=== PATIENT | male | born 1945 | race Caucasian/White ===

== ENCOUNTER → 2017-09-08 10:25 | Outpatient (CLI) | payer MEDICARE, SELFPAY ==
[2017-09-08 11:31] LABS: Anion Gap 11 (5-15); BUN 53 mg/dL (7-18); Calcium,Total 9.1 mg/dL (8.5-10.1); Chloride 110 mmol/L (98-107); Creatinine, Serum 2.79 mg/dL (0.70-1.30); EST Glomerular Filtration Rate 24 mL/min (>60); Est Glom Filt Rate - Afr Amer 29 mL/min (>60); Glucose 181 mg/dL (74-106); Potassium 4.3 mmol/L (3.5-5.1); Sodium Level 141 mmol/L (136-145)
== END ==
PROVIDERS: Family Provider Family Medicine; PCP Family Medicine; Visit Provider Urology
DX: C61 Malignant neoplasm of prostate (principal)
CPT/HCPCS: 36415; 80048; 84153

== ENCOUNTER 2017-10-14 05:41 | Day surgery (SDC) | payer MEDICARE, SELFPAY ==
[2017-10-14] VITALS (7 sets, daily range): BP systolic 127–142; BP diastolic 78–87; PULSE 77–85; RESP 16; TEMP 36.8–36.9; O2SAT 92–98; BMI 28.0
[2017-10-14 06:31] LABS: Bedside Glucose 198 mg/dL (70-110)
[2017-10-14] MEDS: Cefazolin 2 GM in 0.9% Normal Saline 100 ML IV (07:17)
--- NOTE | 2017-10-14 07:34 | PCM.DC.URO ---
Discharge Diet: Light diet - advance as tolerated Discharge Activity: May not drive while taking narcotic pain medications. Allergies/Adverse Reactions: Allergies nalbuphine [From Nubain] Allergy (Verified 10/07/17 09:18) Unknown ramipril [From Altace] Allergy (Verified 10/07/17 09:18) Unknown Medications to take at Discharge Mccaskill-3 Fatty Acids [Fish Oil] 1,200 mg PO DAILY 02/06/16 Sertraline HCl [Zoloft] 100 mg PO DAILY 02/06/16 Atorvastatin Calcium [Lipitor] 40 mg PO QHS 03/09/16 Folic Acid 800 mcg PO DAILY 03/09/16 Lidocaine/Prilocaine [Lidocaine-Prilocaine Cream] 1 each TP PRN PRN 03/09/16 Ascorbic Acid [Vitamin C] 1,000 mg PO DAILY 07/28/16 Calcium Carbonate/Vitamin D3 [Calcium 600 + Vit D Caplet] 1 each PO DAILY 07/28/16 Antiarthritic Combination No.2 [Glucosamine-Chondroitin] 900 mg PO DAILY 09/29/16 Baking Soda 1 tab PO DAILY 10/07/17 Insulin Glargine [Lantus (BKC)] 10 units SC QHS 10/07/17 Insulin Lispro [Humalog] 20 unit SQ BID 10/07/17 Primary Care Physician: Fidencio Mar MD [Primary Care Provider] - Please Follow Up With: Chang Horton MD When: KEEP FOLLOW UP APPT.
--- NOTE | 2017-10-14 07:35 | PCM.OPRPT ---
Report of Operation Date of Procedure: 10/14/17 Pre-Operative Diagnosis: Prostate cancer with bilateral obstruction bilateral stents now has bilateral nephrostomy tubes. Post-Operative Diagnosis: Same Surgery/Procedure Performed:: Cystoscopy and removal of bilateral stents. Description of Surgical Findings:: Patient was taken back to the operating room at the smooth induction of MAC local he is placed in dorsal lithotomy position the penis and testicles were prepped and draped in usual sterile fashion within the bladder with a 21 Setswana rigid cystourethroscope grabbed the existing stents and pulled it out atraumatically. Patient bladder was drained is taken at the PACU in good condition. Type of Anesthesia:: General Drains: STENTS REMOVED - Admit VTE Documentation VTE Present on Admission: No VTE Mechan Device Prophylaxis: SCD's VTE Pharm Prophylaxis ordered?: No Reason prophylaxis not ordered:: Treatment Not Indicated
== END 2017-10-14 08:38 | disposition home or self-care (01) ==
LOC: SDC 05:41 → AC 05:42
PROVIDERS: Family Provider Family Medicine; PCP Family Medicine; Visit Provider Urology
PROC: (CPT 52310; principal; 2017-10-14 07:20)
DX: C61 Malignant neoplasm of prostate (principal); C79.51 Secondary malignant neoplasm of bone; N31.2 Flaccid neuropathic bladder, not elsewhere classified; R35.0 Frequency of micturition; N13.1 Hydronephrosis with ureteral stricture, not elsewhere classified; I10 Essential (primary) hypertension; E78.5 Hyperlipidemia, unspecified; I25.10 Atherosclerotic heart disease of native coronary artery without angina pectoris; F32.9 Major depressive disorder, single episode, unspecified; E11.9 Type 2 diabetes mellitus without complications; H91.90 Unspecified hearing loss, unspecified ear; G47.30 Sleep apnea, unspecified; Z79.899 Other long term (current) drug therapy; Z79.4 Long term (current) use of insulin
CPT/HCPCS: 52310; 82962; J7120; A4216; J2405

== ENCOUNTER → 2017-10-17 12:26 | Outpatient (CLI) | payer MEDICARE, SELFPAY ==
[2017-10-17 13:00] LABS: Hematocrit 37.1 % (40-54); Hemoglobin 12.4 g/dl (13.0-16.5); Mean Corp Hgb Conc 33.4 g/gl (32-36); Mean Corpuscular Hgb 31.4 pg (27.0-32.0); Mean Corpuscular Volume 93.9 fL (80-94); Mean Platelet Vol. 8.7 fl (6.2-12.0); Platelet Count 98 K/mm3 (150-450); RBC Distribution Width CV 14.2 % (11.6-14.6); RBC Distribution Width SD 48.4 fl (35.1-43.9); Red Blood Count 3.95 M/mm3 (4.6-6.2); Scan Indicated on CBC? Y/N NO; White Blood Count 6.2 K/mm3 (4.4-11.0)
[2017-10-17 13:07] LABS: Protein:Creat Ratio 2827 mg/g CRE (0-200)
[2017-10-17 13:28] LABS: Albumin, Serum 3.7 g/dL (3.2-5.0); BUN 49 mg/dL (7-18); BUN/Creat Ratio 18.8 RATIO (10-20); Calcium,Total 8.8 mg/dL (8.5-10.1); Chloride 110 mmol/L (98-107); Creatinine, Serum 2.61 mg/dL (0.70-1.30); EST Glomerular Filtration Rate 26 mL/min (>60); Est Glom Filt Rate - Afr Amer 31 mL/min (>60); Glucose 167 mg/dL (74-106); Phosphorus 2.8 mg/dL (2.5-4.9); Potassium 4.5 mmol/L (3.5-5.1); Sodium Level 141 mmol/L (136-145)
[2017-10-17 13:34] LABS: PTHIN 69.2 pg/mL (18.4-80.1)
== END ==
PROVIDERS: Family Provider Family Medicine; PCP Family Medicine; Visit Provider Internal Medicine Nephrology
DX: N18.4 Chronic kidney disease, stage 4 (severe) (principal); R80.9 Proteinuria, unspecified
CPT/HCPCS: 36415; 80069; 82570; 83970; 84156; 85027

== ENCOUNTER → 2017-10-24 16:12 | Outpatient (CLI) | payer MEDICARE, SELFPAY ==
[2017-10-24 17:19] LABS: Absolute Lymphocyte Count 2.63 X10^3/ul (0.83-4.51); Absolute Neutrophil Count 3.2 X10^3/uL (2.0-7.7); Basophil# 0.03 X10^3/uL; Basophil% 0.4 % (0-1); Eosinophil# 0.24 X10^3/uL; Eosinophils% 3.6 % (0-5); Hematocrit 38.7 % (40-54); Hemoglobin 12.8 g/dl (13.0-16.5); Lymphocyte # 2.63 X10^3/ul (4.0); Mean Corp Hgb Conc 33.1 g/gl (32-36); Mean Corpuscular Hgb 31.4 pg (27.0-32.0); Mean Corpuscular Volume 94.9 fL (80-94); Mean Platelet Vol. 9.2 fl (6.2-12.0); Monocyte# 0.63 X10^3/uL; Monocyte% 9.3 % (0-10); Neutrophil # 3.21 X10^3/uL (2.7-7.7); Neutrophil % 47.6 % (47-70); Platelet Count 102 K/mm3 (150-450); RBC Distribution Width CV 14.9 % (11.6-14.6); RBC Distribution Width SD 50.8 fl (35.1-43.9); Red Blood Count 4.08 M/mm3 (4.6-6.2); White Blood Count 6.8 K/mm3 (4.4-11.0)
[2017-10-24 17:22] LABS: POSITIVE COUNT NO; POSITIVE DIFFERENTIAL NO; POSITIVE MORPHOLOGY NO
[2017-10-24 17:47] LABS: AST(SGOT) 19 U/L (15-37); Alanine Aminotransfer ALT/SGPT 26 U/L (16-61); Albumin, Serum 3.9 g/dL (3.2-5.0); Alkaline Phosphatase 70 U/L (45-117); Anion Gap 10 (5-15); BUN 59 mg/dL (7-18); BUN/Creat Ratio 19.1 RATIO (10-20); Chloride 111 mmol/L (98-107); Creatinine, Serum 3.09 mg/dL (0.70-1.30); EST Glomerular Filtration Rate 21 mL/min (>60); Est Glom Filt Rate - Afr Amer 26 mL/min (>60); Globulin 3.9 g/dL (2.2-4.2); Glucose 79 mg/dL (74-106); Potassium 4.6 mmol/L (3.5-5.1); Protein, Total 7.8 g/dL (6.4-8.2); Sodium Level 140 mmol/L (136-145)
[2017-10-25 00:15] LABS: Xtra Tube EP Lab EXTRA TUBE
[2017-10-26 15:40] LABS: PSA, Total 1.4 ng/mL (0.0-4.0)
== END ==
PROVIDERS: Nurse Practitioner Family; Family Provider Family Medicine; PCP Family Medicine; Visit Provider Internal Medicine Medical Oncology
DX: C61 Malignant neoplasm of prostate (principal)
CPT/HCPCS: 36415; 80053; 84153; 85025

== ENCOUNTER → 2017-11-07 10:50 | Outpatient (CLI) | payer MEDICARE, SELFPAY | PROVIDERS: Family Provider Family Medicine; PCP Family Medicine; Visit Provider Urology | DX: N39.0 Urinary tract infection, site not specified (principal) | CPT/HCPCS: 87077; 87086; 87088; 87186 ==

== ENCOUNTER → 2017-11-16 08:58 | Outpatient (CLI) | payer MEDICARE, SELFPAY ==
--- NOTE | 2017-11-16 09:30 | RAD_ITS ---
STUDY: NEPHROSTOMY TUBE EXCHANGE RIGHT REASON FOR EXAM: Male, 71 years old. Displacement of the right percutaneous nephrostomy catheter FLUOROSCOPY TIME (if supplied): (0:56) minutes/seconds TECHNIQUE: The overlying skin was prepped and draped in the usual sterile fashion. An Amplatz guidewire was placed into the indwelling nephrostomy tube. Following this, a new 8 Venezuelan percutaneous nephrostomy catheter was placed with the tip in the proximal right ureter. COMPARISON: None. FINDINGS: Successful right nephrostomy tube exchange. The patient tolerated the procedure well. RAD/Nephrostomy Tube Exchange IMPRESSION: Successful right nephrostomy tube exchange. Electronically Signed: Hesham Lawson MD at 12:54 EDT Tel [phone], Service support ,
== END ==
PROVIDERS: Family Provider Family Medicine; PCP Family Medicine; Visit Provider Urology
DX: N13.1 Hydronephrosis with ureteral stricture, not elsewhere classified (principal)
CPT/HCPCS: 50435

== ENCOUNTER → 2017-11-24 09:48 | Outpatient (CLI) | payer MEDICARE, SELFPAY ==
[2017-11-24 11:28] LABS: Albumin, Serum 3.7 g/dL (3.2-5.0); BUN 53 mg/dL (7-18); BUN/Creat Ratio 17.7 RATIO (10-20); Chloride 112 mmol/L (98-107); Creatinine, Serum 2.99 mg/dL (0.70-1.30); EST Glomerular Filtration Rate 22 mL/min (>60); Est Glom Filt Rate - Afr Amer 27 mL/min (>60); Glucose 196 mg/dL (74-106); Potassium 4.4 mmol/L (3.5-5.1); Sodium Level 139 mmol/L (136-145)
== END ==
PROVIDERS: Family Provider Family Medicine; PCP Family Medicine; Visit Provider Internal Medicine Nephrology
DX: E11.22 Type 2 diabetes mellitus with diabetic chronic kidney disease (principal); N18.9 Chronic kidney disease, unspecified
CPT/HCPCS: 36415; 80069

== ENCOUNTER → 2017-12-22 09:35 | Outpatient (CLI) | payer MEDICARE, SELFPAY ==
[2017-12-22 11:41] LABS: Anion Gap 12 (5-15); BUN 46 mg/dL (7-18); BUN/Creat Ratio 16.1 RATIO (10-20); Calcium,Total 9.2 mg/dL (8.5-10.1); Chloride 112 mmol/L (98-107); Creatinine, Serum 2.85 mg/dL (0.70-1.30); EST Glomerular Filtration Rate 23 mL/min (>60); Est Glom Filt Rate - Afr Amer 28 mL/min (>60); Glucose 148 mg/dL (74-106); PSA,Total- Diagnostic 1.52 ng/mL (0.0-4.0); Potassium 4.9 mmol/L (3.5-5.1); Sodium Level 141 mmol/L (136-145)
== END ==
PROVIDERS: Family Provider Family Medicine; PCP Family Medicine; Visit Provider Urology
DX: C61 Malignant neoplasm of prostate (principal)
CPT/HCPCS: 36415; 80048; 84153

== ENCOUNTER → 2017-12-27 10:06 | Outpatient (CLI) | payer MEDICARE, SELFPAY ==
[2017-12-27 14:31] LABS: Anion Gap 13 (5-15); BUN 50 mg/dL (7-18); BUN/Creat Ratio 16.2 RATIO (10-20); Chloride 112 mmol/L (98-107); Cholesterol 105 mg/dL (200); Creatinine, Serum 3.08 mg/dL (0.70-1.30); EST Glomerular Filtration Rate 21 mL/min (>60); Est Glom Filt Rate - Afr Amer 26 mL/min (>60); Glucose 161 mg/dL (74-106); High Density Lipoprotein 20 mg/dL; Potassium 4.3 mmol/L (3.5-5.1); Sodium Level 140 mmol/L (136-145); Triglycerides 478 mg/dL
== END ==
PROVIDERS: Family Provider Family Medicine; PCP Family Medicine; Visit Provider Family Medicine
DX: E11.9 Type 2 diabetes mellitus without complications (principal); E78.5 Hyperlipidemia, unspecified
CPT/HCPCS: 36415; 80048; 80061; 83036

== ENCOUNTER → 2017-12-29 09:40 | Outpatient (CLI) | payer MEDICARE, SELFPAY ==
--- NOTE | 2017-12-29 09:43 | RAD_ITS ---
STUDY: NEPHROSTOMY TUBE CHANGE LEFT REASON FOR EXAM: Male, 72 years old. The patient is scheduled for exchange of the left nephrostomy catheter. FLUOROSCOPY TIME (if supplied): (36 seconds.) minutes/seconds TECHNIQUE: The patient was in the prone position. The overlying skin was prepped and draped in usual sterile fashion. The indwelling 8 Vincentian nephrostomy catheter was exchanged over a guidewire. The patient tolerated the procedure well. COMPARISON: None. FINDINGS: Successful exchange of the left nephrostomy catheter with an 8 Vincentian nephrostomy catheter. RAD/Nephrostomy Tube Exchange IMPRESSION: Successful left nephrostomy tube exchange. The patient tolerated the procedure well. Electronically Signed: Hesham Lawson MD at 12:55 EDT Tel [phone], Service support ,
--- NOTE | 2017-12-29 10:20 | RAD_ITS ---
STUDY: NEPHROSTOMY CATHETER EXCHANGE RIGHT REASON FOR EXAM: Male, 72 years old. Indwelling right nephrostomy catheter. FLUOROSCOPY TIME (if supplied): (36 seconds.) minutes/seconds TECHNIQUE: The patient was in the prone position. The right flank was prepped and draped in the usual sterile fashion. Following local anesthetic application and under direct venographic guidance, the indwelling nephrostomy catheter was exchanged for a new 8 Montserratian nephrostomy catheter. The patient tolerated the procedure well. COMPARISON: None. RAD/Nephrostomy Tube Exchange IMPRESSION: Successful exchange of the right atrium and percutaneous nephrostomy catheter. The tip is within the right renal pelvis. The patient tolerated the procedure well. Electronically Signed: Hesham Lawson MD at 12:56 EDT Tel [phone], Service support ,
== END ==
PROVIDERS: Family Provider Family Medicine; PCP Family Medicine; Visit Provider Urology
DX: N13.1 Hydronephrosis with ureteral stricture, not elsewhere classified (principal); R33.9 Retention of urine, unspecified
CPT/HCPCS: 50435

== ENCOUNTER → 2018-01-16 13:50 | Outpatient (CLI) | payer MEDICARE, SELFPAY ==
[2018-01-16 14:53] LABS: Hematocrit 34.2 % (40-54); Hemoglobin 11.9 g/dl (13.0-16.5); Mean Corp Hgb Conc 34.8 g/gl (32-36); Mean Corpuscular Hgb 32.4 pg (27.0-32.0); Mean Corpuscular Volume 93.2 fL (80-94); Mean Platelet Vol. 9.3 fl (6.2-12.0); Platelet Count 100 K/mm3 (150-450); RBC Distribution Width SD 49.2 fl (35.1-43.9); Red Blood Count 3.67 M/mm3 (4.6-6.2); White Blood Count 5.8 K/mm3 (4.4-11.0)
[2018-01-16 14:54] LABS: Scan Indicated on CBC? Y/N NO
[2018-01-16 15:14] LABS: Albumin, Serum 3.8 g/dL (3.2-5.0); BUN 61 mg/dL (7-18); BUN/Creat Ratio 17.8 RATIO (10-20); Calcium,Total 9.2 mg/dL (8.5-10.1); Chloride 111 mmol/L (98-107); Creatinine, Serum 3.43 mg/dL (0.70-1.30); EST Glomerular Filtration Rate 19 mL/min (>60); Est Glom Filt Rate - Afr Amer 23 mL/min (>60); Glucose 232 mg/dL (74-106); Phosphorus 2.7 mg/dL (2.5-4.9); Potassium 4.5 mmol/L (3.5-5.1); Sodium Level 144 mmol/L (136-145)
[2018-01-16 15:25] LABS: Vitamin D,25 Hydroxy 18.2 ng/mL (29.95-100.01)
== END ==
PROVIDERS: Family Provider Family Medicine; PCP Family Medicine; Visit Provider Internal Medicine Nephrology
DX: E11.22 Type 2 diabetes mellitus with diabetic chronic kidney disease (principal); N18.4 Chronic kidney disease, stage 4 (severe)
CPT/HCPCS: 36415; 80069; 82306; 85027

== ENCOUNTER → 2018-01-26 09:03 | Outpatient (CLI) | payer MEDICARE, SELFPAY ==
[2018-01-26 09:53] LABS: Albumin, Serum 3.9 g/dL (3.2-5.0); BUN 61 mg/dL (7-18); BUN/Creat Ratio 17.5 RATIO (10-20); Calcium,Total 9.1 mg/dL (8.5-10.1); Chloride 112 mmol/L (98-107); Creatinine, Serum 3.48 mg/dL (0.70-1.30); EST Glomerular Filtration Rate 18 mL/min (>60); Est Glom Filt Rate - Afr Amer 22 mL/min (>60); Glucose 166 mg/dL (74-106); Phosphorus 3.4 mg/dL (2.5-4.9); Potassium 4.7 mmol/L (3.5-5.1); Sodium Level 142 mmol/L (136-145)
== END ==
PROVIDERS: Family Provider Family Medicine; PCP Family Medicine; Visit Provider Internal Medicine Nephrology
DX: R30.0 Dysuria (principal); N17.9 Acute kidney failure, unspecified
CPT/HCPCS: 36415; 80069; 87086; 87088; 87186

== ENCOUNTER → 2018-02-07 10:50 | Outpatient (CLI) | payer MEDICARE, SELFPAY ==
--- NOTE | 2018-02-07 11:08 | RAD_ITS ---
STUDY: RIGHT NEPHROSTOMY CATHETER FLUOROSCOPICALLY GUIDED INJECTION REASON FOR EXAM: Male, 72 years old. Indwelling right nephrostomy catheter. Check patency. FLUOROSCOPY TIME (if supplied): (30 seconds.) COMPARISON: 12/29/2017 TECHNIQUE: The patient was in the prone position. The right indwelling nephrostomy catheter was injected with Cystografin. The patient tolerated the procedure well. Findings: Initially, iodine contrast is noted within the nephrostomy tube but not pigtail portion. Small amount of contrast appears to exit the most lateral lumen of the pigtail catheter and partially fills the lateral nephrostomy tube track outside of the nephrostomy tube. Subsequent injection shows filling of the moderately enlarged inferior pelvicalyceal system, moderately enlarged renal pelvis plus moderately enlarged proximal ureter without filling defect identified. No filling is identified of the mid and upper right renal collecting system. RAD/Urography Antegrade Nephrostog IMPRESSION: High-grade obstruction right nephrostomy tube as described. However, the nephrostomy tube tip is identified within the right renal inferior pelvocalyceal system with moderate dilated left renal pelvis and proximal ureter seen without filling defects. Small amount of iodinated contrast fills the nephrostomy tract laterally within the initial injection as described. Results communicated by Dr. Daugherty to the patient's attending physician Dr. Horton 02/07/2018 at approximately 1230 hours. The patient tolerated the procedure well and stated he would call and arrange for a visit with Dr. Horton. Electronically Signed: Konrad Daugherty, at 15:29 EDT Tel , Service support ,
== END ==
PROVIDERS: Family Provider Family Medicine; PCP Family Medicine; Visit Provider Urology
DX: N13.30 Unspecified hydronephrosis (principal)
CPT/HCPCS: 50684; 74425; Q9967

== ENCOUNTER → 2018-02-09 13:22 | Outpatient (CLI) | payer MEDICARE, SELFPAY ==
[2018-02-09 14:54] LABS: Albumin, Serum 3.8 g/dL (3.2-5.0); BUN 55 mg/dL (7-18); BUN/Creat Ratio 15.5 RATIO (10-20); Calcium,Total 9.5 mg/dL (8.5-10.1); Chloride 110 mmol/L (98-107); Creatinine, Serum 3.54 mg/dL (0.70-1.30); EST Glomerular Filtration Rate 18 mL/min (>60); Est Glom Filt Rate - Afr Amer 22 mL/min (>60); Glucose 193 mg/dL (74-106); Phosphorus 3.5 mg/dL (2.5-4.9); Potassium 4.9 mmol/L (3.5-5.1); Sodium Level 140 mmol/L (136-145)
== END ==
PROVIDERS: Family Provider Family Medicine; PCP Family Medicine; Visit Provider Internal Medicine Nephrology
DX: N18.4 Chronic kidney disease, stage 4 (severe) (principal)
CPT/HCPCS: 36415; 80069

== ENCOUNTER → 2018-02-13 17:43 | Outpatient (CLI) | payer MEDICARE, SELFPAY | PROVIDERS: Visit Provider Urology | DX: R82.99 Other abnormal findings in urine (principal) | CPT/HCPCS: 87086; 87088; 87186 ==

== ENCOUNTER → 2018-03-08 09:41 | Outpatient (CLI) | payer MEDICARE, SELFPAY ==
[2018-03-08 12:42] LABS: Albumin, Serum 3.7 g/dL (3.2-5.0); BUN 51 mg/dL (7-18); BUN/Creat Ratio 16.6 RATIO (10-20); Calcium,Total 9.2 mg/dL (8.5-10.1); Chloride 116 mmol/L (98-107); Creatinine, Serum 3.07 mg/dL (0.70-1.30); EST Glomerular Filtration Rate 21 mL/min (>60); Est Glom Filt Rate - Afr Amer 26 mL/min (>60); Glucose 119 mg/dL (74-106); Phosphorus 3.4 mg/dL (2.5-4.9); Potassium 4.7 mmol/L (3.5-5.1); Sodium Level 142 mmol/L (136-145)
== END ==
PROVIDERS: Family Provider Family Medicine; PCP Family Medicine; Visit Provider Internal Medicine Nephrology
DX: N18.4 Chronic kidney disease, stage 4 (severe) (principal)
CPT/HCPCS: 36415; 80069

== ENCOUNTER → 2018-03-30 10:47 | Outpatient (CLI) | payer MEDICARE, SELFPAY ==
[2018-03-30 11:50] LABS: Anion Gap 8 (5-15); BUN 57 mg/dL (7-18); BUN/Creat Ratio 17.5 RATIO (10-20); Calcium,Total 9.3 mg/dL (8.5-10.1); Chloride 112 mmol/L (98-107); Creatinine, Serum 3.25 mg/dL (0.70-1.30); EST Glomerular Filtration Rate 20 mL/min (>60); Est Glom Filt Rate - Afr Amer 24 mL/min (>60); Glucose 120 mg/dL (74-106); PSA,Total- Diagnostic 2.21 ng/mL (0.0-4.0); Potassium 4.6 mmol/L (3.5-5.1); Sodium Level 138 mmol/L (136-145)
== END ==
PROVIDERS: Family Provider Family Medicine; PCP Family Medicine; Referring Provider Urology; Visit Provider Urology
DX: C61 Malignant neoplasm of prostate (principal)
CPT/HCPCS: 36415; 80048; 84153

== ENCOUNTER → 2018-04-06 09:51 | Outpatient (CLI) | payer MEDICARE, SELFPAY ==
[2018-04-06 10:53] LABS: Anion Gap 11 (5-15); BUN 57 mg/dL (7-18); BUN/Creat Ratio 16.4 RATIO (10-20); Calcium,Total 8.9 mg/dL (8.5-10.1); Chloride 112 mmol/L (98-107); Cholesterol 94 mg/dL (200); Creatinine, Serum 3.47 mg/dL (0.70-1.30); EST Glomerular Filtration Rate 19 mL/min (>60); Est Glom Filt Rate - Afr Amer 22 mL/min (>60); Glucose 290 mg/dL (74-106); High Density Lipoprotein 17 mg/dL; Potassium 4.2 mmol/L (3.5-5.1); Sodium Level 140 mmol/L (136-145); Triglycerides 820 mg/dL
== END ==
PROVIDERS: Family Provider Family Medicine; PCP Family Medicine; Referring Provider Family Medicine; Visit Provider Family Medicine
DX: E11.9 Type 2 diabetes mellitus without complications (principal); E78.5 Hyperlipidemia, unspecified
CPT/HCPCS: 36415; 80048; 80061; 83036

== ENCOUNTER → 2018-04-24 09:44 | Outpatient (CLI) | payer MEDICARE, SELFPAY ==
[2018-04-24 12:25] LABS: Absolute Lymphocyte Count 2.01 X10^3/ul (0.83-4.51); Absolute Neutrophil Count 2.5 X10^3/uL (2.0-7.7); Basophil# 0.04 X10^3/uL; Basophil% 0.7 % (0-1); Eosinophil# 0.26 X10^3/uL; Eosinophils% 4.8 % (0-5); Hematocrit 34.4 % (40-54); Hemoglobin 11.5 g/dl (13.0-16.5); Lymphocyte # 2.01 X10^3/ul (4.0); Lymphocyte % 37.2 % (19-41); Mean Corp Hgb Conc 33.4 g/gl (32-36); Mean Corpuscular Volume 95.8 fL (80-94); Mean Platelet Vol. 9.6 fl (6.2-12.0); Monocyte# 0.53 X10^3/uL; Monocyte% 9.8 % (0-10); Neutrophil # 2.52 X10^3/uL (2.7-7.7); Neutrophil % 46.6 % (47-70); Platelet Count 124 K/mm3 (150-450); RBC Distribution Width CV 14.5 % (11.6-14.6); RBC Distribution Width SD 48.3 fl (35.1-43.9); Red Blood Count 3.59 M/mm3 (4.6-6.2); White Blood Count 5.4 K/mm3 (4.4-11.0)
[2018-04-24 12:30] LABS: POSITIVE COUNT NO; POSITIVE DIFFERENTIAL NO; POSITIVE MORPHOLOGY NO
[2018-04-24 13:00] LABS: ALB/GLOB Ratio 1.1 RATIO (0.9-2.4); AST(SGOT) 18 U/L (15-37); Alanine Aminotransfer ALT/SGPT 24 U/L (16-61); Alkaline Phosphatase 81 U/L (45-117); Anion Gap 13 (5-15); BUN 57 mg/dL (7-18); BUN/Creat Ratio 17.5 RATIO (10-20); Calcium,Total 8.9 mg/dL (8.5-10.1); Chloride 107 mmol/L (98-107); Creatinine, Serum 3.25 mg/dL (0.70-1.30); EST Glomerular Filtration Rate 20 mL/min (>60); Est Glom Filt Rate - Afr Amer 24 mL/min (>60); Globulin 3.7 g/dL (2.2-4.2); Glucose 194 mg/dL (74-106); PSA,Total- Diagnostic 2.63 ng/mL (0.0-4.0); Potassium 4.6 mmol/L (3.5-5.1); Protein, Total 7.7 g/dL (6.4-8.2); Sodium Level 141 mmol/L (136-145)
[2018-04-24 17:47] LABS: Xtra Tube EP Lab EXTRA TUBE
== END ==
PROVIDERS: Family Provider Family Medicine; PCP Family Medicine; Referring Provider Internal Medicine Medical Oncology; Visit Provider Internal Medicine Medical Oncology
DX: C61 Malignant neoplasm of prostate (principal)
CPT/HCPCS: 36415; 80053; 84153; 85025

== ENCOUNTER → 2018-05-11 09:14 | Outpatient (CLI) | payer MEDICARE, SELFPAY ==
[2018-05-11 10:33] LABS: Hematocrit 33.6 % (40-54); Hemoglobin 10.9 g/dl (13.0-16.5); Mean Corp Hgb Conc 32.4 g/gl (32-36); Mean Corpuscular Hgb 31.1 pg (27.0-32.0); Mean Corpuscular Volume 95.7 fL (80-94); Mean Platelet Vol. 9.4 fl (6.2-12.0); Platelet Count 111 K/mm3 (150-450); RBC Distribution Width CV 15.4 % (11.6-14.6); RBC Distribution Width SD 53.7 fl (35.1-43.9); Red Blood Count 3.51 M/mm3 (4.6-6.2); White Blood Count 4.7 K/mm3 (4.4-11.0)
[2018-05-11 10:37] LABS: Scan Indicated on CBC? Y/N NO
[2018-05-11 11:03] LABS: Albumin, Serum 3.6 g/dL (3.2-5.0); BUN 55 mg/dL (7-18); BUN/Creat Ratio 16.2 RATIO (10-20); Calcium,Total 8.8 mg/dL (8.5-10.1); Chloride 111 mmol/L (98-107); Creatinine, Serum 3.39 mg/dL (0.70-1.30); EST Glomerular Filtration Rate 19 mL/min (>60); Est Glom Filt Rate - Afr Amer 23 mL/min (>60); Glucose 223 mg/dL (74-106); Phosphorus 3.3 mg/dL (2.5-4.9); Potassium 4.5 mmol/L (3.5-5.1); Sodium Level 141 mmol/L (136-145)
[2018-05-11 11:04] LABS: PTHIN 74.6 pg/mL (18.4-80.1)
== END ==
PROVIDERS: Family Provider Family Medicine; PCP Family Medicine; Referring Provider Internal Medicine Nephrology; Visit Provider Internal Medicine Nephrology
DX: N18.4 Chronic kidney disease, stage 4 (severe) (principal)
CPT/HCPCS: 36415; 80069; 83970; 85027

== ENCOUNTER → 2018-07-05 09:22 | Outpatient (CLI) | payer MEDICARE, SELFPAY ==
[2018-04-27 11:14] VITALS: BMI 30.5
[2018-07-05 11:14] LABS: Hematocrit 35.5 % (40-54); Hemoglobin 11.5 g/dl (13.0-16.5); Mean Corp Hgb Conc 32.4 g/gl (32-36); Mean Corpuscular Hgb 30.2 pg (27.0-32.0); Mean Corpuscular Volume 93.2 fL (80-94); Mean Platelet Vol. 9.7 fl (6.2-12.0); Platelet Count 102 K/mm3 (150-450); RBC Distribution Width CV 15.3 % (11.6-14.6); RBC Distribution Width SD 50.5 fl (35.1-43.9); Red Blood Count 3.81 M/mm3 (4.6-6.2); White Blood Count 4.9 K/mm3 (4.4-11.0)
[2018-07-05 11:15] LABS: Scan Indicated on CBC? Y/N NO
[2018-07-05 11:55] LABS: Albumin, Serum 3.9 g/dL (3.2-5.0); BUN 73 mg/dL (7-18); BUN/Creat Ratio 22.1 RATIO (10-20); Calcium,Total 9.1 mg/dL (8.5-10.1); Chloride 109 mmol/L (98-107); EST Glomerular Filtration Rate 20 mL/min (>60); Est Glom Filt Rate - Afr Amer 24 mL/min (>60); Glucose 194 mg/dL (74-106); Potassium 4.4 mmol/L (3.5-5.1); Sodium Level 140 mmol/L (136-145)
[2018-07-05 11:56] LABS: PTHIN 76.9 pg/mL (18.4-80.1)
== END ==
PROVIDERS: Family Provider Family Medicine; PCP Family Medicine; Referring Provider Internal Medicine Nephrology; Visit Provider Internal Medicine Nephrology
DX: N18.4 Chronic kidney disease, stage 4 (severe) (principal)
CPT/HCPCS: 36415; 80069; 83970; 85027

== ENCOUNTER → 2018-07-10 09:29 | Outpatient (CLI) | payer MEDICARE, SELFPAY ==
[2018-04-27 11:14] VITALS: BMI 30.5
[2018-07-10 10:39] LABS: PSA,Total- Diagnostic 3.82 ng/mL (0.0-4.0)
== END ==
PROVIDERS: Family Provider Family Medicine; PCP Family Medicine; Referring Provider Urology; Visit Provider Urology
DX: C61 Malignant neoplasm of prostate (principal)
CPT/HCPCS: 36415; 84153

== ENCOUNTER → 2018-09-11 09:10 | Outpatient (CLI) | payer MEDICARE, SELFPAY ==
[2018-04-27 11:14] VITALS: BMI 30.5
[2018-09-11 09:55] LABS: Hematocrit 34.6 % (40-54); Hemoglobin 11.2 g/dl (13.0-16.5); Mean Corp Hgb Conc 32.4 g/gl (32-36); Mean Corpuscular Hgb 29.6 pg (27.0-32.0); Mean Corpuscular Volume 91.5 fL (80-94); Mean Platelet Vol. 9.4 fl (6.2-12.0); Platelet Count 119 K/mm3 (150-450); RBC Distribution Width CV 15.9 % (11.6-14.6); RBC Distribution Width SD 51.7 fl (35.1-43.9); Red Blood Count 3.78 M/mm3 (4.6-6.2); White Blood Count 6.9 K/mm3 (4.4-11.0)
[2018-09-11 09:58] LABS: Scan Indicated on CBC? Y/N NO
[2018-09-11 10:19] LABS: Albumin, Serum 3.8 g/dL (3.2-5.0); BUN 70 mg/dL (7-18); BUN/Creat Ratio 20.5 RATIO (10-20); Calcium,Total 9.4 mg/dL (8.5-10.1); Chloride 108 mmol/L (98-107); Creatinine, Serum 3.42 mg/dL (0.70-1.30); EST Glomerular Filtration Rate 19 mL/min (>60); Est Glom Filt Rate - Afr Amer 23 mL/min (>60); Glucose 235 mg/dL (74-106); Phosphorus 4.2 mg/dL (2.5-4.9); Potassium 4.7 mmol/L (3.5-5.1); Sodium Level 139 mmol/L (136-145)
[2018-09-11 10:24] LABS: PTHIN 60.2 pg/mL (18.4-80.1)
== END ==
PROVIDERS: Family Provider Family Medicine; PCP Family Medicine; Referring Provider Internal Medicine Nephrology; Visit Provider Internal Medicine Nephrology
DX: N18.4 Chronic kidney disease, stage 4 (severe) (principal)
CPT/HCPCS: 36415; 80069; 83970; 85027

== ENCOUNTER → 2018-10-10 | Outpatient (CLI) | payer MEDICARE, SELFPAY ==
[2018-04-27 11:14] VITALS: BMI 30.5
[2018-10-10 11:38] LABS: Anion Gap 6 (5-15); BUN 47 mg/dL (7-18); BUN/Creat Ratio 13.5 RATIO (10-20); Calcium,Total 9.3 mg/dL (8.5-10.1); Chloride 112 mmol/L (98-107); Creatinine, Serum 3.47 mg/dL (0.70-1.30); EST Glomerular Filtration Rate 18 mL/min (>60); Est Glom Filt Rate - Afr Amer 22 mL/min (>60); Glucose 161 mg/dL (74-106); Potassium 5.2 mmol/L (3.5-5.1); Sodium Level 138 mmol/L (136-145)
== END | disposition home or self-care (01) ==
LOC: LAB 10:10
PROVIDERS: Family Provider Family Medicine; PCP Family Medicine; Referring Provider Urology; Visit Provider Urology
DX: C61 Malignant neoplasm of prostate (principal)
CPT/HCPCS: 36415; 80048; 84153

== ENCOUNTER → 2018-10-23 | Outpatient (CLI) | payer MEDICARE, SELFPAY ==
[2018-10-23 08:23] LABS: Absolute Lymphocyte Count 1.65 X10^3/ul (0.83-4.51); Basophil# 0.02 X10^3/uL; Basophil% 0.3 % (0-1); Eosinophil# 0.17 X10^3/uL; Eosinophils% 2.3 % (0-5); Hematocrit 32.7 % (40-54); Hemoglobin 10.7 g/dl (13.0-16.5); Lymphocyte # 1.65 X10^3/ul (4.0); Lymphocyte % 22.7 % (19-41); Mean Corp Hgb Conc 32.7 g/gl (32-36); Mean Corpuscular Hgb 28.7 pg (27.0-32.0); Mean Corpuscular Volume 87.7 fL (80-94); Mean Platelet Vol. 8.5 fl (6.2-12.0); Monocyte# 0.41 X10^3/uL; Monocyte% 5.6 % (0-10); Neutrophil # 4.98 X10^3/uL (2.7-7.7); Neutrophil % 68.7 % (47-70); Platelet Count 123 K/mm3 (150-450); RBC Distribution Width CV 16.6 % (11.6-14.6); RBC Distribution Width SD 53.1 fl (35.1-43.9); Red Blood Count 3.73 M/mm3 (4.6-6.2); White Blood Count 7.3 K/mm3 (4.4-11.0)
[2018-10-23 08:38] LABS: POSITIVE COUNT NO; POSITIVE DIFFERENTIAL NO; POSITIVE MORPHOLOGY NO
[2018-10-23 08:50] LABS: Anion Gap 10 (5-15); BUN 73 mg/dL (7-18); BUN/Creat Ratio 18.4 RATIO (10-20); Chloride 111 mmol/L (98-107); Cholesterol 90 mg/dL (200); Creatinine, Serum 3.96 mg/dL (0.70-1.30); EST Glomerular Filtration Rate 16 mL/min (>60); Est Glom Filt Rate - Afr Amer 19 mL/min (>60); Glucose 233 mg/dL (74-106); High Density Lipoprotein 30 mg/dL; Potassium 4.5 mmol/L (3.5-5.1); Sodium Level 137 mmol/L (136-145); Triglycerides 308 mg/dL; Very Low Density Lipoprotein 62 mg/dL (5-40)
[2018-10-23 08:57] LABS: ALB/GLOB Ratio 0.9 RATIO (0.9-2.4); AST(SGOT) 12 U/L (15-37); Alanine Aminotransfer ALT/SGPT 19 U/L (16-61); Albumin, Serum 3.8 g/dL (3.2-5.0); Alkaline Phosphatase 69 U/L (45-117); Anion Gap 11 (5-15); BUN 72 mg/dL (7-18); BUN/Creat Ratio 18.4 RATIO (10-20); Chloride 111 mmol/L (98-107); Creatinine, Serum 3.92 mg/dL (0.70-1.30); EST Glomerular Filtration Rate 16 mL/min (>60); Est Glom Filt Rate - Afr Amer 19 mL/min (>60); Globulin 4.4 g/dL (2.2-4.2); Glucose 232 mg/dL (74-106); Potassium 4.5 mmol/L (3.5-5.1); Protein, Total 8.2 g/dL (6.4-8.2); Sodium Level 138 mmol/L (136-145)
[2018-10-23 10:01] LABS: Hemoglobin A1c 7.1 % (4.2-6.3)
== END | disposition home or self-care (01) ==
PROVIDERS: Family Provider Family Medicine; PCP Family Medicine; Referring Provider Internal Medicine Medical Oncology; Visit Provider Internal Medicine Medical Oncology
DX: I10 Essential (primary) hypertension (principal); C61 Malignant neoplasm of prostate; I25.10 Atherosclerotic heart disease of native coronary artery without angina pectoris; E11.9 Type 2 diabetes mellitus without complications
CPT/HCPCS: 36415; 80048; 80053; 80061; 83036; 84153; 85025

== ENCOUNTER → 2018-11-17 | Outpatient (CLI) | payer MEDICARE, SELFPAY ==
[2018-10-26 13:09] VITALS: BMI 29.4
--- NOTE | 2018-11-17 12:43 | CT_ITS ---
STUDY: CT ABDOMEN AND PELVIS WITHOUT CONTRAST REASON FOR EXAM: Male, 72 years old. Prostate cancer. Bilateral nephrostomy tubes. RADIATION DOSAGE (If Supplied By Facility): CTDIvol = ( 14.34 ) mGy, DLP = ( 784.71 ) mGycm TECHNIQUE: Transaxial images were obtained from the dome of the diaphragm to the symphysis pubis without oral contrast, and without intravenous contrast. Sagittal and coronal images were reconstructed. Individualized dose optimization techniques were used for this CT. COMPARISON: April 23, 2017. FINDINGS: There is a stable 4 mm nodule at the right lung base. The visualized portions of the heart are within normal limits. Small cysts are noted in the liver. Normal gallbladder and extrahepatic biliary system. Normal spleen. Normal pancreas. Normal bilateral adrenal glands. A nephrostomy tube is noted in the right kidney. There is mild right hydroureter without evidence for stone. A left nephrostomy tube is noted. There is mild left hydroureter without visualization of stone. Normal visualized stomach. Normal small intestine. Normal colon. The appendix is visualized and appears normal. Normal abdominal aorta. Normal inferior vena cava. Normal retroperitoneum. There is extensive thickening of the urinary bladder wall. There is mass effect on the lower urinary bladder possibly related to prostate. Normal abdominal wall. There is stable sclerosis in the L1 vertebral body. CT/Abdomen/Pel W ORAL Cont Only IMPRESSION: Bilateral nephrostomy tubes. Prominent thickening of the urinary bladder wall. Possible mass effect in the lower urinary bladder which could be related to the prostate. Clinical correlation recommended. Bilateral hydroureter. Small cysts in the liver. Stable lung nodule on the right. Stable sclerosis in the L1 vertebral body. Underlying metastatic disease is not excluded. Electronically Signed: Dallin Choe, at 11:55 EDT Tel , Service support ,
== END | disposition home or self-care (01) ==
LOC: CT 12:42
PROVIDERS: Family Provider Family Medicine; PCP Family Medicine; Referring Provider Internal Medicine Medical Oncology; Visit Provider Internal Medicine Medical Oncology
DX: R97.20 Elevated prostate specific antigen [PSA] (principal); C61 Malignant neoplasm of prostate
CPT/HCPCS: 36415; 74176; 84153

== ENCOUNTER → 2018-11-21 | Outpatient (CLI) | payer MEDICARE, SELFPAY ==
[2018-10-26 13:09] VITALS: BMI 29.4
--- NOTE | 2018-11-21 09:54 | NM_ITS ---
CLINICAL: 72-year-old male with reported history of primary prostate carcinoma. WHOLE BODY 99m Tc MDP RADIONUCLIDE BONE SCINTIGRAPHY COMPARISON: Previous whole body bone scintigraphy study dated 02/09/2016 FINDINGS: Following the intravenous administration of 25.8 mCi of 99m Tc MDP, whole body bone images reveal: 1. Increased radiopharmaceutical concentration is currently identified in several bilateral ribs, the left sacral ala, sixth thoracic vertebra posteriorly on the left, the left acetabulum, left mid femoral diaphysis, the intertrochanteric aspect of the left proximal femur. 2. Facilitated placement concentration is currently identified in the bilateral ankles, right midfoot, the right-left forefoot, both wrist articulations, right-left hands, the sternoclavicular and acromioclavicular compartment of the right shoulder. 3. The remaining skeletal structures are scintigraphically unremarkable with normal-appearing renal images and urinary bladder activity identified. Previously identified additional focal increased tracer uptake noted on the examination dated 02/09/2016 is not apparent on the present study. NM/Bone Scan Whole Body IMPRESSION: 1. Several persistent as well as newly visualized foci demonstrated in the appendicular or axial skeletal structures consistent with osseous metastatic disease. 2. Degenerative arthritis is currently expressed in the right and left ankles, right midfoot, bilateral forefoot, right and left wrists, hands bilaterally, the right shoulder. 3. There is interim resolution of multiple prior defined skeletal abnormalities. 4. Overall compared to the previous whole body bone scintigraphy study dated 02/09/2016, there is continued demonstration of skeletal metastatic disease with an overall decrease in the total number of defined osseous abnormalities on the present examination. Electronically Signed: Ross Staples DO at 10:54 EDT Tel , Service support ,
== END | disposition home or self-care (01) ==
LOC: NM 09:53
PROVIDERS: Family Provider Family Medicine; PCP Family Medicine; Referring Provider Internal Medicine Medical Oncology; Visit Provider Internal Medicine Medical Oncology
DX: C61 Malignant neoplasm of prostate (principal); R97.20 Elevated prostate specific antigen [PSA]
CPT/HCPCS: 78306

== ENCOUNTER → 2018-12-07 | Outpatient (CLI) | payer MEDICARE, SELFPAY ==
[2018-11-23 13:27] VITALS: BMI 29.9
--- NOTE | 2018-12-07 08:53 | RAD_ITS ---
STUDY: X-RAY BONE SURVEY COMPLETE REASON FOR EXAM: Male, 72 years old. Staging of prostate cancer. TECHNIQUE: Single AP portable view of the chest. One view of the pelvis was obtained. AP and lateral views of the cervical spine were obtained. AP and lateral views of the thoracic spine were obtained. AP and lateral views of the lumbar spine were obtained. AP views of the femur. AP views of the humerus. : AP and lateral views of the skull were obtained. AP views of the forearms are available for review. COMPARISON: Bone scan dated November 21, [address] of abdomen and pelvis dated November 17, 2018.. FINDINGS: CHEST: The lungs appear hyperexpanded with prominence of bronchovascular markings. There is no demonstrated pleural abnormality. There is mild cardiac enlargement. Normal mediastinum and irvin. Normal visualized pulmonary arteries. There is atherosclerotic calcification of the aortic arch with tortuosity. There are diffuse degenerative changes of the visualized thoracic spine. There are degenerative changes of both shoulders. There is no demonstrated abnormality of the visualized soft tissue structures of the upper abdomen. PELVIS: There is a non-specific bowel gas pattern. There are multiple calcified phleboliths. The iliac wings and sacrum are obscured by bowel gas and stool. There are tiny sclerotic lesions visible in the right iliac wing that apparently are related to metastatic disease. There are also tiny areas of sclerosis in the left iliac wing. Normal visualized bilateral superior and inferior pubic rami. Normal pubic symphysis. Normal ischial tuberosities. Normal visualized right femoral head. Normal right acetabulum. Normal right hip joint. Normal visualized left femoral head. Normal left acetabulum. Normal left hip joint. CERVICAL SPINE: There are degenerative changes of the anterior atlantoaxial articulation. Normal odontoid process. Normal cervical lordosis. There is diffuse demineralization of the cervical spine. There is multi-level degenerative disc disease with multilevel disc space narrowing. Normal visualized intervertebral neuroforamina. There are vascular calcifications at the carotid bulbs. There is no demonstrated osseous destructive process of the cervical spine. THORACIC SPINE: Normal kyphosis of the thoracic spine. There is no substantial scoliosis. There is demineralization of the thoracic spine with endplate spondylosis. There is multilevel disc space narrowing of the thoracic spine. The soft tissue structures are unremarkable. LUMBAR SPINE: Normal lumbar lordosis. There is no substantial scoliosis. There is a normal alignment of the vertebrae. Normal vertebral bodies and endplates. There is multi-level degenerative disc disease with multi-level disc space narrowing. There is no demonstrated fracture. Patient has bilateral percutaneously placed nephrostomy drains. RIGHT FEMUR: Normal visualized femur. Normal visualized soft tissue structure. There is no demonstrated fracture or destructive process. LEFT FEMUR: There is a sclerotic this is unchanged since previous CT the abdomen and pelvis dated April 23, 2017. Lesion with the left femoral neck that could represent a metastatic focus. Normal visualized soft tissue structure. RIGHT HUMERUS : There is a sclerotic lesion within the proximal humerus that could represent metastatic focus. There is no demonstrated fracture. There is no demonstrated soft tissue abnormality. LEFT HUMERUS:There is diffuse demineralization of the humerus. There is no demonstrated fracture or osseous destructive process. There is no demonstrated soft tissue abnormality. SKULL: There is no demonstrated soft tissue swelling. Normal osseous calvarium. Normal visualized facial bones. Normal visualized paranasal sinuses. RAD/Bone Survey Comp(Axial&Append) IMPRESSION: 1. Multiple sclerotic lesions visible within the proximal left femur and bony pelvis apparently related to known metastases. 2. Metastases within the lumbar spine are difficult to see though are better seen on the recent CT. 3. Sclerotic lesion in the right humerus could represent additional metastatic disease. Electronically Signed: Pepper Mar MD at 11:36 EDT , Service support ,
== END | disposition home or self-care (01) ==
LOC: RAD 08:52
PROVIDERS: Family Provider Family Medicine; PCP Family Medicine; Referring Provider Internal Medicine Medical Oncology; Visit Provider Internal Medicine Medical Oncology
DX: C61 Malignant neoplasm of prostate (principal); C79.51 Secondary malignant neoplasm of bone
CPT/HCPCS: 77075

== ENCOUNTER → 2018-12-15 | Outpatient (CLI) | payer MEDICARE, SELFPAY ==
[2018-11-23 13:27] VITALS: BMI 29.9
== END | disposition home or self-care (01) ==
LOC: LAB 10:47
PROVIDERS: Family Provider Family Medicine; PCP Family Medicine; Referring Provider Internal Medicine Medical Oncology; Visit Provider Internal Medicine Medical Oncology
DX: C61 Malignant neoplasm of prostate (principal)
CPT/HCPCS: 36415; 84153

== ENCOUNTER → 2019-01-11 | Outpatient (CLI) | payer MEDICARE, SELFPAY ==
[2018-12-20 10:38] VITALS: BMI 28.7
[2019-01-11 09:41] LABS: Protein:Creat Ratio 2640 mg/g CRE (0-200)
[2019-01-11 10:00] LABS: Albumin, Serum 3.4 g/dL (3.2-5.0); BUN 81 mg/dL (7-18); BUN/Creat Ratio 18.2 RATIO (10-20); Calcium,Total 9.4 mg/dL (8.5-10.1); Chloride 116 mmol/L (98-107); Creatinine, Serum 4.46 mg/dL (0.70-1.30); EST Glomerular Filtration Rate 14 mL/min (>60); Est Glom Filt Rate - Afr Amer 17 mL/min (>60); Glucose 79 mg/dL (74-106); Phosphorus 5.2 mg/dL (2.5-4.9); Potassium 4.9 mmol/L (3.5-5.1); Sodium Level 141 mmol/L (136-145)
== END | disposition home or self-care (01) ==
LOC: LAB 09:02
PROVIDERS: Family Provider Family Medicine; PCP Family Medicine; Referring Provider Internal Medicine Nephrology; Visit Provider Internal Medicine Nephrology
DX: E11.22 Type 2 diabetes mellitus with diabetic chronic kidney disease (principal); N18.4 Chronic kidney disease, stage 4 (severe)
CPT/HCPCS: 36415; 80069; 82570; 84156

== ENCOUNTER → 2019-01-18 | Outpatient (CLI) | payer MEDICARE, SELFPAY ==
[2018-12-20 10:38] VITALS: BMI 28.7
[2019-01-18 12:36] LABS: Hematocrit 28.7 % (40-54); Mean Corp Hgb Conc 31.4 g/dL (32-36); Mean Corpuscular Hgb 28.3 pg (27.0-32.0); Mean Corpuscular Volume 90.3 fL (80-94); Mean Platelet Vol. 9.5 fl (6.2-12.0); Platelet Count 123 K/mm3 (150-450); RBC Distribution Width CV 19.3 % (11.6-14.6); RBC Distribution Width SD 63.1 fl (35.1-43.9); Red Blood Count 3.18 M/mm3 (4.6-6.2); White Blood Count 5.3 K/mm3 (4.4-11.0)
[2019-01-18 12:44] LABS: Albumin, Serum 3.3 g/dL (3.2-5.0); BUN 61 mg/dL (7-18); BUN/Creat Ratio 16.4 RATIO (10-20); Chloride 116 mmol/L (98-107); Creatinine, Serum 3.73 mg/dL (0.70-1.30); EST Glomerular Filtration Rate 17 mL/min (>60); Est Glom Filt Rate - Afr Amer 21 mL/min (>60); Glucose 84 mg/dL (74-106); Phosphorus 3.2 mg/dL (2.5-4.9); Sodium Level 141 mmol/L (136-145)
[2019-01-18 13:04] LABS: PTHIN 92.6 pg/mL (18.4-80.1)
== END | disposition home or self-care (01) ==
LOC: POLAB3 09:46
PROVIDERS: Family Provider Family Medicine; PCP Family Medicine; Visit Provider Internal Medicine Nephrology
DX: N18.4 Chronic kidney disease, stage 4 (severe) (principal); D63.1 Anemia in chronic kidney disease
CPT/HCPCS: 36415; 80069; 83970; 85027

== ENCOUNTER → 2019-01-29 | Outpatient (CLI) | payer MEDICARE, SELFPAY ==
[2019-01-22 09:53] VITALS: BMI 28.7
[2019-01-29 11:25] LABS: Absolute Lymphocyte Count 1.75 X10^3/uL (0.83-4.51); Absolute Neutrophil Count 2.6 X10^3/uL (2.0-7.7); Basophil# 0.04 X10^3/uL; Basophil% 0.8 % (0-1); Differential Indicated SCAN CRITERIA MET; Eosinophil# 0.19 X10^3/uL; Eosinophils% 3.7 % (0-5); Hematocrit 30.7 % (40-54); Hemoglobin 9.7 g/dL (13.0-16.5); Lymphocyte # 1.75 X10^3/ul (4.0); Lymphocyte % 33.8 % (19-41); Mean Corp Hgb Conc 31.6 g/dL (32-36); Mean Corpuscular Hgb 28.9 pg (27.0-32.0); Mean Corpuscular Volume 91.4 fL (80-94); Mean Platelet Vol. 8.8 fl (6.2-12.0); Monocyte# 0.58 X10^3/uL; Monocyte% 11.2 % (0-10); NRBC Flagged by Analyzer 0 % (0-5); Neutrophil # 2.57 X10^3/uL (2.7-7.7); Neutrophil % 49.5 % (47-70); POSITIVE MORPHOLOGY YES; Platelet Count 168 K/mm3 (150-450); RBC Distribution Width CV 19.9 % (11.6-14.6); RBC Distribution Width SD 67.9 fl (35.1-43.9); Red Blood Count 3.36 M/mm3 (4.6-6.2); White Blood Count 5.2 K/mm3 (4.4-11.0)
[2019-01-29 11:47] LABS: ALB/GLOB Ratio 0.8 RATIO (0.9-2.4); AST(SGOT) 12 U/L (15-37); Alanine Aminotransfer ALT/SGPT 14 U/L (16-61); Albumin, Serum 3.4 g/dL (3.2-5.0); Alkaline Phosphatase 165 U/L (45-117); Anion Gap 11 (5-15); BUN 57 mg/dL (7-18); BUN/Creat Ratio 16.5 RATIO (10-20); Chloride 111 mmol/L (98-107); Creatinine, Serum 3.45 mg/dL (0.70-1.30); EST Glomerular Filtration Rate 19 mL/min (>60); Est Glom Filt Rate - Afr Amer 22 mL/min (>60); Globulin 4.4 g/dL (2.2-4.2); Glucose 116 mg/dL (74-106); PSA,Total- Diagnostic 8.14 ng/mL (0.0-4.0); Protein, Total 7.8 g/dL (6.4-8.2); Sodium Level 141 mmol/L (136-145)
[2019-01-29 11:48] LABS: Hemoglobin A1c 5.3 % (4.2-6.3)
[2019-01-29 11:49] LABS: Cholesterol 82 mg/dL (200); High Density Lipoprotein 26 mg/dL; Triglycerides 249 mg/dL; Very Low Density Lipoprotein 50 mg/dL (5-40)
[2019-01-29 11:55] LABS: Anisocytosis 2+; Platelet Estimate ADEQUATE (ADEQ); Red Cell Morphology N CHROM NORMAL (NORM C&C)
== END | disposition home or self-care (01) ==
LOC: LAB 10:22
PROVIDERS: Family Provider Family Medicine; PCP Family Medicine; Referring Provider Internal Medicine Medical Oncology; Visit Provider Internal Medicine Medical Oncology
DX: E78.5 Hyperlipidemia, unspecified (principal); E11.9 Type 2 diabetes mellitus without complications; C61 Malignant neoplasm of prostate
CPT/HCPCS: 36415; 80053; 80061; 83036; 84153; 85025

== ENCOUNTER → 2019-02-08 10:17 | Outpatient (CLI) | payer MEDICARE, SELFPAY ==
[2019-01-31 14:23] VITALS: BMI 27.6
[2019-02-08 12:56] LABS: Albumin, Serum 3.5 g/dL (3.2-5.0); BUN 57 mg/dL (7-18); BUN/Creat Ratio 16.7 RATIO (10-20); Calcium,Total 9.4 mg/dL (8.5-10.1); Chloride 110 mmol/L (98-107); Creatinine, Serum 3.41 mg/dL (0.70-1.30); EST Glomerular Filtration Rate 19 mL/min (>60); Est Glom Filt Rate - Afr Amer 23 mL/min (>60); Glucose 101 mg/dL (74-106); Phosphorus 3.9 mg/dL (2.5-4.9); Sodium Level 138 mmol/L (136-145)
[2019-02-08 13:01] LABS: PTHIN 93.3 pg/mL (18.4-80.1)
== END ==
PROVIDERS: Family Provider Family Medicine; PCP Family Medicine; Referring Provider Family Medicine; Visit Provider Internal Medicine Nephrology
DX: N18.4 Chronic kidney disease, stage 4 (severe) (principal)
CPT/HCPCS: 36415; 80069; 83970

== ENCOUNTER → 2019-02-27 | Outpatient (CLI) | payer MEDICARE, SELFPAY ==
[2019-01-31 14:23] VITALS: BMI 27.6
--- NOTE | 2019-02-27 07:56 | VDUE_ITS ---
Reason For Study: Fistula creation Right Arm Left Arm Right Cephalic Vein at the wrist measures Left Cephalic Vein at the wrist measures 0.22 x 0.22 cm. 0.22 x 0.23 cm. Right Cephalic Vein in the forearm measures Left Cephalic Vein in the forearm measures 0.24 x 0.25 cm. 0.20 x 0.20 cm. Right Cephalic Vein below antecub measures Left Cephalic Vein below antecub measures 0.22 x 0.24 cm. 0.23 x 0.26 cm. Right Cephalic Vein above antecub measures Left Cephalic Vein above antecub measures 0.16 x 0.17 cm. 0.26 x 0.27 cm. Right Cephalic Vein mid bicep measures 0.22 Left Cephalic Vein at mid bicep measures x 0.22 cm. 0.22 x 0.22 cm. Right Cephalic Vein at the shoulder measures Left Cephalic Vein at the shoulder measures 0.20 x 0.21 cm. 0.28 x 0.30 cm. Right Basilic Vein at the origin measures Basilic vein at origin measures 0.26 x 0.28 0.36 x 0.39 cm. cm. Right Basilic Vein mid bicep measures 0.32 x Basilic vein at bicep measures 0.27 x 0.26 0.33 cm. cm. Right Basilic Vein above antecub measures Basilic vein above antecub measures 0.28 x 0.42 x 0.43 cm. 0.28 cm. Right Brachial artery measures 0.54 x 0.56 Left Brachial artery measures 0.49 x 0.51 cm cm with a velocity of 88.1 cm/sec. with a velocity of 84.2 cm/sec. Right Radial artery measures 0.27 x 0.28 cm Left Radial artery measures 0.24 x 0.26 cm with a velocity of 100.1 cm/sec. with a velocity of 80.3 cm/sec. Interpretation Summary Patent and compressible bilateral upper extremity cephalic and basilic veins with dimensions as noted. Normal diameter and flow bilateral radial and brachial arteries. Ordering Physician: Konrad Salguero Referring Physician: Fidencio Mar M.D. Performed By: Елена Kelley RVT ?
== END | disposition home or self-care (01) ==
LOC: CVS 07:55
PROVIDERS: Family Provider Family Medicine; PCP Family Medicine; Referring Provider Surgery; Visit Provider Surgery
DX: Z01.818 Encounter for other preprocedural examination (principal); N18.4 Chronic kidney disease, stage 4 (severe); I77.0 Arteriovenous fistula, acquired
CPT/HCPCS: 93970; 93971; G0365

== ENCOUNTER → 2019-03-21 | Outpatient (CLI) | payer MEDICARE, SELFPAY ==
[2019-03-21 07:59] VITALS: BMI 27.6
[2019-03-21 08:47] LABS: Absolute Lymphocyte Count 1.35 X10^3/uL (0.83-4.51); Absolute Neutrophil Count 2.3 X10^3/uL (2.0-7.7); Basophil# 0.04 X10^3/uL; Basophil% 0.9 % (0-1); Eosinophils% 6.8 % (0-5); Hematocrit 31.1 % (40-54); Hemoglobin 10.3 g/dL (13.0-16.5); Lymphocyte # 1.35 X10^3/ul (4.0); Lymphocyte % 30.4 % (19-41); Mean Corp Hgb Conc 33.1 g/dL (32-36); Mean Corpuscular Hgb 31.8 pg (27.0-32.0); Mean Platelet Vol. 8.9 fl (6.2-12.0); Monocyte# 0.41 X10^3/uL; Monocyte% 9.2 % (0-10); NRBC Flagged by Analyzer 0 % (0-5); Neutrophil # 2.31 X10^3/uL (2.7-7.7); Platelet Count 105 K/mm3 (150-450); RBC Distribution Width CV 17.3 % (11.6-14.6); Red Blood Count 3.24 M/mm3 (4.6-6.2); White Blood Count 4.4 K/mm3 (4.4-11.0)
[2019-03-21 09:32] LABS: ALB/GLOB Ratio 0.8 RATIO (0.9-2.4); AST(SGOT) 38 U/L (15-37); Alanine Aminotransfer ALT/SGPT 43 U/L (16-61); Albumin, Serum 3.5 g/dL (3.2-5.0); Alkaline Phosphatase 139 U/L (45-117); Anion Gap 10 (5-15); BUN 54 mg/dL (7-18); Calcium,Total 9.1 mg/dL (8.5-10.1); Chloride 114 mmol/L (98-107); EST Glomerular Filtration Rate 22 mL/min (>60); Est Glom Filt Rate - Afr Amer 26 mL/min (>60); Globulin 4.2 g/dL (2.2-4.2); Glucose 99 mg/dL (74-106); LDH 155 U/L (87-241); PSA,Total- Diagnostic 2.72 ng/mL (0.0-4.0); Potassium 4.3 mmol/L (3.5-5.1); Protein, Total 7.7 g/dL (6.4-8.2); Sodium Level 139 mmol/L (136-145)
== END | disposition home or self-care (01) ==
LOC: LAB 08:16
PROVIDERS: Family Provider Family Medicine; PCP Family Medicine; Referring Provider Internal Medicine Medical Oncology; Visit Provider Internal Medicine Medical Oncology
DX: C61 Malignant neoplasm of prostate (principal)
CPT/HCPCS: 36415; 80053; 83615; 84153; 85025

== ENCOUNTER 2019-03-31 11:14 | Emergency (ER) | payer MEDICARE, SELFPAY ==
[2019-03-27 13:53] VITALS: BMI 27.6
[2019-03-31 11:16] VITALS: BP 153/73; PULSE 71; RESP 17; TEMP 36.9; O2SAT 99; BMI 26.6
--- NOTE | 2019-03-31 12:08 | ED.DCSUM_ITS ---
History of Present Illness Chief Complaint: Cellulitis Informant: Patient, Family Onset: Yesterday Context: Gradual Onset Timing: Continuous Quality: sore Location: right nephrostomy tube site Current Severity: Moderate Maximum Severity: Moderate Worsened by: palpation Relieved by: leaving alone Associated Symptoms: redness, purulent drainage w/ foul smell Narrative: Patient has had bilateral nephrostomy tubes for years. He has had local site infection before, and this feels like it. In the past, Keflex took care of it without anything else. He states this time it is draining some purulent material, and is worse than any other infections he has had. He has no systemic symptoms or fevers. He states that the urine within the nephrostomy tube has been normal-appearing and is not foul-smelling like the drainage from the site is. He took a picture of it yesterday when they noticed it, and it looks similar today. Since he first noticed it Tuesday night, yesterday, he presents to the ER today. - Past Medical History (1) SVT (supraventricular tachycardia) Status: Chronic (2) Thrombocytopenia Status: Chronic (3) Chronic renal disease, stage 4, severely decreased glomerular filtration rate (GFR) between 15-29 mL/min/1.73 square meter Status: Chronic (4) Essential hypertension Status: Chronic (5) Hemochromatosis Status: Chronic (6) Nonrheumatic aortic (valve) insufficiency Status: Chronic (7) Nonrheumatic mitral (valve) prolapse Status: Chronic (8) Prostate CA Status: Chronic (9) Secondary malignant neoplasm of bone Status: Chronic (10) Type 2 diabetes mellitus Status: Chronic Past Medical History - Allergies and Home Meds Allergies/Adverse Reactions: Allergies nalbuphine [From Nubain] Allergy (Verified 03/31/19 11:16) Unknown ramipril [From Altace] Allergy (Verified 03/31/19 11:16) Unknown Primary Care Physician: Fidencio Mar MD [Primary Care Provider] - Surgical History: appendectomy, - - bilat nephrostomies Lives: Spouse/ Significant Other Smoking Status: Never smoker - Family History Maternal Family History: Family History (Last Reviewed 03/27/19 @ 13:53 by Nikki Hurley) Father Heart disease Kidney disease CAD (coronary artery disease) Myocardial infarction Mother Heart disease Family History: Reports: Heart Disease Paternal Family History: Family History (Last Reviewed 03/27/19 @ 13:53 by Nikki Hurley) Father Heart disease Kidney disease CAD (coronary artery disease) Myocardial infarction Mother Heart disease Family History: Reports: Heart Disease, Renal Disease Sibling Family History: Family History (Last Reviewed 03/27/19 @ 13:53 by Nikki Hurley) Father Heart disease Kidney disease CAD (coronary artery disease) Myocardial infarction Mother Heart disease Family History: Reports: Cancer - breast Review of Systems General: Denies: Chills, Fever Musculoskeletal: Reports: Back pain - at nephrostomy site right Skin: Reports: Abscess, Wounds Neurological: Denies: Headache, Weakness, Numbness Physical Exam Vital Signs/Narrative: Vital Signs Temp Pulse Resp BP Pulse Ox 03/31/19 11:16 98.4 F 71 17 153/73 H 99 Inital Vital Signs reviewed: Yes General: Well nourished, Well developed, No Acute Distress - well-appearing Head: Normocephalic, Atraumatic Back: - - redness and tenderness w/ small abscess at right nephrostomy site with small superficial abscess actively draining pus; similar-appearing to the picture he shows on cell phone from last night; about 3-4cm wide, 2cm tall area; normal-appearing transparent yellow urine within tube; left neph. site benign- appearing Skin: - - see above; superficial subcm abscess at right nephrostomy site Neurological: Alert, Oriented x3, Cranial nerves II-XII grossly intact, Normal Strength, Normal Sensation, Normal Gait Psychological: Normal affect, Normal Mood Diagnostic/Tx/Re-eval - Medical Decision Making I do not think the patient needs ancillary testing at this time, I think treating this with antibiotics is reasonable and having him follow-up. I expressed as much purulent material from the area as I could. The area was cleansed by nursing and a new dressing was placed. Started on both Bactrim and Keflex given the possibility of MRSA here. Advised to return if he gets worse or fevers, and to follow-up with his urologist after the weekend for any issues. He is comfortable with that plan. ED Disposition - Plan for ED Patient: Disposition: Home or Assisted Living Diagnosis: Infection associated with nephrostomy catheter Instructions: Cellulitis Prescriptions: Smz/Tmp Ds [Bactrim Ds] 1 tab PO BID #20 tab Transmission Status: Pending to [id number] Cephalexin [Keflex] 500 mg PO 4X/DAY #40 cap Transmission Status: Pending to [facility] Referrals: Chang Horton MD [STAFF PHYSICIAN] - 3-5 Days if not improving
[2019-03-31] MEDS: Cephalexin 250 MG Capsule 500 MG PO (12:17)
[2019-03-31] MEDS: Smz/Tmp Ds Tablet 1 TABLET PO (12:17)
[2019-03-31 12:35] VITALS: BP 134/69; PULSE 65; RESP 16; O2SAT 99
== END 2019-03-31 12:42 | disposition home or self-care (01) ==
LOC: ED 12:38
PROVIDERS: Emergency Provider Emergency Medicine; Family Provider Family Medicine; PCP Family Medicine
DX: N99.521 Infection of incontinent external stoma of urinary tract (principal); I12.9 Hypertensive chronic kidney disease with stage 1 through stage 4 chronic kidney disease, or unspecified chronic kidney disease; N18.4 Chronic kidney disease, stage 4 (severe); E11.22 Type 2 diabetes mellitus with diabetic chronic kidney disease; Z85.46 Personal history of malignant neoplasm of prostate; Z85.830 Personal history of malignant neoplasm of bone
CPT/HCPCS: 99283

== ENCOUNTER 2019-04-16 05:28 | Day surgery (SDC) | payer MEDICARE, SELFPAY ==
[2019-01-31 10:03] VITALS: BMI 28.7
--- NOTE | 2019-01-31 10:58 | HP_ITS ---
Intake Vital Signs 01/31/19 Body Mass Index (BMI) 28.7 01/31/19 Height 6 ft 01/31/19 Weight: 212 lb 01/31/19 Body Mass Index (BMI) 28.7 01/31/19 Blood Pressure 167/76 H 01/31/19 Blood Pressure Location Rt brachial 01/31/19 Blood Pressure Position Sitting 01/31/19 Respiratory Rate 16 Intake Visit Reasons: PD Catheter Placement Chief Complaint: Follow up-prostate cancer/hereditary hemochromatosis Family Physician Required: No Is patient in pain?: No Allergies nalbuphine [From Nubain] Allergy (Verified 01/31/19 10:02) Unknown ramipril [From Altace] Allergy (Verified 01/31/19 10:02) Unknown Medications Atorvastatin Calcium [Lipitor] 40 mg PO QHS 03/09/16 [History Confirmed 12/20/18] Lidocaine/Prilocaine [Lidocaine-Prilocaine Cream] 1 ea TP PRN PRN 03/09/16 [History Confirmed 12/20/18] Ascorbic Acid [Vitamin C] 1,000 mg PO DAILY 07/28/16 [History Confirmed 12/20/18] Calcium Carbonate/Vitamin D3 [Calcium 600 + Vit D Caplet] 1 ea PO DAILY 07/28/16 [History Confirmed 12/20/18] Antiarthritic Combination No.2 [Glucosamine-Chondroitin] 900 mg PO DAILY 09/29/16 [History Confirmed 12/20/18] Insulin Glargine [Lantus (BKC)] 10 units SUBCUT QHS 10/07/17 [History Confirmed 12/20/18] Insulin Lispro [Humalog] 20 unit SQ BID 10/07/17 [History Confirmed 12/20/18] folic acid 800 mcg tablet 800 mcg PO QDAY 10/27/17 [History Confirmed 12/20/18] sertraline 50 mg tablet 50 mg PO DAILY tab 10/27/17 [History Confirmed 12/20/18] sodium bicarbonate 650 mg tablet 650 mg PO QDAY tab 10/27/17 [History Confirmed 12/20/18] enzalutamide 40 mg capsule 160 mg PO DAILY 01/31/19 [History Confirmed 01/31/19] [facility] Medical History Essential hypertension (Chronic) SVT (supraventricular tachycardia) (Acute) Atherosclerotic heart disease of [place] coronary artery without angina pectoris (Chronic) Nonrheumatic mitral (valve) prolapse (Chronic) Nonrheumatic aortic (valve) insufficiency (Chronic) RBBB (Acute) Long-term use of high-risk medication (Chronic) Type 2 diabetes mellitus (Chronic) Supraventricular arrhythmia (Acute) Abnormal EKG (Acute) Anemia (Acute) Cataract, right eye (Acute) Dysuria (Acute) Metastatic bone cancer (Acute) SOB (shortness of breath) (Acute) Sleep apnea (Acute) history of nephrostomy tube placement (Acute) nephroscopy with stent placement (Acute) Hyperlipidemia (Chronic) Surgical History Nephrostomy status (Acute) Hx of appendectomy (Resolved) Family History Father Heart disease Kidney disease CAD (coronary artery disease) Myocardial infarction Mother Heart disease Social History (Updated 01/31/19 @ 10:58 by Konrad Salguero MD) Smoking Status: Never smoker alcohol intake: current HPI HPI HPI: DESHAUN PICKETT, is a 73 M who presents to the office today for HPI HPI Surgical H&P: Yes HPI: DESHAUN PICKETT, is a 73 M who presents to the office today for placement of peritoneal dialysis catheters. The patient was referred by Dr. Jackelyn Gibson and a written compromise surgical consult recommendations will be returned to her. The patient was previously diagnosed with stage IV prostate cancer. He had a TURP in 20 years of chemotherapy. For 2 years however he has had nephrostomy tubes and placed because of failure of ureteral stents and according to the patient obstruction of undetermined etiology. The patient has not had any trouble with his nephrostomy tubes until just recently he developed redness and cellulitis at the left nephrostomy tube site. Just within the past 2 to 3 days he was initiated on oral antibiotics by Dr. Horton. The patient previously has had an appendectomy via vertical right lower quadrant sean-rectus incision when he was in high school. He has not had any additional abdominal surgery. He otherwise claims that his health is stable. He denies fever or chills or sweats. He states that this left nephrostomy tube infection does not involve his kidney and is a superficial infection involving the site. ROS General General: Yes fatigue; no weight change, appetite, colon cancer, breast cancer or weakness HEENT HEENT: No difficulty swallowing, eye injury, eye surgery, swollen glands or hoarseness Endo Endocrine: Yes diabetes mellitus; no thyroid disease, thyroid cancer, Hair loss, heat intolerance or cold intolerance Skin Skin: No rash or changing moles Breast Breast: No left breast lump, right breast lump, nipple discharge, breast pain, abnormal mammogram, abnormal US or breast enlargement Musc Musculoskeletal: Yes arthritis; no back problems, rheumatoid arthritis, gout or joint pain Cardio Cardiovascular: Yes high blood pressure; no murmur, pacemaker, heart disease, atrial fibrillation, heart attack, heart stent, palpitations, shortness of breat with exertion or chest pain Psych Psychiatric: No depression, anxiety or hearing voices Resp Respiratory: Yes shortness of breath, Yes sleep apnea, No cough, No COPD, No asthma, No emphysema, No wheezing Gastro Gastrointestinal: No abdominal pain, No nausea or vomiting, No diarrhea, No constipation, No blood in stool, No acid reflux, No hemorrhoids, No ulcers, No gallbladder problem, No black,tarry stools Luke Hematologic: No blood thinners, No blood disorders, No bleeding, Yes anemia, No blood clots Neuro Neurologic: No system reviewed and no additional complaints, except as docu, No as per HPI, No abnormal walking, No abnormal hearing, No abnormal movements, No abnormal speech, No behavioral changes, No burning sensations, No confusion, No seizure-like activity, No unsteadiness, No dizziness, No localized weakness, No frequent falls, No headache(s), No lack of coordination, No loss of vision, No memory loss, Yes numbness, No other visual disturbances, No radiating pain, No restless legs, No sensory deficit, No fainting, Yes tingling, No tremor(s), No weakness, No other Exam Const General: cooperative, healthy appearing, comfortable Nutritional Appearance: average body habitus Orientation: alert, awake [facility] Head: normal to inspection Chest Chest palpation & inspection: normal inspection of the chest Breast Palpation: No nipple discharge Resp Effort & Inspection: normal respiratory effort Auscultation: clear to auscultation bilaterally Cardio Rate: regular rate Rhythm: regular rhythm Heart Sounds: no murmurs GI Palpation: soft, no hepatosplenomegaly Auscultation: normal bowel sounds Other: Well-healed vertical right lower quadrant sean-rectus incision Skin General: no rashes or lesions noted Neuro General: alert, awake Cognition: normal cognition Extrem General: no calf tenderness bilaterally Psych Affect: normal affect Assessment & Plan Problems 1. Chronic renal disease, stage 4, severely decreased glomerular filtration rate (GFR) between 15-29 mL/min/1.73 square meter N18.4 Plan I have discussed with the patient the technique, benefit, risk and alternatives of laparoscopic placement of peritoneal dialysis catheters. He has had previous surgery in the form of an appendectomy and care will need to be observed for potential injury or operative adhesions. He is aware that these are placed in the pelvis and essentially one ideal spot. He is aware that there are no guarantees of success that they will function correctly. Because of his nephrostomy tube site infection left flank we will also contact Dr. Jackelyn Gibson's office alerting them to this finding. I also instructed the patient that that side of the infection even though limited to that site and being appropriately treated might placed him at increased risk for infection of his peritoneal catheters. He has had an opportunity to ask and have questions answered. We will have his current situation reviewed with Dr. Jackelyn gresham and then proceed appropriately. I appreciate the opportunity of assisting with his surgical care. CC: Dr. Jackelyn Gibson and Dr. SHERRY Salguero MD Coding Level of Care Code 69091 Diagnoses Chronic renal disease, stage 4, severely decreased glomerular filtration rate (GFR) between 15-29 mL/min/1.73 square meter N18.4 01/31/19 1058 <Electronically signed by Konrad barakat MD> Date _ Konrad Salguero MD
--- NOTE | 2019-04-12 08:56 | EKG12_ITS ---
Test Reason : PREOP Blood Pressure : / mmHG Vent. Rate : 061 BPM Atrial Rate : 061 BPM P-R Int : 198 ms QRS Dur : 154 ms QT Int : 442 ms P-R-T Axes : 068 -87 023 degrees QTc Int : 444 ms Sinus rhythm with Premature atrial complexes Left axis deviation Right bundle branch block Abnormal ECG Confirmed by MARQUES REZA, KARLOS ([id number]), writer editor CHUY WYMAN ([id number]) on 04/18/2019 9:37:24 A M Referred By: Konrad Salguero Confirmed By:KAR MOHAN MD
[2019-04-12 09:11] LABS: Hematocrit 33.3 % (40-54); Hemoglobin 10.8 g/dL (13.0-16.5); Mean Corp Hgb Conc 32.4 g/dL (32-36); Mean Corpuscular Hgb 31.6 pg (27.0-32.0); Mean Corpuscular Volume 97.4 fL (80-94); Mean Platelet Vol. 9.3 fl (6.2-12.0); Platelet Count 89 K/mm3 (150-450); RBC Distribution Width CV 16.7 % (11.6-14.6); RBC Distribution Width SD 58.3 fl (35.1-43.9); Red Blood Count 3.42 M/mm3 (4.6-6.2); White Blood Count 5.5 K/mm3 (4.4-11.0)
[2019-04-12 09:44] LABS: Anion Gap 12 (5-15); BUN 50 mg/dL (7-18); BUN/Creat Ratio 15.5 RATIO (10-20); Chloride 114 mmol/L (98-107); Creatinine, Serum 3.23 mg/dL (0.70-1.30); EST Glomerular Filtration Rate 20 mL/min (>60); Est Glom Filt Rate - Afr Amer 24 mL/min (>60); Glucose 157 mg/dL (74-106); Potassium 4.9 mmol/L (3.5-5.1); Sodium Level 141 mmol/L (136-145)
[2019-04-12 09:49] LABS: Scan Indicated on CBC? Y/N YES- FLAGS NOTED
[2019-04-16] VITALS (8 sets, daily range): BP systolic 124–148; BP diastolic 69–79; PULSE 57–66; RESP 16–18; TEMP 36.1–36.9; O2SAT 100; BMI 26.6
[2019-04-16 06:01] LABS: Bedside Glucose 182 mg/dL (70-110)
--- NOTE | 2019-04-16 06:13 | PCM.HP.BLA ---
Problem List (1) Chronic renal disease, stage 4, severely decreased glomerular filtration rate (GFR) between 15-29 mL/min/1.73 square meter Status: Chronic History and Physical Date of Admission: 04/16/19 Intake Visit Reasons: LESLI F/U VM 02/27 [facility] Chief Complaint: discuss surgery Content Editor Required: No Is patient in pain?: No Allergies nalbuphine [From Nubain] Allergy (Verified 01/31/19 14:22) Unknown ramipril [From Altace] Allergy (Verified 01/31/19 14:22) Unknown Medications Atorvastatin Calcium [Lipitor] 40 mg PO QHS 03/09/16 [History Confirmed 03/21/19] Lidocaine/Prilocaine [Lidocaine-Prilocaine Cream] 1 ea TP PRN PRN 03/09/16 [History Confirmed 03/21/19] Ascorbic Acid [Vitamin C] 1,000 mg PO DAILY 07/28/16 [History Confirmed 03/21/19] Calcium Carbonate/Vitamin D3 [Calcium 600 + Vit D Caplet] 1 ea PO DAILY 07/28/16 [History Confirmed 03/21/19] Antiarthritic Combination No.2 [Glucosamine-Chondroitin] 900 mg PO DAILY 09/29/16 [History Confirmed 03/21/19] Insulin Glargine [Lantus (BKC)] 10 units SUBCUT QHS 10/07/17 [History Confirmed 03/21/19] Insulin Lispro [Humalog] 20 unit SQ BID 10/07/17 [History Confirmed 03/21/19] folic acid 800 mcg tablet 800 mcg PO QDAY 10/27/17 [History Confirmed 03/21/19] sertraline 50 mg tablet 50 mg PO DAILY tab 10/27/17 [History Confirmed 03/21/19] sodium bicarbonate 650 mg tablet 650 mg PO QDAY tab 10/27/17 [History Confirmed 03/21/19] enzalutamide 40 mg capsule 160 mg PO DAILY 01/31/19 [History Confirmed 03/21/19] [facility] Medical History (Updated 03/21/19 @ 07:45 by Faith Gonzalez) Chronic renal disease, stage 4, severely decreased glomerular filtration rate (GFR) between 15-29 mL/min/1.73 square meter (Chronic) Essential hypertension (Chronic) SVT (supraventricular tachycardia) (Acute) Atherosclerotic heart disease of [place] coronary artery without angina pectoris (Chronic) Nonrheumatic mitral (valve) prolapse (Chronic) Nonrheumatic aortic (valve) insufficiency (Chronic) RBBB (Acute) Long-term use of high-risk medication (Chronic) Type 2 diabetes mellitus (Chronic) Supraventricular arrhythmia (Acute) Prostate cancer (Acute) Abnormal EKG (Acute) Anemia (Acute) Cataract, right eye (Acute) Dysuria (Acute) Metastatic bone cancer (Acute) SOB (shortness of breath) (Acute) Sleep apnea (Acute) history of nephrostomy tube placement (Acute) Hyperlipidemia (Chronic) Surgical History (Updated 03/21/19 @ 07:45 by Faith Gonzalez) Nephrostomy status (Acute) nephroscopy with stent placement (Acute) Hx of appendectomy (Resolved) Family History Father Heart disease Kidney disease CAD (coronary artery disease) Myocardial infarction Mother Heart disease Social History (Updated 03/21/19 @ 08:01 by Konrad Salguero MD) Smoking Status: Never smoker alcohol intake: current HPI HPI HPI: DESHAUN PICKETT, is a 73 M who presents to the office today for HPI HPI Surgical H&P: Yes HPI: DESHAUN PICKETT, is a 73 M who presents to the office today for ongoing surgical consultation regarding his dialysis needs. The patient is a very pleasant gentleman who was initially referred to me by Dr. Jackelyn Gibson for consideration of peritoneal dialysis catheter placement. It was detected however that the patient has intermittently infected nephrostomy tubes. After discussion with Dr. Gbison it was felt that perhaps officially would be more beneficial. At the [facility] on February 27, 2019 he had bilateral upper extremity vein mapping. Saphenous Venous Mapping [facility] [address] [place] [address] Saphenous Vein Mapping, Bilat 02/27/19 0804 MR#: [id number] Name:DESHAUN PICKETT [facility] #:[id number] : 1945 73From:Konrad Salguero MD Attending Dr: Jose M REZA,RobertStatus: REG CLI Ordering Dr: Konrad Salguero MDDate: 02/27/19 Location:[facility] Admitted: Reason For Study: Fistula creation Right Arm Left Arm Right Cephalic Vein at the wrist measures Left Cephalic Vein at the wrist measures 0.22 x 0.22 cm. 0.22 x 0.23 cm. Right Cephalic Vein in the forearm measures Left Cephalic Vein in the forearm measures 0.24 x 0.25 cm. 0.20 x 0.20 cm. Right Cephalic Vein below antecub measures Left Cephalic Vein below antecub measures 0.22 x 0.24 cm. 0.23 x 0.26 cm. Right Cephalic Vein above antecub measures Left Cephalic Vein above antecub measures 0.16 x 0.17 cm. 0.26 x 0.27 cm. Right Cephalic Vein mid bicep measures 0.22 Left Cephalic Vein at mid bicep measures x 0.22 cm. 0.22 x 0.22 cm. Right Cephalic Vein at the shoulder measures Left Cephalic Vein at the shoulder measures 0.20 x 0.21 cm. 0.28 x 0.30 cm. Right Basilic Vein at the origin measures Basilic vein at origin measures 0.26 x 0.28 0.36 x 0.39 cm. cm. Right Basilic Vein mid bicep measures 0.32 x Basilic vein at bicep measures 0.27 x 0.26 0.33 cm. cm. Right Basilic Vein above antecub measures Basilic vein above antecub measures 0.28 x 0.42 x 0.43 cm. 0.28 cm. Right Brachial artery measures 0.54 x 0.56 Left Brachial artery measures 0.49 x 0.51 cm cm with a velocity of 88.1 cm/sec. with a velocity of 84.2 cm/sec. Right Radial artery measures 0.27 x 0.28 cm Left Radial artery measures 0.24 x 0.26 cm with a velocity of 100.1 cm/sec. with a velocity of 80.3 cm/sec. Interpretation Summary Patent and compressible bilateral upper extremity cephalic and basilic veins with dimensions as noted. Normal diameter and flow bilateral radial and brachial arteries. Ordering Physician: Konrad Salguero Referring Physician: Fidencio Mar M.D. Performed By: Елена Kelley RVT ? 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: Signed ROS General General: Yes fatigue; no weight change, appetite, colon cancer, breast cancer or weakness HEENT HEENT: No difficulty swallowing, eye injury, eye surgery, swollen glands or hoarseness Endo Endocrine: Yes diabetes mellitus; no thyroid disease, thyroid cancer, Hair loss, heat intolerance or cold intolerance Skin Skin: No rash or changing moles Breast Breast: No left breast lump, right breast lump, nipple discharge, breast pain, abnormal mammogram, abnormal US or breast enlargement Musc Musculoskeletal: Yes arthritis; no back problems, rheumatoid arthritis, gout or joint pain Cardio Cardiovascular: Yes high blood pressure; no murmur, pacemaker, heart disease, atrial fibrillation, heart attack, heart stent, palpitations, shortness of breat with exertion or chest pain Psych Psychiatric: No depression, anxiety or hearing voices Resp Respiratory: Yes shortness of breath, Yes sleep apnea, No cough, No COPD, No asthma, No emphysema, No wheezing Gastro Gastrointestinal: No abdominal pain, No nausea or vomiting, No diarrhea, No constipation, No blood in stool, No acid reflux, No hemorrhoids, No ulcers, No gallbladder problem, No black,tarry stools Luke Hematologic: No blood thinners, No blood disorders, No bleeding, Yes anemia, No blood clots Neuro Neurologic: No weakness Exam Const General: cooperative, healthy appearing, comfortable, no acute distress Nutritional Appearance: average body habitus Orientation: alert, awake HENMO Head: normal to inspection Chest Breast Palpation: No nipple discharge Resp Effort & Inspection: normal respiratory effort Auscultation: clear to auscultation bilaterally Cardio Rate: regular rate Rhythm: regular rhythm Heart Sounds: no murmurs GI Palpation: soft, no hepatosplenomegaly Auscultation: normal bowel sounds Neuro Cognition: normal cognition Extrem Other: Left forearm radial pulse 3+. I performed my own ultrasound inspection demonstrating that the cephalic vein at the wrist really is quite adequate between 2 to 3 mm. It is superficially located. Then courses slightly more medial but superficial in the forearm. It appears to be of equal to diameter as the upper arm Psych Affect: normal affect Assessment & Plan Problems 1. Chronic renal disease, stage 4, severely decreased glomerular filtration rate (GFR) between 15-29 mL/min/1.73 square meter N18.4 Plan After personal inspection of his nondominant left upper extremity I feel that is very reasonable to offer him a left forearm radiocephalic arteriovenous hemodialysis fistula. He has a good radial arterial inflow and the venous outflow appears to be similar for the forearm and the upper arm. The cephalic vein is superficial and closed to the radial wrist. Then curves more medially in the forearm. Appears to be patent and compressible. On today's visit the patient has multiple superficial lacerations of the left upper arm from working in his garden. He has been asked to refrain from that activity. It is also noted that he has longer fingernails with extensive dirt. He has been asked to clean that up. Finally he has evidence of a wedding ring which is tight around his finger and apparently has not been removed for 40 years. He is to contact a jeweler and attempt away for removal prior to surgery. It already appears tight without any hand swelling. He has had an opportunity to ask and have questions answered. I very much appreciate the kind opportunity of assisting with the surgical care. CC: Dr. Jackelyn Gibson; Dr. Fidencio Salguero M.D., F.A.C.S. Coding Level of Care Code Off vis,est,level 3 Diagnoses Chronic renal disease, stage 4, severely decreased glomerular filtration rate (GFR) between 15-29 mL/min/1.73 square meter N18.4 03/21/19 0801 <Electronically signed by Konrad Salguero MD> Date Konrad Sapp Signature: Date (if applicable) CC: Jackelyn Gibson DO; Fidencio Flores MD ~ I have re-examined the patient. There are no clinical changes since date of exam.
[2019-04-16] MEDS: 0.45% Normal Saline 1,000 ML 15 ML IV (06:18)
--- NOTE | 2019-04-16 07:01 | DCINST_ITS ---
Discharge Diet: Renal Diet Discharge Activity: May Not Drive - for 2-3 days or while taking narcotic pain medications., May Shower, May Take a Tub Bath - in 5 days. Lifting Restrictions: 5 pounds Keep extremity elevated above heart level: - - Keep arm elevated above the heart level for 3 days. Additional Activity Instructions:: Exercise hand vigorously with a stress ball. Call your doctor if your incision/area has: Continuous Slow Oozing, Sudden Increased Bleeding - apply pressure and call your doctor., Increased Pain/ Swelling, Increased Redness, Foul Smelling Discharge Call your doctor if you observe: Fever of 101 or Higher Suture Line Care: Avoid Pulling/Pushing, Avoid Pinching/Bending Cleanse incision/area with: Keep Dressing Clean & Dry Additional Dressing/Incision Instructions:: Change or remove dressing in 2 days. May protect with a gauze bandaid. Allergies/Adverse Reactions: Allergies nalbuphine [From Nubain] Allergy (Verified 04/16/19 05:53) Unknown ramipril [From Altace] Allergy (Verified 04/16/19 05:53) Unknown Medications to take at Discharge Atorvastatin Calcium [Lipitor] 40 mg PO QHS 03/09/16 Lidocaine/Prilocaine [Lidocaine-Prilocaine Cream] 1 ea TP PRN PRN 03/09/16 Ascorbic Acid [Vitamin C] 1,000 mg PO DAILY 07/28/16 Calcium Carbonate/Vitamin D3 [Calcium 600 + Vit D Caplet] 1 ea PO DAILY 07/28/16 Antiarthritic Combination No.2 [Glucosamine-Chondroitin] 900 mg PO DAILY 09/29/16 Insulin Glargine [Lantus (BKC)] 15 units SUBCUT QHS 10/07/17 RX: Insulin Lispro [Humalog] 20 unit SQ BID 10/07/17 folic acid 800 mcg tablet 800 mcg PO QDAY 10/27/17 sertraline 50 mg tablet 50 mg PO DAILY tab 10/27/17 sodium bicarbonate 650 mg tablet 650 mg PO QDAY tab 10/27/17 enzalutamide 40 mg capsule 160 mg PO DAILY 01/31/19 Primary Care Physician: Fidencio Flores MD [Primary Care Provider] - Test Results: Test results from this visit will be discussed in further detail at your follow- up appointment, if applicable. Please Follow Up With: Konrad Salguero MD - [phone] When: Call to make an appointment for suture removal and follow up in 7-10 days.
[2019-04-16] MEDS: Bupivacaine Mpf 0.5% 30 ML VIAL (07:30)
[2019-04-16] MEDS: Heparin Injection (Vial) 5,000 UNIT/ML VIAL 5000 UNIT (07:45)
--- NOTE | 2019-04-16 08:06 | PCM.OPRPT ---
Problem List (1) Chronic renal disease, stage 4, severely decreased glomerular filtration rate (GFR) between 15-29 mL/min/1.73 square meter Status: Chronic Report of Operation Date of Procedure: 04/16/19 Pre-Operative Diagnosis: Stage IV chronic renal insufficiency Post-Operative Diagnosis: Same Surgery/Procedure Performed:: Left forearm radiocephalic arteriovenous fistula creation Description of Surgical Findings:: Timeout and informed consent was obtained. 73-year-old gentleman was taken the operating. He was placed on the table. The left upper extremity was sterilely prepped and draped. Planned procedure. No antibiotics required. 1% lidocaine mixed 50-50 with 0.5% Marcaine was used as local anesthetic. 10 cc was used. Ultrasound had been used preprocedure to map out the course of the cephalic vein the positioning of the radial artery. Local was instilled. An oblique incision was created. Sharp and blunt dissection was used to dissect free the cephalic vein. An sharp and blunt dissection was used to identify the radial artery. It was circumferentially dissected free. The patient received 7000's of heparin intravenously. The cephalic vein was secured distally with a Hemoclip. It was slightly spatulated. Peripheral vascular clamps were placed on the radial artery and 11 blade was used to make an arteriotomy which was extended with Rodríguez scissors. A end-to-side anastomosis was created with a running 7-0 Prolene. Prior to completion of there is good retrograde and anterograde flow. The anastomosis was completed. There was some spasm in the vein distal to the harvest portion. The anastomosis was nicely intact. Doppler demonstrated flow present. The wound was closed with a deep layer of interrupted 3-0 Vicryl and then a running septic or 4 Monocryl. Steri-Strips Telfa OpSite dressing applied. Sponge and instrument and needle counts reported the surgery correct. Blood loss minimal. He tolerated the procedure well was taken to the recovery area in satisfactory condition without apparent complication. Specimens none. Drains none. Blood loss minimal. Konrad Salguero M.D., F.A.C.S. Type of Anesthesia:: Local MAC Anesthesiologist: Ferny Ocampo
[2019-04-16 08:35] LABS: Bedside Glucose 130 mg/dL (70-110)
== END 2019-04-16 09:41 | disposition home or self-care (01) ==
LOC: SDC 05:29 → AC 05:30
PROVIDERS: Family Provider Family Medicine; PCP Family Medicine; Referring Provider Surgery; Visit Provider Surgery
PROC: (CPT 36821; principal; 2019-04-16 07:00)
DX: I12.9 Hypertensive chronic kidney disease with stage 1 through stage 4 chronic kidney disease, or unspecified chronic kidney disease (principal); E11.22 Type 2 diabetes mellitus with diabetic chronic kidney disease; N18.4 Chronic kidney disease, stage 4 (severe); I25.10 Atherosclerotic heart disease of native coronary artery without angina pectoris; D63.1 Anemia in chronic kidney disease; G47.30 Sleep apnea, unspecified; E78.5 Hyperlipidemia, unspecified; F31.9 Bipolar disorder, unspecified; Z85.46 Personal history of malignant neoplasm of prostate; Z85.830 Personal history of malignant neoplasm of bone; Z79.4 Long term (current) use of insulin; Z79.899 Other long term (current) drug therapy
CPT/HCPCS: 01844; 36821; 36415; 80048; 82962; 85027; 93005

== ENCOUNTER → 2019-04-27 | Outpatient (CLI) | payer MEDICARE, SELFPAY ==
[2019-01-31 14:23] VITALS: BMI 27.6
[2019-04-16 05:57] VITALS: BMI 26.6
[2019-04-27 11:55] LABS: Hematocrit 32.8 % (40-54); Hemoglobin 10.7 g/dL (13.0-16.5); Mean Corp Hgb Conc 32.6 g/dL (32-36); Mean Corpuscular Hgb 31.9 pg (27.0-32.0); Mean Corpuscular Volume 97.9 fL (80-94); Mean Platelet Vol. 9.4 fl (6.2-12.0); Platelet Count 107 K/mm3 (150-450); RBC Distribution Width CV 15.9 % (11.6-14.6); RBC Distribution Width SD 57.6 fl (35.1-43.9); Red Blood Count 3.35 M/mm3 (4.6-6.2); White Blood Count 5.5 K/mm3 (4.4-11.0)
[2019-04-27 12:33] LABS: Albumin, Serum 3.8 g/dL (3.2-5.0); BUN 68 mg/dL (7-18); BUN/Creat Ratio 21.2 RATIO (10-20); Calcium,Total 9.4 mg/dL (8.5-10.1); Chloride 112 mmol/L (98-107); Creatinine, Serum 3.21 mg/dL (0.70-1.30); EST Glomerular Filtration Rate 20 mL/min (>60); Est Glom Filt Rate - Afr Amer 24 mL/min (>60); Glucose 134 mg/dL (74-106); PTHIN 132.3 pg/mL (18.4-80.1); Phosphorus 3.9 mg/dL (2.5-4.9); Potassium 4.5 mmol/L (3.5-5.1); Sodium Level 139 mmol/L (136-145)
== END | disposition home or self-care (01) ==
LOC: LAB 10:54
PROVIDERS: Family Provider Family Medicine; PCP Family Medicine; Referring Provider Internal Medicine Nephrology; Visit Provider Internal Medicine Nephrology
DX: N18.4 Chronic kidney disease, stage 4 (severe) (principal); D63.1 Anemia in chronic kidney disease
CPT/HCPCS: 36415; 80069; 83970; 85027

== ENCOUNTER → 2019-05-17 | Outpatient (CLI) | payer MEDICARE, SELFPAY ==
[2019-04-16 05:57] VITALS: BMI 26.6
[2019-05-17 13:46] LABS: Absolute Lymphocyte Count 1.56 X10^3/uL (0.83-4.51); Absolute Neutrophil Count 2.2 X10^3/uL (2.0-7.7); Basophil# 0.05 X10^3/uL; Basophil% 1.1 % (0-1); Eosinophil# 0.24 X10^3/uL; Eosinophils% 5.4 % (0-5); Hematocrit 30.5 % (40-54); Hemoglobin 9.8 g/dL (13.0-16.5); Lymphocyte # 1.56 X10^3/ul (4.0); Mean Corp Hgb Conc 32.1 g/dL (32-36); Mean Corpuscular Volume 99.7 fL (80-94); Mean Platelet Vol. 9.4 fl (6.2-12.0); Monocyte# 0.32 X10^3/uL; Monocyte% 7.2 % (0-10); NRBC Flagged by Analyzer 0 % (0-5); Neutrophil % 49.3 % (47-70); Platelet Count 117 K/mm3 (150-450); RBC Distribution Width CV 15.3 % (11.6-14.6); RBC Distribution Width SD 54.6 fl (35.1-43.9); Red Blood Count 3.06 M/mm3 (4.6-6.2); White Blood Count 4.5 K/mm3 (4.4-11.0)
[2019-05-17 14:07] LABS: ALB/GLOB Ratio 0.9 RATIO (0.9-2.4); AST(SGOT) 11 U/L (15-37); Alanine Aminotransfer ALT/SGPT 16 U/L (16-61); Albumin, Serum 3.6 g/dL (3.2-5.0); Alkaline Phosphatase 90 U/L (45-117); Anion Gap 10 (5-15); BUN 56 mg/dL (7-18); BUN/Creat Ratio 17.4 RATIO (10-20); Calcium,Total 9.1 mg/dL (8.5-10.1); Chloride 112 mmol/L (98-107); Creatinine, Serum 3.21 mg/dL (0.70-1.30); EST Glomerular Filtration Rate 20 mL/min (>60); Est Glom Filt Rate - Afr Amer 24 mL/min (>60); Ferritin 302 ng/mL (26-388); Globulin 3.9 g/dL (2.2-4.2); Glucose 176 mg/dL (74-106); Iron 63 ug/dL (65-175); Iron Binding Capacity,Total 254 ug/dL (250-450); LDH 137 U/L (87-241); PERCENT IRON SATURATION 24.8 % (15.0-55.0); PSA,Total- Diagnostic 1.87 ng/mL (0.0-4.0); Potassium 4.5 mmol/L (3.5-5.1); Protein, Total 7.5 g/dL (6.4-8.2); Sodium Level 142 mmol/L (136-145)
--- NOTE | 2019-05-17 14:54 | RAD_ITS ---
STUDY: X-RAY - UNILATERAL RIBS ( LEFT ) WITH CHEST REASON FOR EXAM: Male, 73 years old. Left-sided rib pain following a fall. TECHNIQUE - RIBS: 4 view(s) of the ribs. TECHNIQUE - CHEST: Single PA view of the chest. COMPARISON: Comparison is made with prior chest radiograph dated March 05, 2016. FINDINGS - RIBS: Nondisplaced left sixth and seventh rib fractures in the anterolateral aspect. FINDINGS - CHEST: A right-sided natalya catheter is in situ. The tip is at the junction of the superior vena cava and right atrium. Scattered calcified granulomas. There is no demonstrated pleural abnormality. Normal size heart. Normal mediastinum and irvin. Normal visualized pulmonary arteries. Normal visualized aortic arch and descending thoracic aorta. There are diffuse degenerative changes of the visualized thoracic spine. Healed right rib fractures. There is no demonstrated abnormality of the visualized soft tissue structures of the upper abdomen. RAD/Ribs Uni Min 3V w/PA Chest IMPRESSION: RIBS: Nondisplaced fractures of the left sixth and seventh ribs. CHEST: Scattered calcified granulomas. Electronically Signed: Hesham Lawson, at 15:35 EST , Service support ,
[2019-05-17 20:53] LABS: Xtra Tube EP Lab EXTRA TUBE
== END | disposition home or self-care (01) ==
PROVIDERS: Family Provider Family Medicine; PCP Family Medicine; Referring Provider Internal Medicine Medical Oncology; Visit Provider Internal Medicine Medical Oncology
DX: C61 Malignant neoplasm of prostate (principal); R07.81 Pleurodynia
CPT/HCPCS: 36415; 71101; 80053; 82728; 83540; 83550; 83615; 84153; 85025

== ENCOUNTER → 2019-06-20 09:23 | Outpatient (CLI) | payer MEDICARE, SELFPAY ==
[2019-06-04 13:54] VITALS: BMI 26.6
[2019-06-20 09:48] LABS: Hemoglobin 9.7 g/dL (13.0-16.5); Mean Corp Hgb Conc 32.3 g/dL (32-36); Mean Corpuscular Hgb 31.4 pg (27.0-32.0); Mean Corpuscular Volume 97.1 fL (80-94); Mean Platelet Vol. 8.7 fl (6.2-12.0); POSITIVE COUNT YES; Platelet Count 96 K/mm3 (150-450); RBC Distribution Width CV 14.9 % (11.6-14.6); RBC Distribution Width SD 51.8 fl (35.1-43.9); Red Blood Count 3.09 M/mm3 (4.6-6.2); White Blood Count 4.3 K/mm3 (4.4-11.0)
[2019-06-20 09:54] LABS: Scan Indicated on CBC? Y/N YES- FLAGS NOTED
[2019-06-20 10:03] LABS: Anion Gap 13 (5-15); BUN 62 mg/dL (7-18); BUN/Creat Ratio 21.5 RATIO (10-20); Calcium,Total 8.9 mg/dL (8.5-10.1); Chloride 110 mmol/L (98-107); Creatinine, Serum 2.89 mg/dL (0.70-1.30); EST Glomerular Filtration Rate 23 mL/min (>60); Est Glom Filt Rate - Afr Amer 28 mL/min (>60); Glucose 137 mg/dL (74-106); Potassium 4.5 mmol/L (3.5-5.1); Sodium Level 140 mmol/L (136-145)
[2019-06-20 10:18] LABS: Differential Comment SCANNED
== END ==
PROVIDERS: Family Provider Family Medicine; PCP Family Medicine; Visit Provider Surgery
DX: Z01.818 Encounter for other preprocedural examination (principal)
CPT/HCPCS: 36415; 80048; 85027

== ENCOUNTER 2019-06-22 10:26 | Day surgery (SDC) | payer MEDICARE, SELFPAY ==
--- NOTE | 2019-06-04 02:14 | HP_ITS ---
Intake Vital Signs 06/04/19 Body Mass Index (BMI) 26.6 06/04/19 Height 6 ft 06/04/19 Weight: 205 lb 06/04/19 Body Mass Index (BMI) 27.8 06/04/19 Blood Pressure 155/71 H 06/04/19 Blood Pressure Location Rt brachial 06/04/19 Blood Pressure Position Sitting 06/04/19 Respiratory Rate 18 06/04/19 Pulse Rate 71 06/04/19 Pulse Source Monitor 06/04/19 Temperature 98.9 F 06/04/19 Temperature Source Oral 06/04/19 Pulse Ox 100 06/04/19 Oxygen Delivery Method room air Intake Visit Reasons: Fistula Final check Chief Complaint: Fistula check Corrections Cadet Required: No Is patient in pain?: No Allergies nalbuphine [From Nubain] Allergy (Verified 06/04/19 13:53) Unknown ramipril [From Altace] Allergy (Verified 06/04/19 13:53) Unknown Medications Atorvastatin Calcium [Lipitor] 40 mg PO QHS 03/09/16 [History Confirmed 06/04/19] Lidocaine/Prilocaine [Lidocaine-Prilocaine Cream] 1 ea TP PRN PRN 03/09/16 [History Confirmed 06/04/19] Ascorbic Acid [Vitamin C] 1,000 mg PO DAILY 07/28/16 [History Confirmed 06/04/19] Calcium Carbonate/Vitamin D3 [Calcium 600-Vit D3 400 Caplet] 1 ea PO DAILY 07/28/16 [History Confirmed 06/04/19] Antiarthritic Combination No.2 [Glucosamine-Chondroitin] 900 mg PO DAILY 09/29/16 [History Confirmed 06/04/19] Insulin Glargine [Lantus SoloStar Pen] 15 units SUBCUT QHS 10/07/17 [History Confirmed 06/04/19] Insulin Lispro [Humalog] 20 unit SQ BID 10/07/17 [History Confirmed 06/04/19] folic acid 800 mcg tablet 800 mcg PO QDAY 10/27/17 [History Confirmed 06/04/19] sertraline 50 mg tablet 50 mg PO DAILY tab 10/27/17 [History Confirmed 06/04/19] sodium bicarbonate 650 mg tablet 650 mg PO QDAY tab 10/27/17 [History Confirmed 06/04/19] enzalutamide 40 mg capsule 160 mg PO DAILY 01/31/19 [History Confirmed 06/04/19] Acetaminophen [Tylenol Tablet] 650 mg PO Q6H PRN PRN tab 04/16/19 [Rx Confirmed 06/04/19] Tumeric 05/23/19 [History Confirmed 06/04/19] PFSH Medical History Prostate cancer (Acute) Chronic renal disease, stage 4, severely decreased glomerular filtration rate (GFR) between 15-29 mL/min/1.73 square meter (Chronic) Essential hypertension (Chronic) Cataract, right eye (Acute) history of nephrostomy tube placement (Acute) SVT (supraventricular tachycardia) (Chronic) Atherosclerotic heart disease of [place] coronary artery without angina pectoris (Chronic) Nonrheumatic mitral (valve) prolapse (Chronic) Nonrheumatic aortic (valve) insufficiency (Chronic) RBBB (Acute) Long-term use of high-risk medication (Chronic) Type 2 diabetes mellitus (Chronic) SOB (shortness of breath) (Acute) Abnormal EKG (Acute) Supraventricular arrhythmia (Acute) Dysuria (Acute) Metastatic bone cancer (Acute) Sleep apnea (Acute) Hyperlipidemia (Chronic) Anemia (Acute) Surgical History Hx of arteriovenostomy for renal dialysis (Acute) nephroscopy with stent placement (Acute) Nephrostomy status (Acute) Hx of appendectomy (Resolved) Family History Father Heart disease Kidney disease CAD (coronary artery disease) Myocardial infarction Mother Heart disease Social History (Updated 06/04/19 @ 14:14 by Konrad Salguero MD) Smoking Status: Never smoker alcohol intake: current HPI HPI HPI: DESHAUN PICKETT, is a 73 M who presents to the office today for HPI HPI Surgical H&P: Yes HPI: DESHAUN PICKETT, is a 73 M who presents to the office today for surgical follow-up status post left forearm radial to cephalic arteriovenous semen analysis fistula creation of April 16, 2019. Dr. Jackelyn Gibson is his grant specialist. The patient has no specific complaints. He is not yet on hemodialysis ROS General General: Yes fatigue; no weight change, appetite, colon cancer, breast cancer or weakness HEENT HEENT: No difficulty swallowing, eye injury, eye surgery, swollen glands or hoarseness Endo Endocrine: Yes diabetes mellitus; no thyroid disease, thyroid cancer, Hair loss, heat intolerance or cold intolerance Skin Skin: No rash or changing moles Breast Breast: No left breast lump, right breast lump, nipple discharge, breast pain, abnormal mammogram, abnormal US or breast enlargement Musc Musculoskeletal: Yes arthritis; no back problems, rheumatoid arthritis, gout or joint pain Cardio Cardiovascular: Yes high blood pressure; no murmur, pacemaker, heart disease, atrial fibrillation, heart attack, heart stent, palpitations, shortness of breat with exertion or chest pain Psych Psychiatric: No depression, anxiety or hearing voices Resp Respiratory: Yes shortness of breath, Yes sleep apnea, No cough, No COPD, No asthma, No emphysema, No wheezing Gastro Gastrointestinal: No abdominal pain, No nausea or vomiting, No diarrhea, No constipation, No blood in stool, No acid reflux, No hemorrhoids, No ulcers, No gallbladder problem, No black,tarry stools Luke Hematologic: No blood thinners, No blood disorders, No bleeding, Yes anemia, No blood clots Neuro Neurologic: No weakness Exam Const General: cooperative Nutritional Appearance: average body habitus [facility] Head: normal to inspection Chest Breast Palpation: No nipple discharge Resp Effort & Inspection: normal respiratory effort Cardio Rate: regular rate Rhythm: regular rhythm Heart Sounds: no murmurs GI Palpation: soft, no hepatosplenomegaly Extrem Other: Left forearm radiocephalic arteriovenous fistula with high-pitched thrill close to the arterial anastomosis and close to the proximal portion of the fistula. I performed ultrasound inspection demonstrating that the anastomosis appears somewhat tight and within the first 2 to 3 cm of the fissure there appears to be some relative narrowing. The rest of the fistula is maturing well Psych Affect: normal affect Assessment & Plan Problems 1. Problem with dialysis access, initial encounter T82.040X Plan I proposed with the patient a balloon maturation angioplasty of the left forearm radiocephalic AV fistula. I would utilize ultrasound to access the fistula closer to the antecubital space retrograde with flow. I anticipate arterial anastomosis and proximal fistula stenosis. I anticipate utilizing carbon dioxide Konrad Salguero M.D., F.A.C.S. Coding Level of Care Code Off vis,est,level 2 Diagnoses Problem with dialysis access, initial encounter T82.334Q ??Encounter type: initial encounter 06/04/19 1414 <Electronically signed by Konrad barakat MD> Date _ Konrad Salguero MD I have re-examined the patient. There are no clinical changes since date of exam.
[2019-06-04 13:50] VITALS: BMI 26.6
[2019-06-04 13:54] VITALS: BMI 26.6
[2019-06-21 08:54] VITALS: BMI 27.8
--- NOTE | 2019-06-22 12:34 | PCM.OPRPT ---
Problem List (1) Problem with dialysis access Status: Acute Qualifiers: Encounter type: initial encounter Report of Operation Date of Procedure: 06/22/19 Pre-Operative Diagnosis: Failure to mature left forearm radial to cephalic hemodialysis fistula Post-Operative Diagnosis: Left forearm radiocephalic hemodialysis fistula with proximal venous stenosis Surgery/Procedure Performed:: Carbon dioxide left upper extremity fistulogram with a 4 x 80 mm ever cross angioplasty in a balloon maturation technique Description of Surgical Findings:: Timeout and informed consent was obtained. 73-year-old gent was taken to the special procedure lab placed on the table. The left extremity sterilely prepped and draped. Under ultrasound guidance the cephalic vein in the more proximal third of the forearm was identified. Under ultrasound guidance 2% lidocaine was instilled and then a micropuncture needle was inserted retrograde with flow. Micropuncture were wire inserted. 6 Occitan short sheath outer surgery. Then using a 4 [id number] glide cath and an 035 Glidewire I was able to gain access to the radial artery proximal to the anastomosis. It is of note that this was somewhat challenging as the proximal 2 to 3 cm the fistula seemed to be rather diminutive in finding to the true channel was time requiring. Once I had I was able to use carbon dioxide obtained a fistulogram. This demonstrated that the proximal fistula and maybe even the arterial anastomosis was more diminutive than desirable. I then placed a 4 x 80 mm ever cross balloon and 2 different positions did balloon maturation angioplasty of the arterial anastomosis and of the proximal portion of the fistula admit patient portion of the fistula. I then exchanged out for the 4 [place]itan angled glide cath replaced into the radial artery proximal to the anastomosis and using carbon dioxide again obtained now post completion views now demonstrating significant improvement in the flow through the cephalic vein. There appeared to be resolution of the areas of stenosis. There appeared to be good outflow. I did not pursue the fistula up the arm as the this would require additional carbon dioxide which at this point I elected to avoid. The sheath was removed. A U suture 4-0 nylon was placed. There was a good pulse thrill and bruit within the fistula. Had a small hematoma at the U suture place but that was gently held and milked free. He tolerated well he was quite comfortable no apparent complication He was taken to the recovery room status condition Impression the carbon oxide fistulogram demonstrates clinically significant stenosis in the proximal 2 to 3 cm of the fistula and relative stenosis of the anastomosis. The vein throughout its entire length is rather diminutive in size. A 4 mm balloon was utilized with good success. The patient may still require serial technique and would anticipate at least a 5 mm balloon to be utilized at next setting. Is not clear to me that he would tolerate a 6 mm balloon yet. Konrad Salguero M.D., F.A.C.S.
== END 2019-06-22 13:51 | disposition home or self-care (01) ==
LOC: CLSP 10:27
PROVIDERS: Family Provider Family Medicine; PCP Family Medicine; Referring Provider Surgery; Visit Provider Surgery
DX: T82.858A Stenosis of other vascular prosthetic devices, implants and grafts, initial encounter (principal); I12.9 Hypertensive chronic kidney disease with stage 1 through stage 4 chronic kidney disease, or unspecified chronic kidney disease; E11.22 Type 2 diabetes mellitus with diabetic chronic kidney disease; N18.4 Chronic kidney disease, stage 4 (severe); I25.10 Atherosclerotic heart disease of native coronary artery without angina pectoris; I47.1 Supraventricular tachycardia; E78.5 Hyperlipidemia, unspecified; G47.30 Sleep apnea, unspecified; Z79.4 Long term (current) use of insulin; Z79.899 Other long term (current) drug therapy
CPT/HCPCS: 36902; 76937; C1725; C1769

== ENCOUNTER → 2019-07-05 08:50 | Outpatient (CLI) | payer MEDICARE, SELFPAY ==
[2019-06-29 14:32] VITALS: BMI 27.8
[2019-07-05 09:43] LABS: 24HR. UA Prot. Total Volume 3400 mL; Urine Protein (24 Hour) 109.2 mg/dL (<11.9)
[2019-07-05 10:15] LABS: BUN 56 mg/dL (7-18); BUN/Creat Ratio 18.2 RATIO (10-20); Calcium,Total 9.8 mg/dL (8.5-10.1); Chloride 111 mmol/L (98-107); Creatinine, Serum 3.08 mg/dL (0.70-1.30); EST Glomerular Filtration Rate 21 mL/min (>60); Est Glom Filt Rate - Afr Amer 26 mL/min (>60); Glucose 173 mg/dL (74-106); Potassium 4.9 mmol/L (3.5-5.1); Sodium Level 140 mmol/L (136-145)
[2019-07-05 10:25] LABS: Creat.Clear Total Volume 3400 mL; Creatinine Clearance 25 ml/min (100-200); Creatinine Serum Creat 3.1 mg/dL (0.8-1.3); Creatinine Urine 32.2 mg/dL (NO RANGE EST.); EST Glomerular Filtration Rate 21 mL/min (>60); Est Glom Filt Rate - Afr Amer 26 mL/min (>60)
[2019-07-05 10:31] LABS: PTHIN 120.3 pg/mL (18.4-80.1)
== END ==
LOC: LAB.FUTURE 08:53 → LAB 08:58
PROVIDERS: Family Provider Family Medicine; PCP Family Medicine; Referring Provider Internal Medicine Nephrology; Visit Provider Internal Medicine Nephrology
DX: N18.4 Chronic kidney disease, stage 4 (severe) (principal); N25.81 Secondary hyperparathyroidism of renal origin
CPT/HCPCS: 36415; 80069; 81050; 82575; 83970; 84156

== ENCOUNTER 2019-12-07 05:27 | Day surgery (SDC) | payer MEDICARE, SELFPAY ==
[2019-11-22 08:23] VITALS: BMI 27.1
--- NOTE | 2019-11-22 08:38 | HP_ITS ---
Intake Vital Signs 11/22/19 Height 6 ft 11/22/19 Weight: 200 lb 11/22/19 BMI 27.1 11/22/19 BP 151/83 H 11/22/19 Blood Pressure Location Rt brachial 11/22/19 Position Sitting 11/22/19 Respiration 18 11/22/19 Temp 97.4 F L 11/22/19 Temp Source Temporal 11/22/19 BMI 26.8 Intake Visit Reasons: 2 MONTH F/U Fistulagram Check Chief Complaint: F/u for metastatic prostate cancer. 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 Is patient in pain?: No Allergies nalbuphine [From Nubain] Allergy (Verified 11/22/19 08:15) Unknown ramipril [From Altace] Allergy (Verified 11/22/19 08:15) Unknown Medications Atorvastatin Calcium [Lipitor] 40 mg PO QHS 03/09/16 [History Confirmed 11/22/19] Lidocaine/Prilocaine [Lidocaine-Prilocaine Cream] 1 ea TP PRN PRN 03/09/16 [History Confirmed 11/22/19] Ascorbic Acid [Vitamin C] 1,000 mg PO DAILY 07/28/16 [History Confirmed 11/22/19] Calcium Carbonate/Vitamin D3 [Calcium 600-Vit D3 400 Caplet] 1 ea PO DAILY 07/28/16 [History Confirmed 11/22/19] Antiarthritic Combination No.2 [Glucosamine-Chondroitin] 900 mg PO DAILY 09/29/16 [History Confirmed 11/22/19] Insulin Glargine [Lantus SoloStar Pen] 15 units SUBCUT QHS 10/07/17 [History Confirmed 11/22/19] Insulin Lispro [Humalog] 20 unit SQ BID 10/07/17 [History Confirmed 11/22/19] folic acid 800 mcg tablet 800 mcg PO QDAY 10/27/17 [History Confirmed 11/22/19] sertraline 50 mg tablet 50 mg PO DAILY tab 10/27/17 [History Confirmed 11/22/19] sodium bicarbonate 650 mg tablet 650 mg PO QDAY tab 10/27/17 [History Confirmed 11/22/19] enzalutamide 40 mg capsule 160 mg PO DAILY 01/31/19 [History Confirmed 11/22/19] Acetaminophen [Tylenol Tablet] 650 mg PO Q6H PRN PRN tab 04/16/19 [Rx Confirmed 11/22/19] Tumeric 05/23/19 [History Confirmed 11/22/19] FOR[facility] Medical History Problem with dialysis access (Acute) Prostate cancer (Acute) Chronic renal disease, stage 4, severely decreased glomerular filtration rate (GFR) between 15-29 mL/min/1.73 square meter (Chronic) Essential hypertension (Chronic) Cataract, right eye (Acute) history of nephrostomy tube placement (Acute) SVT (supraventricular tachycardia) (Chronic) Atherosclerotic heart disease of [place] coronary artery without angina pectoris (Chronic) Nonrheumatic mitral (valve) prolapse (Chronic) Nonrheumatic aortic (valve) insufficiency (Chronic) RBBB (Acute) Long-term use of high-risk medication (Chronic) Type 2 diabetes mellitus (Chronic) SOB (shortness of breath) (Acute) Abnormal EKG (Acute) Supraventricular arrhythmia (Acute) Dysuria (Acute) Metastatic bone cancer (Acute) Sleep apnea (Acute) Hyperlipidemia (Chronic) Anemia (Acute) Surgical History Hx of arteriovenostomy for renal dialysis (Acute) nephroscopy with stent placement (Acute) Nephrostomy status (Acute) Hx of appendectomy (Resolved) Family History Father Heart disease Kidney disease CAD (coronary artery disease) Myocardial infarction Mother Heart disease Social History (Updated 11/22/19 @ 08:[address] Konrad Salguero MD) Smoking Status: Never smoker alcohol intake: current HPI HPI HPI: DESHAUN PICKETT, is a 73 M who presents to the office today for HPI HPI Surgical H&P: Yes HPI: DESHAUN PICKETT, is a 73 M who presents to the office today for surgical evaluation of a left forearm radiocephalic arteriovenous hemodialysis fistula which is not currently being utilized. I created it for him on April 16, 2019. His most recent intervention was June 22, 2019 because of failure matured I performed a carbon dioxide fistulogram with a 4 x 80 mm ever cross angioplasty. The patient in the interim does not seem to have recognize deterioration the fistula. This was a routine scheduled visit for evaluation. Upon direct questioning the patient noted that it seemed to be decreasing in vigor ROS General General: Yes fatigue; no weight change, appetite, colon cancer, breast cancer or weakness HEENT HEENT: No difficulty swallowing, eye injury, eye surgery, swollen glands or hoarseness Endo Endocrine: Yes diabetes mellitus; no thyroid disease, thyroid cancer, Hair loss, heat intolerance or cold intolerance Skin Skin: No rash or changing moles Breast Breast: No left breast lump, right breast lump, nipple discharge, breast pain, abnormal mammogram, abnormal US or breast enlargement Musc Musculoskeletal: Yes arthritis; no back problems, rheumatoid arthritis, gout or joint pain Cardio Cardiovascular: Yes high blood pressure; no murmur, pacemaker, heart disease, atrial fibrillation, heart attack, heart stent, palpitations, shortness of breat with exertion or chest pain Psych Psychiatric: No depression, anxiety or hearing voices Resp Respiratory: Yes shortness of breath, Yes sleep apnea, No cough, No COPD, No asthma, No emphysema, No wheezing Gastro Gastrointestinal: No abdominal pain, No nausea or vomiting, No diarrhea, No constipation, No blood in stool, No acid reflux, No hemorrhoids, No ulcers, No gallbladder problem, No black,tarry stools Luke Hematologic: No blood thinners, No blood disorders, No bleeding, Yes anemia, No blood clots Neuro Neurologic: No weakness Exam Const General: cooperative, healthy appearing, comfortable, no acute distress Nutritional Appearance: average body habitus Orientation: alert, awake [facility] Head: normal to inspection Chest Breast Palpation: No nipple discharge Resp Effort & Inspection: normal respiratory effort Cardio Rate: regular rate Rhythm: regular rhythm Heart Sounds: no murmurs GI Palpation: soft, no hepatosplenomegaly Extrem Other: Left forearm radiocephalic arteriovenous fistula has no thrill and no pulse. Extraordinarily faint stenotic bruit. On ultrasound inspection there is a 3 cm length of severe stenosis in the proximal portion of the fistula although the anastomosis is widely patent. At approximately 8 to 10 cm the vein becomes quite adequate in the forearm appears to be relatively superficial and patent and throughout its course in the forearm. Psych Affect: normal affect Assessment & Plan Problems 1. Problem with dialysis access, subsequent encounter T82.013D Plan 73-year-old gentleman with stage IV chronic renal insufficiency needing arteriovenous access who has failure to mature left forearm radiocephalic AV fistula. I propose for him a revision. I would anticipate using ultrasound to inspect the fistula extending more proximally in the forearm 8 to 10 cm where the vein again appears to be adequate. I would then re-create an entire new radiocephalic arteriovenous hemodialysis fistula at that site. I have discussed with him technique, benefit, risk of alternatives. As noted fortunately he is not yet on hemodialysis. He does have areas of excoriation as he states he does a significant amount of gardening. I have asked him to be extraordinarily careful so that his skin is clean at the time of tentative surgery. I would anticipate us performing this easily under monitored anesthesia care local anesthetic. I appreciate the ongoing opportunity of assisting with her surgical care. Cc: Dr. Jackelyn Gibson and Dr. Fidencio Salguero M.D., F.A.C.S. Coding Level of Care Code Off vis,est,level 2 Diagnoses Problem with dialysis access, subsequent encounter T82.898D ??Encounter type: subsequent encounter 11/22/19 0838 <Electronically signed by Konrad barakat MD> Date _ Konrad Salguero MD
[2019-12-06 10:18] LABS: Hemoglobin 10.3 g/dL (13.0-16.5); Mean Corp Hgb Conc 31.2 g/dL (32-36); Mean Corpuscular Hgb 28.1 pg (27.0-32.0); Mean Corpuscular Volume 90.2 fL (80-94); Mean Platelet Vol. 9.2 fl (6.2-12.0); Platelet Count 119 K/mm3 (150-450); RBC Distribution Width CV 15.6 % (11.6-14.6); RBC Distribution Width SD 50.3 fl (35.1-43.9); Red Blood Count 3.66 M/mm3 (4.6-6.2); White Blood Count 5.3 K/mm3 (4.4-11.0)
[2019-12-06 10:46] LABS: Anion Gap 10 (5-15); BUN 46 mg/dL (7-18); BUN/Creat Ratio 15.8 RATIO (10-20); Calcium,Total 9.2 mg/dL (8.5-10.1); Chloride 115 mmol/L (98-107); Creatinine, Serum 2.91 mg/dL (0.70-1.30); EST Glomerular Filtration Rate 23 mL/min (>60); Est Glom Filt Rate - Afr Amer 27 mL/min (>60); Glucose 135 mg/dL (74-106); Potassium 4.5 mmol/L (3.5-5.1); Sodium Level 141 mmol/L (136-145)
[2019-12-06 14:34] LABS: Probe Check PASS; Specimen Processing Control PASS
[2019-12-07 05:53] VITALS: BP 139/85; PULSE 70; RESP 16; TEMP 36.6; O2SAT 100; BMI 25.4
--- NOTE | 2019-12-07 06:07 | HP.PCM_ITS ---
Problem List (1) Problem with dialysis access Status: Acute Qualifiers: Encounter type: subsequent encounter History and Physical Date of Admission: 12/07/19 Intake Visit Reasons: 2 MONTH F/U Fistulagram Check Chief Complaint: F/u for metastatic prostate cancer. 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 Is patient in pain?: No Allergies nalbuphine [From Nubain] Allergy (Verified 11/22/19 08:15) Unknown ramipril [From Altace] Allergy (Verified 11/22/19 08:15) Unknown Medications Atorvastatin Calcium [Lipitor] 40 mg PO QHS 03/09/16 [History Confirmed 11/22/19] Lidocaine/Prilocaine [Lidocaine-Prilocaine Cream] 1 ea TP PRN PRN 03/09/16 [History Confirmed 11/22/19] Ascorbic Acid [Vitamin C] 1,000 mg PO DAILY 07/28/16 [History Confirmed 11/22/19] Calcium Carbonate/Vitamin D3 [Calcium 600-Vit D3 400 Caplet] 1 ea PO DAILY 07/28/16 [History Confirmed 11/22/19] Antiarthritic Combination No.2 [Glucosamine-Chondroitin] 900 mg PO DAILY 09/29/16 [History Confirmed 11/22/19] Insulin Glargine [Lantus SoloStar Pen] 15 units SUBCUT QHS 10/07/17 [History Confirmed 11/22/19] Insulin Lispro [Humalog] 20 unit SQ BID 10/07/17 [History Confirmed 11/22/19] folic acid 800 mcg tablet 800 mcg PO QDAY 10/27/17 [History Confirmed 11/22/19] sertraline 50 mg tablet 50 mg PO DAILY tab 10/27/17 [History Confirmed 11/22/19] sodium bicarbonate 650 mg tablet 650 mg PO QDAY tab 10/27/17 [History Confirmed 11/22/19] enzalutamide 40 mg capsule 160 mg PO DAILY 01/31/19 [History Confirmed 11/22/19] Acetaminophen [Tylenol Tablet] 650 mg PO Q6H PRN PRN tab 04/16/19 [Rx Confirmed 11/22/19] Tumeric 05/23/19 [History Confirmed 11/22/19] PFSH Medical History Problem with dialysis access (Acute) Prostate cancer (Acute) Chronic renal disease, stage 4, severely decreased glomerular filtration rate (GFR) between 15-29 mL/min/1.73 square meter (Chronic) Essential hypertension (Chronic) Cataract, right eye (Acute) history of nephrostomy tube placement (Acute) SVT (supraventricular tachycardia) (Chronic) Atherosclerotic heart disease of [place] coronary artery without angina pectoris (Chronic) Nonrheumatic mitral (valve) prolapse (Chronic) Nonrheumatic aortic (valve) insufficiency (Chronic) RBBB (Acute) Long-term use of high-risk medication (Chronic) Type 2 diabetes mellitus (Chronic) SOB (shortness of breath) (Acute) Abnormal EKG (Acute) Supraventricular arrhythmia (Acute) Dysuria (Acute) Metastatic bone cancer (Acute) Sleep apnea (Acute) Hyperlipidemia (Chronic) Anemia (Acute) Surgical History Hx of arteriovenostomy for renal dialysis (Acute) nephroscopy with stent placement (Acute) Nephrostomy status (Acute) Hx of appendectomy (Resolved) Family History Father Heart disease Kidney disease CAD (coronary artery disease) Myocardial infarction Mother Heart disease Social History (Updated 11/22/19 @ 08:[address] Konrad Salguero MD) Smoking Status: Never smoker alcohol intake: current HPI HPI HPI: DESHAUN PICKETT, is a 73 M who presents to the office today for HPI HPI Surgical H&P: Yes HPI: DESHAUN PICKETT, is a 73 M who presents to the office today for surgical evaluation of a left forearm radiocephalic arteriovenous hemodialysis fistula which is not currently being utilized. I created it for him on April 16, 2019. His most recent intervention was June 22, 2019 because of failure matured I performed a carbon dioxide fistulogram with a 4 x 80 mm ever cross angioplasty. The patient in the interim does not seem to have recognize deterioration the fistula. This was a routine scheduled visit for evaluation. Upon direct questioning the patient noted that it seemed to be decreasing in vigor ROS General General: Yes fatigue; no weight change, appetite, colon cancer, breast cancer or weakness HEENT HEENT: No difficulty swallowing, eye injury, eye surgery, swollen glands or hoarseness Endo Endocrine: Yes diabetes mellitus; no thyroid disease, thyroid cancer, Hair loss, heat intolerance or cold intolerance Skin Skin: No rash or changing moles Breast Breast: No left breast lump, right breast lump, nipple discharge, breast pain, abnormal mammogram, abnormal US or breast enlargement Musc Musculoskeletal: Yes arthritis; no back problems, rheumatoid arthritis, gout or joint pain Cardio Cardiovascular: Yes high blood pressure; no murmur, pacemaker, heart disease, atrial fibrillation, heart attack, heart stent, palpitations, shortness of breat with exertion or chest pain Psych Psychiatric: No depression, anxiety or hearing voices Resp Respiratory: Yes shortness of breath, Yes sleep apnea, No cough, No COPD, No asthma, No emphysema, No wheezing Gastro Gastrointestinal: No abdominal pain, No nausea or vomiting, No diarrhea, No c onstipation, No blood in stool, No acid reflux, No hemorrhoids, No ulcers, No gallbladder problem, No black,tarry stools Luke Hematologic: No blood thinners, No blood disorders, No bleeding, Yes anemia, No blood clots Neuro Neurologic: No weakness Exam Const General: cooperative, healthy appearing, comfortable, no acute distress Nutritional Appearance: average body habitus Orientation: alert, awake [facility] Head: normal to inspection Chest Breast Palpation: No nipple discharge Resp Effort & Inspection: normal respiratory effort Cardio Rate: regular rate Rhythm: regular rhythm Heart Sounds: no murmurs GI Palpation: soft, no hepatosplenomegaly Extrem Other: Left forearm radiocephalic arteriovenous fistula has no thrill and no pulse. Extraordinarily faint stenotic bruit. On ultrasound inspection there is a 3 cm length of severe stenosis in the proximal portion of the fistula although the anastomosis is widely patent. At approximately 8 to 10 cm the vein becomes quite adequate in the forearm appears to be relatively superficial and patent and throughout its course in the forearm. Psych Affect: normal affect Assessment & Plan Problems 1. Problem with dialysis access, subsequent encounter T82.898D Plan 73-year-old gentleman with stage IV chronic renal insufficiency needing arteriovenous access who has failure to mature left forearm radiocephalic AV fistula. I propose for him a revision. I would anticipate using ultrasound to inspect the fistula extending more proximally in the forearm 8 to 10 cm where the vein again appears to be adequate. I would then re-create an entire new radiocephalic arteriovenous hemodialysis fistula at that site. I have discussed with him technique, benefit, risk of alternatives. As noted fortunately he is not yet on hemodialysis. He does have areas of excoriation as he states he does a significant amount of gardening. I have asked him to be extraordinarily careful so that his skin is clean at the time of tentative surgery. I would anticipate us performing this easily under monitored anesthesia care local anesthetic. I appreciate the ongoing opportunity of assisting with her surgical care. Cc: Dr. Jackelyn Gibson and Dr. Fidencio Salguero M.D., F.A.C.S. Coding Level of Care Code Off vis,est,level 2 Diagnoses Problem with dialysis access, subsequent encounter T82.898D ??Encounter type: subsequent encounter 11/22/19 0838 <Electronically signed by Konrad barakat MD> Date _ Konrad Salguero MD I have re-examined the patient. There are no clinical changes since date of exam. Procedure Criteria Procedure Type: Elective COVID Risk Discussion: The surgeon/proceduralist and patient have discussed in detail the risk of exposure to and/or potential harm posed by the COVID-19 virus with having a surgery/procedure at this time versus the risk of delaying the surgery/procedure. It is not possible to know either the risk of delaying the surgery or procedure or chance of getting an infection with perfect accuracy, but a joint decision was made between the patient and the surgeon/proceduralist to proceed at this time with the scheduled surgery/procedure as indicated on the consent form.
--- NOTE | 2019-12-07 06:09 | DCINST_ITS ---
Discharge Diet: Renal Diet Discharge Activity: May Not Drive - for 2-3 days or while taking narcotic pain medications., May Shower, May Take a Tub Bath - in 5 days. Lifting Restrictions: 5 pounds Keep extremity elevated above heart level: - - Keep arm elevated above the heart level for 3 days. Additional Activity Instructions:: Exercise hand vigorously with a stress ball. Call your doctor if your incision/area has: Continuous Slow Oozing, Sudden Increased Bleeding - apply pressure and call your doctor., Increased Pain/ Swelling, Increased Redness, Foul Smelling Discharge Call your doctor if you observe: Fever of 101 or Higher Suture Line Care: Avoid Pulling/Pushing, Avoid Pinching/Bending Cleanse incision/area with: Keep Dressing Clean & Dry Additional Dressing/Incision Instructions:: You may change the dressing in 1 to 2 days and then recover the incision with gauze and tape or an oversized Band- Aid. Leave the Steri-Strips in place for 1 week. Allergies/Adverse Reactions: Allergies nalbuphine [From Nubain] Allergy (Verified 12/07/19 05:53) Unknown ramipril [From Altace] Allergy (Verified 12/07/19 05:53) Unknown Medications to take at Discharge Atorvastatin Calcium [Lipitor] 40 mg PO QHS 03/09/16 Lidocaine/Prilocaine [Lidocaine-Prilocaine Cream] 1 ea TP PRN PRN 03/09/16 Ascorbic Acid [Vitamin C] 1,000 mg PO DAILY 07/28/16 Calcium Carbonate/Vitamin D3 [Calcium 600-Vit D3 400 Caplet] 1 ea PO DAILY 07/28/16 Antiarthritic Combination No.2 [Glucosamine-Chondroitin] 900 mg PO DAILY 09/29/16 Insulin Glargine [Lantus SoloStar Pen] 15 units SUBCUT QHS 10/07/17 Insulin Lispro [Humalog] 0 unit SQ BID 10/07/17 folic acid 800 mcg tablet 800 mcg PO QDAY 10/27/17 sertraline 50 mg tablet 50 mg PO DAILY tab 10/27/17 sodium bicarbonate 650 mg tablet 650 mg PO TID tab 10/27/17 enzalutamide 40 mg capsule 160 mg PO DAILY 01/31/19 Acetaminophen [Tylenol Tablet] 650 mg PO Q6H PRN PRN tab 04/16/19 Tumeric 500 mg PO DAILY 05/23/19 Primary Care Physician: Fidencio Flores MD [Primary Care Provider] - Test Results: Test results from this visit will be discussed in further detail at your follow- up appointment, if applicable. Please Follow Up With: Konrad Salguero MD - [phone] When: Call to make an appointment for suture removal and follow up in 10 days
[2019-12-07] MEDS: 0.45% Normal Saline 1,000 ML 15 ML IV (06:20)
[2019-12-07] MEDS: Heparin Injection (Vial) 5,000 UNIT/ML VIAL 5000 UNIT (06:59)
[2019-12-07 07:05] LABS: Bedside Glucose 154 mg/dL (70-110)
[2019-12-07] MEDS: Bupivacaine Mpf 0.5% 30 ML VIAL (07:44)
--- NOTE | 2019-12-07 09:02 | OP.PCM_ITS ---
Problem List (1) Problem with dialysis access Status: Acute Qualifiers: Encounter type: subsequent encounter Report of Operation Date of Procedure: 12/07/19 Pre-Operative Diagnosis: Failure of left forearm radiocephalic arteriovenous he modialysis fistula Post-Operative Diagnosis: Same Surgery/Procedure Performed:: Transposition left forearm cephalic vein to radial artery arteriovenous hemodialysis fistula creation Description of Surgical Findings:: Timeout and informed consent was obtained. 73-year-old gentleman was taken to the operating placed on the table. He underwent monitored anesthesia care. Clean procedure no antibiotics required. The left upper semi-was sterilely prepped and draped. 1% lidocaine mixed 50-50 with 0.5% Marcaine was used as local anesthetic. Ultrasound mapping was performed. In the distal third of the forearm local was instilled and a longitudinal incision was made over the cephalic vein sharp and blunt dissection was used to completely mobilized the vein then I worked subcutaneously proximally to further elevate the cephalic vein in the mid forearm. Branches were secured with hemoclips. Generous mobilization was achieved proximally. Then sharp and blunt dissection was used to identify the radial artery it also was mobilized and sidebranch inserted with hemoclips. Patient received 7000 and's of heparin. I placed 2 hemoclips cephalic vein at the area of fibrosis. Open the vein felt was still fibrotic amputated that section got back to normal-appearing vein. I then placed peripheral vascular clamps on the radial artery made an 11 blade arteriotomy extended with Rodríguez scissors. The vein was spatulated and then a end-to-side anastomosis with vein to the artery was created with running 7-0 Prolene. Prior to completion there is good antegrade retrograde flow. The anastomosis was completed. There was excellent distention and flow in the vein now. There is good pulse and thrill and audible bruit. There was some bleeding from the mid canal. Under inspection I placed several hemoclips. I then ended up having placed some Surgicel to assist with ceasing the bleeding. It appeared to come from the very small side branch from the vein. The patient also received 20 mg of protamine as reversal. Hemostasis was achieved. The wound was closed with a running subcuticular 4-0 Monocryl. Steri -Strips Telfa soft roll Jeffery wrap applied. Sponge and instrument and needle counts were reported to the surgeon to be correct. Blood loss was minimal. The hand was viable at the completion without apparent complication he tolerated procedure well was taken to the recovery area in satisfactory addition. Specimens none. Drains none. Blood loss minimal. Konrad Salguero M.D., F.A.C.S. Type of Anesthesia:: Local MAC Anesthesiologist: Ferny Ocampo
[2019-12-07 09:07] VITALS: BP 123/76; BP 139/85; PULSE 63; RESP 16; TEMP 37.3; O2SAT 100
[2019-12-07 09:15] VITALS: BP 137/77; BP 139/85; PULSE 64; RESP 16; O2SAT 100
[2019-12-07 09:20] VITALS: BP 132/69; BP 139/85; PULSE 63; RESP 16; O2SAT 100
[2019-12-07 09:22] VITALS: BP 132/69; BP 139/85; PULSE 62; RESP 16; TEMP 37.7; O2SAT 100
[2019-12-07 10:23] VITALS: BP 139/85
== END 2019-12-07 10:36 | disposition home or self-care (01) ==
LOC: SDC 05:30 → AC 05:34
PROVIDERS: Physician Assistant; PCP Family Medicine; Referring Provider Surgery; Visit Provider Surgery
PROC: (CPT 36821; principal; 2019-12-07 07:15)
DX: T82.898A Other specified complication of vascular prosthetic devices, implants and grafts, initial encounter (principal); I12.9 Hypertensive chronic kidney disease with stage 1 through stage 4 chronic kidney disease, or unspecified chronic kidney disease; E11.22 Type 2 diabetes mellitus with diabetic chronic kidney disease; N18.4 Chronic kidney disease, stage 4 (severe); I47.1 Supraventricular tachycardia; I25.10 Atherosclerotic heart disease of native coronary artery without angina pectoris; I34.1 Nonrheumatic mitral (valve) prolapse; I35.1 Nonrheumatic aortic (valve) insufficiency; E78.5 Hyperlipidemia, unspecified; E78.00 Pure hypercholesterolemia, unspecified; D63.1 Anemia in chronic kidney disease; I45.10 Unspecified right bundle-branch block; F32.9 Major depressive disorder, single episode, unspecified; G47.30 Sleep apnea, unspecified; Z85.46 Personal history of malignant neoplasm of prostate; Z99.2 Dependence on renal dialysis; Z79.4 Long term (current) use of insulin; Z79.899 Other long term (current) drug therapy; Z11.59 Encounter for screening for other viral diseases
CPT/HCPCS: 36821; 36415; 80048; 82962; 85027; 87635; G2023; U0003

== ENCOUNTER → 2020-02-04 13:28 | Outpatient (CLI) | payer MEDICARE, SELFPAY ==
[2020-01-21 14:13] VITALS: BMI 26.0
[2020-02-04 12:15] VITALS: BMI 26.2
--- NOTE | 2020-02-04 13:30 | CT_ITS ---
STUDY: CT ABDOMEN AND PELVIS WITHOUT CONTRAST REASON FOR EXAM: Male, 74 years old. PROSTATE CANCER, TURP, BILAT NEPHROSTOMIES RADIATION DOSAGE (If Supplied By Facility): CTDIvol = ( 8.48 ) mGy, DLP = ( 527.64 ) mGycm TECHNIQUE: Transaxial images were obtained from the dome of the diaphragm to the symphysis pubis without oral contrast, and without intravenous contrast. Sagittal and coronal images were reconstructed. Individualized dose optimization techniques were used for this CT. COMPARISON: Comparison is made with prior study dated 11/17/2018. FINDINGS: Stable 4 mm noncalcified nodule in the lateral posterior aspect of the right lower lobe. Coronary artery calcification. Normal liver. Normal gallbladder and extrahepatic biliary system. Normal spleen. Normal pancreas. Normal bilateral adrenal glands. There is evidence of bilateral nephrostomy tube placement. Mild degree of bilateral hydronephrosis. There is a small hiatal hernia. Normal small intestine. Normal colon. The appendix is visualized and appears normal. There is diffuse atherosclerotic calcification of the abdominal aorta and its major visceral branches, without a demonstrated aneurysm. Normal inferior vena cava. Normal retroperitoneum. There is a marked degree of diffuse bladder wall thickening with a small bladder capacity. Normal abdominal wall. The space narrowing in the degeneration at the L5-S1 level. Inhomogeneous appearance of the visualized lumbar vertebrae. Metastatic deposits should be ruled out. CT/Abdomen/Pel W ORAL Cont Only IMPRESSION: Bilateral percutaneous nephrostomy tubes. Mild degree of the bilateral hydronephrosis. Diffuse circumferential bladder wall thickening with the small caliber bladder. Electronically Signed: Hesham Lawson, at 15:14 EDT , Service support ,
== END ==
PROVIDERS: PCP Family Medicine; Referring Provider Internal Medicine Medical Oncology; Visit Provider Internal Medicine Medical Oncology
DX: C61 Malignant neoplasm of prostate (principal)
CPT/HCPCS: 74176

== ENCOUNTER → 2020-02-08 10:29 | Outpatient (CLI) | payer MEDICARE, SELFPAY ==
[2020-01-21 14:13] VITALS: BMI 26.0
[2020-02-07 14:28] VITALS: BMI 25.3
--- NOTE | 2020-02-08 10:31 | NM_ITS ---
CLINICAL: 74-year-old male with reported history of carcinoma of the prostate. WHOLE BODY 99m Tc MDP RADIONUCLIDE BONE SCINTIGRAPHY COMPARISON: Previous whole body bone scintigraphy study dated 11/21/2018 FINDINGS: Following the intravenous administration of 26.7 mCi of 99m Tc MDP, whole body bone images reveal: 1. Increased radiopharmaceutical concentration is newly visualized in the fifth lumbar vertebra and sacrum, right posterior ischium, superior left acetabulum, the fifth and 10th thoracic vertebra posteriorly on the right, several bilateral ribs, as well as persistent increased tracer concentration defined in the right-left proximal femurs, sixth thoracic vertebra posteriorly on the left, multiple bilateral ribs. 2. Facilitated uptake remains evident in the right-left knees, the right ankle, right midfoot, forefoot bilaterally, both wrists, right-left hands, acromioclavicular compartments of both shoulders. 3. The remaining skeletal structures are scintigraphically unremarkable with normal-appearing renal images and urinary bladder activity identified. There is interval resolution of the previously identified left mid femoral diaphysis and several bilateral ribs. NM/Bone Scan Whole Body IMPRESSION: 1. Both redefined and newly apparent foci of increased radiopharmaceutical concentration observed in the axial skeletal structures is consistent with osseous metastatic disease. 2. Degenerative arthritis appears expressed in the bilateral knees, right ankle, right midfoot, forefoot bilaterally, both hands, right-left shoulders, wrist articulations bilaterally. 3. Overall compared to the previous whole body bone scintigraphy study dated 11/21/2018, there is continued demonstration of multifocal skeletal metastatic disease with interval development of newly defined foci of skeletal metastasis and resolution of several previously defined abnormalities as described above. Electronically Signed: Ross Staples DO at 11:21 EDT Tel , Service support ,
== END ==
PROVIDERS: PCP Family Medicine; Referring Provider Internal Medicine Medical Oncology; Visit Provider Internal Medicine Medical Oncology
DX: C61 Malignant neoplasm of prostate (principal); C41.9 Malignant neoplasm of bone and articular cartilage, unspecified
CPT/HCPCS: 78306

== ENCOUNTER 2020-03-04 09:28 | Day surgery (SDC) | payer MEDICARE, SELFPAY ==
[2020-02-04 12:15] VITALS: BMI 26.2
[2020-03-03 11:25] VITALS: BMI 25.4
[2020-03-04 09:41] VITALS: BMI 26.0
--- NOTE | 2020-03-04 10:29 | HP.PCM_ITS ---
Problem List (1) Problem with dialysis access Status: Acute Qualifiers: History and Physical Date of Admission: 03/04/20 Intake Visit Reasons: F/U FISTULA 12/07/2019 Chief Complaint: F/u Fistula Pressure Washer Required: No Is patient in pain?: No Allergies nalbuphine [From Nubain] Allergy (Verified 02/04/20 13:13) Unknown ramipril [From Altace] Allergy (Verified 02/04/20 13:13) Unknown Medications Atorvastatin Calcium [Lipitor] 40 mg PO QHS 03/09/16 [History Confirmed 02/04/20] Lidocaine/Prilocaine [Lidocaine-Prilocaine Cream] 1 ea TP PRN PRN 03/09/16 [History Confirmed 02/04/20] Ascorbic Acid [Vitamin C] 1,000 mg PO DAILY 07/28/16 [History Confirmed 02/04/20] Calcium Carbonate/Vitamin D3 [Calcium 600-Vit D3 400 Caplet] 1 ea PO DAILY 07/28/16 [History Confirmed 02/04/20] Antiarthritic Combination No.2 [Glucosamine-Chondroitin] 900 mg PO DAILY 09/29/16 [History Confirmed 02/04/20] Insulin Glargine [Lantus SoloStar Pen] 15 units SUBCUT QHS 10/07/17 [History Confirmed 02/04/20] Insulin Lispro [Humalog] 0 unit SQ BID 10/07/17 [History Confirmed 02/04/20] folic acid 800 mcg tablet 800 mcg PO QDAY 10/27/17 [History Confirmed 02/04/20] sertraline 50 mg tablet 50 mg PO DAILY tab 10/27/17 [History Confirmed 02/04/20] sodium bicarbonate 650 mg tablet 650 mg PO TID tab 10/27/17 [History Confirmed 02/04/20] enzalutamide 40 mg capsule 160 mg PO DAILY 01/31/19 [History Confirmed 02/04/20] Acetaminophen [Tylenol Tablet] 650 mg PO Q6H PRN PRN tab 04/16/19 [Rx Confirmed 02/04/20] Tumeric 500 mg PO DAILY 05/23/19 [History Confirmed 02/04/20] Multivit-Min/FA/Lycopen/Lutein [Centrum Silver Tablet] 1 ea PO DAILY 01/21/20 [History Confirmed 02/04/20] PFSH Medical History Problem with dialysis access (Acute) Prostate cancer (Acute) Chronic renal disease, stage 4, severely decreased glomerular filtration rate (GFR) between 15-29 mL/min/1.73 square meter (Chronic) Essential hypertension (Chronic) Cataract, right eye (Acute) history of nephrostomy tube placement (Acute) SVT (supraventricular tachycardia) (Chronic) Atherosclerotic heart disease of [place] coronary artery without angina pectoris (Chronic) Nonrheumatic mitral (valve) prolapse (Chronic) Nonrheumatic aortic (valve) insufficiency (Chronic) RBBB (Acute) Long-term use of high-risk medication (Chronic) Type 2 diabetes mellitus (Chronic) SOB (shortness of breath) (Acute) Abnormal EKG (Acute) Supraventricular arrhythmia (Acute) Dysuria (Acute) Metastatic bone cancer (Acute) Sleep apnea (Acute) Hyperlipidemia (Chronic) Anemia (Acute) Surgical History Hx of arteriovenostomy for renal dialysis (Acute) nephroscopy with stent placement (Acute) Nephrostomy status (Acute) Hx of appendectomy (Resolved) s/p transposition left AV Fistula (Acute ~12/07/19) Family History Father Heart disease Kidney disease CAD (coronary artery disease) Myocardial infarction Mother Heart disease Social History (Updated 02/04/20 @ 13:[address] Konrad Salguero MD) Smoking Status: Never smoker alcohol intake: current HPI HPI HPI: DESHAUN PICKETT, is a 74 M who presents to the office today for status post revision of a left forearm AV fistula. On December 07, 2019 I performed a left mid forearm transposition cephalic vein to radial artery AV fistula creation. Today is a follow-up appointment. He was seen in the office on January 07, 2020 with initial reasonable postoperative results. The patient has no specific complaints. He can feel a thrill. He is not yet on hemodialysis. HPI HPI HPI: DESHAUN PICKETT, is a 74 M who presents to the office today for ROS General General: Yes fatigue; no weight change, appetite, colon cancer, breast cancer or weakness HEENT HEENT: No difficulty swallowing, eye injury, eye surgery, swollen glands or hoarseness Endo Endocrine: Yes diabetes mellitus; no thyroid disease, thyroid cancer, Hair loss, heat intolerance or cold intolerance Skin Skin: No rash or changing moles Breast Breast: No left breast lump, right breast lump, nipple discharge, breast pain, abnormal mammogram, abnormal US or breast enlargement Musc Musculoskeletal: Yes arthritis; no back problems, rheumatoid arthritis, gout or joint pain Cardio Cardiovascular: Yes high blood pressure; no murmur, pacemaker, heart disease, atrial fibrillation, heart attack, heart stent, palpitations, shortness of breat with exertion or chest pain Psych Psychiatric: No depression, anxiety or hearing voices Resp Respiratory: Yes shortness of breath, Yes sleep apnea, No cough, No COPD, No asthma, No emphysema, No wheezing Gastro Gastrointestinal: No abdominal pain, No nausea or vomiting, No diarrhea, No constipation, No blood in stool, No acid reflux, No hemorrhoids, No ulcers, No gallbladder problem, No black,tarry stools Luke Hematologic: No blood thinners, No blood disorders, No bleeding, Yes anemia, No blood clots Neuro Neurologic: No weakness Exam Const General: cooperative, healthy appearing, comfortable Nutritional Appearance: average body habitus Orientation: alert, awake [facility] Head: normal to inspection Chest Chest palpation & inspection: normal inspection of the chest Breast Palpation: No nipple discharge Resp Effort & Inspection: normal respiratory effort Auscultation: clear to auscultation bilaterally Cardio Rate: regular rate Rhythm: regular rhythm Heart Sounds: no murmurs GI Palpation: soft Extrem Other: Left forearm transposed cephalic vein to radial artery AV fistula. Pulse thrill and bruit noted. Psych Affect: normal affect Assessment & Plan Problems 1. Problem with dialysis access, subsequent encounter T82.452J Plan Patient has a read on transposed left mid forearm cephalic vein radial artery AV fistula. On very careful ultrasound inspection can see that the anastomosis is absolutely widely patent. There is relative stenosis within the first 2 cm of the fistula and then the remainder of the fistula looks superb. I propose for him a retrograde approach accessing close to the antecubital space and then performing a CO2 fistulogram with anticipated balloon maturation angioplasty of the proximal centimeters of the fistula. I have discussed technique, benefit, risk of alternatives. I believe that this will expedite the maturation and make it more fast how to be accessed. Copy: Dr. Jackelyn Salguero M.D., F.A.C.S. Coding Level of Care Code Global Post Op Diagnoses Problem with dialysis access, subsequent encounter T82.898D ??Encounter type: subsequent encounter I have re-examined the patient. There are no clinical changes since date of exam. Procedure Criteria Procedure Type: Elective COVID Risk Discussion: The surgeon/proceduralist and patient have discussed in detail the risk of exposure to and/or potential harm posed by the COVID-19 virus with having a surgery/procedure at this time versus the risk of delaying the surgery/procedure. It is not possible to know either the risk of delaying the surgery or procedure or chance of getting an infection with perfect accuracy, but a joint decision was made between the patient and the surgeon/proceduralist to proceed at this time with the scheduled surgery/procedure as indicated on the consent form.
--- NOTE | 2020-03-04 11:31 | PCM.OPRPT ---
Problem List (1) Problem with dialysis access Status: Acute Qualifiers: Report of Operation Date of Procedure: 03/04/20 Pre-Operative Diagnosis: Failure to mature left forearm radiocephalic arteriovenous hemodialysis fistula Post-Operative Diagnosis: High grade proximal fistula venous stenosis Surgery/Procedure Performed:: Left upper extremity fistulogram with carbon dioxide and 6 x 2 Powerflex proximal fistula angioplasty Description of Surgical Findings:: Timeout and informed consent was obtained. 74-year-old gentleman was taken to the special procedures lab placed upon the table. The left upper extremity was sterilely prepped and draped. Under ultrasound guidance 2% lidocaine was instilled as a local anesthetic closer to the antecubital space. This was retrograde with flow. Micropuncture wire inserted. 6 American short sheath was inserted. 035 angled Glidewire was used to place a 4 American glide cath into the radial artery proximal to the anastomosis. Using carbon dioxide a fistulogram was obtained. This suggested that the arterial anastomosis and proximal portion of the fistula appeared somewhat tight. Patient received 5000's of heparin. A 6 x 2 Powerflex wound was inserted. Balloon angioplasty of the arterial anastomosis in the very proximal portion of the fistula performed. There did appear particularly in the proximal portion of the fistula about 2 cm from the anastomosis to be a focally quite tight area of at least 85%. At the completion that appeared to be mostly resolved. There was now much improved flow with good pulsatile flow and palpable thrill. The forearm fistulogram completed with CO2. Good venous outflow noted. Because I was using CO2 I did not proceed to high volumes more proximally. Clinically the fistula was treated. Sheath was removed. A U suture of 4-0 nylon was placed and additional simple suture of 4-0 nylon. Pressure had to be held for hemostasis. Patient did have some oozing so protamine 20 mg were given. He tolerated the procedure well. Images demonstrate a more proximally placed left forearm radiocephalic arteriovenous hemodialysis fistula. There is good fistula outflow. There was evidence of high-grade proximal vein venous stenosis resolved with the Powerflex angioplasty. There now appears to be good inflow with good cephalic and basilic vein upper arm outflow. Konrad Salguero M.D., F.A.C.S. Type of Anesthesia:: Local
== END 2020-03-04 12:30 | disposition home or self-care (01) ==
LOC: CLSP 09:29
PROVIDERS: PCP Family Medicine; Referring Provider Surgery; Visit Provider Surgery
DX: Z49.01 Encounter for fitting and adjustment of extracorporeal dialysis catheter (principal); I25.10 Atherosclerotic heart disease of native coronary artery without angina pectoris; T82.898A Other specified complication of vascular prosthetic devices, implants and grafts, initial encounter; E11.22 Type 2 diabetes mellitus with diabetic chronic kidney disease; I12.9 Hypertensive chronic kidney disease with stage 1 through stage 4 chronic kidney disease, or unspecified chronic kidney disease; N18.4 Chronic kidney disease, stage 4 (severe); Z79.899 Other long term (current) drug therapy; Z79.4 Long term (current) use of insulin; E78.5 Hyperlipidemia, unspecified; Z85.46 Personal history of malignant neoplasm of prostate; Z85.830 Personal history of malignant neoplasm of bone
CPT/HCPCS: 36902; 76937; Q9967; C1725; C1769

== ENCOUNTER → 2020-03-19 10:43 | Outpatient (CLI) | payer MEDICARE, SELFPAY ==
[2020-01-21 14:13] VITALS: BMI 26.0
[2020-03-14 10:46] VITALS: BMI 24.7
[2020-03-19 11:16] LABS: Absolute Lymphocyte Count 1.26 X10^3/uL (0.83-4.51); Absolute Neutrophil Count 3.9 X10^3/uL (2.0-7.7); Basophil# 0.04 X10^3/uL; Basophil% 0.7 % (0-1); Eosinophil# 0.09 X10^3/uL; Eosinophils% 1.5 % (0-5); Hematocrit 33.9 % (40-54); Hemoglobin 10.1 g/dL (13.0-16.5); Lymphocyte # 1.26 X10^3/ul (4.0); Lymphocyte % 21.6 % (19-41); Mean Corp Hgb Conc 29.8 g/dL (32-36); Mean Corpuscular Hgb 27.2 pg (27.0-32.0); Mean Corpuscular Volume 91.4 fL (80-94); Monocyte# 0.42 X10^3/uL; Monocyte% 7.2 % (0-10); NRBC Flagged by Analyzer 0 % (0-5); Neutrophil # 3.92 X10^3/uL (2.7-7.7); Neutrophil % 67.5 % (47-70); POSITIVE MORPHOLOGY YES; Platelet Count 100 K/mm3 (150-450); RBC Distribution Width CV 22.1 % (11.6-14.6); RBC Distribution Width SD 70.6 fl (35.1-43.9); Red Blood Count 3.71 M/mm3 (4.6-6.2); White Blood Count 5.8 K/mm3 (4.4-11.0)
[2020-03-19 11:32] LABS: Differential Indicated SCAN CRITERIA MET
[2020-03-19 11:34] LABS: ALB/GLOB Ratio 0.9 RATIO (0.9-2.4); AST(SGOT) 7 U/L (15-37); Alanine Aminotransfer ALT/SGPT 11 U/L (16-61); Albumin, Serum 3.4 g/dL (3.2-5.0); Alkaline Phosphatase 97 U/L (45-117); Anion Gap 5 (5-15); BUN 40 mg/dL (7-18); BUN/Creat Ratio 15.6 RATIO (10-20); Calcium,Total 9.3 mg/dL (8.5-10.1); Chloride 113 mmol/L (98-107); Creatinine, Serum 2.57 mg/dL (0.70-1.30); EST Glomerular Filtration Rate 26 mL/min (>60); Est Glom Filt Rate - Afr Amer 31 mL/min (>60); Globulin 3.9 g/dL (2.2-4.2); Glucose 124 mg/dL (74-106); Phosphorus 3.7 mg/dL (2.5-4.9); Potassium 4.8 mmol/L (3.5-5.1); Protein, Total 7.3 g/dL (6.4-8.2); Sodium Level 142 mmol/L (136-145)
[2020-03-19 11:46] LABS: PTHIN 91.5 pg/mL (18.4-80.1)
[2020-03-19 11:53] LABS: Macrocytosis 1+; Microcytosis 1+
[2020-03-19 11:54] LABS: Platelet Estimate SLT DEC (ADEQ); Polychromasia RARE
[2020-03-19 11:55] LABS: Anisocytosis 3+
== END ==
PROVIDERS: Nurse Practitioner Family; PCP Family Medicine; Referring Provider Internal Medicine Nephrology; Visit Provider Internal Medicine Nephrology
DX: N18.4 Chronic kidney disease, stage 4 (severe) (principal); D64.9 Anemia, unspecified; C41.9 Malignant neoplasm of bone and articular cartilage, unspecified; C61 Malignant neoplasm of prostate
CPT/HCPCS: 36415; 80053; 83970; 84100; 84153; 85025

== ENCOUNTER → 2020-06-16 13:35 | Outpatient (CLI) | payer MEDICARE, SELFPAY ==
[2020-06-16 13:31] VITALS: BMI 25.7
[2020-06-16 13:53] LABS: Absolute Lymphocyte Count 1.66 X10^3/uL (0.83-4.51); Basophil# 0.05 X10^3/uL; Basophil% 0.6 % (0-1); Eosinophil# 0.08 X10^3/uL; Eosinophils% 0.9 % (0-5); Hematocrit 33.4 % (40-54); Hemoglobin 10.2 g/dL (13.0-16.5); Lymphocyte # 1.66 X10^3/ul (4.0); Lymphocyte % 19.3 % (19-41); Mean Corp Hgb Conc 30.5 g/dL (32-36); Mean Corpuscular Hgb 25.4 pg (27.0-32.0); Mean Corpuscular Volume 83.1 fL (80-94); Mean Platelet Vol. 8.9 fl (6.2-12.0); NRBC Flagged by Analyzer 0 % (0-5); Neutrophil # 5.98 X10^3/uL (2.7-7.7); Neutrophil % 69.8 % (47-70); Platelet Count 169 K/mm3 (150-450); RBC Distribution Width CV 17.1 % (11.6-14.6); RBC Distribution Width SD 50.5 fl (35.1-43.9); Red Blood Count 4.02 M/mm3 (4.6-6.2); White Blood Count 8.6 K/mm3 (4.4-11.0)
[2020-06-16 14:07] LABS: Anion Gap 8 (5-15); BUN 63 mg/dL (7-18); Calcium,Total 8.9 mg/dL (8.5-10.1); Chloride 108 mmol/L (98-107); Creatinine, Serum 3.31 mg/dL (0.70-1.30); EST Glomerular Filtration Rate 19 mL/min (>60); Est Glom Filt Rate - Afr Amer 23 mL/min (>60); Glucose 110 mg/dL (74-106); Potassium 4.7 mmol/L (3.5-5.1); Sodium Level 139 mmol/L (136-145)
== END ==
PROVIDERS: Physician Assistant; PCP Family Medicine; Referring Provider Surgery; Visit Provider Surgery
DX: T82.898A Other specified complication of vascular prosthetic devices, implants and grafts, initial encounter (principal)
CPT/HCPCS: 36415; 80048; 85025

== ENCOUNTER 2020-06-23 09:22 | Day surgery (SDC) | payer MEDICARE, SELFPAY ==
[2020-06-16 13:31] VITALS: BMI 25.7
[2020-06-20 09:26] VITALS: BMI 25.7
--- NOTE | 2020-06-23 10:13 | PCM.HP.BLA ---
Problem List (1) Problem with dialysis access Status: Acute Qualifiers: History and Physical Date of Admission: 06/23/20 Intake Visit Reasons: 3 Month fistula check Chief Complaint: 3 month fisutla check Humanities Coordinator Required: No Is patient in pain?: No Allergies nalbuphine [From Nubain] Allergy (Verified 06/16/20 13:21) Unknown ramipril [From Altace] Allergy (Verified 06/16/20 13:21) Unknown Medications Atorvastatin Calcium [Lipitor] 40 mg PO QHS 03/09/16 [History Confirmed 06/16/20] Lidocaine/Prilocaine [Lidocaine-Prilocaine Cream] 1 ea TP PRN PRN 03/09/16 [History Confirmed 06/16/20] Calcium Carbonate/Vitamin D3 [Calcium 600-Vit D3 400 Caplet] 1 ea PO DAILY 07/28/16 [History Confirmed 06/16/20] Antiarthritic Combination No.2 [Glucosamine-Chondroitin] 900 mg PO DAILY 09/29/16 [History Confirmed 06/16/20] Insulin Glargine [Lantus SoloStar Pen] 15 units SC QHS 10/07/17 [History Confirmed 06/16/20] Insulin Lispro [Humalog] 0 unit SQ BID 10/07/17 [History Confirmed 06/16/20] folic acid 800 mcg tablet 800 mcg PO QDAY 10/27/17 [History Confirmed 06/16/20] sertraline 50 mg tablet 50 mg PO DAILY tab 10/27/17 [History Confirmed 06/16/20] sodium bicarbonate 650 mg tablet 650 mg PO TID tab 10/27/17 [History Confirmed 06/16/20] Acetaminophen [Tylenol Tablet] 650 mg PO Q6H PRN PRN tab 04/16/19 [Rx Confirmed 06/16/20] Tumeric 500 mg PO DAILY 05/23/19 [History Confirmed 06/16/20] Multivit-Min/FA/Lycopen/Lutein [Centrum Silver Tablet] 1 ea PO DAILY 01/21/20 [History Confirmed 06/16/20] Prednisone 5 mg PO BID #60 tab 02/27/20 [Rx Confirmed 06/16/20] Omeprazole 20 mg PO DAILY 30 Days #30 capsule. 03/05/20 [Rx Confirmed 06/16/20] Abiraterone Acetate [Zytiga] 1,000 mg PO DAILY 10/07/20 [History Confirmed 06/16/20] Ascorbic Acid [Vitamin C] 1,000 mg PO DAILY 05/07/20 [History Confirmed 06/16/20] Iron Polysaccharide Complex [Ferrex 150] 150 mg PO DAILYCM #90 cap 05/07/20 [Rx Confirmed 06/16/20] [facility] Medical History Problem with dialysis access (Acute) Prostate cancer (Acute) Chronic renal disease, stage 4, severely decreased glomerular filtration rate (GFR) between 15-29 mL/min/1.73 square meter (Chronic) Essential hypertension (Chronic) Cataract, right eye (Acute) history of nephrostomy tube placement (Acute) SVT (supraventricular tachycardia) (Chronic) Atherosclerotic heart disease of [place] coronary artery without angina pectoris (Chronic) Nonrheumatic mitral (valve) prolapse (Chronic) Nonrheumatic aortic (valve) insufficiency (Chronic) RBBB (Acute) Long-term use of high-risk medication (Chronic) Type 2 diabetes mellitus (Chronic) SOB (shortness of breath) (Acute) Abnormal EKG (Acute) Supraventricular arrhythmia (Acute) Dysuria (Acute) Metastatic bone cancer (Acute) Sleep apnea (Acute) Hyperlipidemia (Chronic) Anemia (Acute) Surgical History Hx of arteriovenostomy for renal dialysis (Acute) nephroscopy with stent placement (Acute) Nephrostomy status (Acute) Hx of appendectomy (Resolved) History of angioplasty of peripheral vessel (Acute ~03/2020) s/p transposition left AV Fistula (Acute ~12/07/19) Family History Father Heart disease Kidney disease CAD (coronary artery disease) Myocardial infarction Mother Heart disease Social History Smoking Status: Never smoker alcohol intake: current HPI HPI HPI: DESHAUN PICKETT, is a 74 M who presents to the office today for surgical follow-up of transposed left forearm AV fistula 74-year-old gentleman. On December 07, 2019 I performed a revision of a left forearm radiocephalic AV fistula. The proximal portion of the fistula became stenotic so I then performed a transposition more proximally. On clinical exam is not maturing well so on March 04, 2020 I performed a carbon dioxide left upper semi-fistulogram and did a 6 x 2 Powerflex angioplasty of the very proximal portion of the fistula. It appeared to be about 2 cm from the anastomosis. I felt that I had good clinical result. The patient has no particular complaints today. He is not yet on hemodialysis. He states that his laboratories stabilized. He states that Dr. Jackelyn Gibson has been quite pleased with him. HPI HPI HPI: DESHAUN PICKETT, is a 74 M who presents to the office today for ROS General General: Yes fatigue; no weight change, appetite, colon cancer, breast cancer or weakness HEENT HEENT: No difficulty swallowing, eye injury, eye surgery, swollen glands or hoarseness Endo Endocrine: Yes diabetes mellitus; no thyroid disease, thyroid cancer, Hair loss, heat intolerance or cold intolerance Skin Skin: No rash or changing moles Breast Breast: No left breast lump, right breast lump, nipple discharge, breast pain, abnormal mammogram, abnormal US or breast enlargement Musc Musculoskeletal: Yes arthritis; no back problems, rheumatoid arthritis, gout or joint pain Cardio Cardiovascular: Yes high blood pressure; no murmur, pacemaker, heart disease, atrial fibrillation, heart attack, heart stent, palpitations, shortness of breat with exertion or chest pain Psych Psychiatric: No depression, anxiety or hearing voices Resp Respiratory: Yes shortness of breath, Yes sleep apnea, No cough, No COPD, No asthma, No emphysema, No wheezing Gastro Gastrointestinal: No abdominal pain, No nausea or vomiting, No diarrhea, No constipation, No blood in stool, No acid reflux, No hemorrhoids, No ulcers, No gallbladder problem, No black,tarry stools Luke Hematologic: No blood thinners, No blood disorders, No bleeding, Yes anemia, No blood clots Neuro Neurologic: No weakness Exam Const General: cooperative, healthy appearing, comfortable Chest Breast Palpation: No nipple discharge Resp Effort & Inspection: normal respiratory effort Auscultation: clear to auscultation bilaterally Cardio Rate: regular rate Rhythm: regular rhythm Heart Sounds: no murmurs GI Palpation: soft Extrem Other: Left forearm transposed radiocephalic AV fistula. There is a pulse and thrill and bruit. The fistula however seems smaller than anticipated for this degree of time. Ultrasound inspection revealed that approximately 2 cm from the arterial anastomosis there is a very focal area of wall thickening and stenosis. The remainder of the fistula appears good Assessment & Plan Problems 1. Problem with dialysis access, initial encounter T82.680K Plan I would propose for the patient a carbon dioxide fistulogram left forearm. I would use ultrasound and access closer to the antecubital space retrograde with flow. I anticipating 1 focal area of stenosis within about 2 cm to the arterial anastomosis. The arterial anastomosis appears to be widely patent. I would anticipate utilizing either a 6 or 7 mm cutting balloon. He has had an opportunity to ask and have questions answered. We will schedule procedure at his discretion. Copy: Dr. Jackelyn Salguero M.D., F.A.C.S. Coding Level of Care Code Off vis,est,level 2 Diagnoses Problem with dialysis access, initial encounter T82.134B ??Encounter type: initial encounter I have re-examined the patient. There are no clinical changes since date of exam. Procedure Criteria Procedure Type: Elective COVID Risk Discussion: The surgeon/proceduralist and patient have discussed in detail the risk of exposure to and/or potential harm posed by the COVID-19 virus with having a surgery/procedure at this time versus the risk of delaying the surgery/procedure. It is not possible to know either the risk of delaying the surgery or procedure or chance of getting an infection with perfect accuracy, but a joint decision was made between the patient and the surgeon/proceduralist to proceed at this time with the scheduled surgery/procedure as indicated on the consent form.
--- NOTE | 2020-06-23 11:02 | PCM.OPRPT ---
Problem List (1) Problem with dialysis access Status: Acute Qualifiers: Report of Operation Date of Procedure: 06/23/20 Pre-Operative Diagnosis: Problem with dialysis access with decreased left forearm transposed cephalic vein to radial artery arterial inflow Post-Operative Diagnosis: Left forearm transposed cephalic vein radial artery AV fistula with proximal fistula venous stenosis Surgery/Procedure Performed:: Left upper extremity carbon dioxide fistulogram with 6 x 2 Cutting Balloon angioplasty Description of Surgical Findings:: Timeout and informed consent was obtained. 74-year-old gent was taken to the procedure room placed on the table the left upper extremity was sterilely prepped and draped. Ultrasound was used to identify the cephalic vein closer to the antecubital space. Under ultrasound guidance 2% lidocaine was used as a local anesthetic. A total of 2 cc was used. Micropuncture needle was inserted retrograde with flow. Micropuncture wire inserted. 6 Iraqi short sheath dilator was inserted. Using a 035 angled Glidewire to 4 Iraqi glide catheter was able to gain access to the radial artery proximal to the anastomosis. Using 10 to 15 cc/inj. of carbon dioxide was able obtain a fistulogram of the forearm. This demonstrated as suspected from my ultrasound inspection preoperatively that there was clinically significant stenosis within the proximal fistula approximately 2 cm from the anastomosis. Using a SV 5 wire as support I then advanced a 6 x 2 Cutting Balloon. Balloon angioplasty of the anastomotic area. Proximal portion of the fistula and the area of the fistula centered about 4 cm from the anastomosis. That area was treated 3 separate times with insufflation up to the full 10 [place] of pressure. There appeared to be good release by the Cutting Balloon. A 4 Iraqi glide catheter was replaced and a final carbon oxide fistulogram was obtained demonstrating now improvement. There was felt to be good flow out the forearm and rapid clearance. Because of the carbon dioxide and volume required I did not do a more proximal study. Impression Successfully treated transposed left forearm cephalic vein to radial artery AV fistula with proximal fistula venous stenosis resolved with Cutting Balloon. Konrda Salguero M.D., F.A.C.S. Type of Anesthesia:: Local
== END 2020-06-23 12:05 | disposition home or self-care (01) ==
LOC: CLSP 09:23
PROVIDERS: PCP Family Medicine; Referring Provider Surgery; Visit Provider Surgery
DX: T82.858A Stenosis of other vascular prosthetic devices, implants and grafts, initial encounter (principal); Y82.8 Other medical devices associated with adverse incidents; Z79.899 Other long term (current) drug therapy; Z79.4 Long term (current) use of insulin; I25.10 Atherosclerotic heart disease of native coronary artery without angina pectoris; I12.9 Hypertensive chronic kidney disease with stage 1 through stage 4 chronic kidney disease, or unspecified chronic kidney disease; N18.4 Chronic kidney disease, stage 4 (severe); E78.5 Hyperlipidemia, unspecified; E11.22 Type 2 diabetes mellitus with diabetic chronic kidney disease; G47.30 Sleep apnea, unspecified
CPT/HCPCS: 36902; 76937; C1725; Q9967; C1769

== ENCOUNTER → 2020-07-24 10:31 | Outpatient (CLI) | payer MEDICARE, SELFPAY ==
[2020-03-20 08:06] VITALS: BMI 25.2
[2020-07-17 14:42] VITALS: BMI 26.4
[2020-07-24 12:22] LABS: Albumin, Serum 3.1 g/dL (3.2-5.0); BUN 40 mg/dL (7-18); Calcium,Total 8.7 mg/dL (8.5-10.1); Chloride 109 mmol/L (98-107); Creatinine, Serum 3.08 mg/dL (0.70-1.30); EST Glomerular Filtration Rate 21 mL/min (>60); Est Glom Filt Rate - Afr Amer 26 mL/min (>60); Glucose 132 mg/dL (74-106); Phosphorus 3.8 mg/dL (2.5-4.9); Potassium 5.2 mmol/L (3.5-5.1); Sodium Level 138 mmol/L (136-145)
[2020-07-24 12:42] LABS: PTHIN 152.9 pg/mL (18.4-80.1)
== END ==
PROVIDERS: PCP Family Medicine; Visit Provider Internal Medicine Nephrology
DX: N18.4 Chronic kidney disease, stage 4 (severe) (principal); N25.81 Secondary hyperparathyroidism of renal origin
CPT/HCPCS: 36415; 80069; 83970; 85025

== ENCOUNTER → 2020-08-12 14:51 | Outpatient (CLI) | payer MEDICARE, SELFPAY ==
--- NOTE | 2016-01-27 | IMM_PTH ---
PATIENT: DESHAUN PICKETT LOC: [facility] U#:[id number] AGE/SX: 79/M ROOM: RE08/12/[address]: Dr. Timbo Haro MD : 1945 BED: DIS: SPEC #: [id number] RECD: 08/12/20 14:56 STATUS: KINDRA ZHANG #: [id number] OLIVIA: 01/27/16 00:[address]: Timbo Haro DEPT: IMMUNOHISTOCHEMISTRY RECD BY: Joy Garduno ENTERED: 08/12/20 14:58 SP TYPE: IMMUNO OTHR DR: Dr. Fidencio Mar MD Tissues: D - PROSTATE LEFT Procedures: Synapto (add) MSH2 (add) MLH-1 (add) MSH6 (add) Anti-PMS2 (add) NSE (add) CHROMO (initial) PHYSICIAN & INSTITUTION [place] [id number] SPECIMEN INFORMATION: Tissue Source: D - Left prostate, mid, core biopsy Clinical Info: Elevated PSA, nodular prostate Specimen Number: [id number] CPT code: 59372, 15912 x6 METHODOLOGY: Deparaffinized sections of prefer/formalin-fixed tissue or PAP/DQ stained slides are incubated with monoclonal/polyclonal antibodies/oligonucleotide probes. Localization is made via biotin free immunoperoxidase method. Appropriate controls are performed and reacted as expected. Results on target cell population are indicated in the following table: RESULTS: ANTIBODY / CLONE RESULT Block D Chromo (LK2H10) negative NSE Neuron Specific Enolase negative Synapto (polyclonal) positive, rare MLH-1 (M1) positive MSH2 (25D12) negative MSH6 (44) positive, focal, dim PMS2 ([id number]) positive These tests were developed and their performance characteristics determined by [facility]. They may not have been cleared or approved by the U.S. Food and Drug Administration. The FDA has determined that such clearance or approval is not necessary. The above immunohistochemical/dualISH markers are ordered by Dr. Haro and reviewed by the Pathologist. INTERPRETATION: D. Left prostate, mid, core biopsy: Result of Microsatellite Instability Study: Positive (loss of mismatch protein; microsatellite instability detected). Partial loss of MSH6. Complete loss of MSH2. AM:basilio 08/13/2020
== END ==
PROVIDERS: PCP Family Medicine; Visit Provider Internal Medicine Medical Oncology
DX: C61 Malignant neoplasm of prostate (principal); C41.9 Malignant neoplasm of bone and articular cartilage, unspecified
CPT/HCPCS: 88341; 88342

== ENCOUNTER 2020-08-19 09:00 | Inpatient (IN) | payer MEDICARE, SELFPAY ==
[2020-08-19] VITALS (14 sets, daily range): BP systolic 132–170; BP diastolic 68–87; PULSE 65–105; RESP 18–23; TEMP 36.2–37.3; O2SAT 95–100; BMI 25.2; BMI 24.3
--- NOTE | 2020-08-19 09:19 | EKG12_ITS ---
Test Reason : WEAKNESS Blood Pressure : / mmHG Vent. Rate : 092 BPM Atrial Rate : 092 BPM P-R Int : 176 ms QRS Dur : 148 ms QT Int : 392 ms P-R-T Axes : 052 270 042 degrees QTc Int : 484 ms Sinus rhythm with Premature atrial complexes Right bundle branch block Inferior MD, age undetermined, cannot be excluded Abnormal ECG Confirmed by ZI REZA, STEWART ([id number]), marketing editor GERRI ANGELA ([id number]) on 08/21/2020 1:49:21 PM Referred By: JOO Confirmed By:STEWART PINON MD
--- NOTE | 2020-08-19 09:22 | ED.DCSUM_ITS ---
- ER Visit Summary Date of Service: 08/19/20 Chief Complaint: Chills History of Present Illness: The patient is a 74 M who presents with chills that have been intermittent over the last 3 days. Patient states he has felt chilled and had an episode of shaking chills. Patient states this has been constant for the past 3 days. Patient states it improves with warm blankets. Patient denies any fevers. Patient states his temperature at home has been normal. Patient admits to a cough but denies any sputum production. Patient admits to some mild shortness of breath. Patient admits to nausea but denies any vomiting. Patient admits to a headache and generalized weakness. Patient denies any chest pain. Patient denies any upper respiratory symptoms. Physical Examination: Vital signs are stable. Patient is afebrile. Patient is in no acute distress. Oral mucosa is pink and moist. Neck is supple. Trachea is midline. There is no JVD noted. Heart was regular rate and rhythm. Lungs are clear and equal bilaterally. Abdomen is soft. Bowel sounds are normal. There is no tenderness. There is no rebound or guarding noted. Skin is warm dry. Cranial nerves II through XII are intact. There are no focal motor or sensory deficits noted. Extremities are intact. There is no calf tenderness or edema. Test Results: EKG was obtained. On my interpretation, there is normal sinus rhythm with a rate of 92. There is a right bundle branch block pattern noted. There are no acute ST or T wave changes. This was unchanged compared to previous EKG. CBC shows mild anemia with a hemoglobin of 8.7. Platelets were 101. Sodium was slightly low at 134. CO2 was slightly low at 18. BUN was elevated at 57. Creatinine was elevated at 3.22. Alk phos was slightly elevated at 329. Troponin was elevated at 1.59. Urinalysis shows leukocyte esterase of 500 with greater than 100 white blood cells but no bacteria. COVID- 19 rapid antigen was obtained and was negative. Influenza swab was obtained and was negative. PT with INR was obtained and was within normal limits. Emergency Department Course and Treatment: Patient was given aspirin here. Patient was started on Rocephin. Case was discussed with the hospitalist. He recommended obtaining blood cultures and urine culture. These were obtained. He will admit the patient to his service to the PCU. Patient understood and was agreeable with the plan. All questions were answered. Disposition: Admit to hospital Impression: 1. Non-STEMI 2. Urinary tract infection This note was generated with [employer] dictation software. It may contain incorrect words, spelling, and punctuation that were not noted in review of the chart prior to signing ED Disposition - Plan for ED Patient: Disposition: Acute Care Hospital [facility]
--- NOTE | 2020-08-19 09:45 | RAD_ITS ---
STUDY: X-RAY CHEST REASON FOR EXAM: Male, 74 years old. WEAKNESS AND COUGH TECHNIQUE: Single AP portable view of the chest. COMPARISON: Comparison is made with prior study 05/17/2019. FINDINGS: A right-sided natalya catheter is in situ with the tip at the junction of the superior vena cava and right atrium. EKG electrodes are seen. Stable mild increased markings at the bases suggestive of scarring. There is no demonstrated pleural abnormality. Normal size heart. Normal mediastinum and irvin. Normal visualized pulmonary arteries. There is atherosclerotic calcification of the aortic arch with tortuosity. There are diffuse degenerative changes of the visualized thoracic spine. Multiple healed right rib fractures. There is no demonstrated abnormality of the visualized soft tissue structures of the upper abdomen. RAD/Chest 1 View (Portable) IMPRESSION: No acute abnormality is seen. Electronically Signed: Hesham Lawson MD at 10:15 EST , Service support ,
[2020-08-19 09:52] LABS: Absolute Lymphocyte Count 0.68 X10^3/uL (0.83-4.51); Absolute Neutrophil Count 6.7 X10^3/uL (2.0-7.7); Basophil# 0.01 X10^3/uL; Basophil% 0.1 % (0-1); Eosinophil# 0.02 X10^3/uL; Eosinophils% 0.3 % (0-5); Hematocrit 30.2 % (40-54); Hemoglobin 8.7 g/dL (13.0-16.5); Lymphocyte # 0.68 X10^3/ul (4.0); Lymphocyte % 8.5 % (19-41); Mean Corp Hgb Conc 28.8 g/dL (32-36); Mean Corpuscular Hgb 22.4 pg (27.0-32.0); Mean Corpuscular Volume 77.8 fL (80-94); Mean Platelet Vol. 8.6 fl (6.2-12.0); Monocyte# 0.47 X10^3/uL; Monocyte% 5.9 % (0-10); NRBC Flagged by Analyzer 0 % (0-5); Neutrophil % 84.2 % (47-70); Platelet Count 101 K/mm3 (150-450); RBC Distribution Width CV 18.8 % (11.6-14.6); RBC Distribution Width SD 52.4 fl (35.1-43.9); Red Blood Count 3.88 M/mm3 (4.6-6.2)
[2020-08-19 09:54] LABS: Bacteria 0 SEEN /hpf (None Seen); Mucous, Urine 0 SEEN /hpf (<or=2+); Red Blood Cells-Urine 0 SEEN /hpf (0-5); Squamous Epithelial Cells - UA 0 SEEN /hpf (0-5)
[2020-08-19 10:08] LABS: Color, Urine Yellow (Yellow); Glucose, Dipstick Normal (Normal); Ketone-Dipstick Negative (Negative); Leukocyte Esterase-Dipstick 500 /ul (Negative); Nitrite-Dipstick Negative (Negative); Occult Blood-Urine 250 /ul (Negative); Protein-Dipstick 100 mg/dl (Negative); Urine Bilirubin Dipstick Negative (Negative); Urine Clarity Cloudy (Clear); Urine Urobilinogen Normal (Normal); Urine pH 6.5 (5.0 - 8.0)
[2020-08-19 10:14] LABS: White Blood Cells >100 SEEN /hpf (0-5)
[2020-08-19 10:17] LABS: Lactic Acid 1.7 mmol/L (0.4-1.9)
[2020-08-19 10:26] LABS: ALB/GLOB Ratio 0.8 RATIO (0.9-2.4); AST(SGOT) 106 U/L (15-37); Alanine Aminotransfer ALT/SGPT 18 U/L (16-61); Albumin, Serum 2.5 g/dL (3.2-5.0); Alkaline Phosphatase 329 U/L (45-117); Anion Gap 10 (5-15); BUN 57 mg/dL (7-18); BUN/Creat Ratio 17.7 RATIO (10-20); Calcium,Total 8.1 mg/dL (8.5-10.1); Chloride 106 mmol/L (98-107); Creatinine, Serum 3.22 mg/dL (0.70-1.30); EST Glomerular Filtration Rate 20 mL/min (>60); Est Glom Filt Rate - Afr Amer 24 mL/min (>60); Estimated Creatinine Clearance 22.06 ml/min; Globulin 3.2 g/dL (2.2-4.2); Glucose 182 mg/dL (74-106); Potassium 4.7 mmol/L (3.5-5.1); Protein, Total 5.7 g/dL (6.4-8.2); Sodium Level 134 mmol/L (136-145)
[2020-08-19] MEDS: Aspirin 81 MG TAB.CHEW 324 MG PO (10:36)
[2020-08-19] MEDS: Ceftriaxone 1 GM/50 ML BAG IV ×2 (10:37→13:39)
--- NOTE | 2020-08-19 11:32 | HP.PCM_ITS ---
Problem List (1) Hematuria Status: Acute (2) Pyuria Status: Acute (3) Non-STEMI (non-ST elevated myocardial infarction) Status: Acute (4) Anemia in chronic kidney disease (CKD) Status: Chronic Qualifiers: (5) Prostate cancer Status: Chronic (6) Chronic renal disease, stage 4, severely decreased glomerular filtration rate (GFR) between 15-29 mL/min/1.73 square meter Status: Chronic (7) Essential hypertension Status: Chronic (8) Hemochromatosis Status: Chronic Qualifiers: (9) Thrombocytopenia Status: Chronic (10) Type 2 diabetes mellitus Status: Chronic History of Present Illness Date of Admission: 08/19/20 Chief Complaint: Weakness, chills. The patient is a 74 year old M with past medical history as mentioned above presented to the emergency room because of weakness and chills. His symptoms started 3 days ago with not feeling well, not having any energy, weak and associated with chills. He denied fever but he reported shaking chills. He denied any other specific symptoms. When the patient turned on the bed, I did see blood in his panty and when I asked him about this, he said that it has been going on for couple of days. He does have bloody urine, denies dysuria. Also, patient complained of chest pain that started this past Tuesday which is 2 days ago, retrosternal chest pain, mild, intermittent, sometimes associated with shortness of breath and worsens with taking a deep breath. Currently, he has no chest pain. He had a history of metastatic prostate cancer status post TURP and chemotherapy back in 2015, was started on Zytiga and prednisone on March,. Patient mentioned that he was evaluated by around 1 week ago. He had a history of stage IV chronic kidney disease with baseline creatinine of 2.5 to 3.5 mg/dL. He has been following up with Dr. Gibson and he had fistula placed but was failed. He was not started on dialysis yet. He had a history of type 2 diabetes mellitus which has been under control with insulin, hemoglobin A1c was 5.3% on January,. In the emergency department, patient was afebrile, blood pressure was slight elevated, heart rate stable, pulse ox was 95% on room air. Routine blood work was remarkable for hemoglobin of 8.7 g/dL which is chronic, platelet count of 101,000 which is also chronic. BUN is 57, creatinine is 3.22. Lactic acid was normal. LFT revealed slight elevated AST and alkaline phosphatase but this is chronic. EKG revealed normal sinus rhythm with PACs, RBBB, no acute ischemic changes.. Troponin was elevated at 1.59. Urinalysis showed cloudy urine, occult blood of 250, leukocyte esterase 500, no RBCs, more than 100 WBCs seen and no bacteria seen. Chest x-ray showed mild cardiomegaly, no other acute findings. COVID-19 antigen was negative. Nasal swab for influenza A and B were negative as well. He is being admitted for acute non- STEMI, hematuria in the setting of history of metastatic prostate cancer and also found to have pyuria with probable acute cystitis. Past Medical History Past Medical History (Chronic Problems): Chronic Problems (Last Updated 08/19/20 @ 10:[address] Roby Neal MD) Anemia in chronic kidney disease (CKD) (Chronic) Iron deficiency (Chronic) Problem with dialysis access (Chronic) Hx of arteriovenostomy for renal dialysis (Chronic) 04/16/19 Prostate cancer (Chronic) Chronic renal disease, stage 4, severely decreased glomerular filtration rate (GFR) between 15-29 mL/min/1.73 square meter (Chronic) Essential hypertension (Chronic) Hemochromatosis (Chronic) Secondary malignant neoplasm of bone (Chronic) Thrombocytopenia (Chronic) Cataract, right eye (Chronic) [facility] 03/2018 SVT (supraventricular tachycardia) (Chronic) Atherosclerotic heart disease of [place] coronary artery without angina pectoris (Chronic) Nonrheumatic mitral (valve) prolapse (Chronic) Nonrheumatic aortic (valve) insufficiency (Chronic) RBBB (Chronic) Type 2 diabetes mellitus (Chronic) Sleep apnea (Chronic) Hyperlipidemia (Chronic) Medical History: Medical History (Last Updated 08/19/20 @ 10:[address] Roby Neal MD) Problem with dialysis access (Chronic) T82.898A Prostate cancer (Chronic) C61 Chronic renal disease, stage 4, severely decreased glomerular filtration rate (GFR) between 15-29 mL/min/1.73 square meter (Chronic) N18.4 Essential hypertension (Chronic) I10 Cataract, right eye (Chronic) H26.9 [facility] 03/2018 SVT (supraventricular tachycardia) (Chronic) I47.1 Atherosclerotic heart disease of [place] coronary artery without angina pectoris (Chronic) I25.10 Nonrheumatic mitral (valve) prolapse (Chronic) I34.1 Nonrheumatic aortic (valve) insufficiency (Chronic) I35.1 RBBB (Chronic) I45.10 Type 2 diabetes mellitus (Chronic) E11.9 Sleep apnea (Chronic) G47.30 Hyperlipidemia (Chronic) E78.5 history of nephrostomy tube placement (Inactive) Allergies ramipril [From Altace] Allergy (Intermediate, Verified 08/07/20 14:17) Unknown cough nalbuphine [From Nubain] Adverse Reaction (Severe, Verified 08/07/20 14:17) Nausea/Vom/Diarrhea Home Medications: Ambulatory Orders Medication Instructions Recorded Atorvastatin Calcium [Lipitor] 40 mg PO QHS 03/09/16 Lidocaine/Prilocaine 1 ea TP PRN PRN 03/09/16 [Lidocaine-Prilocaine Cream] Calcium Carbonate/Vitamin D3 1 ea PO DAILY 07/28/16 [Calcium 600-Vit D3 400 Caplet] Antiarthritic Combination No.2 900 mg PO DAILY 09/29/16 [Glucosamine-Chondroitin] Insulin Glargine [Lantus SoloStar 15 units SC QHS PRN 10/07/17 Pen] Insulin Lispro [Humalog] 0 unit SQ BID 10/07/17 folic acid 800 mcg tablet 800 mcg PO QDAY 10/27/17 sertraline 50 mg tablet 50 mg PO DAILY tab 10/27/17 sodium bicarbonate 650 mg tablet 650 mg PO TID tab 10/27/17 Acetaminophen [Tylenol Tablet] 650 mg PO Q6H PRN PRN tab 04/16/19 Multivit-Min/FA/Lycopen/Lutein 1 ea PO DAILY 01/21/20 [Centrum Silver Tablet] Prednisone 5 mg PO BID #60 tab 02/27/20 Abiraterone Acetate [Zytiga] 1,000 mg PO DAILY 04/09/20 Ascorbic Acid [Vitamin C] 1,000 mg PO DAILY 05/07/20 Iron Polysaccharide Complex 150 mg PO DAILYCM #90 cap 05/07/20 [Ferrex 150] Surgical History: Surgical History (Last Updated 08/19/20 @ 10:[address] Roby Neal MD) Hx of arteriovenostomy for renal dialysis (Chronic) Z99.2 04/16/19 History of angioplasty of peripheral vessel Onset Date: ~03/2020 Z98.62 History of angioplasty of peripheral vessel Onset Date: ~06/2020 Z98.62 s/p transposition left AV Fistula Onset Date: ~12/07/19 Hx of appendectomy (Inactive) Z98.890, Z90.49 Nephrostomy status (Inactive) Z93.6 nephroscopy with stent placement (Inactive) Surgical History: appendectomy, - Psychiatric History: No pertinent psych hx Lives: Spouse/ Significant Other Smoking Status: Never smoker Alcohol: None Drugs: None - *Family History Maternal Family History: Family History (Last Reviewed 08/12/20 @ 13:11 by Faith Gonzalez) Father Heart disease Kidney disease CAD (coronary artery disease) Myocardial infarction Mother Heart disease History Items: Heart Disease Paternal Family History: Family History (Last Reviewed 08/12/20 @ 13:11 by Faith Gonzalez) Father Heart disease Kidney disease CAD (coronary artery disease) Myocardial infarction Mother Heart disease History Items: Heart Disease, Renal Disease Sibling Family History: Family History (Last Reviewed 08/12/20 @ 13:11 by Faith Gonzalez) Father Heart disease Kidney disease CAD (coronary artery disease) Myocardial infarction Mother Heart disease History Items: Cancer - breast Review of Systems Constitutional: Reports: Chills, Weakness, Fatigue. Denies: Anorexia, Fever Eyes: Denies: Blurred vision, Double vision, Drainage, Redness HEENT: Denies: Difficulty Hearing, Dysphasia, Ear Pain, Eye Pain, Nasal Congestion, Sore Throat Cardiovascular: Reports: Chest Pain. Denies: Chest Pressure, Chest Tightness, Heaviness, Palpitations, Syncope Respiratory: Reports: Shortness of Breath. Denies: Cough, Pleuritic Pain, Sputum production, Wheezing Gastrointestinal: Denies: Abdominal Pain, Constipation, Diarrhea, Hematochezia, Nausea, Vomiting Genitourinary: Reports: Hematuria. Denies: Dysuria, Frequency Musculoskeletal: Denies: Arm Pain, Back Pain, Foot Pain Skin: Denies: Dryness, Rash Neurological: Denies: Balance problems, Double vision, Change in Speech, Slurred speech, Confusion, Headaches, Incoordination Psychiatric: Denies: Anxiety, Depression Endocrine: Denies: Change in Body Habitus, Polydipsia, Polyuria VTE Information - Inpt Only VTE Present on Admission: No VTE Mechan Device Prophylaxis: SCD's VTE Pharm Prophylaxis ordered?: No Patient Problems: Active and Suspected Problems (Last Updated 08/19/20 @ 10:[address] Roby Neal MD) Hematuria (Acute) Pyuria (Acute) Non-STEMI (non-ST elevated myocardial infarction) (Acute) - Physical Exam Vitals/I&O's: Vital Signs Temp Pulse Resp BP Pulse Ox 98.1 F 103 H 23 H 170/87 H 100 08/19/20 10:58 08/19/20 10:58 08/19/20 10:58 08/19/20 10:58 08/19/20 10:58 Oxygen Delivery Method Room Air Weight: 184 lb 3.2 oz Body Mass Index (BMI) 24.3 Finger Stick Blood Glucose 142 General: Alert, Oriented x3, Cooperative, No apparent distress HEENT: Atraumatic, PERRLA, EOMI, Normocephalic Oral: Moist Mucosa, No Gingival or Mucosal Lesions/ Ulcerations Neck: Supple, No JVD, Negative Carotid Bruits, Trachea Midline, Thyroid Normal Size and Texture Lungs: Clear to auscultation, No rhonchi, No wheeze, No rales, Diminished Cardiovascular: Regular rate, Regular Rhythm, Normal S1, Normal S2, PMI Normal Abdomen: Bowel Sounds Present, Soft, Non Tender, Non-Distended, No Hepato- splenomegaly, - - Bilateral nephrostomy tubes in place. Extremities: No clubbing, No cyanosis, No edema Skin: No rashes, No breakdown Lymphatic: No Cervical, Supraclavicular, or Inguinal Adenopathy Neurological: Cranial nerves II-XII grossly intact, Motor Exam 5/5 strength throughout Psych/Mental Status: Normal Affect, Appropriate, Alert and oriented to time, place, person, mood and affect Microbiology Past 72 Hours 08/19/20 09:25 Mucosa - Nose SARS-CoV-2 Antigen (Rapid) - Final 08/19/20 09:25 Mucosa - Nose Influenza Types A,B Direct FA ([place]) - Final Laboratory Results 08/19/20 09:25: WBC 8.0, RBC 3.88 L, Hgb 8.7 L, Hct 30.2 L, MCV 77.8 L, MCH 22.4 L, MCHC 28.8 L, RDW Std Deviation 52.4 H, RDW Coeff of Sherrie 18.8 H, Plt Count 101 L, MPV 8.6, Immature Gran % (Auto) 1.000 H, Neut % (Auto) 84.2 H, Lymph % (Auto) 8.5 L, Dillon % (Auto) 5.9, Eos % (Auto) 0.3, Baso % (Auto) 0.1, Absolute Neuts (a uto) 6.7, Absolute Lymphs (auto) 0.68 L, Nucleated RBC % 0 08/19/20 09:25: Sodium 134 L, Potassium 4.7, Chloride 106, Carbon Dioxide 18.0 L , Anion Gap 10, BUN 57 H, Creatinine 3.22 H, Estim Creat Clear Calc 22.06, Est GFR (MDRD) Af Amer 24 L, Est GFR (MDRD) Non-Af 20 L, BUN/Creatinine Ratio 17.7, Glucose 182 H, Calcium 8.1 L, Total Bilirubin 0.40, AST 106 H, ALT 18, Alkaline Phosphatase 329 H, Troponin I 1.590 H*, Total Protein 5.7 L, Albumin 2.5 L, Globulin 3.2, Albumin/Globulin Ratio 0.8 L 08/19/20 09:25: Lactic Acid 1.7 08/19/20 09:45: Urine Color Yellow, Urine Clarity Cloudy, Urine pH 6.5, Ur Specific Compton 1.010, Urine Protein 100 H, Urine Glucose (UA) Normal, Urine Ketones Negative, Urine Occult Blood 250 H, Urine Nitrite Negative, Urine Bilirubin Negative, Urine Urobilinogen Normal, Ur Leukocyte Esterase 500 H, Urine RBC 0 SEEN, Urine WBC >100 SEEN, Ur Squamous Epith Cells 0 SEEN, Urine Bacteria 0 SEEN, Urine Mucus 0 SEEN Clinical Impression(s) from Imaging Studies Chest X-Ray 08/19/20 09:45 IMPRESSION: No acute abnormality is seen. Electronically Signed: Hesham Lawson MD at 10:15 EST , Service support , Current Medications Heparin Sodium (Beef Lung) (Heparin Pf Lock 10 Units/Ml 50 Units/5 Ml Syringe) 50 units IV UD PRN PRN Reason: Port-a-Cath (VAD)Heparin Flush Sodium Chloride (0.9% Saline Lock 10 Ml Syringe) 10 - 40 ml IV UD PRN PRN Reason: Port-a-Cath (VAD) Flush Sodium Chloride (0.9 % Nacl (Sterile) Posiflush 10 Ml) 10 - 40 ml IV UD PRN PRN Reason: Port access or dressing change Assessment/Plan All Active Problems (Last Updated 08/19/20 @ 10:[address] Roby Neal MD) Hematuria (Acute) Pyuria (Acute) Non-STEMI (non-ST elevated myocardial infarction) (Acute) This is a 74 years old male patient presented to the emergency room because of weakness and chills, had hematuria upon arrival to the floor and he complained of chest pain later, found to have acute non-STEMI, pyuria with possible acute cystitis and he is being admitted for evaluation and treatment. #1 acute non-ST ovation LA: Currently, patient has no chest pain. EKG reviewed. Troponin is elevated. Chest x-ray showed no acute findings. Patient denied any past history of CAD. Plan: Admit to PCU, cardiac monitoring, serial cardiac enzymes, continue statins, 2D echocardiogram, cardiology consult, gentle IV fluids for hydration, Tylenol as needed, Zofran as needed, repeat CBC and CMP tomorrow morning, check pro time and INR, PT OT evaluation and treatment. #2 pyuria/probable acute cystitis: Urinalysis reviewed, no bacteria seen. Patient is afebrile, no leukocytosis. He had urine cultures in the past that showed MSSA and Enterococcus faecalis. Underlying bacteremia cannot be ruled out. Plan: Blood culture, urine culture, start empiric IV Rocephin and vancomycin. #3 hematuria: In the setting of metastatic prostate cancer status post TURP, currently on Zytiga and prednisone. Plan: Urology consult. #4 history of metastatic prostate cancer: Status post surgery and chemotherapy, currently on Zytiga and prednisone. Plan as above. #5 status post bilateral nephrostomy tubes: This was done 3 days ago for bladder outlet obstruction, patient has been going to a different facility for changing the nephrostomy tubes. It was changed recently. Plan to monitor output. #6 stage IV chronic kidney disease: Baseline creatinine has been around to 2.5- 3.5. Patient had fistula placed recently but failed. He was not started on dialysis yet. Admission creatinine is 3.22, close to baseline. Plan for gentle IV fluids for hydration. #7 type 2 diabetes mellitus: ADA diet, Accu-Cheks, insulin sliding scale, continue Lantus. #8 chronic anemia/chronic thrombocytopenia: Combination of anemia of chronic d isease and iron deficiency anemia. Hemoglobin and platelet count at her baseline. No active bleeding. Plan: Check pro time and INR, continue iron supplement, repeat CBC tomorrow morning. #9 hyperlipidemia: Continue statins. #10 CODE STATUS: DNR CCA, no intubation. Patient stated that he does have DNR CCA status at home and he does not want any type of aggressive measures such as CPR, chest compressions, intubation or mechanical ventilation. #11 DVT prophylaxis: SCDs. No chemical prophylaxis because of thrombocytopenia and hematuria. This note was generated with [employer] dictation software. It may contain incorrect words, spelling, and punctuation that were not noted in checking the note before signing. Inpatient E&M: 27861 Init Hosp L3
--- NOTE | 2020-08-19 11:46 | ECHOCS_ITS ---
Reason For Study: S/P OR Procedure This was a 2D Doppler, Color Flow transthoracic echocardiogram. Technically difficult study. Patient was unable to lay on left side so test was performed with patient supine. Contrast injection performed. The study was technically difficult. Contrast injection was performed. Exam performed portable in patient room. Left Ventricle Mildly dilated left ventricle. Mild segmental systolic dysfunction (see wall motion). The estimated ejection fraction is 35 %. Diastolic function is indeterminate. Posterior-Basal: Akinetic. Infero- Basal: Hypokinetic. Mid-Anterior : Hypokinetic. Mid-Lateral : Hypokinetic. Mid-Posterior: Akinetic. Mid-Inferior: Akinetic. Anterior Olivia : Hypokinetic. Inferior Olivia : Akinetic. Lateral Olivia : Hypokinetic. Right Ventricle Normal RV size. Normal systolic function. Atria Normal left atrium. Normal right atrium. No doppler evidence for ASD. Mitral Valve There is mild mitral annular calcification. Mild diffuse mitral valve thickening. Mild (1+) mitral valve insufficiency. Tricuspid Valve Normal tricuspid valve. Trivial tricuspid valve insufficiency. Unable to estimate RV systolic pressure/pulmonary artery pressure due to technically difficult study. Aortic Valve Trisinus/trileaflet aortic valve. Mild focal aortic valve calcification. Trivial aortic valve insufficiency. Pulmonic Valve The pulmonic valve is not well visualized. Trivial pulmonic valve insufficiency. Great Vessels Normal sized aortic root. Pericardium/Pleural No pericardial effusion. Medication Diluted definity 2ml given slow IV push to enhance endocardial definition. MMode/2D Measurements & Calculations LVIDd: 5.5 cm IVSd: 1.4 cm Ao root diam: 3.8 cm LVIDs: 4.5 cm LVPWd: 1.6 cm FS: 18.8 % LAV(MOD-bp): 54.2 ml LA A4 area: 17.3 cm2 RA A4 area: 15.1 cm2 LAV(MOD-bp) Indexed: 26.1 ml/m2 LAV(MOD-sp2): 55.3 ml LAV(MOD-sp4): 49.0 ml Time Measurements MV dec time: 0.27 sec Doppler Measurements & Calculations MV E max keenan: 84.5 cm/sec Lat A' keenan: 7.5 cm/sec Med Peak E' Keenan: 6.3 cm/sec MV A max keenan: 134.5 cm/sec Lat Peak E' Keenan: 5.0 cm/sec E/E' med: 13.4 MV E/A: 0.63 E/E' lat: 16.8 MV V2 max: 153.6 cm/sec MV P1/2t max keenan: 107.4 cm/sec Ao V2 max: 133.9 cm/sec MV max P.5 mmHg MV P1/2t: 96.5 msec Ao max P.2 mmHg MV V2 mean: 85.5 cm/sec MV dec slope: 326.0 cm/sec2 MV mean P.4 mmHg MV V2 VTI: 40.5 cm MVA(P1/2t): 2.3 cm2 LV V1 max: 113.6 cm/sec PA V2 max: 144.5 cm/sec LV V1 max P.2 mmHg Interpretation Summary The study was technically difficult. Contrast injection was performed. Mildly dilated left ventricle. Mild segmental systolic dysfunction (see wall motion). The estimated ejection fraction is 35 %. There is mild mitral annular calcification. Mild diffuse mitral valve thickening. Mild (1+) mitral valve insufficiency. Trivial tricuspid valve insufficiency. Mild focal aortic valve calcification. Trivial aortic valve insufficiency. Trivial pulmonic valve insufficiency. Unable to estimate RV systolic pressure/pulmonary artery pressure due to technically difficult study. Diastolic function is indeterminate. Ordering Physician: Roby Neal Referring Physician: Fidencio Flores Performed By: Jose F Cordero RCS
[2020-08-19 12:08] LABS: International Normalized Ratio 1.4; Prothrombin Time (Protime)PT. 16.9 SECONDS (11.7-14.9)
[2020-08-19] MEDS: 0.9% Normal Saline 1,000 ML 75 ML IV (12:45)
--- NOTE | 2020-08-19 13:09 | PCM.CONS.U ---
Problem List (1) Hematuria Status: Acute Qualifiers: Hematuria type: gross Qualified Code(s): R31.0 - Gross hematuria Reason for Consult Date of Consultation: 08/19/20 Reason for Consultation: Gross hematuria History of Present Illness: The patient is a 74 year old male with a history of prostate cancer advanced metastatic disease presents the hospital is not feeling well has been having significant gross hematuria plan to do evaluation taken to surgery tomorrow Past Medical History Past Medical History (Chronic Problems): Chronic Problems (Last Updated 08/19/20 @ 10:[address] Roby Neal MD) Anemia in chronic kidney disease (CKD) (Chronic) Iron deficiency (Chronic) Problem with dialysis access (Chronic) Hx of arteriovenostomy for renal dialysis (Chronic) 04/16/19 Prostate cancer (Chronic) Chronic renal disease, stage 4, severely decreased glomerular filtration rate (GFR) between 15-29 mL/min/1.73 square meter (Chronic) Essential hypertension (Chronic) Hemochromatosis (Chronic) Secondary malignant neoplasm of bone (Chronic) Thrombocytopenia (Chronic) Cataract, right eye (Chronic[facility] SVT (supraventricular tachycardia) (Chronic) Atherosclerotic heart disease of [place] coronary artery without angina pectoris (Chronic) Nonrheumatic mitral (valve) prolapse (Chronic) Nonrheumatic aortic (valve) insufficiency (Chronic) RBBB (Chronic) Type 2 diabetes mellitus (Chronic) Sleep apnea (Chronic) Hyperlipidemia (Chronic) Medical History: Medical History (Last Reviewed 08/19/20 @ 13:[address] Chang Horton MD) Problem with dialysis access (Chronic) T82.898A Prostate cancer (Chronic) C61 Chronic renal disease, stage 4, severely decreased glomerular filtration rate (GFR) between 15-29 mL/min/1.73 square meter (Chronic) N18.4 Essential hypertension (Chronic) I10 Cataract, right eye (Chronic) H26.9 [facility]2018 SVT (supraventricular tachycardia) (Chronic) I47.1 Atherosclerotic heart disease of [place] coronary artery without angina pectoris (Chronic) I25.10 Nonrheumatic mitral (valve) prolapse (Chronic) I34.1 Nonrheumatic aortic (valve) insufficiency (Chronic) I35.1 RBBB (Chronic) I45.10 Type 2 diabetes mellitus (Chronic) E11.9 Sleep apnea (Chronic) G47.30 Hyperlipidemia (Chronic) E78.5 history of nephrostomy tube placement (Inactive) Allergies ramipril [From Altace] Allergy (Intermediate, Verified 08/07/20 14:17) Unknown cough nalbuphine [From Nubain] Adverse Reaction (Severe, Verified 08/07/20 14:17) Nausea/Vom/Diarrhea Home Medications: Ambulatory Orders Medication Instructions Recorded Atorvastatin Calcium [Lipitor] 40 mg PO QHS 03/09/16 Lidocaine/Prilocaine 1 ea TP PRN PRN 03/09/16 [Lidocaine-Prilocaine Cream] Calcium Carbonate/Vitamin D3 1 ea PO DAILY 07/28/16 [Calcium 600-Vit D3 400 Caplet] Antiarthritic Combination No.2 900 mg PO DAILY 09/29/16 [Glucosamine-Chondroitin] Insulin Glargine [Lantus SoloStar 15 units SC QHS PRN 10/07/17 Pen] Insulin Lispro [Humalog] 0 unit SQ BID 10/07/17 folic acid 800 mcg tablet 800 mcg PO QDAY 10/27/17 sertraline 50 mg tablet 50 mg PO DAILY tab 10/27/17 sodium bicarbonate 650 mg tablet 650 mg PO TID tab 10/27/17 Acetaminophen [Tylenol Tablet] 650 mg PO Q6H PRN PRN tab 04/16/19 Multivit-Min/FA/Lycopen/Lutein 1 ea PO DAILY 01/21/20 [Centrum Silver Tablet] Prednisone 5 mg PO BID #60 tab 02/27/20 Abiraterone Acetate [Zytiga] 1,000 mg PO DAILY 04/09/20 Ascorbic Acid [Vitamin C] 1,000 mg PO DAILY 05/07/20 Iron Polysaccharide Complex 150 mg PO DAILYCM #90 cap 05/07/20 [Ferrex 150] Surgical History: Surgical History (Last Updated 08/19/20 @ 10:[address] Roby Neal MD) Hx of arteriovenostomy for renal dialysis (Chronic) Z99.2 04/16/19 History of angioplasty of peripheral vessel Onset Date: ~03/2020 Z98.62 History of angioplasty of peripheral vessel Onset Date: ~06/2020 Z98.62 s/p transposition left AV Fistula Onset Date: ~12/07/19 Hx of appendectomy (Inactive) Z98.890, Z90.49 Nephrostomy status (Inactive) Z93.6 nephroscopy with stent placement (Inactive) Surgical History: appendectomy, - Psychiatric History: No pertinent psych hx Lives: Spouse/ Significant Other Smoking Status: Never smoker Alcohol: None Drugs: None - *Family History Maternal Family History: Family History (Last Reviewed 08/12/20 @ 13:11 by Faith Gonzalez) Father Heart disease Kidney disease CAD (coronary artery disease) Myocardial infarction Mother Heart disease History Items: Heart Disease Paternal Family History: Family History (Last Reviewed 08/12/20 @ 13:11 by Faith Gonzalez) Father Heart disease Kidney disease CAD (coronary artery disease) Myocardial infarction Mother Heart disease History Items: Heart Disease, Renal Disease Sibling Family History: Family History (Last Reviewed 08/12/20 @ 13:11 by Faith Gonzalez) Father Heart disease Kidney disease CAD (coronary artery disease) Myocardial infarction Mother Heart disease History Items: Cancer - breast Review of Systems Constitutional: Denies: Chills, Fever, Weight Change HEENT: Denies: Head Aches, Sinus Congestion, Sinus Drainage Cardiovascular: Denies: Chest Pain, Palpitations Respiratory: Denies: Cough, Shortness of breath at rest, Sputum production Gastrointestinal: Denies: Abdominal Pain, Nausea, Vomiting Genitourinary: Denies: Dysuria Musculoskeletal: Denies: Joint Pain, Joint Tenderness Skin: Denies: Rash, Wounds Neurological: Denies: Numbness, Tingling, Focal weakness Psychiatric: Denies: Anxiety, Depression, Homicidal Ideations, Suicidal Ideations Hematologic/ Lymphatic: Denies: Easy Bruising, Easy Bleeding Physical Exam - Physical Exam Vital Signs Temp 97.2 F L 08/19/20 11:32 Pulse 84 08/19/20 11:32 Resp 18 08/19/20 11:32 BP 141/72 H 08/19/20 11:32 Pulse Ox 99 08/19/20 12:52 Intake & Output 08/17/20 08/18/20 08/19/20 23:59 23:59 23:59 Intake Total 50 / 50 Balance 50 / 50 Weight: 83.552 kg Intake: Intake, IV Amount 50 / 50 Rocephin 1 gm In 50 ml @ 100 50 / 50 mls/hr IV X1 ONE Rx#:[id number] General: Alert, Oriented x3 HEENT: Atraumatic Oral: Moist Mucosa Neck: Supple Lungs: Normal air movement Abdomen: Soft Microbiology Past 72 Hours 08/19/20 09:25 SARS-CoV-2 Antigen (Rapid) - Final Mucosa - Nose Influenza Types A,B Direct FA ([place]) - Final Laboratory Tests Past 24 Hrs 08/19/20 08/19/20 08/19/20 09:25 09:25 09:25 WBC 8.0 RBC 3.88 L Hgb 8.7 L Hct 30.2 L MCV 77.8 L MCH 22.4 L MCHC 28.8 L RDW Std Deviation 52.4 H RDW Coeff of Sherrie 18.8 H Plt Count 101 L MPV 8.6 Immature Gran % (Auto) 1.000 H Neut % (Auto) 84.2 H Lymph % (Auto) 8.5 L [place] % (Auto) 5.9 Eos % (Auto) 0.3 Baso % (Auto) 0.1 Absolute Neuts (auto) 6.7 Absolute Lymphs (auto) 0.68 L Nucleated RBC % 0 PT INR Sodium 134 L Potassium 4.7 Chloride 106 Carbon Dioxide 18.0 L Anion Gap 10 BUN 57 H Creatinine 3.22 H Estim Creat Clear Calc 22.06 Est GFR (MDRD) Af Amer 24 L Est GFR (MDRD) Non-Af 20 L BUN/Creatinine Ratio 17.7 Glucose 182 H Lactic Acid 1.7 Calcium 8.1 L Total Bilirubin 0.40 AST 106 H ALT 18 Alkaline Phosphatase 329 H Troponin I 1.590 H* Total Protein 5.7 L Albumin 2.5 L Globulin 3.2 Albumin/Globulin Ratio 0.8 L Urine Color Urine Clarity Urine pH Ur Specific [place] Urine Protein Urine Glucose (UA) Urine Ketones Urine Occult Blood Urine Nitrite Urine Bilirubin Urine Urobilinogen Ur Leukocyte Esterase Urine RBC Urine WBC Ur Squamous Epith Cells Urine Bacteria Urine Mucus MRSA (PCR) 08/19/20 08/19/20 08/19/20 09:40 09:45 12:40 WBC RBC Hgb Hct MCV MCH MCHC RDW Std Deviation RDW Coeff of Sherrie Plt Count MPV Immature Gran % (Auto) Neut % (Auto) Lymph % (Auto) [place] % (Auto) Eos % (Auto) Baso % (Auto) Absolute Neuts (auto) Absolute Lymphs (auto) Nucleated RBC % PT 16.9 H INR 1.4 Sodium Potassium Chloride Carbon Dioxide Anion Gap BUN Creatinine Estim Creat Clear Calc Est GFR (MDRD) Af Amer Est GFR (MDRD) Non-Af BUN/Creatinine Ratio Glucose Lactic Acid Calcium Total Bilirubin AST ALT Alkaline Phosphatase Troponin I Total Protein Albumin Globulin Albumin/Globulin Ratio Urine Color Yellow Urine Clarity Cloudy Urine pH 6.5 Ur Specific [place] 1.010 Urine Protein 100 H Urine Glucose (UA) Normal Urine Ketones Negative Urine Occult Blood 250 H Urine Nitrite Negative Urine Bilirubin Negative Urine Urobilinogen Normal Ur Leukocyte Esterase 500 H Urine RBC 0 SEEN Urine WBC >100 SEEN Ur Squamous Epith Cells 0 SEEN Urine Bacteria 0 SEEN Urine Mucus 0 SEEN MRSA (PCR) Pending 08/19/20 12:50 WBC RBC Hgb Hct MCV MCH MCHC RDW Std Deviation RDW Coeff of Sherrie Plt Count MPV Immature Gran % (Auto) Neut % (Auto) Lymph % (Auto) [place] % (Auto) Eos % (Auto) Baso % (Auto) Absolute Neuts (auto) Absolute Lymphs (auto) Nucleated RBC % PT INR Sodium Potassium Chloride Carbon Dioxide Anion Gap BUN Creatinine Estim Creat Clear Calc Est GFR (MDRD) Af Amer Est GFR (MDRD) Non-Af BUN/Creatinine Ratio Glucose Lactic Acid Calcium Total Bilirubin AST ALT Alkaline Phosphatase Troponin I Pending Total Protein Albumin Globulin Albumin/Globulin Ratio Urine Color Urine Clarity Urine pH Ur Specific [place] Urine Protein Urine Glucose (UA) Urine Ketones Urine Occult Blood Urine Nitrite Urine Bilirubin Urine Urobilinogen Ur Leukocyte Esterase Urine RBC Urine WBC Ur Squamous Epith Cells Urine Bacteria Urine Mucus MRSA (PCR) Assessment/Plan All Active Problems (Last Updated 08/19/20 @ 10:[address] Roby Neal MD) Hematuria (Acute) Pyuria (Acute) Non-STEMI (non-ST elevated myocardial infarction) (Acute) 74-year-old male with history of prostate cancer history of TURP in the past he been having significant bleeding plan to taken the surgery tomorrow for evaluation evacuation of blood clots cauterized possible redo TURP.
--- NOTE | 2020-08-19 13:32 | EKG12_ITS ---
Test Reason : AM Blood Pressure : / mmHG Vent. Rate : 075 BPM Atrial Rate : 075 BPM P-R Int : 194 ms QRS Dur : 148 ms QT Int : 434 ms P-R-T Axes : 061 266 043 degrees QTc Int : 484 ms Sinus rhythm with Premature atrial complexes Right bundle branch block Abnormal ECG When compared with ECG of 19-AUG-2020 12:48, MANUAL COMPARISON REQUIRED, DATA IS UNCONFIRMED Confirmed by DAVI REZA, JUVENTINO ([id number]), metropolitan editor GERRI ANGELA ([id number]) on 08/20/2020 1:30:27 PM Referred By: PATRICIA Confirmed By:JUVENTINO TOMLINSON MD
--- NOTE | 2020-08-19 14:49 | PCM.RX.CS ---
Consult Pharmacy has been consulted to manage selected antiobiotic: Vancomycin Type of Consult: New start Suspected Infection: Other Labs: Sodium 134 mmol/L (136-145) L 08/19/20 09:25 Potassium 4.7 mmol/L (3.5-5.1) 08/19/20 09:25 Chloride 106 mmol/L (98-107) 08/19/20 09:25 Carbon Dioxide 18.0 mmol/L (21.0-32.0) L 08/19/20 09:25 Anion Gap 10 (5-15) 08/19/20 09:25 BUN 57 mg/dL (7-18) H 08/19/20 09:25 Creatinine 3.22 mg/dL (0.70-1.30) H 08/19/20 09:25 Est GFR (MDRD) Af Amer 24 mL/min (>60) L 08/19/20 09:25 Est GFR (MDRD) Non-Af 20 mL/min (>60) L 08/19/20 09:25 BUN/Creatinine Ratio 17.7 RATIO (10-20) 08/19/20 09:25 Glucose 182 mg/dL (74-106) H 08/19/20 09:25 Microbiology: Microbiology 08/19/20 09:25 Mucosa - Nose SARS-CoV-2 Antigen (Rapid) - Final 08/19/20 09:25 Mucosa - Nose Influenza Types A,B Direct FA ([place]) - Final Goal Trough: 15-20 mcg/mL Pharmacy Plan for Drug Dosing: NEW START IV VANCOMYCIN Consulting Physician: Dr. Neal Indication: Cystitis, R/O baceteremia Goal Trough: 15-20 SrCr: 3.22 CrCl: 22 mL/min Comments: Loading dose 2g IV X1 entered and administered 08/19/20 @1431 Vancomcyin Dose: 750mg IV Q24hr to start 08/20/20 @1430 Pending Level: 08/21/20 @1400 Pharmacy Service will continue to monitor and adjust dosing as required.
--- NOTE | 2020-08-19 16:44 | NURSING ---
dr mensah in to talk with pt. aware of new trop finding.
[2020-08-19 17:10] LABS: Bedside Glucose 149 mg/dL (70-110)
[2020-08-19 18:03] LABS: M R Staph aureus DNA By PCR Negative (Negative); Probe Check PASS; Specimen Processing Control PASS
--- NOTE | 2020-08-19 18:06 | PCM.CONS.C ---
Problem List (1) Non-STEMI (non-ST elevated myocardial infarction) Status: Acute (2) Atherosclerotic heart disease of [place] coronary artery without angina pectoris Status: Chronic Qualifiers: [place] vs. transplanted heart: [place] heart Qualified Code(s): I25.10 - Atherosclerotic heart disease of [place] coronary artery without angina pectoris (3) Cardiomyopathy, ischemic Status: Acute (4) SVT (supraventricular tachycardia) Status: Chronic (5) Nonrheumatic mitral (valve) prolapse Status: Chronic (6) Hyperlipidemia Status: Chronic (7) Essential hypertension Status: Chronic (8) Type 2 diabetes mellitus Status: Chronic (9) Hemochromatosis Status: Chronic Qualifiers: (10) Chronic renal disease, stage 4, severely decreased glomerular filtration rate (GFR) between 15-29 mL/min/1.73 square meter Status: Chronic (11) Hx of arteriovenostomy for renal dialysis Status: Chronic Comment: 04/16/19 (12) Anemia in chronic kidney disease (CKD) Status: Chronic Qualifiers: (13) Thrombocytopenia Status: Acute (14) Prostate cancer Status: Chronic (15) Hematuria Status: Acute Qualifiers: Hematuria type: gross Qualified Code(s): R31.0 - Gross hematuria Reason for Consult Date of Consultation: 08/19/20 History of Present Illness: The patient is a 74 year oldonl-pyll-iay white male with a past cardiovascular history of CAD-nonangiographically significant, SVT, MVP, superimposed on hyperlipidemia, hypertension, and diabetes mellitus who has been undergoing evaluation care for hemochromatosis, chronic renal insufficiency, status post AV fistula placement-failed, anemia, thrombocytopenia, and metastatic prostate carcinoma who is referred for concerns of an acute non-ST segment elevation IL. The patient states his main concern has been shortness of breath/dyspnea and the sensation of that uncomfortable feeling in his chest. He has not necessarily complained of acute orthopnea or PND nor has he had reports of ongoing tachycardia dysrhythmias, near-syncope, or syncope. He has not had ongoing lower extremity peripheral pitting edema. He states he has been undergoing evaluation care for his hematologic issues, his renal issues, and his prostate carcinoma. He states that he has been considered on the borderline for the need to starting chronic hemodialysis therapy. His evaluation thus far has included cardiac enzymes which have been abnormal. His ECG demonstrated sinus rhythm with a right bundle branch block pattern with an inferior IL pattern of indeterminate age. He has undergone transthoracic echocardiogram with the findings as noted below. [] Past Medical History Allergies/Adverse Reactions: Allergies ramipril [From Altace] Allergy (Intermediate, Verified 08/07/20 14:17) Unknown cough nalbuphine [From Nubain] Adverse Reaction (Severe, Verified 08/07/20 14:17) Nausea/Vom/Diarrhea Home Medications: Ambulatory Orders Medication Instructions Recorded Atorvastatin Calcium [Lipitor] 40 mg PO QHS 03/09/16 Lidocaine/Prilocaine 1 ea TP PRN PRN 03/09/16 [Lidocaine-Prilocaine Cream] Calcium Carbonate/Vitamin D3 1 ea PO DAILY 07/28/16 [Calcium 600-Vit D3 400 Caplet] Antiarthritic Combination No.2 900 mg PO DAILY 09/29/16 [Glucosamine-Chondroitin] Insulin Glargine [Lantus SoloStar 15 units SC QHS PRN 10/07/17 Pen] Insulin Lispro [Humalog] 0 unit SQ BID 10/07/17 folic acid 800 mcg tablet 800 mcg PO QDAY 10/27/17 sertraline 50 mg tablet 50 mg PO DAILY tab 10/27/17 sodium bicarbonate 650 mg tablet 650 mg PO TID tab 10/27/17 Acetaminophen [Tylenol Tablet] 650 mg PO Q6H PRN PRN tab 04/16/19 Multivit-Min/FA/Lycopen/Lutein 1 ea PO DAILY 01/21/20 [Centrum Silver Tablet] Prednisone 5 mg PO BID #60 tab 02/27/20 Abiraterone Acetate [Zytiga] 1,000 mg PO DAILY 04/09/20 Ascorbic Acid [Vitamin C] 1,000 mg PO DAILY 05/07/20 Iron Polysaccharide Complex 150 mg PO DAILYCM #90 cap 05/07/20 [Ferrex 150] Past Medical History (Chronic Problems): Chronic Problems (Last Reviewed 08/19/20 @ 13:[address] Chang Horton MD) Anemia in chronic kidney disease (CKD) (Chronic) Iron deficiency (Chronic) Problem with dialysis access (Chronic) Hx of arteriovenostomy for renal dialysis (Chronic) 04/16/19 Prostate cancer (Chronic) Chronic renal disease, stage 4, severely decreased glomerular filtration rate (GFR) between 15-29 mL/min/1.73 square meter (Chronic) Essential hypertension (Chronic) Hemochromatosis (Chronic) Secondary malignant neoplasm of bone (Chronic) Thrombocytopenia (Chronic) Cataract, right eye (Chronic) Dr Maki [facility] 03/2018 SVT (supraventricular tachycardia) (Chronic) Atherosclerotic heart disease of [place] coronary artery without angina pectoris (Chronic) Nonrheumatic mitral (valve) prolapse (Chronic) Nonrheumatic aortic (valve) insufficiency (Chronic) RBBB (Chronic) Type 2 diabetes mellitus (Chronic) Sleep apnea (Chronic) Hyperlipidemia (Chronic) Surgical History: appendectomy, - Psychiatric History: No pertinent psych hx - *Family History Maternal Family History: Family History (Last Reviewed 08/12/20 @ 13:11 by Faith Gonzalez) Father Heart disease Kidney disease CAD (coronary artery disease) Myocardial infarction Mother Heart disease History Items: Heart Disease Paternal Family History: Family History (Last Reviewed 08/12/20 @ 13:11 by Faith Gonzalez) Father Heart disease Kidney disease CAD (coronary artery disease) Myocardial infarction Mother Heart disease History Items: Heart Disease, Renal Disease Sibling Family History: Family History (Last Reviewed 08/12/20 @ 13:11 by Faith Gonzalez) Father Heart disease Kidney disease CAD (coronary artery disease) Myocardial infarction Mother Heart disease History Items: Cancer - breast Lives: Spouse/ Significant Other Smoking Status: Never smoker Alcohol: None Drugs: None Review of Systems - Review of Systems General: Denies: Fever, Night Sweats, Fatigue Cardiovascular: Reports: Shortness of Breath. Denies: Chest Discomfort, Orthopnea, PND, Peripheral Edema, Palpitations, Lightheadedness, Dizziness, Near Syncope, Syncope Respiratory: Reports: Shortness of Breath. Denies: Cough, Sputum Production, Hemoptysis Gastrointestinal: Denies: Hematemesis, Hematochezia, Melena Genitourinary: Denies: Dysuria, Hematuria Skin: Denies: Rash Subjectve: This is a pleasant 74-year-old white male who appears to be resting comfortably in the supine position at this time in no acute distress. Objective: Vital Signs Temp Pulse Resp BP Pulse Ox 99.2 F H 93 18 150/74 H 100 08/19/20 16:30 08/19/20 16:30 08/19/20 16:30 08/19/20 16:30 08/19/20 16:30 Oxygen Delivery Method Room Air Weight: 184 lb 3.21 oz Body Mass Index (BMI) 24.3 Finger Stick Blood Glucose 142 Intake and Output for Last 24 Hours 08/17/20 08/18/20 08/19/20 23:59 23:59 23:59 Intake Total 100 / 100 Balance 100 / 100 General: Awake, Alert, Oriented x 3, Cooperative, No Acute Distress, Ill Appearing HEENT: Atraumatic, Normocephalic, PERRL, EOMI, Sclera Non Icteric Neck: Supple, Good ROM, No JVD Lungs: Clear to auscultation Cardiovascular: Regular Rhythm, Normal S1, Normal S2 Abdomen: Bowel Sounds Present, Soft Extremities: No edema Neurological: No Focal Motor or Sensory Deficit Psych/Mental Status: Appropriate 08/19/20 09:25: WBC 8.0, RBC 3.88 L, Hgb 8.7 L, Hct 30.2 L, MCV 77.8 L, MCH 22.4 L, MCHC 28.8 L, Plt Count 101 L, MPV 8.6, Immature Gran % (Auto) 1.000 H, Neut % (Auto) 84.2 H, Lymph % (Auto) 8.5 L, Caroline % (Auto) 5.9, Eos % (Auto) 0.3, Baso % (Auto) 0.1, Absolute Neuts (auto) 6.7, Nucleated RBC % 0 08/19/20 09:25: Sodium 134 L, Potassium 4.7, Chloride 106, Carbon Dioxide 18.0 L, Anion Gap 10, BUN 57 H, Creatinine 3.22 H, Est GFR (MDRD) Af Amer 24 L, Est GFR (MDRD) Non-Af 20 L, BUN/Creatinine Ratio 17.7, Glucose 182 H, Calcium 8.1 L, Total Bilirubin 0.40, Troponin I 1.590 H* 08/19/20 09:25: Lactic Acid 1.7 08/19/20 09:40: PT 16.9 H, INR 1.4 08/19/20 09:45: Urine Color Yellow, Urine Clarity Cloudy, Urine pH 6.5, Ur Specific [place] 1.010, Urine Protein 100 H, Urine Glucose (UA) Normal, Urine Ketones Negative, Urine Occult Blood 250 H, Urine Nitrite Negative, Urine Bilirubin Negative, Urine Urobilinogen Normal, Ur Leukocyte Esterase 500 H, Urine RBC 0 SEEN, Urine WBC >100 SEEN 08/19/20 12:50: Troponin I 2.110 H* 08/19/20 15:46: Troponin I 2.320 H* Rhythm: Sinus rhythm EKG: As noted above ECHO: Interpretation Summary The study was technically difficult. Contrast injection was performed. Mildly dilated left ventricle. Mild segmental systolic dysfunction (see wall motion). The estimated ejection fraction is 35 %. There is mild mitral annular calcification. Mild diffuse mitral valve thickening. Mild (1+) mitral valve insufficiency. Trivial tricuspid valve insufficiency. Mild focal aortic valve calcification. Trivial aortic valve insufficiency. Trivial pulmonic valve insufficiency. Unable to estimate RV systolic pressure/pulmonary artery pressure due to technically difficult study. Diastolic function is indeterminate. Stress Test: 05-13-2010 Stress myocardial perfusion study Conclusion: Reversible inferior perfusion defect developing with stress suggestive of inducible ischemia Cardiac Cath: 05-22-2010: [facility] Left ventricle normal with an LVEF 60% LAD with proximal 40 to 50% stenosis in 30 to 40% serial stenosis in mid 20 to 30% stenosis First diagonal branch with proximal 20 to 30% stenosis LCx-angiographically normal First obtuse marginal branch with ostial 20 to 30% stenosis Intermediate ramus branch with mild isolated plaque RCA with proximal 20 to 30% stenosis and 10 to 20% serial stenosis CXR: Preliminary evaluation: No acute cardiopulmonary disease process: Please see official report Assessment/Plan 1. Non-ST segment elevation IL The patient presents with findings compatible with a non-ST segment elevation IL. This is based upon his symptoms, cardiac enzymes, and his subsequent abnormal transthoracic echocardiogram suggesting left ventricular regional wall motion abnormalities and overall diminished LV systolic function. From a cardiac standpoint he will continue to be observed. His cardiac enzymes will be followed as well as his ECG. He will continue medical therapy. This will include the addition of nitrates and beta-blockers. There is concerned about using antiplatelet agents in him with respect to his hematologic issues and his hematuria. There is also concerned about proceeding with any invasive evaluation such as diagnostic cardiac catheterization based upon the concerns of IV contrast related nephropathy which could worsen his renal insufficiency and result in the initiation of hemodialysis-which the patient ideally does not want and/or would like to avoid as long as possible. Thus at the present time the patient will continue conservative medical management and be followed. 2. CAD The patient has had a history of CAD in the past. It was described as noted in his 2010 cardiac catheterization. There is concerned this has progressed and has contributed to his non-ST segment elevation IL and diminished LV systolic function. From a cardiac standpoint he will continue conservative medical management at this time. Ideally he would be considered for further evaluation with diagnostic cardiac catheterization as noted above however there significant concerns in proceeding in that manner based upon his hematologic issues and his renal insufficiency issues and the concern of initiation of hemodialysis him contrast-induced nephropathy. 3. Cardiomyopathy: Ischemic mediated The patient does have left ventricular regional wall motion abnormalities with diminished LV systolic function. This may be secondary to progression of his underlying CAD, etc. At the moment he will continue to be followed. He will continue medical management. This will include nitrate therapy and beta-sergei therapy. He is not an ideal candidate for afterload reducing agents such as BILL inhibitor's or ARB's based upon his underlying renal insufficiency, etc. 4. SVT The patient has a history of SVT. His cardiac rate and rhythm will be followed. He will continue medical therapy as deemed appropriate. 5. Mitral valve prolapse The patient has a reported history of mitral valve prolapse. His echocardiogram is as noted. He will continue to be followed. 6. Hyperlipidemia He is on lipid-lowering therapy. This can be continued unless otherwise contraindicated. 7. Hypertension The blood pressure will need to be followed as his medications were adjusted. 8. Diabetes mellitus He will continue evaluation care per internal medicine. 9. Hemochromatosis He has been following with hematology oncology for this. Certainly there input with respect to his hematologic issues would be most appreciated with respect to his ability to be on antiplatelet agents. 10. Chronic renal insufficiency He does have chronic renal insufficiency and has been followed by nephrology. He states he is considered borderline with respect to initiation of hemodialysis. He states he would like to avoid hemodialysis altogether or at least as long as possible. This does play a role with respect to evaluation with agent such as IV contrast which could initiate contrast-induced nephropathy and could initiate hemodialysis sooner than later in his case. 11. AV fistula He does have an AV fistula. He states it is not working at this time. This would need to be further evaluated by peripheral vascular surgery. If he would need hemodialysis in the interim he will need to have placement of temporary dialysis catheters. 12. Anemia He is anemic. Again this can play a role with respect to his ongoing medical therapy and care. 13. Thrombocytopenia His platelet counts are low. Again there is a question as to whether or not he could be on antiplatelet agents depending upon his other medical issues. 14. Prostate carcinoma He does have metastatic prostate carcinoma. He states his concern is has worsened. He continues evaluation care by his social insurance specialist oncologist and his urologist. 15. Hematuria He does have hematuria. He has been evaluated by urology. There is been a recommendation to proceed with cystoscopy. However it may be reasonable to temporarily hold on that procedure if able to do so to allow him to demonstrate stability from his cardiac event. Overall, based upon the patient's cardiovascular findings, he will be at an increased risk for adverse events such as IV contrast-induced nephropathy and the need for hemodialysis therapy, if he proceeds with additional studies such as diagnostic cardiac catheterization. This course of action would require input from the patient's intensivist as well as his social insurance specialist with respect to his renal function, his anemia, and his thrombocytopenia, etc. At the same time the patient, based upon his cardiovascular findings, would be at an increased risk for adverse cardiovascular events from noncardiac related procedures/surgeries as well. However, with respect to noncardiac related procedures, such as his urologic procedure, if deemed necessary he may have no option but to proceed with such a procedure with close monitoring of his clinical status, vital signs, etc. during and following his procedure. The patient has multiple complex cardiovascular noncardiovascular medical issues in the process. He is aware of these issues. He also is aware of what appears to be an overall poor prognosis. Thus the patient does need to give consideration as to how aggressive he wants to be with his ongoing evaluation and care as well with respect to going above and beyond conservative medical management and whether or not the patient would give consideration for palliative or hospice care. Comment: The patient's case has been discussed and reviewed with Dr. Neal. This note was generated using a voice recognition system and there may be incorrect words, spelling or punctuation that were not noted when reviewing the office note prior to saving.
[2020-08-19] MEDS: Nitroglycerin Oint 1 INCH PACKET TD ×2 (18:15→18:17)
[2020-08-19] MEDS: Metoprolol Tartrate 25 MG Tablet PO (18:15)
[2020-08-19] MEDS: Sodium Bicarbonate 650 MG Tablet PO ×2 (18:27→22:13)
[2020-08-19] MEDS: Ondansetron 4 MG/2 ML Vial IV (18:27)
[2020-08-19] MEDS: predniSONE 5 MG Tablet PO (18:28)
[2020-08-19] MEDS: Atorvastatin Calcium 40 MG Tablet PO (22:13)
[2020-08-19 22:15] LABS: Bedside Glucose 173 mg/dL (70-110)
[2020-08-19] MEDS: Insulin Lispro 100 UNIT/ML INSULN.PEN SC (22:17)
[2020-08-20] VITALS (15 sets, daily range): BP systolic 104–136; BP diastolic 64–77; PULSE 61–84; RESP 18–20; TEMP 35.9–36.8; O2SAT 98–100
[2020-08-20] MEDS: Sodium Bicarbonate 650 MG Tablet PO ×3 (05:25→21:37)
[2020-08-20] MEDS: Nitroglycerin Oint 1 INCH PACKET TD ×4 (05:25→23:47)
--- NOTE | 2020-08-20 05:55 | EKG12_ITS ---
Test Reason : CP ADMISSION Blood Pressure : / mmHG Vent. Rate : 096 BPM Atrial Rate : 096 BPM P-R Int : 172 ms QRS Dur : 144 ms QT Int : 384 ms P-R-T Axes : 042 266 018 degrees QTc Int : 485 ms Sinus rhythm with Premature atrial complexes Right bundle branch block Inferior infarct , age undetermined Abnormal ECG When compared with ECG of 19-AUG-2020 09:41, MANUAL COMPARISON REQUIRED, DATA IS UNCONFIRMED Confirmed by DAVI REZA, JUVENTINO ([id number]), web editor GERRI ANGELA ([id number]) on 08/20/2020 1:30:40 PM Referred By: BART Confirmed By:JUVENTINO TOMLINSON MD
[2020-08-20 07:05] LABS: Bedside Glucose 119 mg/dL (70-110)
[2020-08-20 07:25] LABS: Absolute Neutrophil Count 5.8 X10^3/uL (2.0-7.7); Basophil# 0.03 X10^3/uL; Basophil% 0.4 % (0-1); Eosinophil# 0.05 X10^3/uL; Eosinophils% 0.7 % (0-5); Hematocrit 30.5 % (40-54); Mean Corp Hgb Conc 29.5 g/dL (32-36); Mean Corpuscular Hgb 23.1 pg (27.0-32.0); Mean Corpuscular Volume 78.2 fL (80-94); Mean Platelet Vol. 8.9 fl (6.2-12.0); Monocyte# 0.58 X10^3/uL; Monocyte% 7.8 % (0-10); NRBC Flagged by Analyzer 0 % (0-5); Neutrophil # 5.83 X10^3/uL (2.7-7.7); Neutrophil % 77.9 % (47-70); Platelet Count 101 K/mm3 (150-450); RBC Distribution Width CV 18.6 % (11.6-14.6); RBC Distribution Width SD 52.7 fl (35.1-43.9); White Blood Count 7.5 K/mm3 (4.4-11.0)
--- NOTE | 2020-08-20 08:12 | PN_ITS ---
Patient Problems: Active and Suspected Problems (Last Reviewed 08/19/20 @ 13:[address] Chang Horton MD) Thrombocytopenia (Acute) Cardiomyopathy, ischemic (Acute) Hematuria (Acute) Pyuria (Acute) Non-STEMI (non-ST elevated myocardial infarction) (Acute) Subjective: Chief complaint: Follow-up after addition for acute non-STEMI, pyuria with probable acute cystitis, hematuria. Patient seen and examined. No acute events overnight. Today, he is feeling better, and has no more chills. Denied shortness of breath or chest pain. Denied abdominal pain, nausea or vomiting. He is still complaining of hematuria this morning. He is afebrile, blood pressure and heart rate are stable, pulse ox is 98% on 2 L. - Physical Exam Vitals/I&O's: Vital Signs Temp Pulse Resp BP Pulse Ox 96.7 F L 84 20 H 127/64 H 98 08/20/20 04:10 08/20/20 07:00 08/20/20 04:10 08/20/20 05:25 08/20/20 07:52 Oxygen Flow Rate (L/min) 2 Oxygen Delivery Method Nasal Cannula Weight: 184 lb 3.21 oz Body Mass Index (BMI) 24.3 Finger Stick Blood Glucose 142 Intake and Output for Last 24 Hours 08/18/20 08/19/20 08/20/20 23:59 23:59 23:59 Intake Total 880 / 880 1045 / 1045 Output Total 1175 / 1175 700 / 700 Balance -295 / -295 345 / 345 General: Alert, Oriented x3, Cooperative, No apparent distress HEENT: Atraumatic, PERRLA, EOMI, Normocephalic Oral: Moist Mucosa, No Gingival or Mucosal Lesions/ Ulcerations Neck: Supple, No JVD, Negative Carotid Bruits, Trachea Midline, Thyroid Normal Size and Texture Lungs: Clear to auscultation, No rhonchi, No wheeze, No rales, Diminished Cardiovascular: Regular rate, Regular Rhythm, Normal S1, Normal S2, PMI Normal Abdomen: Bowel Sounds Present, Soft, Non Tender, Non-Distended, No Hepato- splenomegaly, - - Bilateral nephrostomy tubes in place. Extremities: No clubbing, No cyanosis, No edema Skin: No rashes, No breakdown Lymphatic: No Cervical, Supraclavicular, or Inguinal Adenopathy Neurological: Cranial nerves II-XII grossly intact, Neuro grossly intact Psych/Mental Status: Normal Affect, Appropriate Microbiology Past 72 Hours 08/19/20 09:25 Mucosa - Nose SARS-CoV-2 Antigen (Rapid) - Final 08/19/20 09:25 Mucosa - Nose Influenza Types A,B Direct FA ([place]) - Final Laboratory Results 08/19/20 09:25: WBC 8.0, RBC 3.88 L, Hgb 8.7 L, Hct 30.2 L, MCV 77.8 L, MCH 22.4 L, MCHC 28.8 L, RDW Std Deviation 52.4 H, RDW Coeff of Sherrie 18.8 H, Plt Count 101 L, MPV 8.6, Immature Gran % (Auto) 1.000 H, Neut % (Auto) 84.2 H, Lymph % (Auto) 8.5 L, [place] % (Auto) 5.9, Eos % (Auto) 0.3, Baso % (Auto) 0.1, Absolute Neuts (auto) 6.7, Absolute Lymphs (auto) 0.68 L, Nucleated RBC % 0 08/19/20 09:25: Sodium 134 L, Potassium 4.7, Chloride 106, Carbon Dioxide 18.0 L , Anion Gap 10, BUN 57 H, Creatinine 3.22 H, Estim Creat Clear Calc 22.06, Est GFR (MDRD) Af Amer 24 L, Est GFR (MDRD) Non-Af 20 L, BUN/Creatinine Ratio 17.7, Glucose 182 H, Calcium 8.1 L, Total Bilirubin 0.40, AST 106 H, ALT 18, Alkaline Phosphatase 329 H, Troponin I 1.590 H*, Total Protein 5.7 L, Albumin 2.5 L, Globulin 3.2, Albumin/Globulin Ratio 0.8 L 08/19/20 09:25: Lactic Acid 1.7 08/19/20 09:40: PT 16.9 H, INR 1.4 08/19/20 09:45: Urine Color Yellow, Urine Clarity Cloudy, Urine pH 6.5, Ur Specific [place] 1.010, Urine Protein 100 H, Urine Glucose (UA) Normal, Urine Ketones Negative, Urine Occult Blood 250 H, Urine Nitrite Negative, Urine Bilirubin Negative, Urine Urobilinogen Normal, Ur Leukocyte Esterase 500 H, Urine RBC 0 SEEN, Urine WBC >100 SEEN, Ur Squamous Epith Cells 0 SEEN, Urine Bacteria 0 SEEN, Urine Mucus 0 SEEN 08/19/20 12:40: MRSA (PCR) Negative 08/19/20 12:50: Troponin I 2.110 H* 08/19/20 15:46: Troponin I 2.320 H* 08/19/20 16:34: POC Glucose 149 H 08/19/20 22:10: POC Glucose 173 H 08/20/20 06:39: POC Glucose 119 H 08/20/20 06:50: WBC 7.5, RBC 3.90 L, Hgb 9.0 L, Hct 30.5 L, MCV 78.2 L, MCH 23.1 L, MCHC 29.5 L, RDW Std Deviation 52.7 H, RDW Coeff of Sherrie 18.6 H, Plt Count 101 L, MPV 8.9, Immature Gran % (Auto) 1.200 H, Neut % (Auto) 77.9 H, Lymph % (Auto) 12.0 L, [place] % (Auto) 7.8, Eos % (Auto) 0.7, Baso % (Auto) 0.4, Absolute Neuts (auto) 5.8, Absolute Lymphs (auto) 0.90, Nucleated RBC % 0 08/20/20 06:50: Sodium Pending, Potassium Pending, Chloride Pending, Carbon Dioxide Pending, Anion Gap Pending, BUN Pending, Creatinine Pending, Est GFR (MDRD) Af Amer Pending, Est GFR (MDRD) Non-Af Pending, BUN/Creatinine Ratio Pending, Glucose Pending, Calcium Pending, Total Bilirubin Pending, AST Pending, ALT Pending, Alkaline Phosphatase Pending, Troponin I Pending, Total Protein Pending, Albumin Pending Current Medications Abiraterone Acetate (Abiraterone Acetate 250 Mg Tablet) 1,000 mg PO DAILY [facility]ELMA Acetaminophen (Acetaminophen 325 Mg Tablet) 650 mg PO Q6H PRN PRN PRN Reason: Pain Score 1-10/Temp > 100.7 F Albuterol Sulfate (Albuterol 2.5 Mg/3 Ml Vial.Neb.) 2.5 mg INHALATION Q4H PRN PRN PRN Reason: SOB/Wheezing Atorvastatin Calcium (Atorvastatin Calcium 40 Mg Tablet) 40 mg PO QHS TELMA Last Admin: 08/19/20 22:13 Dose: 40 mg Documented by: Calcium/Vitamin D (Calcium Carb/Vitamin D 1 Tablet Tablet) [facility] Folic Acid (Folic Acid 1 Mg Tablet) 1 mg PO DAILY@0800 [facility] Heparin Sodium (Beef Lung) (Heparin Pf Lock 10 Units/Ml 50 Units/5 Ml Syringe) 50 units IV UD PRN PRN Reason: Port-a-Cath (VAD)Heparin Flush Ceftriaxone Sodium 2 gm/ (Sodium Chloride) 50 mls @ 100 mls/hr IV Q24 [facility] Vancomycin IV Pharmacy to Dose (1 ea/ Sodium Chloride) 500 mls @ 250 mls/hr IV PRN PRN; Protocol PRN Reason: Rx to Dose Vancomycin HCl 750 mg/ Sodium (Chloride) 265 mls @ 250 mls/hr IV Q24H [facility] Insulin Glargine (Insulin Glargine 100 Units/Ml Pen) 15 units SC QHS [facility] Last Admin: 08/19/20 22:17 Dose: 15 units Documented by: Insulin Human Lispro (Insulin Lispro 100 Unit/Ml Insuln.Pen) 0 unit SC ACHS [facility]; Protocol Last Admin: 08/20/20 06:50 Dose: Not Given Documented by: Metoprolol Tartrate (Metoprolol Tartrate 25 Mg Tablet) 25 mg PO BID [facility] Last Admin: 08/19/20 18:15 Dose: 25 mg Documented by: Nitroglycerin (Nitroglycerin Oint 1 Inch Packet) 1 inch TD Q6 [facility] Last Admin: 08/20/20 05:25 Dose: 1 inch Documented by: Ondansetron HCl (Ondansetron 4 Mg/2 Ml Vial) 4 mg IV Q8H PRN PRN PRN Reason: NAUSEA/VOMITING Last Admin: 08/19/20 18:27 Dose: 4 mg Documented by: Polysaccharide Iron Complex (Iron Polysaccharide Complex 150 Mg Capsule) 150 mg PO DAILY [facility] Prednisone (Pred[facility]one 5 Mg Tablet) [facility] Last Admin: 08/19/20 18:28 Dose: 5 mg Documented by: Senna/Docusate Sodium (Senna/Docusate Sodium 1 Tablet) 2 tablet PO BID PRN PRN PRN Reason: Constipation Sertraline HCl (Sertraline 50 Mg Tablet) 50 mg PO DAILY [facility] Sodium Bicarbonate (Sodium Bicarbonate 650 Mg Tablet) 650 mg PO TID [facility] Last Admin: 08/20/20 05:25 Dose: 650 mg Documented by: Sodium Chloride (0.9% Saline Lock 10 Ml Syringe) 10 - 40 ml IV UD PRN PRN Reason: Port-a-Cath (VAD) Flush Sodium Chloride (0.9 % Nacl (Sterile) Posiflush 10 Ml) 10 - 40 ml IV UD PRN PRN Reason: Port access or dressing change Zolpidem Tartrate (Zolpidem Tartrate 5 Mg Tablet) 5 mg PO QHS PRN PRN PRN Reason: INSOMNIA Medical Necessity - Tobacco Use Smoking Status: Never smoker Assessment/Plan All Active Problems (Last Reviewed 08/19/20 @ 13:[address] Chang Horton MD) Thrombocytopenia (Acute) Cardiomyopathy, ischemic (Acute) Hematuria (Acute) Pyuria (Acute) Non-STEMI (non-ST elevated myocardial infarction) (Acute) This is a 74 years old male patient presented to the emergency room because of weakness and chills, had hematuria upon arrival to the floor and he complained of chest pain later, found to have acute non-STEMI, pyuria with possible acute cystitis and he is being admitted for evaluation and treatment. #1 acute non-ST ovation ND/ischemic cardiomyopathy: He is on statins and metoprolol. Denies any chest pain today. Troponin still trending up. 2D echocardiogram revealed ejection fraction of 35%, other findings reviewed. Cardiology on the case, decision was made to continue with medical treatment. Patient is at high risk for complications if he goes for cardiac catheterization because of the hematuria, anemia and chronic kidney disease. Plan to continue same treatment. #2 pyuria/probable acute cystitis: He is on IV Rocephin and vancomycin. The reason was vancomycin started because of concern of bacteremia and also because of previous urine cultures with Enterococcus faecalis and MSSA. Blood and urine cultures are pending. Plan to continue same treatment, awaiting culture results. #3 hematuria: In the setting of metastatic prostate cancer status post TURP, currently on Zytiga and prednisone. Patient still having hematuria. Hemoglobin hematocrit are stable. Urology consulted, plan for cystoscopy and probable repeat TURP. #4 history of metastatic prostate cancer: Status post surgery and chemotherapy, currently on Zytiga and prednisone. Plan as above. #5 status post bilateral nephrostomy tubes: This was done 3 days ago for bladder outlet obstruction, patient has been going to a different facility for changing the nephrostomy tubes. It was changed recently. Kidney function stable to baseline. #6 stage IV chronic kidney disease: Baseline creatinine has been around to 2.5- 3.5. Patient had fistula placed recently but failed. He was not started on dialysis yet. Admission creatinine is 3.22, today's creatinine is 3.38, remained stable. #7 type 2 diabetes mellitus: Blood sugar stable, continue ADA diet, Accu-Cheks, insulin sliding scale, continue Lantus. #8 chronic anemia/chronic thrombocytopenia: Combination of anemia of chronic disease and iron deficiency anemia. Hemoglobin and platelet count at baseline. Today's hemoglobin is 9 g/dL, platelet count is 101,000. #9 hyperlipidemia: Continue statins. #10 CODE STATUS: DNR CCA, no intubation. #11 DVT prophylaxis: SCDs. No chemical prophylaxis because of thrombocytopenia and hematuria. This note was generated with [employer] dictation software. It may contain incorrect words, spelling, and punctuation that were not noted in checking the note before signing. Inpatient E&M: 90061 Subs Hosp L2
[2020-08-20 08:16] LABS: ALB/GLOB Ratio 0.8 RATIO (0.9-2.4); AST(SGOT) 112 U/L (15-37); Alanine Aminotransfer ALT/SGPT 17 U/L (16-61); Albumin, Serum 2.4 g/dL (3.2-5.0); Alkaline Phosphatase 353 U/L (45-117); Anion Gap 10 (5-15); BUN 61 mg/dL (7-18); Calcium,Total 8.2 mg/dL (8.5-10.1); Chloride 109 mmol/L (98-107); Creatinine, Serum 3.38 mg/dL (0.70-1.30); EST Glomerular Filtration Rate 19 mL/min (>60); Est Glom Filt Rate - Afr Amer 23 mL/min (>60); Estimated Creatinine Clearance 21.01 ml/min; Globulin 3.2 g/dL (2.2-4.2); Glucose 121 mg/dL (74-106); Potassium 4.6 mmol/L (3.5-5.1); Protein, Total 5.6 g/dL (6.4-8.2); Sodium Level 137 mmol/L (136-145)
[2020-08-20] MEDS: Sertraline 50 MG Tablet PO (09:47)
[2020-08-20] MEDS: Metoprolol Tartrate 25 MG Tablet PO (09:48)
[2020-08-20] MEDS: Folic Acid 1 MG Tablet PO (09:49)
[2020-08-20] MEDS: predniSONE 5 MG Tablet PO ×2 (09:49→16:58)
[2020-08-20] MEDS: Calcium Carb/Vitamin D 1 TABLET Tablet PO (09:49)
[2020-08-20] MEDS: Iron Polysaccharide Complex 150 MG CAPSULE PO (09:49)
[2020-08-20] MEDS: ABIRATERONE ACETATE 250 MG TABLET 1000 MG PO (09:50)
[2020-08-20 11:26] LABS: Bedside Glucose 125 mg/dL (70-110)
--- NOTE | 2020-08-20 12:20 | CASEMGMT ---
REY LÓPEZ assessment: Face to Face with patient for initial transition planning/care coordination assessment. REY LÓPEZ introduced self and role at [facility], pt voices understanding and consents to assessment at this time. Pt is sitting up in bed in no distress at this time. Pt is A/Ox4 at this time and answers all questions appropriately at this time. Pt states has metastatic prostate cancer and is on chemo pill. Pt states is scheduled for PET scan in beginning of September. Care providers, pharmacy, and demographics verified at this time. Presentation: Increased weakness, n/v, chills, [id number] Admitting dx: Pyuria, acute cystitis, NSTEMI PCP: Mark Specialists: Tahir, onc; Sol, uro; Sweta, cardio; Arthur, nephro; Jose M, surgeon Preferred Pharmacy: [facility] Insurance: [facility] Prescription Benefit: AeR Living Will/HPOA: Pt has LW/HPOA and is aware that they are on file at [facility] at this time. Pt states his , Tatiana Mcfarlane, is HPOA. LNOK: Tatiana Mcfarlane, ; Jean Mcfarlane, son Living Arrangements: Pt states lives with in 1 story home with 1-2 steps in and states no concerns at home at this time. Pt states is independent with ADL's. Transportation: Pt states drives self and states no transportation concerns at this time. DME/HHC: Pt states has a cpap thru [facility] that he uses occasionally. Pt states he has lost weight recently and does not need the cpap as often. Pt states has had HHC in the past s/p surgery but no hx of SNF. Pt states no concerns with going home at time of discharge. Pt states is retired. Pt states does not smoke cigarettes or drink ETOH. Pt states no further concerns/needs at this time. CM to follow for any further discharge planning/needs. Advised pt to ask for CM if any further questions/concerns/needs arise, voices understanding. Pt Goal: Home Plan[place] REY LÓPEZ
[2020-08-20 17:05] LABS: Bedside Glucose 130 mg/dL (70-110)
--- NOTE | 2020-08-20 17:25 | PCM.PN.CARD ---
Subjectve: The patient was evaluated earlier this day. He appeared to be resting comfortably at that time with no acute complaints. Objective: Vital Signs Temp Pulse Resp BP Pulse Ox 98.2 F 75 18 128/68 H 100 08/20/20 15:50 08/20/20 17:00 08/20/20 15:50 08/20/20 17:00 08/20/20 15:50 Oxygen Flow Rate (L/min) 2 Oxygen Delivery Method Nasal Cannula Weight: 184 lb 3.21 oz Body Mass Index (BMI) 24.3 Finger Stick Blood Glucose 142 Intake and Output for Last 24 Hours 08/18/20 08/19/20 08/20/20 23:59 23:59 23:59 Intake Total 880 / 880 1335 / 1335 Output Total 1175 / 1175 1500 / 1500 Balance -295 / -295 -165 / -165 General: No Acute Distress HEENT: Atraumatic, Normocephalic, PERRL, EOMI, Sclera Non Icteric Neck: Supple, Good ROM, No JVD Lungs: Clear to auscultation Cardiovascular: Regular Rhythm, Premature Ectopic Beats, Normal S1, Normal S2 Abdomen: Bowel Sounds Present, Soft Extremities: No edema Neurological: No Focal Motor or Sensory Deficit Psych/Mental Status: Appropriate 08/20/20 06:50: WBC 7.5, RBC 3.90 L, Hgb 9.0 L, Hct 30.5 L, MCV 78.2 L, MCH 23.1 L, MCHC 29.5 L, Plt Count 101 L, MPV 8.9, Immature Gran % (Auto) 1.200 H, Neut % (Auto) 77.9 H, Lymph % (Auto) 12.0 L, [place] % (Auto) 7.8, Eos % (Auto) 0.7, Baso % (Auto) 0.4, Absolute Neuts (auto) 5.8, Nucleated RBC % 0 08/20/20 06:50: Sodium 137, Potassium 4.6, Chloride 109 H, Carbon Dioxide 18.0 L, Anion Gap 10, BUN 61 H, Creatinine 3.38 H, Est GFR (MDRD) Af Amer 23 L, Est GFR (MDRD) Non-Af 19 L, BUN/Creatinine Ratio 18.0, Glucose 121 H, Calcium 8.2 L, Total Bilirubin 0.30, Troponin I 2.710 H* 08/20/20 11:45: Troponin I 2.390 H* Rhythm: Sinus rhythm; episodes of intermittent narrow complex tachycardia compatible with an underlying PSVT EKG: Sinus rhythm with PACs with a right bundle branch block pattern with no new acute changes Medical Necessity - Tobacco Use Smoking Status: Never smoker Assessment/Plan 1. Non-ST segment elevation MT The patient presents with findings compatible with a non-ST segment elevation MT. This is based upon his symptoms, cardiac enzymes, and his subsequent abnormal transthoracic echocardiogram suggesting left ventricular regional wall motion abnormalities and overall diminished LV systolic function. From a cardiac standpoint he will continue to be observed. His cardiac enzymes have been followed and they have declined. His ECG is as noted. He will continue medical therapy. This has included the initiation of nitrates and beta-blockers. There is concerned about using antiplatelet agents in him with respect to his hematologic issues and his hematuria. There is also concerned about proceeding with any invasive evaluation such as diagnostic cardiac catheterization based upon the concerns of IV contrast related nephropathy which could worsen his renal insufficiency and result in the initiation of hemodialysis-which the patient ideally does not want and/or would like to avoid as long as possible. Thus at the present time the patient will continue conservative medical management and be followed. 2. CAD The patient has had a history of CAD in the past. It was described as noted in his 2010 cardiac catheterization. There is concerned this has progressed and has contributed to his non-ST segment elevation MT and diminished LV systolic function. From a cardiac standpoint he will continue conservative medical management at this time. Ideally he would be considered for further evaluation with diagnostic cardiac catheterization as noted above however there significant concerns in proceeding in that manner based upon his hematologic issues and his renal insufficiency issues and the concern of initiation of hemodialysis him contrast-induced nephropathy. 3. Cardiomyopathy: Ischemic mediated The patient does have left ventricular regional wall motion abnormalities with diminished LV systolic function. This may be secondary to progression of his underlying CAD, etc. At the moment he will continue to be followed. He will continue medical management. This will include nitrate therapy and beta-sergei therapy. He is not an ideal candidate for afterload reducing agents such as BILL inhibitor's or ARB's based upon his underlying renal insufficiency, etc. 4. SVT The patient has a history of SVT. His cardiac rate and rhythm will be followed. He has restarted beta-sergei therapy. His dose may need to be adjusted depending upon his underlying clinical condition and objective findings. 5. Mitral valve prolapse The patient has a reported history of mitral valve prolapse. His echocardiogram is as noted. He will continue to be followed. 6. Hyperlipidemia He is on lipid-lowering therapy. This can be continued unless otherwise contraindicated. 7. Hypertension The blood pressure will need to be followed as his medications were adjusted. 8. Diabetes mellitus He will continue evaluation care per internal medicine. 9. Hemochromatosis He has been following with hematology oncology for this. Certainly there input with respect to his hematologic issues would be most appreciated with respect to his ability to be on antiplatelet agents. 10. Chronic renal insufficiency He does have chronic renal insufficiency and has been followed by nephrology. He states he is considered borderline with respect to initiation of hemodialysis. He states he would like to avoid hemodialysis altogether or at least as long as possible. This does play a role with respect to evaluation with agent such as IV contrast which could initiate contrast-induced nephropathy and could initiate hemodialysis sooner than later in his case. 11. AV fistula He does have an AV fistula. He states it is not working at this time. This would need to be further evaluated by peripheral vascular surgery. If he would need hemodialysis in the interim he will need to have placement of temporary dialysis catheters. 12. Anemia He is anemic. Again this can play a role with respect to his ongoing medical therapy and care. 13. Thrombocytopenia His platelet counts are low. Again there is a question as to whether or not he could be on antiplatelet agents depending upon his other medical issues. 14. Prostate carcinoma He does have metastatic prostate carcinoma. He states his concern is has worsened. He continues evaluation care by his pet adoption counselor oncologist and his urologist. 15. Hematuria He does have hematuria. He has been evaluated by urology. There is been a recommendation to proceed with cystoscopy. However it may be reasonable to temporarily hold on that procedure if able to do so to allow him to demonstrate stability from his cardiac event. This note was generated using a voice recognition system and there may be incorrect words, spelling or punctuation that were not noted when reviewing the office note prior to saving.
[2020-08-20] MEDS: Atorvastatin Calcium 40 MG Tablet PO (21:37)
[2020-08-20] MEDS: Metoprolol Tartrate 50 MG Tablet PO (21:42)
[2020-08-20 22:00] LABS: Bedside Glucose 148 mg/dL (70-110)
[2020-08-21] VITALS (15 sets, daily range): BP systolic 125–150; BP diastolic 65–89; PULSE 58–130; RESP 16–18; TEMP 36.1–36.9; O2SAT 99–100
[2020-08-21] MEDS: Sodium Bicarbonate 650 MG Tablet PO ×3 (05:41→22:01)
[2020-08-21] MEDS: Nitroglycerin Oint 1 INCH PACKET TD (05:41)
[2020-08-21 05:51] LABS: Absolute Neutrophil Count 4.8 X10^3/uL (2.0-7.7); Basophil# 0.05 X10^3/uL; Basophil% 0.8 % (0-1); Eosinophil# 0.08 X10^3/uL; Eosinophils% 1.2 % (0-5); Hematocrit 33.5 % (40-54); Lymphocyte % 15.1 % (19-41); Mean Corp Hgb Conc 26.9 g/dL (32-36); Mean Corpuscular Hgb 22.7 pg (27.0-32.0); Mean Corpuscular Volume 84.6 fL (80-94); Mean Platelet Vol. 9.5 fl (6.2-12.0); Monocyte# 0.54 X10^3/uL; Monocyte% 8.2 % (0-10); NRBC Flagged by Analyzer 0 % (0-5); Neutrophil # 4.82 X10^3/uL (2.7-7.7); Neutrophil % 72.9 % (47-70); Platelet Count 105 K/mm3 (150-450); RBC Distribution Width CV 18.6 % (11.6-14.6); RBC Distribution Width SD 57.3 fl (35.1-43.9); Red Blood Count 3.96 M/mm3 (4.6-6.2); White Blood Count 6.6 K/mm3 (4.4-11.0)
[2020-08-21 06:30] LABS: Anion Gap 13 (5-15); BUN 72 mg/dL (7-18); BUN/Creat Ratio 22.9 RATIO (10-20); Calcium,Total 7.7 mg/dL (8.5-10.1); Chloride 110 mmol/L (98-107); Creatinine, Serum 3.15 mg/dL (0.70-1.30); EST Glomerular Filtration Rate 21 mL/min (>60); Est Glom Filt Rate - Afr Amer 25 mL/min (>60); Estimated Creatinine Clearance 22.55 ml/min; Glucose 132 mg/dL (74-106); Potassium 4.4 mmol/L (3.5-5.1); Sodium Level 138 mmol/L (136-145)
[2020-08-21 06:55] LABS: Bedside Glucose 133 mg/dL (70-110)
--- NOTE | 2020-08-21 07:25 | PCM.PROGNOTE ---
Patient Problems: Active and Suspected Problems (Last Reviewed 08/19/20 @ 13:[address] Chang Horton MD) Thrombocytopenia (Acute) Cardiomyopathy, ischemic (Acute) Hematuria (Acute) Pyuria (Acute) Non-STEMI (non-ST elevated myocardial infarction) (Acute) Subjective: 74-year-old male admitted with not feeling well was found to have cardiac issues rising troponin he is undergoing evaluation by cardiology also been having some gross hematuria off-and-on today he says is little bit less but given his cardiac issues at this point negative push for any intervention. His nephrostomy tubes are in place and draining clear yellow urine. - Physical Exam Vitals/I&O's: Vital Signs Temp Pulse Resp BP Pulse Ox 96.9 F L 66 18 146/77 H 100 08/21/20 03:40 08/21/20 05:41 08/21/20 03:40 08/21/20 05:41 08/21/20 03:40 Oxygen Flow Rate (L/min) 2 Oxygen Delivery Method Nasal Cannula Weight: 83.552 kg Body Mass Index (BMI) 24.3 Finger Stick Blood Glucose 142 Intake and Output for Last 24 Hours 08/19/20 08/20/20 08/21/20 23:59 23:59 23:59 Intake Total 880 / 880 2320 / 2320 120 / 120 Output Total 1175 / 1175 3200 / 3200 750 / 750 Balance -295 / -295 -880 / -880 -630 / -630 General: Alert, Oriented x3, Cooperative HEENT: Atraumatic, PERRLA, EOMI, Normocephalic Neck: Supple, No JVD, Negative Carotid Bruits Lungs: Clear to auscultation, Normal air movement Cardiovascular: Regular rate, No murmurs Abdomen: Bowel Sounds Present, Soft, Non Tender Extremities: No edema, Capillary Refill Less than 3 Seconds Skin: No rashes, No breakdown Musculoskeletal: No Tenderness to Palpation of Joints or Extremities Neurological: Cranial nerves II-XII grossly intact Psych/Mental Status: Normal Affect, Appropriate Microbiology Past 72 Hours 08/19/20 09:45 Urine, Nephrostomy Urine Culture - Preliminary Presumptive E. coli 08/19/20 09:25 Mucosa - Nose SARS-CoV-2 Antigen (Rapid) - Final 08/19/20 09:25 Mucosa - Nose Influenza Types A,B Direct FA ([facility]) - Final Laboratory Results 08/20/20 06:50: WBC 7.5, RBC 3.90 L, Hgb 9.0 L, Hct 30.5 L, MCV 78.2 L, MCH 23.1 L, MCHC 29.5 L, RDW Std Deviation 52.7 H, RDW Coeff of Sherrie 18.6 H, Plt Count 101 L, MPV 8.9, Immature Gran % (Auto) 1.200 H, Neut % (Auto) 77.9 H, Lymph % (Auto) 12.0 L, Stephens % (Auto) 7.8, Eos % (Auto) 0.7, Baso % (Auto) 0.4, Absolute Neuts (auto) 5.8, Absolute Lymphs (auto) 0.90, Nucleated RBC % 0 08/20/20 06:50: Sodium 137, Potassium 4.6, Chloride 109 H, Carbon Dioxide 18.0 L, Anion Gap 10, BUN 61 H, Creatinine 3.38 H, Estim Creat Clear Calc 21.01, Est GFR (MDRD) Af Amer 23 L, Est GFR (MDRD) Non-Af 19 L, BUN/Creatinine Ratio 18.0, Glucose 121 H, Calcium 8.2 L, Total Bilirubin 0.30, AST 112 H, ALT 17, Alkaline Phosphatase 353 H, Troponin I 2.710 H*, Total Protein 5.6 L, Albumin 2.4 L, Globulin 3.2, Albumin/Globulin Ratio 0.8 L 08/20/20 11:12: POC Glucose 125 H 08/20/20 11:45: Troponin I 2.390 H* 08/20/20 16:55: POC Glucose 130 H 08/20/20 21:34: POC Glucose 148 H 08/21/20 05:22: WBC 6.6, RBC 3.96 L, Hgb 9.0 L, Hct 33.5 L, MCV 84.6 D, MCH 22.7 L, MCHC 26.9 L D, RDW Std Deviation 57.3 H, RDW Coeff of Sherrie 18.6 H, Plt Count 105 L, MPV 9.5, Immature Gran % (Auto) 1.800 H, Neut % (Auto) 72.9 H, Lymph % (Auto) 15.1 L, Stephens % (Auto) 8.2, Eos % (Auto) 1.2, Baso % (Auto) 0.8, Absolute Neuts (auto) 4.8, Absolute Lymphs (auto) 1.00, Nucleated RBC % 0 08/21/20 05:22: Sodium 138, Potassium 4.4, Chloride 110 H, Carbon Dioxide 15.0 L, Anion Gap 13, BUN 72 H, Creatinine 3.15 H, Estim Creat Clear Calc 22.55, Est GFR (MDRD) Af Amer 25 L, Est GFR (MDRD) Non-Af 21 L, BUN/Creatinine Ratio 22.9 H, Glucose 132 H, Calcium 7.7 L 08/21/20 06:37: POC Glucose 133 H Current Medications Abiraterone Acetate (Abiraterone Acetate 250 Mg Tablet) 1,000 mg PO DAILY [facility] Last Admin: 08/20/20 09:50 Dose: 1,000 mg Documented by: Acetaminophen (Acetaminophen 325 Mg Tablet) 650 mg PO Q6H PRN PRN PRN Reason: Pain Score 1-10/Temp > 100.7 F Albuterol Sulfate (Albuterol 2.5 Mg/3 Ml Vial.Neb.) 2.5 mg INHALATION Q4H PRN PRN PRN Reason: SOB/Wheezing Atorvastatin Calcium (Atorvastatin Calcium 40 Mg Tablet) 40 mg PO QHS [facility] Last Admin: 08/20/20 21:37 Dose: 40 mg Documented by: Calcium/Vitamin D (Calcium Carb/Vitamin D 1 Tablet Tablet) 1 tablet PO DAILYCM [facility] Last Admin: 08/20/20 09:49 Dose: 1 tablet Documented by: Folic Acid (Folic Acid 1 Mg Tablet) 1 mg PO DAILY@0800 [facility] Last Admin: 08/20/20 09:49 Dose: 1 mg Documented by: Heparin Sodium (Beef Lung) (Heparin Pf Lock 10 Units/Ml 50 Units/5 Ml Syringe) 50 units IV UD PRN PRN Reason: Port-a-Cath (VAD)Heparin Flush Ceftriaxone Sodium 2 gm/ (Sodium Chloride) 50 mls @ 100 mls/hr IV Q24 [facility] Last Infusion: 08/20/20 10:35 Dose: Infused Documented by: Vancomycin IV Pharmacy to Dose (1 ea/ Sodium Chloride) 500 mls @ 250 mls/hr IV PRN PRN; Protocol PRN Reason: Rx to Dose Vancomycin HCl 750 mg/ Sodium (Chloride) 265 mls @ 250 mls/hr IV Q24H [facility] Last Infusion: 08/20/20 17:56 Dose: Infused Documented by: Insulin Glargine (Insulin Glargine 100 Units/Ml Pen) 15 units SC QHS [facility] Last Admin: 08/20/20 21:37 Dose: 15 units Documented by: Insulin Human Lispro (Insulin Lispro 100 Unit/Ml Insuln.Pen) 0 unit SC ACHS [facility]; Protocol Last Admin: 08/21/20 06:46 Dose: Not Given Documented by: Metoprolol Tartrate (Metoprolol Tartrate 50 Mg Tablet) 50 mg PO BID [facility] Last Admin: 08/20/20 21:42 Dose: 50 mg Documented by: Nitroglycerin (Nitroglycerin Oint 1 Inch Packet) 1 inch TD Q6 [facility] Last Admin: 08/21/20 05:41 Dose: 1 inch Documented by: Ondansetron HCl (Ondansetron 4 Mg/2 Ml Vial) 4 mg IV Q8H PRN PRN PRN Reason: NAUSEA/VOMITING Last Admin: 08/19/20 18:27 Dose: 4 mg Documented by: Polysaccharide Iron Complex (Iron Polysaccharide Complex 150 Mg Capsule) 150 mg PO DAILY [facility] Last Admin: 08/20/20 09:49 Dose: 150 mg Documented by: Pred[facility] ([facility] Admin: 08/20/20 16:58 Dose: 5 mg Documented by: Senna/Docusate Sodium (Senna/Docusate Sodium 1 Tablet) 2 tablet PO BID PRN PRN PRN Reason: Constipation Sertraline HCl (Sertraline 50 Mg Tablet) 50 mg PO DAILY [facility] Last Admin: 08/20/20 09:47 Dose: 50 mg Documented by: Sodium Bicarbonate (Sodium Bicarbonate 650 Mg Tablet) 650 mg PO TID [facility] Last Admin: 08/21/20 05:41 Dose: 650 mg Documented by: Sodium Chloride (0.9% Saline Lock 10 Ml Syringe) 10 - 40 ml IV UD PRN PRN Reason: Port-a-Cath (VAD) Flush Sodium Chloride (0.9 % Nacl (Sterile) Posiflush 10 Ml) 10 - 40 ml IV UD PRN PRN Reason: Port access or dressing change Zolpidem Tartrate (Zolpidem Tartrate 5 Mg Tablet) 5 mg PO QHS PRN PRN PRN Reason: INSOMNIA Medical Necessity - Tobacco Use Smoking Status: Never smoker Assessment/Plan All Active Problems (Last Reviewed 08/19/20 @ 13:[address] Chang Horton MD) Thrombocytopenia (Acute) Cardiomyopathy, ischemic (Acute) Hematuria (Acute) Pyuria (Acute) Non-STEMI (non-ST elevated myocardial infarction) (Acute) Given recent changes in cardiac status no plan for surgical intervention on prostate will continue with observation. For now call me with questions.
[2020-08-21] MEDS: Isosorbide Mononitrate 30 MG Tablet PO (08:08)
[2020-08-21] MEDS: Calcium Carb/Vitamin D 1 TABLET Tablet PO (08:08)
--- NOTE | 2020-08-21 08:08 | PCM.PROGNOTE ---
Patient Problems: Active and Suspected Problems (Last Reviewed 08/19/20 @ 13:[address] Chang Horton MD) Cardiomyopathy, ischemic (Acute) Hematuria (Acute) Pyuria (Acute) Non-STEMI (non-ST elevated myocardial infarction) (Acute) Subjective: Chief complaint: Follow-up after addition for acute non-STEMI, pyuria with probable acute cystitis, hematuria. Patient seen and examined. No acute events overnight. Today, he denied any complaints. He has no more hematuria. No chest pain or shortness of breath. His vital signs are stable. - Physical Exam Vitals/I&O's: Vital Signs Temp Pulse Resp BP Pulse Ox 96.9 F L 67 18 146/77 H 100 08/21/20 03:40 08/21/20 06:59 08/21/20 03:40 08/21/20 05:41 08/21/20 03:40 Oxygen Flow Rate (L/min) 2 Oxygen Delivery Method Nasal Cannula Weight: 184 lb 3.21 oz Body Mass Index (BMI) 24.3 Finger Stick Blood Glucose 142 Intake and Output for Last 24 Hours 08/19/20 08/20/20 08/21/20 23:59 23:59 23:59 Intake Total 880 / 880 2320 / 2320 120 / 120 Output Total 1175 / 1175 3200 / 3200 750 / 750 Balance -295 / -295 -880 / -880 -630 / -630 General: Alert, Oriented x3, Cooperative, No apparent distress HEENT: Atraumatic, PERRLA, EOMI, Normocephalic Oral: Moist Mucosa, No Gingival or Mucosal Lesions/ Ulcerations Neck: Supple, No JVD, Negative Carotid Bruits, Trachea Midline, Thyroid Normal Size and Texture Lungs: Clear to auscultation, No rhonchi, No wheeze, No rales, Diminished Cardiovascular: Regular rate, Regular Rhythm, Normal S1, Normal S2, PMI Normal Abdomen: Bowel Sounds Present, Soft, Non Tender, Non-Distended, No Hepato-splenomegaly, - - Bilateral nephrostomy tubes in place. Extremities: No clubbing, No cyanosis, No edema Skin: No rashes, No breakdown Lymphatic: No Cervical, Supraclavicular, or Inguinal Adenopathy Neurological: Cranial nerves II-XII grossly intact, Neuro grossly intact Psych/Mental Status: Normal Affect, Appropriate, Alert and oriented to time, place, person, mood and affect Microbiology Past 72 Hours 08/19/20 09:45 Urine, Nephrostomy Urine Culture - Final Presumptive E. coli 08/19/20 09:25 Mucosa - Nose SARS-CoV-2 Antigen (Rapid) - Final 08/19/20 09:25 Mucosa - Nose Influenza Types A,B Direct FA ([facility]) - Final Laboratory Results 08/20/20 06:50: Sodium 137, Potassium 4.6, Chloride 109 H, Carbon Dioxide 18.0 L, Anion Gap 10, BUN 61 H, Creatinine 3.38 H, Estim Creat Clear Calc 21.01, Est GFR (MDRD) Af Amer 23 L, Est GFR (MDRD) Non-Af 19 L, BUN/Creatinine Ratio 18.0, Glucose 121 H, Calcium 8.2 L, Total Bilirubin 0.30, AST 112 H, ALT 17, Alkaline Phosphatase 353 H, Troponin I 2.710 H*, Total Protein 5.6 L, Albumin 2.4 L, Globulin 3.2, Albumin/Globulin Ratio 0.8 L 08/20/20 11:12: POC Glucose 125 H 08/20/20 11:45: Troponin I 2.390 H* 08/20/20 16:55: POC Glucose 130 H 08/20/20 21:34: POC Glucose 148 H 08/21/20 05:22: WBC 6.6, RBC 3.96 L, Hgb 9.0 L, Hct 33.5 L, MCV 84.6 D, MCH 22.7 L, MCHC 26.9 L D, RDW Std Deviation 57.3 H, RDW Coeff of Sherrie 18.6 H, Plt Count 105 L, MPV 9.5, Immature Gran % (Auto) 1.800 H, Neut % (Auto) 72.9 H, Lymph % (Auto) 15.1 L, [place] % (Auto) 8.2, Eos % (Auto) 1.2, Baso % (Auto) 0.8, Absolute Neuts (auto) 4.8, Absolute Lymphs (auto) 1.00, Nucleated RBC % 0 08/21/20 05:22: Sodium 138, Potassium 4.4, Chloride 110 H, Carbon Dioxide 15.0 L, Anion Gap 13, BUN 72 H, Creatinine 3.15 H, Estim Creat Clear Calc 22.55, Est GFR (MDRD) Af Amer 25 L, Est GFR (MDRD) Non-Af 21 L, BUN/Creatinine Ratio 22.9 H, Glucose 132 H, Calcium 7.7 L 08/21/20 06:37: POC Glucose 133 H Current Medications Abiraterone Acetate (Abiraterone Acetate 250 Mg Tablet) 1,000 mg PO DAILY [facility] Last Admin: 08/20/20 09:50 Dose: 1,000 mg Documented by: Acetaminophen (Acetaminophen 325 Mg Tablet) 650 mg PO Q6H PRN PRN PRN Reason: Pain Score 1-10/Temp > 100.7 F Albuterol Sulfate (Albuterol 2.5 Mg/3 Ml Vial.Neb.) 2.5 mg INHALATION Q4H PRN PRN PRN Reason: SOB/Wheezing Atorvastatin Calcium (Atorvastatin Calcium 40 Mg Tablet) 40 mg PO QHS [facility] Last Admin: 08/20/20 21:37 Dose: 40 mg Documented by: Calcium/Vitamin D (Calcium Carb/Vitamin D 1 Tablet Tablet) 1 tablet PO DAILYCM [facility] Last Admin: 08/20/20 09:49 Dose: 1 tablet Documented by: Folic Acid (Folic Acid 1 Mg Tablet) 1 mg PO DAILY@0800 [facility] Last Admin: 08/20/20 09:49 Dose: 1 mg Documented by: Heparin Sodium (Beef Lung) (Heparin Pf Lock 10 Units/Ml 50 Units/5 Ml Syringe) 50 units IV UD PRN PRN Reason: Port-a-Cath (VAD)Heparin Flush Ceftriaxone Sodium 2 gm/ (Sodium Chloride) 50 mls @ 100 mls/hr IV Q24 [facility] Last Infusion: 08/20/20 10:35 Dose: Infused Documented by: Vancomycin IV Pharmacy to Dose (1 ea/ Sodium Chloride) 500 mls @ 250 mls/hr IV PRN PRN; Protocol PRN Reason: Rx to Dose Vancomycin HCl 750 mg/ Sodium (Chloride) 265 mls @ 250 mls/hr IV Q24H [facility] Last Infusion: 08/20/20 17:56 Dose: Infused Documented by: Insulin Glargine (Insulin Glargine 100 Units/Ml Pen) 15 units SC QHS [facility] Last Admin: 08/20/20 21:37 Dose: 15 units Documented by: Insulin Human Lispro (Insulin Lispro 100 Unit/Ml Insuln.Pen) 0 unit SC ACHS [facility]; Protocol Last Admin: 08/21/20 06:46 Dose: Not Given Documented by: Isosorbide Mononitrate (Isosorbide Mononitrate 30 Mg Tablet) 30 mg PO DAILY [facility] Metoprolol Tartrate (Metoprolol Tartrate 50 Mg Tablet) 50 mg PO BID [facility] Last Admin: 08/20/20 21:42 Dose: 50 mg Documented by: Ondansetron HCl (Ondansetron 4 Mg/2 Ml Vial) 4 mg IV Q8H PRN PRN PRN Reason: NAUSEA/VOMITING Last Admin: 08/19/20 18:27 Dose: 4 mg Documented by: Polysaccharide Iron Complex (Iron Polysaccharide Complex 150 Mg Capsule) 150 mg PO DAILY [facility] Last Admin: 08/20/20 09:49 Dose: 150 mg Documented by: Pred[facility] ([facility] 5 Mg [facility]) [facility] Last Admin: 08/20/20 16:58 Dose: 5 mg Documented by: Senna/Docusate Sodium (Senna/Docusate Sodium 1 Tablet) 2 tablet PO BID PRN PRN PRN Reason: Constipation Sertraline HCl (Sertraline 50 Mg Tablet) 50 mg PO DAILY [facility] Last Admin: 08/20/20 09:47 Dose: 50 mg Documented by: Sodium Bicarbonate (Sodium Bicarbonate 650 Mg Tablet) 650 mg PO TID [facility] Last Admin: 08/21/20 05:41 Dose: 650 mg Documented by: Sodium Chloride (0.9% Saline Lock 10 Ml Syringe) 10 - 40 ml IV UD PRN PRN Reason: Port-a-Cath (VAD) Flush Sodium Chloride (0.9 % Nacl (Sterile) Posiflush 10 Ml) 10 - 40 ml IV UD PRN PRN Reason: Port access or dressing change Zolpidem Tartrate (Zolpidem Tartrate 5 Mg Tablet) 5 mg PO QHS PRN PRN PRN Reason: INSOMNIA Medical Necessity - Tobacco Use Smoking Status: Never smoker Assessment/Plan All Active Problems (Last Reviewed 08/19/20 @ 13:[address] Chang Horton MD) Cardiomyopathy, ischemic (Acute) Hematuria (Acute) Pyuria (Acute) Non-STEMI (non-ST elevated myocardial infarction) (Acute) This is a 74 years old male patient presented to the emergency room because of weakness and chills, had hematuria upon arrival to the floor and he complained of chest pain later, found to have acute non-STEMI, pyuria with acute cystitis and he is being admitted for evaluation and treatment. #1 acute non-ST ovation [place]/ischemic cardiomyopathy: Remained on statins and metoprolol. 2D echocardiogram revealed ejection fraction of 35%, other findings reviewed. Cardiology on the case, decision was made to continue with medical treatment. Vital signs are stable. Plan to continue same treatment. #2 E. coli acute cystitis: He is on IV Rocephin and vancomycin. Urine culture revealed presumptive E. coli, sensitivity reviewed. Patient has been afebrile, no leukocytosis. Blood cultures pending. Plan: Discontinue vancomycin, awaiting blood culture. #3 hematuria: In the setting of metastatic prostate cancer status post TURP, currently on Zytiga and prednisone. Patient has no more hematuria since last night. Hemoglobin hematocrit are stable. Urology consulted and initial plan was to go for cystoscopy and probably repeat TURP but because patient has no more hematuria and because of the acute non-STEMI, no plan for surgery at this time. #4 history of metastatic prostate cancer: Status post surgery and chemotherapy, currently on Zytiga and prednisone. Plan as above. #5 status post bilateral nephrostomy tubes: This was done 3 days ago for bladder outlet obstruction, patient has been going to a different facility for changing the nephrostomy tubes. It was changed recently. Kidney function stable to baseline. #6 stage IV chronic kidney disease: Baseline creatinine has been around to 2.5-3.5. Patient had fistula placed recently but failed. He was not started on dialysis yet. Admission creatinine is 3.22, today's creatinine is 3.25, remained stable. #7 type 2 diabetes mellitus: Blood sugar stable, continue ADA diet, Accu-Cheks, insulin sliding scale, continue Lantus. #8 chronic anemia/chronic thrombocytopenia: Combination of anemia of chronic disease and iron deficiency anemia. Hemoglobin and platelet count at baseline. Today's hemoglobin remains at 9 g/dL, platelet count is 105,000. #9 hyperlipidemia: Continue statins. #10 CODE STATUS: DNR CCA, no intubation. #11 DVT prophylaxis: SCDs. No chemical prophylaxis because of thrombocytopenia and hematuria. This note was generated with [employer] software. It may contain incorrect words, spelling, and punctuation that were not noted in checking the note before signing. Inpatient E&M: 57623 Subs Hosp L2
[2020-08-21] MEDS: Folic Acid 1 MG Tablet PO (08:09)
[2020-08-21] MEDS: Sertraline 50 MG Tablet PO (08:09)
[2020-08-21] MEDS: Metoprolol Tartrate 50 MG Tablet PO ×2 (08:09→22:00)
[2020-08-21] MEDS: predniSONE 5 MG Tablet PO ×2 (08:09→16:59)
[2020-08-21] MEDS: ABIRATERONE ACETATE 250 MG TABLET 1000 MG PO (08:10)
[2020-08-21] MEDS: Iron Polysaccharide Complex 150 MG CAPSULE PO (08:10)
--- NOTE | 2020-08-21 08:52 | PCM.PN.CARD ---
Subjectve: And alert. He states he feels good so far today. He denies any ongoing chest discomfort or difficulty breathing. Objective: Vital Signs Temp Pulse Resp BP Pulse Ox 97.7 F L 60 18 149/65 H 100 08/21/20 08:15 08/21/20 08:15 08/21/20 08:15 08/21/20 08:15 08/21/20 08:15 Oxygen Flow Rate (L/min) 2 Oxygen Delivery Method Nasal Cannula Weight: 184 lb 3.21 oz Body Mass Index (BMI) 24.3 Finger Stick Blood Glucose 142 Intake and Output for Last 24 Hours 08/19/20 08/20/20 08/21/20 23:59 23:59 23:59 Intake Total 880 / 880 2320 / 2320 120 / 120 Output Total 1175 / 1175 3200 / 3200 750 / 750 Balance -295 / -295 -880 / -880 -630 / -630 General: Awake, Alert, Oriented x 3, Cooperative, No Acute Distress HEENT: Atraumatic, Normocephalic, PERRL, EOMI, Sclera Non Icteric Neck: Supple, Good ROM, No JVD Lungs: Clear to auscultation Cardiovascular: Regular Rhythm, Premature Ectopic Beats, Normal S1, Normal S2 Abdomen: Bowel Sounds Present, Soft Extremities: No edema Neurological: No Focal Motor or Sensory Deficit Psych/Mental Status: Appropriate 08/20/20 11:45: Troponin I 2.390 H* 08/21/20 05:22: WBC 6.6, RBC 3.96 L, Hgb 9.0 L, Hct 33.5 L, MCV 84.6 D, MCH 22.7 L, MCHC 26.9 L D, Plt Count 105 L, MPV 9.5, Immature Gran % (Auto) 1.800 H, Neut % (Auto) 72.9 H, Lymph % (Auto) 15.1 L, [place] % (Auto) 8.2, Eos % (Auto) 1.2, Baso % (Auto) 0.8, Absolute Neuts (auto) 4.8, Nucleated RBC % 0 08/21/20 05:22: Sodium 138, Potassium 4.4, Chloride 110 H, Carbon Dioxide 15.0 L, Anion Gap 13, BUN 72 H, Creatinine 3.15 H, Est GFR (MDRD) Af Amer 25 L, Est GFR (MDRD) Non-Af 21 L, BUN/Creatinine Ratio 22.9 H, Glucose 132 H, Calcium 7.7 L Rhythm: Sinus rhythm; PACs Medical Necessity - Tobacco Use Smoking Status: Never smoker Assessment/Plan 1. Non-ST segment elevation [place] The patient presents with findings compatible with a non-ST segment elevation [place]. This is based upon his symptoms, cardiac enzymes, and his subsequent abnormal transthoracic echocardiogram suggesting left ventricular regional wall motion abnormalities and overall diminished LV systolic function. From a cardiac standpoint he will continue to be observed. His cardiac enzymes have been followed and they have declined. His ECG is as noted. He will continue medical therapy. This has included the initiation of nitrates and beta-blockers. There is concerned about using antiplatelet agents in him with respect to his hematologic issues and his hematuria. These agents were discussed with his switch inspector oncologist Dr. Haro. Based upon a communication from Dr. Haro the patient can initiate aspirin therapy and antiplatelet therapy such as clopidogrel/Plavix as long as his platelets remain greater than 30,000 and he has no obvious adverse events. As he will initiate these medications. There is also concerned about proceeding with any invasive evaluation such as diagnostic cardiac catheterization based upon the concerns of IV contrast related nephropathy which could worsen his renal insufficiency and result in the initiation of hemodialysis-which the patient ideally does not want and/or would like to avoid as long as possible. Thus at the present time the patient will continue conservative medical management and be followed. 2. CAD The patient has had a history of CAD in the past. It was described as noted in his 2010 cardiac catheterization. There is concerned this has progressed and has contributed to his non-ST segment elevation [place] and diminished LV systolic function. From a cardiac standpoint he will continue conservative medical management at this time. Ideally he would be considered for further evaluation with diagnostic cardiac catheterization as noted above however there significant concerns in proceeding in that manner based upon his hematologic issues and his renal insufficiency issues and the concern of initiation of hemodialysis him contrast-induced nephropathy. 3. Cardiomyopathy: Ischemic mediated The patient does have left ventricular regional wall motion abnormalities with diminished LV systolic function. This may be secondary to progression of his underlying CAD, etc. At the moment he will continue to be followed. He will continue medical management. This will include nitrate therapy and beta-sergei therapy. He is not an ideal candidate for afterload reducing agents such as BILL inhibitor's or ARB's based upon his underlying renal insufficiency, etc. 4. SVT The patient has a history of SVT. His cardiac rate and rhythm will be followed. He has restarted beta-sergei therapy. His dose may need to be adjusted depending upon his underlying clinical condition and objective findings. 5. Mitral valve prolapse The patient has a reported history of mitral valve prolapse. His echocardiogram is as noted. He will continue to be followed. 6. Hyperlipidemia He is on lipid-lowering therapy. This can be continued unless otherwise contraindicated. 7. Hypertension The blood pressure will need to be followed as his medications were adjusted. 8. Diabetes mellitus He will continue evaluation care per internal medicine. 9. Hemochromatosis He has been following with hematology oncology for this. Again his case was discussed with his switch inspector oncologist and it appears he can initiate antiplatelet therapy at this time as long as his platelet count remains greater than 30,000 and he has no adverse events. 10. Chronic renal insufficiency He does have chronic renal insufficiency and has been followed by nephrology. He states he is considered borderline with respect to initiation of hemodialysis. He states he would like to avoid hemodialysis altogether or at least as long as possible. This does play a role with respect to evaluation with agent such as IV contrast which could initiate contrast-induced nephropathy and could initiate hemodialysis sooner than later in his case. 11. AV fistula He does have an AV fistula. He states it is not working at this time. This would need to be further evaluated by peripheral vascular surgery. If he would need hemodialysis in the interim he will need to have placement of temporary dialysis catheters. 12. Anemia He is anemic. His H&H does need to be monitored over time. 13. Thrombocytopenia His platelet counts are low. His platelets will need to be followed on antiplatelet therapy. 14. Prostate carcinoma He does have metastatic prostate carcinoma. He states his concern is has worsened. He continues evaluation care by his switch inspector oncologist and his urologist. 15. Hematuria He does have hematuria. He has been evaluated by urology. He states the urologist has placed his cystoscopy procedure on hold based upon his underlying cardiovascular concerns. This note was generated using a voice recognition system and there may be incorrect words, spelling or punctuation that were not noted when reviewing the office note prior to saving.
[2020-08-21] MEDS: Aspirin 81 MG TAB.CHEW PO (10:06)
[2020-08-21] MEDS: 0.9% Saline Lock 10 ML Syringe IV (10:06)
[2020-08-21] MEDS: Clopidogrel Bisulfate 75 MG Tablet PO (10:06)
[2020-08-21] MEDS: Insulin Lispro 100 UNIT/ML INSULN.PEN SC ×2 (11:29→21:58)
[2020-08-21 11:40] LABS: Bedside Glucose 222 mg/dL (70-110)
[2020-08-21 14:26] LABS: Vancomycin, Trough Level 17.8 ug/mL (5.0-15.0)
[2020-08-21 16:46] LABS: Bedside Glucose 146 mg/dL (70-110)
[2020-08-21] MEDS: Atorvastatin Calcium 40 MG Tablet PO (21:59)
[2020-08-21 22:30] LABS: Bedside Glucose 220 mg/dL (70-110)
[2020-08-21 23:54] LABS: Magnesium 2.1 mg/dL (1.6-2.6)
[2020-08-22] VITALS (7 sets, daily range): BP systolic 133–142; BP diastolic 61–83; PULSE 56–77; RESP 16–17; TEMP 36.8–37.1; O2SAT 98–100
[2020-08-22] MEDS: Sodium Bicarbonate 650 MG Tablet PO (06:23)
[2020-08-22 06:46] LABS: Absolute Lymphocyte Count 1.17 X10^3/uL (0.83-4.51); Absolute Neutrophil Count 4.6 X10^3/uL (2.0-7.7); Basophil# 0.04 X10^3/uL; Basophil% 0.6 % (0-1); Eosinophil# 0.11 X10^3/uL; Eosinophils% 1.6 % (0-5); Hematocrit 30.7 % (40-54); Hemoglobin 8.6 g/dL (13.0-16.5); Lymphocyte # 1.17 X10^3/ul (4.0); Lymphocyte % 17.4 % (19-41); Mean Corpuscular Hgb 22.4 pg (27.0-32.0); Mean Corpuscular Volume 79.9 fL (80-94); Monocyte# 0.67 X10^3/uL; NRBC Flagged by Analyzer 0 % (0-5); Neutrophil # 4.57 X10^3/uL (2.7-7.7); Platelet Count 120 K/mm3 (150-450); RBC Distribution Width CV 18.3 % (11.6-14.6); RBC Distribution Width SD 52.5 fl (35.1-43.9); Red Blood Count 3.84 M/mm3 (4.6-6.2); White Blood Count 6.7 K/mm3 (4.4-11.0)
[2020-08-22 06:50] LABS: Bedside Glucose 119 mg/dL (70-110)
[2020-08-22] MEDS: Calcium Carb/Vitamin D 1 TABLET Tablet PO (08:20)
[2020-08-22] MEDS: Clopidogrel Bisulfate 75 MG Tablet PO (08:20)
[2020-08-22] MEDS: predniSONE 5 MG Tablet PO (08:20)
[2020-08-22] MEDS: Folic Acid 1 MG Tablet PO (08:21)
[2020-08-22] MEDS: Isosorbide Mononitrate 30 MG Tablet PO (08:21)
[2020-08-22] MEDS: Aspirin 81 MG TAB.CHEW PO (08:21)
[2020-08-22] MEDS: Iron Polysaccharide Complex 150 MG CAPSULE PO (08:21)
[2020-08-22] MEDS: Metoprolol Tartrate 50 MG Tablet PO (08:22)
[2020-08-22] MEDS: Sertraline 50 MG Tablet PO (08:22)
[2020-08-22] MEDS: ABIRATERONE ACETATE 250 MG TABLET 1000 MG PO (08:22)
--- NOTE | 2020-08-22 08:26 | PCM.DC ---
- Discharge Diagnoses Current Active Problems: Current Active and Chronic Problems (Last Reviewed 08/19/20 @ 13:[address] Chang Horton MD) Cardiomyopathy, ischemic (Acute) Hematuria (Acute) Pyuria (Acute) Non-STEMI (non-ST elevated myocardial infarction) (Acute) Anemia in chronic kidney disease (CKD) (Chronic) Hx of arteriovenostomy for renal dialysis (Chronic) 04/16/19 Prostate cancer (Chronic) Chronic renal disease, stage 4, severely decreased glomerular filtration rate (GFR) between 15-29 mL/min/1.73 square meter (Chronic) Essential hypertension (Chronic) Hemochromatosis (Chronic) Thrombocytopenia (Chronic) SVT (supraventricular tachycardia) (Chronic) Atherosclerotic heart disease of [place] coronary artery without angina pectoris (Chronic) Nonrheumatic mitral (valve) prolapse (Chronic) Type 2 diabetes mellitus (Chronic) Hyperlipidemia (Chronic) You will use the following diet at home:: Calorie/Carbohydrate Controlled (specify 1200, 1400, etc) - 1800 [place]., Cardiac, Renal (restricted protein/sodium) Discharge Activity: Return to Normal Activity Weight Bearing Status: Weight bearing as tolerated Call your doctor if you observe: Fever of 101 or Higher, Shortness of breath, Dizziness, Fainting spells, Chest pain, Increased palpitations (irregular heartbeat), Uncontrolled pain Allergies/Adverse Reactions: Allergies ramipril [From Altace] Allergy (Intermediate, Verified 08/07/20 14:17) Unknown cough nalbuphine [From Nubain] Adverse Reaction (Severe, Verified 08/07/20 14:17) Nausea/Vom/Diarrhea Medications to take at Discharge Atorvastatin Calcium [Lipitor] 40 mg PO QHS 03/09/16 Calcium Carbonate/Vitamin D3 [Calcium 600-Vit D3 400 Caplet] 1 ea PO BID 07/28/16 Insulin Glargine [Lantus SoloStar Pen] 15 units SC QHS PRN 10/07/17 Insulin Lispro [Humalog] 0 unit SQ BID 10/07/17 sertraline 50 mg tablet 100 mg PO DAILY tab 10/27/17 sodium bicarbonate 650 mg tablet 650 mg PO TID tab 10/27/17 Acetaminophen [Tylenol Tablet] 650 mg PO Q6H PRN PRN tab 04/16/19 Prednisone 5 mg PO BID #60 tab 02/27/20 Abiraterone Acetate [Zytiga] 250 mg PO 4X/DAY 04/09/20 Ascorbic Acid [Vitamin C] 1,000 mg PO DAILY 05/07/20 Iron Polysaccharide Complex [Ferrex 150] 150 mg PO DAILYCM #90 cap 05/07/20 Folic Acid 1 mg PO DAILY 08/19/20 Aspirin [Aspirin, Baby] 81 mg PO DAILY@0800 #90 tab.chew 08/22/20 Cephalexin [Keflex] 500 mg PO Q12 #6 cap 08/22/20 Clopidogrel Bisulfate [Plavix] 75 mg PO DAILY #90 tab 08/22/20 Isosorbide Mononitrate [Imdur] 30 mg PO DAILY #90 tab 08/22/20 Metoprolol Tartrate [Lopressor (beta sergei)] 50 mg PO BID #90 tab 08/22/20 The following prescriptions were given: Aspirin [Aspirin, Baby] 81 mg PO DAILY@0800 #90 tab.chew Transmission Status: Pending to [address] Isosorbide Mononitrate [Imdur] 30 mg PO DAILY #90 tab Transmission Status: Pending to [address] Cephalexin [Keflex] 500 mg PO Q12 #6 cap Transmission Status: Pending to [address] Metoprolol Tartrate [Lopressor (beta sergei)] 50 mg PO BID #90 tab Transmission Status: Pending to [address] Clopidogrel Bisulfate [Plavix] 75 mg PO DAILY #90 tab Transmission Status: Pending to [address] Primary Care Physician: Fidencio Mar MD [STAFF PHYSICIAN] - Please follow up with your Primary Care Physician in: 1 week. Test Results: Test results from this visit will be discussed in further detail at your follow-up appointment, if applicable. Please Follow Up With: Praveen Sol MD When: 2 weeks. Please Follow Up With: Chang Horton MD When: 1 week.
--- NOTE | 2020-08-22 08:44 | PN.CARD_ITS ---
Subjectve: The patient has been up and in the chair. He states he feels good at this time. He has no new acute complaints. Objective: Vital Signs Temp Pulse Resp BP Pulse Ox 98.2 F 70 16 134/83 H 98 08/22/20 03:26 08/22/20 08:22 08/22/20 03:26 08/22/20 03:26 08/22/20 07:28 Oxygen Flow Rate (L/min) 2 Oxygen Delivery Method Room Air Weight: 184 lb 3.21 oz Body Mass Index (BMI) 24.3 Finger Stick Blood Glucose 142 Intake and Output for Last 24 Hours 08/20/20 08/21/20 08/22/20 23:59 23:59 23:59 Intake Total 2320 / 2320 1170 / 1470 500 / 500 Output Total 3200 / 3200 2000 / 2650 1700 / 1700 Balance -880 / -880 -830 / -1180 -1200 / -1200 General: Awake, Alert, Oriented x 3, Cooperative, No Acute Distress HEENT: Atraumatic, Normocephalic, PERRL, EOMI, Sclera Non Icteric Neck: Supple, Good ROM, No JVD Cardiovascular: Regular Rhythm, Normal S1, Normal S2 Abdomen: Bowel Sounds Present, Soft Extremities: No edema Neurological: No Focal Motor or Sensory Deficit Psych/Mental Status: Appropriate 08/21/20 05:22: Magnesium Cancelled 08/21/20 23:30: Magnesium 2.1 08/22/20 05:40: WBC 6.7, RBC 3.84 L, Hgb 8.6 L, Hct 30.7 L, MCV 79.9 L D, MCH 22.4 L, MCHC 28.0 L, Plt Count 120 L, MPV 10.0, Immature Gran % (Auto) 2.400 H, Neut % (Auto) 68.0, Lymph % (Auto) 17.4 L, [place] % (Auto) 10.0, Eos % (Auto) 1.6, Baso % (Auto) 0.6, Absolute Neuts (auto) 4.6, Nucleated RBC % 0 Rhythm: Sinus rhythm Medical Necessity - Tobacco Use Smoking Status: Never smoker Assessment/Plan 1. Non-ST segment elevation [place] The patient presents with findings compatible with a non-ST segment elevation [place]. This is based upon his symptoms, cardiac enzymes, and his subsequent abnormal transthoracic echocardiogram suggesting left ventricular regional wall motion abnormalities and overall diminished LV systolic function. From a cardiac standpoint he will continue to be observed. His cardiac enzymes have been followed and they have declined. His ECG is as noted. He will continue medical therapy. This has included the initiation of nitrates and beta-blockers. There is concerned about using antiplatelet agents in him with respect to his hematologic issues and his hematuria. These agents were discussed with his delivery coordinator oncologist Dr. Haro. Based upon a communication from Dr. Haro the patient can initiate aspirin therapy and antiplatelet therapy such as clopidogrel/Plavix as long as his platelets remain greater than 30,000 and he has no obvious adverse events. As he will initiate these medications. There is also concerned about proceeding with any invasive evaluation such as diagnostic cardiac catheterization based upon the concerns of IV contrast related nephropathy which could worsen his renal insufficiency and result in the initiation of hemodialysis-which the patient ideally does not want and/or would like to avoid as long as possible. Thus at the present time the patient will continue conservative medical management and be followed. 2. CAD The patient has had a history of CAD in the past. It was described as noted in his 2010 cardiac catheterization. There is concerned this has progressed and has contributed to his non-ST segment elevation [place] and diminished LV systolic function. From a cardiac standpoint he will continue conservative medical management at this time. Ideally he would be considered for further evaluation with diagnostic cardiac catheterization as noted above however there significant concerns in proceeding in that manner based upon his hematologic issues and his renal insufficiency issues and the concern of initiation of hemodialysis him contrast-induced nephropathy. 3. Cardiomyopathy: Ischemic mediated The patient does have left ventricular regional wall motion abnormalities with diminished LV systolic function. This may be secondary to progression of his underlying CAD, etc. At the moment he will continue to be followed. He will continue medical management. This will include nitrate therapy and beta-sergei therapy. He is not an ideal candidate for afterload reducing agents such as BILL inhibitor's or ARB's based upon his underlying renal insufficiency, etc. 4. SVT The patient has a history of SVT. His cardiac rate and rhythm will be followed. He has restarted beta-sergei therapy. His dose may need to be adjusted depending upon his underlying clinical condition and objective findings. 5. Mitral valve prolapse The patient has a reported history of mitral valve prolapse. His echocardiogram is as noted. He will continue to be followed. 6. Hyperlipidemia He is on lipid-lowering therapy. This can be continued unless otherwise contrai ndicated. 7. Hypertension The blood pressure will need to be followed as his medications were adjusted. 8. Diabetes mellitus He will continue evaluation care per internal medicine. 9. Hemochromatosis He has been following with hematology oncology for this. Again his case was discussed with his delivery coordinator oncologist and it appears he can initiate antiplatelet therapy at this time as long as his platelet count remains greater than 30,000 and he has no adverse events. 10. Chronic renal insufficiency He does have chronic renal insufficiency and has been followed by nephrology. He states he is considered borderline with respect to initiation of hemodialysis. He states he would like to avoid hemodialysis altogether or at least as long as possible. This does play a role with respect to evaluation with agent such as IV contrast which could initiate contrast-induced nephropathy and could initiate hemodialysis sooner than later in his case. 11. AV fistula He does have an AV fistula. He states it is not working at this time. This would need to be further evaluated by peripheral vascular surgery. If he would need hemodialysis in the interim he will need to have placement of temporary dialysis catheters. 12. Anemia He is anemic. His H&H does need to be monitored over time. 13. Thrombocytopenia His platelet counts are low. His platelets will need to be followed on antiplatelet therapy. 14. Prostate carcinoma He does have metastatic prostate carcinoma. He states his concern is has worsened. He continues evaluation care by his delivery coordinator oncologist and his urologist. 15. Hematuria He does have hematuria. He has been evaluated by urology. He states the urologist has placed his cystoscopy procedure on hold based upon his underlying cardiovascular concerns. Overall, from a cardiac standpoint, he appears to be doing well this day. He appears to be tolerating his cardiovascular medical therapy well thus far without any adverse events. He will continue conservative medical therapy. His urologic procedure has been placed on indefinite hold at this time. He will continue to follow with his delivery coordinator oncologist who is monitoring his anemia and thrombocytopenia weekly. He will be asked to have future outpatient cardiovascular follow-up. This note was generated using a voice recognition system and there may be incorrect words, spelling or punctuation that were not noted when reviewing the office note prior to saving.
--- NOTE | 2020-08-22 09:27 | CASEMGMT ---
Therapy states no further recommendation for therapy at this time. Pt has been on room air and pt stated no further concerns with going home at time of discharge. Lanette LE CM
[2020-08-22] MEDS: 0.9% Saline Lock 10 ML Syringe IV ×2 (10:30→11:13)
--- NOTE | 2020-08-22 11:07 | PHA.DC.MC ---
Pharmacy Service has performed discharge medication reconciliation and counseling for this patient. 1. ASPIRIN 81MG PO DAILYCM 2. CEPHALEXIN 500MG PO Q12 X 3 DAYS 3. CLOPIDOGREL 75MG PO DAILY 4. ISOSORBIDE MONONITRATE 30MG PO DAILY 5. METOPROLOL TARTRATE 50MG PO BID The patient's discharge medication list was reviewed for discrepancies and discrepancies were resolved. Home Medications Atorvastatin Calcium [Lipitor] 40 mg PO QHS 03/09/16 Calcium Carbonate/Vitamin D3 [Calcium 600-Vit D3 400 Caplet] 1 ea PO BID 07/28/16 Insulin Glargine [Lantus SoloStar Pen] 15 units SC QHS PRN 10/07/17 Insulin Lispro [Humalog] 0 unit SQ BID 10/07/17 sertraline 50 mg tablet 100 mg PO DAILY tab 10/27/17 sodium bicarbonate 650 mg tablet 650 mg PO TID tab 10/27/17 Acetaminophen [Tylenol Tablet] 650 mg PO Q6H PRN PRN tab 04/16/19 Prednisone 5 mg PO BID #60 tab 02/27/20 Abiraterone Acetate [Zytiga] 250 mg PO 4X/DAY 04/09/20 Ascorbic Acid [Vitamin C] 1,000 mg PO DAILY 05/07/20 Iron Polysaccharide Complex [Ferrex 150] 150 mg PO DAILYCM #90 cap 05/07/20 Folic Acid 1 mg PO DAILY 08/19/20 Aspirin [Aspirin, Baby] 81 mg PO DAILY@0800 #90 tab.chew 08/22/20 Cephalexin [Keflex] 500 mg PO Q12 #6 cap 08/22/20 Clopidogrel Bisulfate [Plavix] 75 mg PO DAILY #90 tab 08/22/20 Isosorbide Mononitrate [Imdur] 30 mg PO DAILY #90 tab 08/22/20 Metoprolol Tartrate [Lopressor (beta sergei)] 50 mg PO BID #90 tab 08/22/20 The patient was counseled on the following discharge medications and changes in medications for homegoing were reviewed. The Reason for Use, instructions for use, and potential side effects were reviewed for all new medications. The patient's questions regarding all of their medications were answered. The patient was able to verbally demonstrate an understanding of their discharge medications.
--- NOTE | 2020-08-22 11:52 | PCM.DC.SUM ---
Discharge Date and Diagnosis - Problem List Patient Problems: Active and Suspected Problems (Last Reviewed 08/19/20 @ 13:[address] Chang Horton MD) Cardiomyopathy, ischemic (Acute) Hematuria (Acute) Pyuria (Acute) Non-STEMI (non-ST elevated myocardial infarction) (Acute) Date of Admission: 08/19/20 Date of Discharge: 08/22/20 - Primary Discharge Diagnosis Acute Problems: Active Problems (Last Reviewed 08/19/20 @ 13:[address] Chang Horton MD) #1 acute non-ST elevation [place]/ischemic cardiomyopathy. #2 E. coli acute cystitis. #3 hematuria, in the setting of metastatic prostate cancer, resolved. - Secondary Discharge Diagnosis Chronic Problems: Chronic Problems (Last Reviewed 08/19/20 @ 13:[address] Chang Horton MD) Anemia in chronic kidney disease (CKD) (Chronic) Iron deficiency (Chronic) Problem with dialysis access (Chronic) Hx of arteriovenostomy for renal dialysis (Chronic) 04/16/19 Prostate cancer (Chronic) Chronic renal disease, stage 4, severely decreased glomerular filtration rate (GFR) between 15-29 mL/min/1.73 square meter (Chronic) Essential hypertension (Chronic) Hemochromatosis (Chronic) Secondary malignant neoplasm of bone (Chronic) Thrombocytopenia (Chronic) Cataract, right eye (Chronic) Dr [facility] 03/2018 SVT (supraventricular tachycardia) (Chronic) Atherosclerotic heart disease of [place] coronary artery without angina pectoris (Chronic) Nonrheumatic mitral (valve) prolapse (Chronic) Nonrheumatic aortic (valve) insufficiency (Chronic) RBBB (Chronic) Type 2 diabetes mellitus (Chronic) Sleep apnea (Chronic) Hyperlipidemia (Chronic) Hospital Course and Treatment Imaging Results: Clinical Impression(s) from Imaging Studies Chest X-Ray 08/19/20 09:45 IMPRESSION: No acute abnormality is seen. Electronically Signed: Hesham Lawson MD at 10:15 EST , Service support , Dr. Sol, cardiology. Dr. Horton, urology. Operations: None Procedures: 2-D Echocardiogram, EKG Summary of Care Provided: Patient seen and examined on the day of discharge and appeared to be stable to be discharged home. He reported that he had minimal initial hematuria this morning but then urine cleared up. No other complaints. His vital signs are stable. This is a 74 years old male patient presented to the emergency room because of weakness and chills, had hematuria upon arrival to the floor and he complained of chest pain later, found to have acute non-STEMI, pyuria with acute cystitis. #1 acute non-ST ovation [place]/ischemic cardiomyopathy: Treated with statins and metoprolol. After hematuria stopped, patient was started on aspirin, Plavix, and nitrate. Cardiology consulted and after discussion with the patient, decision was made to go with conservative treatment with medications and no plan for cardiac catheterization or intervention at this time. 2D echocardiogram revealed ejection fraction of 35%. Patient discharged home on aspirin, Plavix, nitrate, statins and metoprolol and plan is to follow-up with cardiology as outpatient. #2 E. coli acute cystitis: Treated with IV Rocephin and vancomycin because he had previous urine cultures that was positive for Enterococcus faecalis and staph aureus.. Urine culture revealed presumptive E. coli, sensitivity reviewed. Blood culture showed no growth in 48 hours. COVID-19 antigen was negative. Patient discharged home on Keflex to complete total of 7 days of treatment. #3 hematuria: In the setting of metastatic prostate cancer status post TURP, currently on Zytiga and prednisone. Hematuria resolved spontaneously without any interventions. Hemoglobin and hematocrit remained stable at baseline. Urology consulted and initial plan was to go for cystoscopy and possible repeat TURP but because hematuria resolved, plan was canceled. Urology agreed to start patient on aspirin and Plavix at this time. #4 history of metastatic prostate cancer: Status post surgery and chemotherapy, continued on Zytiga and prednisone upon discharge. #5 status post bilateral nephrostomy tubes: This was done for bladder outlet obstruction, patient has been going to a different facility for changing the nephrostomy tubes. It was changed recently. Kidney function stable to baseline. #6 stage IV chronic kidney disease: Baseline creatinine has been around to 2.5-3.5. Patient had fistula placed recently but failed. He was not started on dialysis yet. Admission creatinine is 3.22, discharge creatinine is 3.25, remained stable. #7 type 2 diabetes mellitus: Continued on Lantus and Humalog upon discharge. #8 chronic anemia/chronic thrombocytopenia: Combination of anemia of chronic disease and iron deficiency anemia. Hemoglobin, hematocrit and platelet count were stable at baseline. #9 hyperlipidemia: Continued on statins. Patient discharged home in a stable medical condition, discharged on aspirin, statins, Plavix, isosorbide mononitrate and metoprolol, discharged on Keflex 500 mg p.o. twice daily to complete total of 7 days of treatment for UTI, continued on his other previous home medications without any changes, plan to follow-up with cardiology in 2 weeks, follow-up with urology in 1 week and recommended follow-up with PCP in 1 week. This note was generated with [employer] dictation software. It may contain incorrect words, spelling, and punctuation that were not noted in checking the note before signing. Patient Problems: Active and Suspected Problems (Last Reviewed 08/19/20 @ 13:[address] Chang Horton MD) Cardiomyopathy, ischemic (Acute) Hematuria (Acute) Pyuria (Acute) Non-STEMI (non-ST elevated myocardial infarction) (Acute) - Physical Exam Vitals/I&O's: Vital Signs Temp Pulse Resp BP Pulse Ox 98.3 F 56 L 16 142/78 H 100 08/22/20 11:30 08/22/20 11:30 08/22/20 11:30 08/22/20 11:30 08/22/20 11:30 Oxygen Flow Rate (L/min) 2 Oxygen Delivery Method Room Air Weight: 184 lb 3.21 oz Body Mass Index (BMI) 24.3 Finger Stick Blood Glucose 142 Intake and Output for Last 24 Hours 08/20/20 08/21/20 08/22/20 23:59 23:59 23:59 Intake Total 2320 / 2320 1170 / 1470 550 / 550 Output Total 3200 / 3200 2000 / 2650 1700 / 1700 Balance -880 / -880 -830 / -1180 -1150 / -1150 General: Alert, Oriented x3, Cooperative, No apparent distress HEENT: Atraumatic, PERRLA, EOMI, Normocephalic Oral: Moist Mucosa, No Gingival or Mucosal Lesions/ Ulcerations Neck: Supple, No JVD, Negative Carotid Bruits, Trachea Midline, Thyroid Normal Size and Texture Lungs: Clear to auscultation, No rhonchi, No wheeze, No rales, Diminished Cardiovascular: Regular rate, Regular Rhythm, Normal S1, Normal S2, PMI Normal Abdomen: Bowel Sounds Present, Soft, Non Tender, Non-Distended, No Hepato-splenomegaly Extremities: No clubbing, No cyanosis, No edema Skin: No rashes, No breakdown Lymphatic: No Cervical, Supraclavicular, or Inguinal Adenopathy Neurological: Cranial nerves II-XII grossly intact, Neuro grossly intact Psych/Mental Status: Normal Affect, Appropriate Microbiology Past 72 Hours 08/19/20 11:45 Blood Culture (Wb) - Anticubital Left Blood Culture - Preliminary No growth in 48 hours. 08/19/20 10:55 Blood Culture (Wb) - Port Blood Culture - Preliminary No growth in 48 hours. 08/19/20 09:45 Urine, Nephrostomy Urine Culture - Final Presumptive E. coli 08/19/20 09:25 Mucosa - Nose SARS-CoV-2 Antigen (Rapid) - Final 08/19/20 09:25 Mucosa - Nose Influenza Types A,B Direct FA ([place]) - Final Laboratory Results 08/21/20 05:22: Magnesium Cancelled 08/21/20 13:06: Vancomycin Trough 17.8 H 08/21/20 16:37: POC Glucose 146 H 08/21/20 21:56: POC Glucose 220 H 08/21/20 23:30: Magnesium 2.1 08/22/20 05:40: WBC 6.7, RBC 3.84 L, Hgb 8.6 L, Hct 30.7 L, MCV 79.9 L D, MCH 22.4 L, MCHC 28.0 L, RDW Std Deviation 52.5 H, RDW Coeff of Sherrie 18.3 H, Plt Count 120 L, MPV 10.0, Immature Gran % (Auto) 2.400 H, Neut % (Auto) 68.0, Lymph % (Auto) 17.4 L, [place] % (Auto) 10.0, Eos % (Auto) 1.6, Baso % (Auto) 0.6, Absolute Neuts (auto) 4.6, Absolute Lymphs (auto) 1.17, Nucleated RBC % 0 08/22/20 06:30: POC Glucose 119 H Discharge Activity: Return to Normal Activity Weight Bearing Status: Weight bearing as tolerated Call your doctor if you observe: Fever of 101 or Higher, Shortness of breath, Dizziness, Fainting spells, Chest pain, Increased palpitations (irregular heartbeat), Uncontrolled pain Home Medications: Medications to take at Discharge Atorvastatin Calcium [Lipitor] 40 mg PO QHS 03/09/16 Calcium Carbonate/Vitamin D3 [Calcium 600-Vit D3 400 Caplet] 1 ea PO BID 07/28/16 Insulin Glargine [Lantus SoloStar Pen] 15 units SC QHS PRN 10/07/17 Insulin Lispro [Humalog] 0 unit SQ BID 10/07/17 sertraline 50 mg tablet 100 mg PO DAILY tab 10/27/17 sodium bicarbonate 650 mg tablet 650 mg PO TID tab 10/27/17 Acetaminophen [Tylenol Tablet] 650 mg PO Q6H PRN PRN tab 04/16/19 Prednisone 5 mg PO BID #60 tab 02/27/20 Abiraterone Acetate [Zytiga] 250 mg PO 4X/DAY 04/09/20 Ascorbic Acid [Vitamin C] 1,000 mg PO DAILY 05/07/20 Iron Polysaccharide Complex [Ferrex 150] 150 mg PO DAILYCM #90 cap 05/07/20 Folic Acid 1 mg PO DAILY 08/19/20 Aspirin [Aspirin, Baby] 81 mg PO DAILY@0800 #90 tab.chew 08/22/20 Cephalexin [Keflex] 500 mg PO Q12 #6 cap 08/22/20 Clopidogrel Bisulfate [Plavix] 75 mg PO DAILY #90 tab 08/22/20 Isosorbide Mononitrate [Imdur] 30 mg PO DAILY #90 tab 08/22/20 Metoprolol Tartrate [Lopressor (beta omi)] 50 mg PO BID #90 tab 08/22/20 Following Prescriptions Were Given to Patient: Aspirin [Aspirin, Baby] 81 mg PO DAILY@0800 #90 tab.chew Transmission Status: Received by [facility] Isosorbide Mononitrate [Imdur] 30 mg PO DAILY #90 tab Transmission Status: Received by [facility] Cephalexin [Keflex] 500 mg PO Q12 #6 cap Transmission Status: Received by [facility] [place] [address] Metoprolol Tartrate [Lopressor (beta omi)] 50 mg PO BID #90 tab Transmission Status: Received by [facility] Clopidogrel Bisulfate [Plavix] 75 mg PO DAILY #90 tab Transmission Status: Received by [facility] Primary Care Physician: Fidencio Mar MD [STAFF PHYSICIAN] - Please follow up with your Primary Care Physician in: 1 week. Please Follow Up With: Fidencio Singh FORENSIC MANAGER, FORENSIC MANAGER-C When: 2 weeks. Please Follow Up With: Chang Horton MD When: 1 week. Please Follow Up With: Fidencio Flores MD Disposition: Home Minutes spent on discharge:: 33 Patient Condition:: Stable Medical Necessity - Tobacco Use Smoking Status: Never smoker Meaningful Use Info Meaningful Use Diagnoses (Choose all that apply): AMI - AMI/Post PCI/Angioplasty Aspirin given w/in 24hrs of arrival?: Yes ASA at discharge?: Yes Antiplatelet Therapy at Discharge:: Yes Statins at discharge?: Yes Jeffery/ARB at discharge?: No Reason Jeffery/ARB not ordered:: Worsening renal dysfunctn Beta Omi at discharge?: Yes Done w/ Acute [place] measure.: Yes Documented LVEF (%): 35 Inpatient E&M: 11233 Disch Hosp
--- NOTE | 2020-08-25 14:46 | CASEMGMT ---
RN CM Discharge F/U Phone Call LACE: 11 Strata: 3 Discharge date: 08/22/20 Call date: 08/25/20 Call time: [id number] Attempted to reach pt without success at this time, message left for pt to call this RN CM back if/when able. SStaten RN CM Admission dx: Pyuria, probable acute cystitis/NSTEMI
== END 2020-08-22 11:51 | disposition home or self-care (01) | DRG 281 ==
LOC: ED 10:12 → PCU 11:19
PROVIDERS: Internal Medicine Cardiovascular Disease; Admitting Provider Hospitalist; Emergency Provider Emergency Medicine; PCP Family Medicine; Visit Provider Hospitalist
DX: I21.4 Non-ST elevation (NSTEMI) myocardial infarction (principal); N30.01 Acute cystitis with hematuria; N18.4 Chronic kidney disease, stage 4 (severe); I47.1 Supraventricular tachycardia; C79.51 Secondary malignant neoplasm of bone; I25.5 Ischemic cardiomyopathy; B96.20 Unspecified Escherichia coli [E. coli] as the cause of diseases classified elsewhere; C61 Malignant neoplasm of prostate; D63.1 Anemia in chronic kidney disease; E11.22 Type 2 diabetes mellitus with diabetic chronic kidney disease; E83.119 Hemochromatosis, unspecified; E78.5 Hyperlipidemia, unspecified; G47.30 Sleep apnea, unspecified; I25.10 Atherosclerotic heart disease of native coronary artery without angina pectoris; D69.6 Thrombocytopenia, unspecified; I12.9 Hypertensive chronic kidney disease with stage 1 through stage 4 chronic kidney disease, or unspecified chronic kidney disease; N32.0 Bladder-neck obstruction; Z93.6 Other artificial openings of urinary tract status; Z66 Do not resuscitate
CPT/HCPCS: 36415; 36591; 71045; 80048; 80053; 80202; 81001; 82962; 83605; 83735; 84484; 85025; 85610; 87040; 87086; 87088; 87186; 87426; 87641; 87804; 93005; 93306; 97161; 97166; 97803; 99251; 99285; J7030; J7040; J7050; Q9957; A4216; C8929; G0463; J0696; J2405

== ENCOUNTER 2020-09-01 09:01 | Inpatient (IN) | payer MEDICARE, SELFPAY ==
[2020-08-28 14:22] VITALS: BMI 23.6
[2020-09-01] VITALS (19 sets, daily range): BP systolic 95–142; BP diastolic 45–75; PULSE 71–101; RESP 14–22; TEMP 36–37.2; O2SAT 98–100; BMI 24.9; BMI 24.4; BMI 24.5
--- NOTE | 2020-09-01 09:17 | EKG12_ITS ---
Test Reason : Blood Pressure : / mmHG Vent. Rate : 084 BPM Atrial Rate : 084 BPM P-R Int : 178 ms QRS Dur : 142 ms QT Int : 402 ms P-R-T Axes : 044 266 003 degrees QTc Int : 475 ms Sinus rhythm with Premature atrial complexes Right bundle branch block Abnormal ECG Confirmed by DAVI REZA, JUVENTINO ([id number]), society editor CHUY WYMAN ([id number]) on 09/02/2020 10:39:20 AM Referred By: JARVIS Confirmed By:JUVENTINO TOMLINSON MD
--- NOTE | 2020-09-01 09:22 | ED.DCSUM_ITS ---
History of Present Illness Chief Complaint: Weakness Informant: Patient Narrative: 74-year-old male with history of metastatic prostate cancer on Zytiga and prednisone with recent admission for NSTEMI and urinary tract infection presenting today with generalized weakness. He states that after his recent discharge he had been doing well and was eating and drinking well. His activity had increased as well. He said he did finish his course of Keflex as an outpatient. He states that last night he was restless and did not sleep well and then today he had generalized fatigue. He has no complaints of chest pain or shortness of breath however EMS reported to nursing staff that he was signif icantly short of breath when ambulating to the cot for transport. Patient states he has not had any constipation or diarrhea. He states his urine has not been bloody. He has not had a fever or a cough. Patient's son does state that his father was too weak to ambulate this morning. He also states that his father was complaining of extreme chills this morning. Son relates that this is how he felt when he was admitted last time for NSTEMI and UTI. - Past Medical History (1) Cardiomyopathy, ischemic Status: Chronic (2) Non-STEMI (non-ST elevated myocardial infarction) Status: Chronic (3) Anemia in chronic kidney disease (CKD) Status: Chronic (4) Atherosclerotic heart disease of [place] coronary artery without angina pectoris Status: Chronic (5) Chronic renal disease, stage 4, severely decreased glomerular filtration rate (GFR) between 15-29 mL/min/1.73 square meter Status: Chronic Past Medical History - Allergies and Home Meds Allergies/Adverse Reactions: Allergies ramipril [From Altace] Allergy (Intermediate, Verified 09/01/20 09:11) Unknown cough nalbuphine [From Nubain] Adverse Reaction (Severe, Verified 09/01/20 09:11) Nausea/Vom/Diarrhea Prior records reviewed: Yes Past Medical History: - - Reviewed in problem list Surgical History: appendectomy, - Lives: Spouse/ Significant Other Smoking Status: Never smoker Alcohol: None Drugs: None - Family History Maternal Family History: Family History (Last Reviewed 08/12/20 @ 13:11 by Faith Gonzalez) Father Heart disease Kidney disease CAD (coronary artery disease) Myocardial infarction Mother Heart disease Family History: Reports: Heart Disease Paternal Family History: Family History (Last Reviewed 08/12/20 @ 13:11 by Faith Gonzalez) Father Heart disease Kidney disease CAD (coronary artery disease) Myocardial infarction Mother Heart disease Family History: Reports: Heart Disease, Renal Disease Sibling Family History: Family History (Last Reviewed 08/12/20 @ 13:11 by Faith Gonzalez) Father Heart disease Kidney disease CAD (coronary artery disease) Myocardial infarction Mother Heart disease Family History: Reports: Cancer - breast Review of Systems General: Reports: Malaise. Denies: Chills, Fever Eyes: Denies: Visual changes - bilaterally, Diplopia ENT: Denies: Rhinorrhea, Sore throat Cardiovascular: Denies: Chest pain, Palpitations Respiratory: Reports: Dyspnea. Denies: Cough, Sputum Gastrointestinal: Denies: Abdominal pain, Nausea, Vomiting, Diarrhea, Constipation Genitourinary: Denies: Dysuria, Hematuria Musculoskeletal: Denies: Myalgias, Arthralgias Skin: Denies: Rash, Abscess Neurological: Denies: Headache, Parasthesia, Numbness Psych: Denies: Depression, Anxiety Physical Exam Vital Signs/Narrative: Vital Signs Temp Pulse Resp BP Pulse Ox 09/01/20 09:12 97.8 F 87 20 H 108/56 L 100 09/01/20 09:02 97.8 F 87 20 H 108/56 L 100 Inital Vital Signs reviewed: Yes General: Well nourished, No Acute Distress Head: Normocephalic, Atraumatic Eyes: Perrl, EOMI ENT: Moist mucous membranes, No rhinorrhea. Negative for: Nasal congestion Cardiovascular: Regular rate, Regular rhythm Respiratory: No distress, CTA bilaterally, - - Mediport noted in right upper chest wall. No surrounding induration or erythema. No crepitance. Abdomen: Soft, Nontender, Nondistended Extremities: Nontender, No edema Skin: Normal color, No rash. Negative for: Cyanosis, Diaphoresis Neurological: Alert, Oriented x3, Cranial nerves II-XII grossly intact Psychological: Normal affect, Normal Mood Diagnostic/Tx/Re-eval Clinical Impression(s) from Imaging Studies Chest X-Ray 09/01/20 09:45 IMPRESSION: No acute abnormality is seen. Electronically Signed: Hesham Lawson MD at 9:59 EST , Service support , Laboratory Data 09/01/20 09/01/20 09/01/20 09:10 09:10 09:10 WBC 11.7 H RBC 3.49 L Hgb 7.8 L Hct 26.0 L MCV 74.5 L MCH 22.3 L MCHC 30.0 L RDW Std Deviation 48.7 H RDW Coeff of Sherrie 18.2 H Plt Count 215 MPV 8.6 Immature Gran % (Auto) 2.300 H Neut % (Auto) 83.0 H Lymph % (Auto) 7.8 L [place] % (Auto) 5.7 Eos % (Auto) 0.6 Baso % (Auto) 0.6 Absolute Neuts (auto) 9.7 H Absolute Lymphs (auto) 0.91 Nucleated RBC % 0.2 PT 15.0 H INR 1.2 APTT 21.6 L Sodium 134 L Potassium 4.3 Chloride 108 H Carbon Dioxide 14.0 L Anion Gap 12 BUN 82 H Creatinine 3.31 H Estim Creat Clear Calc 21.46 Est GFR (MDRD) Af Amer 23 L Est GFR (MDRD) Non-Af 19 L BUN/Creatinine Ratio 24.8 H Glucose 126 H Lactic Acid Calcium 8.2 L Total Bilirubin 0.30 AST 21 ALT 36 Alkaline Phosphatase 242 H Troponin I 0.130 H Total Protein 6.0 L Albumin 2.4 L Globulin 3.6 Albumin/Globulin Ratio 0.7 L Urine Color Urine Clarity Urine pH Ur Specific [place] Urine Protein Urine Glucose (UA) Urine Ketones Urine Occult Blood Urine Nitrite Urine Bilirubin Urine Urobilinogen Ur Leukocyte Esterase Urine RBC Urine WBC Ur Squamous Epith Cells Urine Bacteria Urine Mucus 09/01/20 09/01/20 09:40 09:50 WBC RBC Hgb Hct MCV MCH MCHC RDW Std Deviation RDW Coeff of Sherrie Plt Count MPV Immature Gran % (Auto) Neut % (Auto) Lymph % (Auto) [place] % (Auto) Eos % (Auto) Baso % (Auto) Absolute Neuts (auto) Absolute Lymphs (auto) Nucleated RBC % PT INR APTT Sodium Potassium Chloride Carbon Dioxide Anion Gap BUN Creatinine Estim Creat Clear Calc Est GFR (MDRD) Af Amer Est GFR (MDRD) Non-Af BUN/Creatinine Ratio Glucose Lactic Acid 1.9 Calcium Total Bilirubin AST ALT Alkaline Phosphatase Troponin I Total Protein Albumin Globulin Albumin/Globulin Ratio Urine Color Yellow Urine Clarity Sl. Cloudy Urine pH 6.0 Ur Specific [place] 1.015 Urine Protein 500 H Urine Glucose (UA) Normal Urine Ketones Negative Urine Occult Blood 150 H Urine Nitrite Negative Urine Bilirubin Negative Urine Urobilinogen Normal Ur Leukocyte Esterase 500 H Urine RBC 10-25 SEEN Urine WBC 50-100 SEEN Ur Squamous Epith Cells 0-5 SEEN Urine Bacteria 1+ Urine Mucus 0 SEEN - Medical Decision Making 74-year-old male presenting with generalized weakness. He had recent admission for UTI and NSTEMI. It was reported that the patient had chills and was short of breath this morning. He had EKG performed on arrival which shows sinus rhythm with PACs as well as right bundle branch block as interpreted by myself. Chest x-ray shows no acute cardiopulmonary process. On CBC patient's hemoglobin has dropped from 9.6-7.8. Platelets 215. Creatinine is 3.31 and appears to be at baseline. Troponin is 0.130 and this is lower than his previous admission. He is not describing any chest pain. He is Hemoccult positive and also has s light hematuria. The urine in his urostomy bag is yellow and does not appear to be yury hematuria. Patient's blood pressure was slightly low 95/62 and he was given IV fluids. His blood pressure did respond. Given the patient's generalized weakness, anemia, Hemoccult positive stool I do think the patient needs to be admitted to the hospital. Discussed with the hospitalist who will transfuse him 1 unit of blood. His urinalysis will be sent for culture given that he has urostomy bag. Impression: 1. GI bleed occult 2. Hypotension resolved 3. Anemia 4. Generalized weakness ED Disposition - Plan for ED Patient: Disposition: Acute Care Hospital [facility]
[2020-09-01 09:34] LABS: Absolute Lymphocyte Count 0.91 X10^3/uL (0.83-4.51); Absolute Neutrophil Count 9.7 X10^3/uL (2.0-7.7); Basophil# 0.07 X10^3/uL; Basophil% 0.6 % (0-1); Eosinophil# 0.07 X10^3/uL; Eosinophils% 0.6 % (0-5); Hemoglobin 7.8 g/dL (13.0-16.5); Lymphocyte # 0.91 X10^3/ul (4.0); Lymphocyte % 7.8 % (19-41); Mean Corpuscular Hgb 22.3 pg (27.0-32.0); Mean Corpuscular Volume 74.5 fL (80-94); Mean Platelet Vol. 8.6 fl (6.2-12.0); Monocyte# 0.67 X10^3/uL; Monocyte% 5.7 % (0-10); NRBC Flagged by Analyzer 0.2 % (0-5); Neutrophil # 9.74 X10^3/uL (2.7-7.7); Platelet Count 215 K/mm3 (150-450); RBC Distribution Width CV 18.2 % (11.6-14.6); RBC Distribution Width SD 48.7 fl (35.1-43.9); Red Blood Count 3.49 M/mm3 (4.6-6.2); White Blood Count 11.7 K/mm3 (4.4-11.0)
[2020-09-01 09:38] LABS: International Normalized Ratio 1.2
[2020-09-01 09:39] LABS: Partial Thromboplast Time 21.6 Seconds (24.1-36.2)
[2020-09-01 09:44] LABS: ALB/GLOB Ratio 0.7 RATIO (0.9-2.4); AST(SGOT) 21 U/L (15-37); Alanine Aminotransfer ALT/SGPT 36 U/L (16-61); Albumin, Serum 2.4 g/dL (3.2-5.0); Alkaline Phosphatase 242 U/L (45-117); Anion Gap 12 (5-15); BUN 82 mg/dL (7-18); BUN/Creat Ratio 24.8 RATIO (10-20); Calcium,Total 8.2 mg/dL (8.5-10.1); Chloride 108 mmol/L (98-107); Creatinine, Serum 3.31 mg/dL (0.70-1.30); EST Glomerular Filtration Rate 19 mL/min (>60); Est Glom Filt Rate - Afr Amer 23 mL/min (>60); Estimated Creatinine Clearance 21.46 ml/min; Globulin 3.6 g/dL (2.2-4.2); Glucose 126 mg/dL (74-106); Potassium 4.3 mmol/L (3.5-5.1); Sodium Level 134 mmol/L (136-145)
--- NOTE | 2020-09-01 09:45 | RAD_ITS ---
STUDY: X-RAY CHEST REASON FOR EXAM: Male, 74 years old. Shortness of breath . Weakness. TECHNIQUE: Single AP portable view of the chest. COMPARISON: Comparison is made with prior study dated 08/19/2020 and 03/05/2016. FINDINGS: EKG electrodes are seen. A right-sided portacatheter is in place with the tip at the junction of the superior vena cava and right atrium. Hyperinflation. The lungs are clear. There is no demonstrated pleural abnormality. Normal size heart. Normal mediastinum and irvin. Normal visualized pulmonary arteries. There is atherosclerotic calcification of the aortic arch with tortuosity. Normal visualized thoracic spine. Normal visualized ribs, clavicles, and shoulders. There is no demonstrated abnormality of the visualized soft tissue structures of the upper abdomen. RAD/Chest 1 View (Portable) IMPRESSION: No acute abnormality is seen. Electronically Signed: Hesham Lawson MD at 9:59 EST , Service support ,
[2020-09-01 09:50] LABS: Mucous, Urine 0 SEEN /hpf (<or=2+)
[2020-09-01 09:58] LABS: Color, Urine Yellow (Yellow); Glucose, Dipstick Normal (Normal); Ketone-Dipstick Negative (Negative); Leukocyte Esterase-Dipstick 500 /ul (Negative); Nitrite-Dipstick Negative (Negative); Occult Blood-Urine 150 /ul (Negative); Protein-Dipstick 500 mg/dl (Negative); Specific Gravity, Urine 1.015 (1.002-1.030); Urine Bilirubin Dipstick Negative (Negative); Urine Clarity Sl. Cloudy (Clear); Urine Urobilinogen Normal (Normal)
[2020-09-01 10:05] LABS: Bacteria 1+ /hpf (None Seen); Red Blood Cells-Urine 10-25 SEEN /hpf (0-5); Squamous Epithelial Cells - UA 0-5 SEEN /hpf (0-5); White Blood Cells 50-100 SEEN /hpf (0-5)
[2020-09-01 10:33] LABS: Lactic Acid 1.9 mmol/L (0.4-1.9)
--- NOTE | 2020-09-01 12:55 | NURSING ---
127 GI BLEED, ANEMIA ASHELFAH
--- NOTE | 2020-09-01 12:57 | HP.PCM_ITS ---
Problem List (1) Anemia in chronic kidney disease (CKD) Status: Chronic Qualifiers: (2) Iron deficiency Status: Chronic (3) Non-STEMI (non-ST elevated myocardial infarction) Status: Chronic (4) Cardiomyopathy, ischemic Status: Chronic (5) Prostate cancer Status: Chronic (6) Chronic renal disease, stage 4, severely decreased glomerular filtration rate (GFR) between 15-29 mL/min/1.73 square meter Status: Chronic (7) Type 2 diabetes mellitus Status: Chronic (8) Hyperlipidemia Status: Chronic History of Present Illness Date of Admission: 09/01/20 Chief Complaint: Weakness, shortness of breath. The patient is a 74 year old M with past medical history as mentioned above presented to the emergency room because of weakness and shortness of breath. His symptoms started in the last couple of days mainly with weakness, generalized, not able to ambulate and having difficulty even standing up and going to the bathroom. Also, he complained of shortness of breath upon activity, it is on minimal activity, can only walk to the bathroom and he gets short of breath and very tired, relieved with rest and no other associated symptoms. He denied chest pain, palpitation, dizziness or lightheadedness. He denied abdominal pain, nausea or vomiting. He denied hematuria. He denied fever or chills. In the emergency department, he was afebrile, blood pressure and heart rate were stable, pulse ox was 100% on room air. Routine blood work was remarkable for minimal leukocytosis, hemoglobin 7.8 g/dL, BUN is 82, creatinine is 3.31 which is chronic. EKG revealed normal sinus rhythm with PACs, RBBB, no acute ischemic changes. Troponin is 0.130 which is actually trending down, it was 2.39 on 08/20/2020. Chest x-ray showed no acute findings. Urinalysis revealed cloudy urine, negative for nitrite, there was 500 leukocyte esterase, 50-100 WBCs and 1+ bacteria. He is being admitted for acute on chronic symptomatic anemia, probable GI bleed, probable acute cystitis, physical debility and functional decline and patient will likely need [facility] to [facility] facility. Past Medical History Past Medical History (Chronic Problems): Chronic Problems (Last Updated 08/28/20 @ 13:08 by Nicolette Holden) Hemochromatosis (Chronic) Secondary malignant neoplasm of bone (Chronic) Thrombocytopenia (Chronic) Anemia in chronic kidney disease (CKD) (Chronic) Iron deficiency (Chronic) Non-STEMI (non-ST elevated myocardial infarction) (Chronic) Cardiomyopathy, ischemic (Chronic) Prostate cancer (Chronic) Problem with dialysis access (Chronic) Hx of arteriovenostomy for renal dialysis (Chronic) 04/16/19 Prostate cancer (Chronic) Chronic renal disease, stage 4, severely decreased glomerular filtration rate (GFR) between 15-29 mL/min/1.73 square meter (Chronic) Essential hypertension (Chronic) Cataract, right [facility] (Chronic) [facility] SVT (supraventricular tachycardia) (Chronic) Atherosclerotic heart disease of [place] coronary artery without angina pectoris (Chronic) Nonrheumatic mitral (valve) prolapse (Chronic) Nonrheumatic aortic (valve) insufficiency (Chronic) RBBB (Chronic) Type 2 diabetes mellitus (Chronic) Sleep apnea (Chronic) Hyperlipidemia (Chronic) Medical History: Medical History (Last Updated 08/28/20 @ 13:08 by Nicolette Holden) Problem with dialysis access (Chronic) T82.898A Prostate cancer (Chronic) C61 Chronic renal disease, stage 4, severely decreased glomerular filtration rate (GFR) between 15-29 mL/min/1.73 square meter (Chronic) N18.4 Essential hypertension (Chronic) I10 Cataract, right eye (Chronic) H26.9 Dr Maki [facility] 03/2018 SVT (supraventricular tachycardia) (Chronic) I47.1 Atherosclerotic heart disease of [place] coronary artery without angina pectoris (Chronic) I25.10 Nonrheumatic mitral (valve) prolapse (Chronic) I34.1 Nonrheumatic aortic (valve) insufficiency (Chronic) I35.1 RBBB (Chronic) I45.10 Type 2 diabetes mellitus (Chronic) E11.9 Sleep apnea (Chronic) G47.30 Hyperlipidemia (Chronic) E78.5 Elevation of cardiac enzymes R74.8 Generalized weakness R53.1 history of nephrostomy tube placement (Inactive) Allergies ramipril [From Altace] Allergy (Intermediate, Verified 09/01/20 09:11) Unknown cough nalbuphine [From Nubain] Adverse Reaction (Severe, Verified 09/01/20 09:11) Nausea/Vom/Diarrhea Home Medications: Ambulatory Orders Medication Instructions Recorded Atorvastatin Calcium [Lipitor] 40 mg PO QHS 03/09/16 Calcium Carbonate/Vitamin D3 1 ea PO BID 07/28/16 [Calcium 600-Vit D3 400 Caplet] Insulin Glargine [Lantus SoloStar 15 units SC QHS PRN 10/07/17 Pen] Insulin Lispro [Humalog] 0 unit SQ BID 10/07/17 sertraline 50 mg tablet 100 mg PO DAILY tab 10/27/17 sodium bicarbonate 650 mg tablet 650 mg PO TID tab 10/27/17 Acetaminophen [Tylenol Tablet] 650 mg PO Q6H PRN PRN tab 04/16/19 Prednisone 5 mg PO BID #60 tab 02/27/20 Abiraterone Acetate [Zytiga] 250 mg PO 4X/DAY 04/09/20 Iron Polysaccharide Complex 150 mg PO DAILYCM #90 cap 05/07/20 [Ferrex 150] Folic Acid 1 mg PO DAILY 08/19/20 Aspirin [Aspirin, Baby] 81 mg PO DAILY@0800 #90 tab.chew 08/22/20 Clopidogrel Bisulfate [Plavix] 75 mg PO DAILY #90 tab 08/22/20 Isosorbide Mononitrate [Imdur] 30 mg PO DAILY #90 tab 08/22/20 Metoprolol Tartrate [Lopressor 50 mg PO BID #90 tab 08/22/20 (beta sergei)] Surgical History: Surgical History (Last Updated 08/19/20 @ 10:[address] Roby Neal MD) Hx of arteriovenostomy for renal dialysis (Chronic) Z99.2 04/16/19 History of angioplasty of peripheral vessel Onset Date: ~03/2020 Z98.62 History of angioplasty of peripheral vessel Onset Date: ~06/2020 Z98.62 s/p transposition left AV Fistula Onset Date: ~12/07/19 Hx of appendectomy (Inactive) Z98.890, Z90.49 Nephrostomy status (Inactive) Z93.6 nephroscopy with stent placement (Inactive) Surgical History: appendectomy, - Psychiatric History: No pertinent psych hx Lives: Spouse/ Significant Other Smoking Status: Never smoker Alcohol: None Drugs: None - *Family History Maternal Family History: Family History (Last Reviewed 08/12/20 @ 13:11 by Faith Gonzalez) Father Heart disease Kidney disease CAD (coronary artery disease) Myocardial infarction Mother Heart disease History Items: Heart Disease Paternal Family History: Family History (Last Reviewed 08/12/20 @ 13:11 by Faith Gonzalez) Father Heart disease Kidney disease CAD (coronary artery disease) Myocardial infarction Mother Heart disease History Items: Heart Disease, Renal Disease Sibling Family History: Family History (Last Reviewed 08/12/20 @ 13:11 by Faith Gonzalez) Father Heart disease Kidney disease CAD (coronary artery disease) Myocardial infarction Mother Heart disease History Items: Cancer - breast Review of Systems Constitutional: Reports: Weakness, Fatigue. Denies: Anorexia, Chills, Fever Eyes: Denies: Blurred vision, Double vision, Drainage, Redness HEENT: Denies: Difficulty Hearing, Dysphasia, Ear Pain, Eye Pain, Nasal Congestion, Sore Throat Cardiovascular: Denies: Chest Pain, Chest Pressure, Chest Tightness, Heaviness, Light Headedness, Palpitations, Syncope Respiratory: Reports: Shortness of breath upon exertion. Denies: Cough, Sputum production, Wheezing Gastrointestinal: Denies: Abdominal Pain, Constipation, Diarrhea, Hematochezia, Nausea, Vomiting Genitourinary: Denies: Dysuria, Frequency, Hematuria Musculoskeletal: Denies: Arm Pain, Back Pain, Foot Pain Skin: Denies: Dryness, Rash Neurological: Denies: Balance problems, Double vision, Change in Speech, Slurred speech, Confusion, Incoordination, Numbness Psychiatric: Reports: Depression. Denies: Anxiety Endocrine: Denies: Change in Body Habitus, Polydipsia, Polyuria VTE Information - Inpt Only VTE Present on Admission: No VTE Mechan Device Prophylaxis: SCD's VTE Pharm Prophylaxis ordered?: No - Physical Exam Vitals/I&O's: Vital Signs Temp Pulse Resp BP Pulse Ox 96.8 F L 77 17 107/56 L 100 09/01/20 12:51 09/01/20 12:51 09/01/20 12:51 09/01/20 12:51 09/01/20 12:51 Oxygen Delivery Method Room Air Weight: 189 lb 2.506 oz Body Mass Index (BMI) 24.9 Finger Stick Blood Glucose 142 Intake and Output for Last 24 Hours 08/30/20 08/31/20 09/01/20 23:59 23:59 23:59 Intake Total 500 / 500 Balance 500 / 500 General: Alert, Oriented x3, Cooperative, No apparent distress, - - He is pale. HEENT: Atraumatic, PERRLA, EOMI, Normocephalic Oral: Moist Mucosa, No Gingival or Mucosal Lesions/ Ulcerations Neck: Supple, No JVD, Negative Carotid Bruits, Trachea Midline, Thyroid Normal Size and Texture Lungs: Clear to auscultation, No rhonchi, No wheeze, No rales, Diminished Cardiovascular: Regular rate, Regular Rhythm, Normal S1, Normal S2, PMI Normal Abdomen: Bowel Sounds Present, Soft, Non Tender, Non-Distended, No Hepato- splenomegaly Extremities: No clubbing, No cyanosis, No edema Skin: No rashes, No breakdown Lymphatic: No Cervical, Supraclavicular, or Inguinal Adenopathy Neurological: Cranial nerves II-XII grossly intact, Motor Exam 5/5 strength throughout Psych/Mental Status: Normal Affect, Appropriate, Alert and oriented to time, place, person, mood and affect Microbiology Past 72 Hours 09/01/20 11:10 Stool Stool Occult Blood ([facility]) - Final Occult Blood Positive 09/01/20 09:40 Mucosa - Nose SARS-CoV-2 Antigen (Rapid) - Final Laboratory Results 09/01/20 09:10: WBC 11.7 H, RBC 3.49 L, Hgb 7.8 L, Hct 26.0 L, MCV 74.5 L, MCH 22.3 L, MCHC 30.0 L, RDW Std Deviation 48.7 H, RDW Coeff of Sherrie 18.2 H, Plt Co unt 215, MPV 8.6, Immature Gran % (Auto) 2.300 H, Neut % (Auto) 83.0 H, Lymph % (Auto) 7.8 L, [place] % (Auto) 5.7, Eos % (Auto) 0.6, Baso % (Auto) 0.6, Absolute Neuts (auto) 9.7 H, Absolute Lymphs (auto) 0.91, Nucleated RBC % 0.2 09/01/20 09:10: PT 15.0 H, INR 1.2, APTT 21.6 L 09/01/20 09:10: Sodium 134 L, Potassium 4.3, Chloride 108 H, Carbon Dioxide 14.0 L, Anion Gap 12, BUN 82 H, Creatinine 3.31 H, Estim Creat Clear Calc 21.46, Est GFR (MDRD) Af Amer 23 L, Est GFR (MDRD) Non-Af 19 L, BUN/Creatinine Ratio 24.8 H , Glucose 126 H, Calcium 8.2 L, Total Bilirubin 0.30, AST 21, ALT 36, Alkaline Phosphatase 242 H, Troponin I 0.130 H, Total Protein 6.0 L, Albumin 2.4 L, Globulin 3.6, Albumin/Globulin Ratio 0.7 L 09/01/20 09:40: Urine Color Yellow, Urine Clarity Sl. Cloudy, Urine pH 6.0, Ur Specific [place] 1.015, Urine Protein 500 H, Urine Glucose (UA) Normal, Urine Ketones Negative, Urine Occult Blood 150 H, Urine Nitrite Negative, Urine Bilirubin Negative, Urine Urobilinogen Normal, Ur Leukocyte Esterase 500 H, Urin e RBC 10-25 SEEN, Urine WBC 50-100 SEEN, Ur Squamous Epith Cells 0-5 SEEN, Urine Bacteria 1+, Urine Mucus 0 SEEN 09/01/20 09:50: Lactic Acid 1.9 Clinical Impression(s) from Imaging Studies Chest X-Ray 09/01/20 09:45 IMPRESSION: No acute abnormality is seen. Electronically Signed: Hesham Lawson MD at 9:59 EST , Service support , Assessment/Plan This is a 74 years old male patient presented to the emergency room because of weakness and shortness of breath, found to have acute on chronic symptomatic anemia with stool that was positive for occult blood, also found to have probable acute cystitis and he is being admitted for evaluation and treatment. #1 acute on chronic symptomatic anemia/probable GI bleed: Microcytic anemia, iron deficiency. 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 Today, patient denied any hematuria. His stool was occult blood positive. Admission hemoglobin was 7.8 g/dL. Discharge hemoglobin was 9.6 g/dL 5 days ago. Plan: Admit to PCU, cardiac monitoring, gentle IV fluids for hydration, transfused unit of packed RBCs, start IV Protonix twice daily, hold aspirin and Plavix, general surgery consult, repeat CBC and BMP tomorrow morning. #2 probable acute cystitis: Urinalysis reviewed. Patient does have chronic pyuria, urine looks dirty grossly. Plan: Urine culture, blood culture, start IV Rocephin. #3 recent non-ST elevation RI: This was diagnosed around 1 week ago, decision was made to continue medical treatment. EKG reviewed as above. Troponin is actually trending down. Patient denied any chest pain. Continue statins, nitrate and metoprolol, hold aspirin and Plavix. #4 physical debility/functional decline/difficulty ambulating: Patient lives at home with his , has been having difficulty ambulating at home and his cannot take care of him. Plan for PT OT, patient will likely need placement to [facility] facility. #5 history of prostate cancer: Status post surgery and chemotherapy, continue Zytiga and prednisone. Patient denied any hematuria. #6 status post bilateral nephrostomy tubes: This was done on August for bladder outlet obstruction at [facility]. Urinalysis reviewed, showed cloudy urine, plan as above. #6 stage IV chronic kidney disease: Baseline creatinine has been around 2.5 to 3.5 mg/dL. Admission creatinine is 3.31, stable at baseline, continue sodium bicarb 3 times daily. #7 type 2 diabetes mellitus: ADA diet, Accu-Cheks, insulin sliding scale, continue Lantus. #8 hyperlipidemia: Continue statins. #10 CODE STATUS: DNR CCA, no intubation, confirmed with the patient. #11 DVT prophylaxis: SCDs. This note was generated with [employer] dictation software. It may contain incorrect words, spelling, and punctuation that were not noted in checking the note before signing. Inpatient E&M: [id number] Init Hosp L3
[2020-09-01] MEDS: 0.9% Normal Saline 1,000 ML 75 ML IV (14:20)
[2020-09-01] MEDS: Sodium Bicarbonate 650 MG Tablet PO ×2 (15:37→22:04)
--- NOTE | 2020-09-01 17:01 | PCM.CONS.GEN ---
Problem List (1) GI bleed Status: Acute Qualifiers: GI bleed type/associated pathology: unspecified gastrointestinal hemorrhage type Qualified Code(s): K92.2 - Gastrointestinal hemorrhage, unspecified Reason for Consult Date of Consultation: 09/01/20 History of Present Illness: The patient is a 74 year old M with past medical history as mentioned above presented to the emergency room because of weakness and shortness of breath. His symptoms started in the last couple of days mainly with weakness, generalized, not able to ambulate and having difficulty even standing up and going to the bathroom. Also, he complained of shortness of breath upon activity, it is on minimal activity, can only walk to the bathroom and he gets short of breath and very tired, relieved with rest and no other associated symptoms. He denied chest pain, palpitation, dizziness or lightheadedness. He denied abdominal pain, nausea or vomiting. He denied hematuria. He denied fever or chills. In the emergency department, he was afebrile, blood pressure and heart rate were stable, pulse ox was 100% on room air. Routine blood work was remarkable for minimal leukocytosis, hemoglobin 7.8 g/dL, BUN is 82, creatinine is 3.31 which is chronic. EKG revealed normal sinus rhythm with PACs, RBBB, no acute ischemic changes. Troponin is 0.130 which is actually trending down, it was 2.39 on 08/20/2020. Chest x-ray showed no acute findings. Urinalysis revealed cloudy urine, negative for nitrite, there was 500 leukocyte esterase, 50-100 WBCs and 1+ bacteria. He is being admitted for acute on chronic symptomatic anemia, probable GI bleed, probable acute cystitis, physical debility and functional decline and patient will likely need placement to fpc facility. Being consulted for an upper scope. Past Medical History Past Medical History (Chronic Problems): Chronic Problems (Last Updated 08/28/20 @ 13:08 by Nicolette Holden) Hemochromatosis (Chronic) Secondary malignant neoplasm of bone (Chronic) Thrombocytopenia (Chronic) Anemia in chronic kidney disease (CKD) (Chronic) Iron deficiency (Chronic) Non-STEMI (non-ST elevated myocardial infarction) (Chronic) Cardiomyopathy, ischemic (Chronic) Prostate cancer (Chronic) Problem with dialysis access (Chronic) Hx of arteriovenostomy for renal dialysis (Chronic) 10/14/19 Prostate cancer (Chronic) Chronic renal disease, stage 4, severely decreased glomerular filtration rate (GFR) between 15-29 mL/min/1.73 square meter (Chronic) Essential hypertension (Chronic) Cataract, right eye (Chronic) [facility] 03/2018 SVT (supraventricular tachycardia) (Chronic) Atherosclerotic heart disease of [place] coronary artery without angina pectoris (Chronic) Nonrheumatic mitral (valve) prolapse (Chronic) Nonrheumatic aortic (valve) insufficiency (Chronic) RBBB (Chronic) Type 2 diabetes mellitus (Chronic) Sleep apnea (Chronic) Hyperlipidemia (Chronic) Medical History: Medical History (Last Reviewed 09/01/20 @ 17:[address] Dallin Lazar MD) Problem with dialysis access (Chronic) T82.898A Prostate cancer (Chronic) C61 Chronic renal disease, stage 4, severely decreased glomerular filtration rate (GFR) between 15-29 mL/min/1.73 square meter (Chronic) N18.4 Essential hypertension (Chronic) I10 Cataract, right eye (Chronic) H26.9 Dr Maki [facility] 03/2018 SVT (supraventricular tachycardia) (Chronic) I47.1 Atherosclerotic heart disease of [place] coronary artery without angina pectoris (Chronic) I25.10 Nonrheumatic mitral (valve) prolapse (Chronic) I34.1 Nonrheumatic aortic (valve) insufficiency (Chronic) I35.1 RBBB (Chronic) I45.10 Type 2 diabetes mellitus (Chronic) E11.9 Sleep apnea (Chronic) G47.30 Hyperlipidemia (Chronic) E78.5 Elevation of cardiac enzymes R74.8 Generalized weakness R53.1 history of nephrostomy tube placement (Inactive) Allergies ramipril [From Altace] Allergy (Intermediate, Verified 09/01/20 09:11) Unknown cough nalbuphine [From Nubain] Adverse Reaction (Severe, Verified 09/01/20 09:11) Nausea/Vom/Diarrhea Home Medications: Ambulatory Orders Medication Instructions Recorded Atorvastatin Calcium [Lipitor] 40 mg PO QHS 03/09/16 Calcium Carbonate/Vitamin D3 1 ea PO BID 07/28/16 [Calcium 600-Vit D3 400 Caplet] Insulin Glargine [Lantus SoloStar 15 units SC QHS PRN 10/07/17 Pen] Insulin Lispro [Humalog] 0 unit SQ BID 10/07/17 sertraline 50 mg tablet 100 mg PO DAILY tab 10/27/17 sodium bicarbonate 650 mg tablet 650 mg PO TID tab 10/27/17 Acetaminophen [Tylenol Tablet] 650 mg PO Q6H PRN PRN tab 04/16/19 Prednisone 5 mg PO BID #60 tab 02/27/20 Iron Polysaccharide Complex 150 mg PO DAILYCM #90 cap 05/07/20 [Ferrex 150] Folic Acid 1 mg PO DAILY 08/19/20 Isosorbide Mononitrate [Imdur] 30 mg PO DAILY #90 tab 08/22/20 Metoprolol Tartrate [Lopressor 50 mg PO BID #90 tab 08/22/20 (beta sergei)] Abiraterone Acetate [Zytiga] 1,000 mg PO DAILY 09/01/20 Aspirin [Aspirin, Baby] 81 mg PO DAILY@0800 09/01/20 Clopidogrel Bisulfate [Plavix] 75 mg PO DAILY 09/01/20 Surgical History: Surgical History (Last Reviewed 09/01/20 @ 17:[address] Dallin Lazar MD) Hx of arteriovenostomy for renal dialysis (Chronic) Z99.2 04/16/19 History of angioplasty of peripheral vessel Onset Date: ~03/2020 Z98.62 History of angioplasty of peripheral vessel Onset Date: ~06/2020 Z98.62 s/p transposition left AV Fistula Onset Date: ~12/07/19 Hx of appendectomy (Inactive) Z98.890, Z90.49 Nephrostomy status (Inactive) Z93.6 nephroscopy with stent placement (Inactive) Surgical History: appendectomy, - Psychiatric History: No pertinent psych hx Lives: Spouse/ Significant Other Smoking Status: Never smoker Alcohol: None Drugs: None - *Family History Maternal Family History: Family History (Last Reviewed 08/12/20 @ 13:11 by Faith Gonzalez) Father Heart disease Kidney disease CAD (coronary artery disease) Myocardial infarction Mother Heart disease History Items: Heart Disease Paternal Family History: Family History (Last Reviewed 08/12/20 @ 13:11 by Faith Gonzalez) Father Heart disease Kidney disease CAD (coronary artery disease) Myocardial infarction Mother Heart disease History Items: Heart Disease, Renal Disease Sibling Family History: Family History (Last Reviewed 08/12/20 @ 13:11 by Faith Gonzalez) Father Heart disease Kidney disease CAD (coronary artery disease) Myocardial infarction Mother Heart disease History Items: Cancer - breast Review of Systems Constitutional: Denies: Chills, Fever, Weight Change Respiratory: Denies: Cough, Hemoptysis, Shortness of breath at rest, Shortness of breath upon exertion, Wheezing Gastrointestinal: Denies: Abdominal Pain, Constipation, Diarrhea, Hematemesis, Nausea, Melena, Vomiting Genitourinary: Denies: Dysuria, Frequency, Hematuria, Urgency - Physical Exam Vitals/I&O's: Vital Signs Temp Pulse Resp BP Pulse Ox 98.5 F 84 16 119/58 L 100 09/01/20 16:48 09/01/20 16:48 09/01/20 16:48 09/01/20 16:48 09/01/20 16:48 Oxygen Delivery Method Room Air Weight: 184 lb 15.485 oz Body Mass Index (BMI) 24.4 Finger Stick Blood Glucose 142 Intake and Output for Last 24 Hours 08/30/20 08/31/20 09/01/20 23:59 23:59 23:59 Intake Total 500 / 500 Balance 500 / 500 General: Alert, Oriented x3 Lungs: Clear to auscultation Cardiovascular: Regular rate, Regular Rhythm, No murmurs Abdomen: Bowel Sounds Present, Soft, Non Tender, Non-Distended Microbiology Past 72 Hours 09/01/20 11:10 Stool Stool Occult Blood (ONDINA) - Final Occult Blood Positive 09/01/20 09:40 Mucosa - Nose SARS-CoV-2 Antigen (Rapid) - Final Laboratory Results 09/01/20 09:10: WBC 11.7 H, RBC 3.49 L, Hgb 7.8 L, Hct 26.0 L, MCV 74.5 L, MCH 22.3 L, MCHC 30.0 L, RDW Std Deviation 48.7 H, RDW Coeff of Sherrie 18.2 H, Plt Count 215, MPV 8.6, Immature Gran % (Auto) 2.300 H, Neut % (Auto) 83.0 H, Lymph % (Auto) 7.8 L, [place] % (Auto) 5.7, Eos % (Auto) 0.6, Baso % (Auto) 0.6, Absolute Neuts (auto) 9.7 H, Absolute Lymphs (auto) 0.91, Nucleated RBC % 0.2 09/01/20 09:10: PT 15.0 H, INR 1.2, APTT 21.6 L 09/01/20 09:10: Sodium 134 L, Potassium 4.3, Chloride 108 H, Carbon Dioxide 14.0 L, Anion Gap 12, BUN 82 H, Creatinine 3.31 H, Estim Creat Clear Calc 21.46, Est GFR (MDRD) Af Amer 23 L, Est GFR (MDRD) Non-Af 19 L, BUN/Creatinine Ratio 24.8 H, Glucose 126 H, Calcium 8.2 L, Total Bilirubin 0.30, AST 21, ALT 36, Alkaline Phosphatase 242 H, Troponin I 0.130 H, Total Protein 6.0 L, Albumin 2.4 L, Globulin 3.6, Albumin/Globulin Ratio 0.7 L 09/01/20 09:40: Urine Color Yellow, Urine Clarity Sl. Cloudy, Urine pH 6.0, Ur Specific [place] 1.015, Urine Protein 500 H, Urine Glucose (UA) Normal, Urine Ketones Negative, Urine Occult Blood 150 H, Urine Nitrite Negative, Urine Bilirubin Negative, Urine Urobilinogen Normal, Ur Leukocyte Esterase 500 H, Urine RBC 10-25 SEEN, Urine WBC 50-100 SEEN, Ur Squamous Epith Cells 0-5 SEEN, Urine Bacteria 1+, Urine Mucus 0 SEEN 09/01/20 09:50: Lactic Acid 1.9 09/01/20 13:52: Blood Type AB POSITIVE, Antibody Screen NEGATIVE, Crossmatch See Detail Current Medications Abiraterone Acetate (Abiraterone Acetate 250 Mg Tablet) 1,000 mg PO DAILY TELMA Acetaminophen (Acetaminophen 325 Mg Tablet) 650 mg PO Q6H PRN PRN PRN Reason: Pain Score 1-10/Temp > 100.7 F Atorvastatin Calcium (Atorvastatin Calcium 40 Mg Tablet) 40 mg PO QHS TELMA Folic Acid (Folic Acid 1 Mg Tablet) 1 mg PO DAILYCM TELMA Heparin Sodium (Beef Lung) (Heparin Pf Lock 10 Units/Ml 50 Units/5 Ml Syringe) 50 units IV UD PRN PRN Reason: Port-a-Cath (VAD)Heparin Flush Sodium Chloride () 1,000 mls @ 75 mls/hr IV .[id number] TELMA Stop: 09/01/20 19:51 Last Admin: 09/01/20 14:20 Dose: 75 mls/hr Documented by: Ceftriaxone Sodium 2 gm/ (Sodium Chloride) 50 mls @ 100 mls/hr IV Q24 ON LICENSE OF [facility] Last Admin: 09/01/20 13:45 Dose: 100 mls/hr Documented by: Pantoprazole Sodium 40 mg/ (Sodium Chloride) 110 mls @ 330 mls/hr IV Q12 ON LICENSE OF [facility] Insulin Glargine (Insulin Glargine 100 Units/Ml Pen) 15 units SC QHS PRN PRN Reason: diabetes Insulin Human Lispro (Insulin Lispro 100 Unit/Ml Insuln.Pen) 0 unit SC ACHS TELMA; Protocol Isosorbide Mononitrate (Isosorbide Mononitrate 30 Mg Tablet) 30 mg PO DAILY ON LICENSE OF [facility] Metoprolol Tartrate (Metoprolol Tartrate 50 Mg Tablet) 50 mg PO BID ON LICENSE OF [facility] Ondansetron HCl (Ondansetron 4 Mg/2 Ml Vial) 4 mg IV Q8H PRN PRN PRN Reason: NAUSEA/VOMITING Polysaccharide Iron Complex (Iron Polysaccharide Complex 150 Mg Capsule) 150 mg PO DAILY ON LICENSE OF [facility] Prednisone (Prednisone 5 Mg Tablet) 5 mg PO BIDCM ON LICENSE OF [facility] Sertraline HCl (Sertraline 50 Mg Tablet) 100 mg PO DAILY ON LICENSE OF [facility] Sodium Bicarbonate (Sodium Bicarbonate 650 Mg Tablet) 650 mg PO TID ON LICENSE OF [facility] Last Admin: 09/01/20 15:37 Dose: 650 mg Documented by: Sodium Chloride (0.9% Saline Lock 10 Ml Syringe) 10 - 40 ml IV UD PRN PRN Reason: Port-a-Cath (VAD) Flush Sodium Chloride (0.9 % Nacl (Sterile) Posiflush 10 Ml) 10 - 40 ml IV UD PRN PRN Reason: Port access or dressing change Zolpidem Tartrate (Zolpidem Tartrate 5 Mg Tablet) 5 mg PO QHS PRN PRN PRN Reason: INSOMNIA Assessment/Plan All Active Problems (Last Updated 08/28/20 @ 13:08 by Nicolette Holden) GI bleed (Acute) I plan is to perform an esophagogastroduodenoscopy tomorrow. Risk benefits to include bleeding possible injury to the esophagus or stomach. Although these are low they are not 0. All questions asked were answered and the patient is willing to proceed.
[2020-09-01] MEDS: predniSONE 5 MG Tablet PO (17:14)
[2020-09-01] MEDS: Insulin Lispro 100 UNIT/ML INSULN.PEN SC ×2 (17:17→22:04)
[2020-09-01 17:45] LABS: Bedside Glucose 198 mg/dL (70-110)
[2020-09-01] MEDS: Atorvastatin Calcium 40 MG Tablet PO (22:04)
[2020-09-01] MEDS: Metoprolol Tartrate 50 MG Tablet PO (22:04)
[2020-09-01 22:10] LABS: Bedside Glucose 179 mg/dL (70-110)
[2020-09-02] VITALS (21 sets, daily range): BP systolic 95–144; BP diastolic 52–77; PULSE 64–144; RESP 12–16; TEMP 36.2–36.9; O2SAT 97–100; BMI 24.5
--- NOTE | 2020-09-02 | GASB_PTH ---
PATIENT: DESHAUN PICKETT LOC: [facility] U#:[id number] AGE/SX: 74/M ROOM: [facility] RE09/01/[address]: Dr. Roby Neal MD : [id number] BED: 1 DIS: 09/05/2020 SPEC #: [id number] RECD: 09/02/20 12:26 STATUS: KINDRA REBrittany #: [id number] OLIVIA: 09/02/20 00:[address]: Dallin Lazar DEPT: SURGICAL PATHOLOGY RECD BY: Rodney Santoyo ENTERED: 09/02/20 13:09 SP TYPE: Gastric Bx OTHR DR: MD Dr. Roby Berry MD Dr. John Prokop, MD Tissues: Gastric mucous membrane Procedures: Surgery Specimen Level IV Comments: @ Ordering doctor for SUIV edited from to DR.DPEABO Helga DOSS at 09/02/20 1436 @ Submitting doctor edited from to DR.DPEABO Partida by ROMARIO at 09/02/20 1436 HEADER OPERATION: EGD ([facility]) PRE-OP DIAGNOSIS: GI bleed TISSUE SUBMITTED: Antral biopsy for H. pylori and path MICROSCOPIC DIAGNOSIS Antral biopsy: Moderate gastritis. See microscopic description and comment. ZAHIDA:basilio 09/03/2020 COMMENT The results of immunohistochemistry for Helicobacter pylori will be reported separately ([id number]). MICROSCOPIC DESCRIPTION Slides are reviewed. The specimen shows fragments of gastric mucosa with chronic inflammatory cell infiltrates in the lamina propria consisting of lymphocytes and plasma cells, consistent with moderate chronic gastritis. GROSS DESCRIPTION Received in fixative is one container labeled with the patient's name and designated antral biopsy. The specimen consists of one irregular fragment of light lambert soft tissue that measures 0.3 x 0.3 x 0.1 cm. The specimen is totally submitted in one cassette. / ZAHIDA:basilio 09/02/20 TC:3 [facility]: [id number]
--- NOTE | 2020-09-02 04:27 | EKG12_ITS ---
Test Reason : AM EKG Blood Pressure : / mmHG Vent. Rate : 081 BPM Atrial Rate : 081 BPM P-R Int : 208 ms QRS Dur : 148 ms QT Int : 426 ms P-R-T Axes : 071 267 028 degrees QTc Int : 494 ms Sinus rhythm with Premature atrial complexes in a pattern of bigeminy Right bundle branch block Inferior infarct , age undetermined Abnormal ECG When compared with ECG of 01-SEP-2020 14:31, MANUAL COMPARISON REQUIRED, DATA IS UNCONFIRMED Confirmed by DAVI REAZ, JUVENTINO ([id number]), loan expeditor ZELALEM WATSON ([id number]) on 09/05/2020 7:47:39 AM Referred By: PATRICIA Confirmed By:JUVENTINO TOMLINSON MD
--- NOTE | 2020-09-02 05:55 | EKG12_ITS ---
Test Reason : CP ADMIT Blood Pressure : / mmHG Vent. Rate : 055 BPM Atrial Rate : 055 BPM P-R Int : 152 ms QRS Dur : 132 ms QT Int : 506 ms P-R-T Axes : 028 -35 017 degrees QTc Int : 484 ms Sinus bradycardia Left axis deviation Right bundle branch block Inferior DE, age undetermined, cannot be excluded Abnormal ECG Confirmed by ZI REZA, STEWART ([id number]), content editor CHUY WYMAN ([id number]) on 09/03/2020 9:02:16 AM Referred By: PATRICIA Confirmed By:STEWART PINON MD
[2020-09-02 06:45] LABS: Bedside Glucose 157 mg/dL (70-110)
[2020-09-02 07:40] LABS: Absolute Neutrophil Count 7.6 X10^3/uL (2.0-7.7); Basophil# 0.03 X10^3/uL; Basophil% 0.3 % (0-1); Eosinophil# 0.13 X10^3/uL; Eosinophils% 1.4 % (0-5); Hematocrit 30.4 % (40-54); Hemoglobin 9.4 g/dL (13.0-16.5); Lymphocyte % 6.7 % (19-41); Mean Corp Hgb Conc 30.9 g/dL (32-36); Mean Corpuscular Hgb 23.7 pg (27.0-32.0); Mean Corpuscular Volume 76.8 fL (80-94); Mean Platelet Vol. 9.2 fl (6.2-12.0); Monocyte# 0.29 X10^3/uL; Monocyte% 3.2 % (0-10); NRBC Flagged by Analyzer 0 % (0-5); Neutrophil # 7.58 X10^3/uL (2.7-7.7); Neutrophil % 84.2 % (47-70); POSITIVE DIFFERENTIAL YES; Platelet Count 196 K/mm3 (150-450); RBC Distribution Width CV 19.1 % (11.6-14.6); RBC Distribution Width SD 52.1 fl (35.1-43.9); Red Blood Count 3.96 M/mm3 (4.6-6.2)
[2020-09-02 07:48] LABS: Anion Gap 12 (5-15); BUN 71 mg/dL (7-18); BUN/Creat Ratio 21.1 RATIO (10-20); Calcium,Total 8.2 mg/dL (8.5-10.1); Chloride 108 mmol/L (98-107); Creatinine, Serum 3.36 mg/dL (0.70-1.30); EST Glomerular Filtration Rate 19 mL/min (>60); Est Glom Filt Rate - Afr Amer 23 mL/min (>60); Estimated Creatinine Clearance 20.53 ml/min; Glucose 155 mg/dL (74-106); Magnesium 1.8 mg/dL (1.6-2.6); Sodium Level 135 mmol/L (136-145)
[2020-09-02 07:50] LABS: Differential Indicated SCAN CRITERIA MET
[2020-09-02 08:25] LABS: International Normalized Ratio 1.3; Prothrombin Time (Protime)PT. 15.7 SECONDS (11.7-14.9)
--- NOTE | 2020-09-02 08:27 | PCM.PROGNOTE ---
Patient Problems: Active and Suspected Problems (Last Reviewed 09/01/20 @ 17:[address] Dallin Lazar MD) GI bleed (Acute) Subjective: Chief complaint: Follow-up after admission for acute on chronic symptomatic anemia, GI bleed. Patient seen and examined. No acute events overnight. Today, he denied any complaints. Denied chest pain or shortness of breath. Weakness kind of improved. Vital signs are stable. - Physical Exam Vitals/I&O's: Vital Signs Temp Pulse Resp BP Pulse Ox 97.9 F 73 16 130/61 H 98 09/02/20 08:06 09/02/20 08:06 09/02/20 08:06 09/02/20 08:06 09/02/20 08:06 Oxygen Delivery Method Room Air Weight: 184 lb 15.485 oz Body Mass Index (BMI) 24.5 Finger Stick Blood Glucose 142 Intake and Output for Last 24 Hours 08/31/20 09/01/20 09/02/20 23:59 23:59 23:59 Intake Total 1937.5 / 1937.5 510 / 510 Output Total 1100 / 1100 900 / 900 Balance 837.5 / 837.5 -390 / -390 General: Alert, Oriented x3, Cooperative, No apparent distress HEENT: Atraumatic, PERRLA, EOMI, Normocephalic Oral: Moist Mucosa, No Gingival or Mucosal Lesions/ Ulcerations Neck: Supple, No JVD, Negative Carotid Bruits, Trachea Midline, Thyroid Normal Size and Texture Lungs: Clear to auscultation, Normal air movement, No rhonchi, No wheeze, No rales, Diminished Cardiovascular: Regular rate, Regular Rhythm, Normal S1, Normal S2, PMI Normal Abdomen: Bowel Sounds Present, Soft, Non Tender, Non-Distended, No Hepato-splenomegaly Extremities: No clubbing, No cyanosis, No edema Skin: No rashes, No breakdown Lymphatic: No Cervical, Supraclavicular, or Inguinal Adenopathy Neurological: Cranial nerves II-XII grossly intact, Neuro grossly intact Psych/Mental Status: Normal Affect, Appropriate, Alert and oriented to time, place, person, mood and affect Microbiology Past 72 Hours 09/01/20 11:10 Stool Stool Occult Blood ([facility]INA) - Final Occult Blood Positive 09/01/20 09:40 Mucosa - Nose SARS-CoV-2 Antigen (Rapid) - Final Laboratory Results 09/01/20 09:10: WBC 11.7 H, RBC 3.49 L, Hgb 7.8 L, Hct 26.0 L, MCV 74.5 L, MCH 22.3 L, MCHC 30.0 L, RDW Std Deviation 48.7 H, RDW Coeff of Sherrie 18.2 H, Plt Count 215, MPV 8.6, Immature Gran % (Auto) 2.300 H, Neut % (Auto) 83.0 H, Lymph % (Auto) 7.8 L, [place] % (Auto) 5.7, Eos % (Auto) 0.6, Baso % (Auto) 0.6, Absolute Neuts (auto) 9.7 H, Absolute Lymphs (auto) 0.91, Nucleated RBC % 0.2 09/01/20 09:10: PT 15.0 H, INR 1.2, APTT 21.6 L 09/01/20 09:10: Sodium 134 L, Potassium 4.3, Chloride 108 H, Carbon Dioxide 14.0 L, Anion Gap 12, BUN 82 H, Creatinine 3.31 H, Estim Creat Clear Calc 21.46, Est GFR (MDRD) Af Amer 23 L, Est GFR (MDRD) Non-Af 19 L, BUN/Creatinine Ratio 24.8 H, Glucose 126 H, Calcium 8.2 L, Total Bilirubin 0.30, AST 21, ALT 36, Alkaline Phosphatase 242 H, Troponin I 0.130 H, Total Protein 6.0 L, Albumin 2.4 L, Globulin 3.6, Albumin/Globulin Ratio 0.7 L 09/01/20 09:40: Urine Color Yellow, Urine Clarity Sl. Cloudy, Urine pH 6.0, Ur Specific [place] 1.015, Urine Protein 500 H, Urine Glucose (UA) Normal, Urine Ketones Negative, Urine Occult Blood 150 H, Urine Nitrite Negative, Urine Bilirubin Negative, Urine Urobilinogen Normal, Ur Leukocyte Esterase 500 H, Urine RBC 10-25 SEEN, Urine WBC 50-100 SEEN, Ur Squamous Epith Cells 0-5 SEEN, Urine Bacteria 1+, Urine Mucus 0 SEEN 09/01/20 09:50: Lactic Acid 1.9 09/01/20 13:52: Blood Type AB POSITIVE, Antibody Screen NEGATIVE, Crossmatch See Detail 09/01/20 17:12: POC Glucose 198 H 09/01/20 22:02: POC Glucose 179 H 09/02/20 06:14: POC Glucose 157 H 09/02/20 07:06: WBC 9.0, RBC 3.96 L, Hgb 9.4 L, Hct 30.4 L, MCV 76.8 L, MCH 23.7 L, MCHC 30.9 L, RDW Std Deviation 52.1 H, RDW Coeff of Sherrie 19.1 H, Plt Count 196, MPV 9.2, Immature Gran % (Auto) 4.200 H, Neut % (Auto) 84.2 H, Lymph % (Auto) 6.7 L, [place] % (Auto) 3.2, Eos % (Auto) 1.4, Baso % (Auto) 0.3, Absolute Neuts (auto) 7.6, Absolute Lymphs (auto) 0.60 L, Nucleated RBC % 0 09/02/20 07:06: Sodium 135 L, Potassium 5.0, Chloride 108 H, Carbon Dioxide 15.0 L, Anion Gap 12, BUN 71 H, Creatinine 3.36 H, Estim Creat Clear Calc 20.53, Est GFR (MDRD) Af Amer 23 L, Est GFR (MDRD) Non-Af 19 L, BUN/Creatinine Ratio 21.1 H, Glucose 155 H, Calcium 8.2 L, Magnesium 1.8 09/02/20 07:06: PT 15.7 H, INR 1.3 Current Medications Abiraterone Acetate (Abiraterone Acetate 250 Mg Tablet) 1,000 mg PO DAILY TELMA Acetaminophen (Acetaminophen 325 Mg Tablet) 650 mg PO Q6H PRN PRN PRN Reason: Pain Score 1-10/Temp > 100.7 F Atorvastatin Calcium (Atorvastatin Calcium 40 Mg Tablet) 40 mg PO QHS [facility] Last Admin: 09/01/20 22:04 Dose: 40 mg Documented by: Folic Acid ([facility] Mg [facility]) [facility] Heparin Sodium (Beef Lung) (Heparin Pf Lock 10 Units/Ml 50 Units/5 Ml Syringe) 50 units IV UD PRN PRN Reason: Port-a-Cath (VAD)Heparin Flush Ceftriaxone Sodium 2 gm/ (Sodium Chloride) 50 mls @ 100 mls/hr IV Q24 [facility] Last Infusion: 09/01/20 14:15 Dose: Infused Documented by: Pantoprazole Sodium 40 mg/ (Sodium Chloride) 110 mls @ 330 mls/hr IV Q12 [facility] Last Infusion: 09/02/20 01:03 Dose: Infused Documented by: Insulin Glargine (Insulin Glargine 100 Units/Ml Pen) 15 units SC QHS PRN PRN Reason: diabetes Insulin Human Lispro (Insulin Lispro 100 Unit/Ml Insuln.Pen) 0 unit SC ACHS [facility]; Protocol Last Admin: 09/02/20 06:20 Dose: Not Given Documented by: Isosorbide Mononitrate (Isosorbide Mononitrate 30 Mg Tablet) 30 mg PO DAILY [facility] Metoprolol Tartrate (Metoprolol Tartrate 50 Mg Tablet) 50 mg PO BID [facility] Last Admin: 09/01/20 22:04 Dose: 50 mg Documented by: Ondansetron HCl (Ondansetron 4 Mg/2 Ml Vial) 4 mg IV Q8H PRN PRN PRN Reason: NAUSEA/VOMITING Polysaccharide Iron Complex (Iron Polysaccharide Complex 150 Mg Capsule) 150 mg PO DAILY [facility] Prednisone (Pred[facility] 5 Mg Tablet) [facility] Last Admin: 09/01/20 17:14 Dose: 5 mg Documented by: Sertraline HCl (Sertraline 50 Mg Tablet) 100 mg PO DAILY [facility] Sodium Bicarbonate (Sodium Bicarbonate 650 Mg Tablet) 650 mg PO TID [facility] Last Admin: 09/02/20 06:20 Dose: Not Given Documented by: Sodium Chloride (0.9% Saline Lock 10 Ml Syringe) 10 - 40 ml IV UD PRN PRN Reason: Port-a-Cath (VAD) Flush Sodium Chloride (0.9 % Nacl (Sterile) Posiflush 10 Ml) 10 - 40 ml IV UD PRN PRN Reason: Port access or dressing change Zolpidem Tartrate (Zolpidem Tartrate 5 Mg Tablet) 5 mg PO QHS PRN PRN PRN Reason: INSOMNIA Medical Necessity - Tobacco Use Smoking Status: Never smoker Assessment/Plan All Active Problems (Last Reviewed 09/01/20 @ 17:[address] Dallin Lazar MD) GI bleed (Acute) This is a 74 years old male patient presented to the emergency room because of weakness and shortness of breath, found to have acute on chronic symptomatic anemia with stool that was positive for occult blood, also found to have probable acute cystitis and he is being admitted for evaluation and treatment. #1 acute on chronic symptomatic anemia/probable GI bleed: Microcytic anemia, iron deficiency. Patient received 2 months of packed RBCs. Today's hemoglobin is 9.4 g/dL. His stool was occult blood positive. Patient is on IV Protonix. General surgery consulted, plan for upper EGD today. Plan: Continue same treatment, repeat H&H later today, repeat CBC tomorrow morning. #2 probable acute cystitis: He is on IV Rocephin empirically. Urine culture and blood cultures are pending. #3 recent non-ST elevation SC/ischemic cardiomyopathy: Stable, no complaints. During last admission, decision was made to continue medical treatment. He had 2D echocardiogram on 2020 that showed ejection fraction of 35%. No evidence of acute CHF. Continue statins, nitrate and metoprolol, keep holding aspirin and Plavix. #4 physical debility/functional decline/difficulty ambulating: Patient lives at home with his , has been having difficulty ambulating at home and his cannot take care of him. Plan for PT OT, will need SNF placement. #5 history of prostate cancer: Status post surgery and chemotherapy, continue Zytiga and prednisone. Patient denied any hematuria. #6 status post bilateral nephrostomy tubes: This was done on August for bladder outlet obstruction at [facility]. Urinalysis reviewed, showed cloudy urine, plan as above. #6 stage IV chronic kidney disease: Baseline creatinine has been around 2.5 to 3.5 mg/dL. Admission creatinine is 3.31, today's creatinine is 3.36, stable at baseline, continue sodium bicarb 3 times daily. #7 type 2 diabetes mellitus: ADA diet, Accu-Cheks, insulin sliding scale, continue Lantus. #8 hyperlipidemia: Continue statins. #10 CODE STATUS: DNR CCA, no intubation, confirmed with the patient. #11 DVT prophylaxis: SCDs. This note was generated with ebindle dictation software. It may contain incorrect words, spelling, and punctuation that were not noted in checking the note before signing. Inpatient E&M: 12185 Subs Hosp L2
--- NOTE | 2020-09-02 10:29 | CASEMGMT ---
SW spoke with patient as per physician patient's son said patient needs a jail. SW introduced self and role at [facility]. Patient asked him about going somewhere for rehab at discharge. He said his son thinks he needs it, but he is not sure. SW gave patient a list of SNF providers including quality and resource use data and consistent with the patient?s preferred geographic region, medical needs, and insurance network. DARRELL told him we usually ask that patient's pick at least 3 facilities he would be willing to go to. DARRELL told him SW takes care of it from there. SW told him SW will check back with him later. Lani PHILLIPS
[2020-09-02 10:45] LABS: Bedside Glucose 136 mg/dL (70-110)
--- NOTE | 2020-09-02 11:45 | OP.CCLET_ITS ---
09/02/2020 Fidencio Flores Md Re : Upper GI endoscopy procedure for Carlos Mitchellr Mark This procedure was performed on Wednesday, September 02, 2020. My impressions and recommendations are as follows: Impressions : - Normal esophagus. - Gastritis. Biopsied. - Normal examined duodenum. No specimens collected. Recommendations : - [facility]. - Advance diet as tolerated. - Continue present medications. - Await pathology results. - Repeat upper endoscopy at appointment to be scheduled for surveillance. - Return to primary care physician PRN. My findings are described in the full procedure note, which is enclosed. If I can be of further assistance, please feel free to contact me at Doctor phone number(s): , Fax: [phone], Work: . Sincerely, MD Dallin Varela MD 09/02/2020 11:45:20 AM This report has been signed electronically.
--- NOTE | 2020-09-02 11:45 | OP.EGD_ITS ---
Patient Name: Carlos Mcfarlane Procedure Date: 09/02/2020 11:27 AM Date of : 1945 Age: 74 Procedure: Upper GI endoscopy Indications: Recent gastrointestinal bleeding Providers: Dallin Lazar MD Medicines: See the Anesthesia note for documentation of the administered medications Patient Profile: This is a 74 year old male. Refer to note in patient chart for documentation of history and physical. Complications: No immediate complications. Procedure: Pre-Anesthesia Assessment: - Prior to the procedure, a History and Physical was performed, and patient medications and allergies were reviewed. The patient's tolerance of previous anesthesia was also reviewed. The risks and benefits of the procedure and the sedation options and risks were discussed with the patient. All questions were answered, and informed consent was obtained. Prior Anticoagulants: The patient has taken no previous anticoagulant or antiplatelet agents. ASA Grade Assessment: III - A patient with severe systemic disease. After reviewing the risks and benefits, the patient was deemed in satisfactory condition to undergo the procedure. After obtaining informed consent, the endoscope was passed under direct vision. Throughout the procedure, the patient's blood pressure, pulse, and oxygen saturations were monitored continuously. The gastroscope was introduced through the mouth, and advanced to the second part of duodenum. The upper GI endoscopy was accomplished without difficulty. The patient tolerated the procedure well. Scope In: 11:38:05 AM Scope Out: 11:40:24 AM Total Procedure Duration Time 0 hours 2 minutes 19 seconds Findings: The examined esophagus was normal. Localized mild inflammation characterized by erythema and linear erosions was found in the prepyloric region of the stomach. Biopsies were taken with a cold forceps for Helicobacter pylori testing. The examined duodenum was normal. No biopsies or other specimens were collected for this exam. Impression: - Normal esophagus. - Gastritis. Biopsied. - Normal examined duodenum. No specimens collected. Recommendation: - Return patient to [facility] for [facility] care. - Advance diet as tolerated. - Continue present medications. - Await pathology results. - Repeat upper endoscopy at appointment to be scheduled for surveillance. - Return to primary care physician PRN. Procedure Code(s): --- Professional --- 71421, Esophagogastroduodenoscopy, flexible, transoral; with biopsy, single or multiple Diagnosis Code(s): --- Professional --- K29.70, Gastritis, unspecified, without bleeding K92.2, Gastrointestinal hemorrhage, unspecified CPT copyright 2017 [employer]. All rights reserved. The codes documented in this report are preliminary and upon attorney review may be revised to meet current compliance requirements. MD Dallin Varela MD 09/02/2020 11:45:20 AM This report has been signed electronically. Number of Addenda: 0 Note Initiated On: 09/02/2020 11:27 AM
--- NOTE | 2020-09-02 12:00 | IMM_PTH ---
PATIENT: DESHAUN PICKETT LOC: [facility] U#:[id number] AGE/SX: 74/M ROOM: [facility] RE09/01/[address]: Dr. Roby Neal MD : 1945 BED: 1 DIS: 09/05/2020 SPEC #: [id number] RECD: 09/02/20 14:36 STATUS: KINDRA REQ #: [id number] OLIVIA: 09/02/20 12:[address]: Dallin Lazar DEPT: IMMUNOHISTOCHEMISTRY RECD BY: Joy Garduno ENTERED: 09/02/20 14:37 SP TYPE: IMMUNO OTHR DR: MD Dr. Fidencio Beckwith MD Tissues: Stomach, NOS Procedures: H Pylori (initial) PHYSICIAN & INSTITUTION [place] [phone] SPECIMEN INFORMATION: Tissue Source: Antral biopsy Clinical Info: GI bleed Specimen Number: [id number] CPT code: 09977 METHODOLOGY: Deparaffinized sections of prefer/formalin-fixed tissue or PAP/DQ stained slides are incubated with monoclonal/polyclonal antibodies/oligonucleotide probes. Localization is made via biotin free immunoperoxidase method. Appropriate controls are performed and reacted as expected. Results on target cell population are indicated in the following table: RESULTS: ANTIBODY / CLONE RESULT H Pylori (polyclonal) negative These tests were developed and their performance characteristics determined by [facility]. They may not have been cleared or approved by the U.S. Food and Drug Administration. The FDA has determined that such clearance or approval is not necessary. INTERPRETATION: Antral biopsy: Negative for Helicobacter pylori organisms. SJ:basilio 09/03/2020
[2020-09-02] MEDS: Folic Acid 1 MG Tablet PO (12:41)
[2020-09-02] MEDS: Sertraline 50 MG Tablet 100 MG PO (12:42)
[2020-09-02] MEDS: Sodium Bicarbonate 650 MG Tablet PO ×2 (12:42→21:42)
[2020-09-02] MEDS: predniSONE 5 MG Tablet PO ×2 (12:42→17:18)
[2020-09-02] MEDS: Iron Polysaccharide Complex 150 MG CAPSULE PO (12:42)
[2020-09-02] MEDS: Metoprolol Tartrate 50 MG Tablet PO ×2 (12:42→21:42)
[2020-09-02] MEDS: Isosorbide Mononitrate 30 MG Tablet PO (12:42)
[2020-09-02] MEDS: ABIRATERONE ACETATE 250 MG TABLET 1000 MG PO (12:43)
--- NOTE | 2020-09-02 13:38 | CASEMGMT ---
Readmission chart review: Pt was initially admitted 08/19-08/22/20 for Pyuria/acute cystitis and went home with and therapy was not recommended at that time. Pt's hgb at discharge was 8.6. Pt returned to [facility] ED on 09/01/20 for increased weakness for last 24 hrs. Pt readmitted for Acute on chronic symptomatic anemia with a hgb of 7.8. Pt was transfused with 2 units PRBC and his hgb is now 9.4 at this time. Pt was seen by surgery and is scheduled for EGD today. CM to follow PT/OT and for any further discharge planning/needs. SStluis enrique LE CM
--- NOTE | 2020-09-02 15:01 | CASEMGMT ---
Patient's son Jean asked to talk with DARRELL. He asked about the list SW left with patient. SW explained the facilities that are highlighted in pink are in network with his insurance. He said their first choice is [facility]. He will talk with his mom and dad to figure out their next 2 choices. DARRELL spoke with Valery in TCU and TCU will not have a bed available for patient. Patient's son called DARRELL and left a voice mail stating their second choice is [facility] and 3rd is [facility]. DARRELL called patient's son and let him know TCU is full so SW will work on faxing referral to [facility] and will let him know what they say. DARRELL called Loulou with [facility] and let her know SW is faxing a referral to her for [facility]. SW faxed referral information. Await response. Lani KINCAID MSW
[2020-09-02] MEDS: Insulin Lispro 100 UNIT/ML INSULN.PEN SC ×2 (17:18→21:46)
[2020-09-02 17:25] LABS: Bedside Glucose 234 mg/dL (70-110)
[2020-09-02 18:21] LABS: Hematocrit 27.8 % (40-54); Hemoglobin 8.8 g/dL (13.0-16.5)
[2020-09-02] MEDS: Atorvastatin Calcium 40 MG Tablet PO (21:41)
[2020-09-02 22:06] LABS: Bedside Glucose 230 mg/dL (70-110)
[2020-09-03] VITALS (11 sets, daily range): BP systolic 129–150; BP diastolic 59–82; PULSE 66–75; RESP 16–18; TEMP 36.3–36.6; O2SAT 97–100
[2020-09-03 05:45] LABS: Absolute Lymphocyte Count 0.91 X10^3/uL (0.83-4.51); Absolute Neutrophil Count 5.6 X10^3/uL (2.0-7.7); Basophil# 0.03 X10^3/uL; Basophil% 0.4 % (0-1); Eosinophil# 0.13 X10^3/uL; Eosinophils% 1.7 % (0-5); Hematocrit 30.2 % (40-54); Lymphocyte # 0.91 X10^3/ul (4.0); Lymphocyte % 12.2 % (19-41); Mean Corp Hgb Conc 29.8 g/dL (32-36); Mean Corpuscular Hgb 23.4 pg (27.0-32.0); Mean Corpuscular Volume 78.4 fL (80-94); Mean Platelet Vol. 8.9 fl (6.2-12.0); Monocyte# 0.39 X10^3/uL; Monocyte% 5.2 % (0-10); NRBC Flagged by Analyzer 0 % (0-5); Neutrophil # 5.62 X10^3/uL (2.7-7.7); Neutrophil % 75.8 % (47-70); Platelet Count 159 K/mm3 (150-450); RBC Distribution Width CV 19.6 % (11.6-14.6); Red Blood Count 3.85 M/mm3 (4.6-6.2); White Blood Count 7.4 K/mm3 (4.4-11.0)
[2020-09-03] MEDS: Sodium Bicarbonate 650 MG Tablet PO ×3 (06:19→21:45)
[2020-09-03] MEDS: Insulin Lispro 100 UNIT/ML INSULN.PEN SC ×4 (06:29→21:44)
[2020-09-03 06:46] LABS: Bedside Glucose 152 mg/dL (70-110)
--- NOTE | 2020-09-03 07:07 | CASEMGMT ---
DARRELL received a voice mail from Loulou with [facility]. They can take patient at [facility], but he has a medication that is expensive. She was wondering if patient's family could bring in the medication. DARRELL will talk with patient and family about this. DARRELL will talk with Loulou to make sure pre-cert was initiated. Plan: [facility] pending pre-cert. Lani PHILLIPS
[2020-09-03] MEDS: Folic Acid 1 MG Tablet PO (09:20)
[2020-09-03] MEDS: Metoprolol Tartrate 50 MG Tablet PO ×2 (09:20→21:45)
[2020-09-03] MEDS: Isosorbide Mononitrate 30 MG Tablet PO (09:20)
[2020-09-03] MEDS: Iron Polysaccharide Complex 150 MG CAPSULE PO (09:20)
[2020-09-03] MEDS: predniSONE 5 MG Tablet PO ×2 (09:20→16:55)
[2020-09-03] MEDS: ABIRATERONE ACETATE 250 MG TABLET 1000 MG PO (09:21)
[2020-09-03] MEDS: Sertraline 50 MG Tablet 100 MG PO (09:21)
--- NOTE | 2020-09-03 09:27 | CASEMGMT ---
Addendum entered by Lani Quigley 09/03/20 09:49: DARRELL met with patient. SW let him know SW spoke with his son and their first choice was [facility]. SW let him know they are full. However, their second choice was [facility] and they can take him. SW let him know the Zytiga is expensive and [facility] would like him to bring in his home Zytiga. He said that is fine. He said he pays $400 a month for that medication. DARRELL let him know this could happen today if insurance approves him. Lani PHILLIPS Original Note: DARRELL called patient's son and left him a message letting him know that [facility] can take his dad. SW let him know they did request that patient bring his home Zytiga. DARRELL asked that he call SW back. SW will update patient. Plan: d/c to [facility] pending pre-cert. Lani KINCAID SEAFOOD SPECIALIST
[2020-09-03] MEDS: 0.9% Saline Lock 10 ML Syringe IV ×2 (09:29→21:57)
--- NOTE | 2020-09-03 09:54 | PCM.TXEXTCAR ---
- Diet 09/02/20 12:36 Diet: Cardiac - Heart Healthy Is pt able to select menu?: Yes. ADA diet, 1800 ju[address]ose. - Routine Orders/Code Status Code Status: DNRCC-A - Suggestions for Active Care Change Position every (hours): 3 Hours to sit in a chair: 2 Times a day to sit in chair: 3 - Therapies Weight Bearing: Weight bearing as tolerated Physical Therapy: Eval and Treat Occupational Therapy: Eval and Treat - Problem/Diagnosis (1) Anemia in chronic kidney disease (CKD) Status: Chronic (2) Iron deficiency Status: Chronic (3) Non-STEMI (non-ST elevated myocardial infarction) Status: Chronic (4) Cardiomyopathy, ischemic Status: Chronic (5) Prostate cancer Status: Chronic (6) Chronic renal disease, stage 4, severely decreased glomerular filtration rate (GFR) between 15-29 mL/min/1.73 square meter Status: Chronic (7) Type 2 diabetes mellitus Status: Chronic (8) Hyperlipidemia Status: Chronic - Allergies/Procedures Done in Hospital Allergies/Adverse Reactions: Allergies ramipril [From Altace] Allergy (Intermediate, Verified 09/01/20 09:11) Unknown cough nalbuphine [From Nubain] Adverse Reaction (Severe, Verified 09/01/20 09:11) Nausea/Vom/Diarrhea - Type of Care/Length of Stay Estimated LOS: Convalescent Care Less Than 30 days Type of Care Needed: Skilled Rehab Potential: Good Prognosis: Good - Additional Orders/Day of Discharge H&P will serve as current which was dated: 09/01/20 Day of Discharge: 09/03/20 - Follow Up Care Primary Care Physician: Fidencio Flores MD [Primary Care Provider] - Please follow up with your Primary Care Physician in: 1 WEEK. Please Follow Up With: Chang Horton MD When: Please call his office. Please Follow Up With: Praveen Sol MD When: 1 week.
--- NOTE | 2020-09-03 10:14 | PHA.DC.MR ---
Pharmacy Service has performed discharge medication reconciliation for this patient. The patient's discharge medication list was reviewed for discrepancies and discrepancies were resolved. Home Medications Atorvastatin Calcium [Lipitor] 40 mg PO QHS 03/09/16 Calcium Carbonate/Vitamin D3 [Calcium 600-Vit D3 400 Caplet] 1 ea PO BID 07/28/16 Insulin Glargine [Lantus SoloStar Pen] 15 units SC QHS PRN 10/07/17 Insulin Lispro [Humalog] 0 unit SQ BID 10/07/17 sertraline 50 mg tablet 100 mg PO DAILY tab 10/27/17 sodium bicarbonate 650 mg tablet 650 mg PO TID tab 10/27/17 Acetaminophen [Tylenol Tablet] 650 mg PO Q6H PRN PRN tab 04/16/19 Prednisone 5 mg PO BID #60 tab 02/27/20 Iron Polysaccharide Complex [Ferrex 150] 150 mg PO DAILYCM #90 cap 05/07/20 Folic Acid 1 mg PO DAILY 08/19/20 Isosorbide Mononitrate [Imdur] 30 mg PO DAILY #90 tab 08/22/20 Metoprolol Tartrate [Lopressor (beta sergei)] 50 mg PO BID #90 tab 08/22/20 Abiraterone Acetate [Zytiga] 1,000 mg PO DAILY 09/01/20 Aspirin [Aspirin, Baby] 81 mg PO DAILY@0800 09/01/20 Clopidogrel Bisulfate [Plavix] 75 mg PO DAILY 09/01/20 Pantoprazole Sodium [Protonix] 40 mg PO DAILY #30 tab 09/03/20 levoFLOXacin tablet [Levaquin tablet] 750 mg PO QODAY #3 tab 09/03/20
[2020-09-03 11:31] LABS: Bedside Glucose 207 mg/dL (70-110)
--- NOTE | 2020-09-03 12:12 | DS.PCM_ITS ---
Discharge Date and Diagnosis - Problem List Patient Problems: Active and Suspected Problems (Last Reviewed 09/01/20 @ 17:[address] Dallin Lazar MD) GI bleed (Acute) Date of Admission: 09/01/20 Date of Discharge: 09/03/20 - Primary Discharge Diagnosis Acute Problems: Active Problems (Last Reviewed 09/01/20 @ 17:[address] Dallin Lazar MD) GI bleed (Acute) - Secondary Discharge Diagnosis Chronic Problems: Chronic Problems (Last Reviewed 09/01/20 @ 17:[address] Dallin Lazar MD) Hemochromatosis (Chronic) Secondary malignant neoplasm of bone (Chronic) Thrombocytopenia (Chronic) Anemia in chronic kidney disease (CKD) (Chronic) Iron deficiency (Chronic) Non-STEMI (non-ST elevated myocardial infarction) (Chronic) Cardiomyopathy, ischemic (Chronic) Prostate cancer (Chronic) Problem with dialysis access (Chronic) Hx of arteriovenostomy for renal dialysis (Chronic) 04/16/19 Prostate cancer (Chronic) Chronic renal disease, stage 4, severely decreased glomerular filtration rate (GFR) between 15-29 mL/min/1.73 square meter (Chronic) Essential hypertension (Chronic) Cataract, right eye (Chronic) Dr Maki [facility] 03/2018 SVT (supraventricular tachycardia) (Chronic) Atherosclerotic heart disease of [place] coronary artery without angina pectoris (Chronic) Nonrheumatic mitral (valve) prolapse (Chronic) Nonrheumatic aortic (valve) insufficiency (Chronic) RBBB (Chronic) Type 2 diabetes mellitus (Chronic) Sleep apnea (Chronic) Hyperlipidemia (Chronic) Hospital Course and Treatment Operations: None Summary of Care Provided: The patient is a 74 year old M [] Patient Problems: Active and Suspected Problems (Last Reviewed 09/01/20 @ 17:[address] Dallin Lazar MD) GI bleed (Acute) - Physical Exam Vitals/I&O's: Vital Signs Temp Pulse Resp BP Pulse Ox 97.7 F L 69 18 129/71 H 99 09/03/20 09:15 09/03/20 09:20 09/03/20 09:15 09/03/20 09:15 09/03/20 09:15 Oxygen Delivery Method Room Air Weight: 184 lb 15.485 oz Body Mass Index (BMI) 24.5 Finger Stick Blood Glucose 142 Intake and Output for Last 24 Hours 09/01/20 09/02/20 09/03/20 23:59 23:59 23:59 Intake Total 1937.5 / 1937.5 1709 1410 / 1410 Output Total 1100 / 1100 2750 / 3350 1775 / 1775 Balance 837.5 / 837.5 -1040 / -1340 -365 / -365 Microbiology Past 72 Hours 09/01/20 09:50 Blood Culture (Wb) - Central Line Blood Culture - Preliminary No growth in 48 hours. 09/01/20 10:10 Blood Culture (Wb) - Right Forearm Blood Culture - Preliminary No growth in 48 hours. 09/01/20 09:40 Urine, Nephrostomy Urine Culture - Preliminary Gram positive organism 09/01/20 11:10 Stool Stool Occult Blood ([place]) - Final Occult Blood Positive 09/01/20 09:40 Mucosa - Nose SARS-CoV-2 Antigen (Rapid) - Final Laboratory Results 09/02/20 17:16: POC Glucose 234 H 09/02/20 17:50: Hgb 8.8 L, Hct 27.8 L 09/02/20 21:45: POC Glucose 230 H 09/03/20 05:40: WBC 7.4, RBC 3.85 L, Hgb 9.0 L, Hct 30.2 L, MCV 78.4 L, MCH 23.4 L, MCHC 29.8 L, RDW Std Deviation 55.0 H, RDW Coeff of Sherrie 19.6 H, Plt Count 159, MPV 8.9, Immature Gran % (Auto) 4.700 H, Neut % (Auto) 75.8 H, Lymph % (Auto) 12.2 L, [place] % (Auto) 5.2, Eos % (Auto) 1.7, Baso % (Auto) 0.4, Absolute Neuts (auto) 5.6, Absolute Lymphs (auto) 0.91, Nucleated RBC % 0 09/03/20 06:28: POC Glucose 152 H 09/03/20 11:08: POC Glucose 207 H Current Medications Abiraterone Acetate (Abiraterone Acetate 250 Mg Tablet) 1,000 mg PO DAILY TELMA Last Admin: 09/03/20 09:21 Dose: 1,000 mg Documented by: Acetaminophen (Acetaminophen 325 Mg Tablet) 650 mg PO Q6H PRN PRN PRN Reason: Pain Score 1-10/Temp > 100.7 F Atorvastatin Calcium (Atorvastatin Calcium 40 Mg Tablet) 40 mg PO QHS [facility] Last Admin: 09/02/20 21:41 Dose: 40 mg Documented by: Folic Acid ([facility]) [facility] Last Admin: 09/03/20 09:20 Dose: 1 mg Documented by: Heparin Sodium (Beef Lung) (Heparin Pf Lock 10 Units/Ml 50 Units/5 Ml Syringe) 50 units IV UD PRN PRN Reason: Port-a-Cath (VAD)Heparin Flush Ceftriaxone Sodium 2 gm/ (Sodium Chloride) 50 mls @ 100 mls/hr IV Q24 [facility] Last Infusion: 09/03/20 10:59 Dose: Infused Documented by: Pantoprazole Sodium 40 mg/ (Sodium Chloride) 110 mls @ 330 mls/hr IV Q12 [facility] Last Infusion: 09/03/20 09:47 Dose: Infused Documented by: Insulin Glargine (Insulin Glargine 100 Units/Ml Pen) 15 units SC QHS PRN PRN Reason: diabetes Insulin Human Lispro (Insulin Lispro 100 Unit/Ml Insuln.Pen) 0 unit SC [facility]; Protocol Last Admin: 09/03/20 11:10 Dose: 1 u Documented by: Isosorbide Mononitrate (Isosorbide Mononitrate 30 Mg Tablet) 30 mg PO DAILY [facility] Last Admin: 09/03/20 09:20 Dose: 30 mg Documented by: Metoprolol Tartrate (Metoprolol Tartrate 50 Mg Tablet) 50 mg PO BID [facility] Last Admin: 09/03/20 09:20 Dose: 50 mg Documented by: Ondansetron HCl (Ondansetron 4 Mg/2 Ml Vial) 4 mg IV Q8H PRN PRN PRN Reason: NAUSEA/VOMITING Polysaccharide Iron Complex (Iron Polysaccharide Complex 150 Mg Capsule) 150 mg PO DAILY [facility] Last Admin: 09/03/20 09:20 Dose: 150 mg Documented by: Prednisone ([facility] 5 Mg Tablet) [facility] Last Admin: 09/03/20 09:20 Dose: 5 mg Documented by: Sertraline HCl (Sertraline 50 Mg Tablet) 100 mg PO DAILY [facility] Last Admin: 09/03/20 09:21 Dose: 100 mg Documented by: Sodium Bicarbonate (Sodium Bicarbonate 650 Mg Tablet) 650 mg PO TID [facility] Last Admin: 09/03/20 06:19 Dose: 650 mg Documented by: Sodium Chloride (0.9% Saline Lock 10 Ml Syringe) 10 - 40 ml IV UD PRN PRN Reason: Port-a-Cath (VAD) Flush Last Admin: 09/03/20 09:29 Dose: 10 ml Documented by: Sodium Chloride (0.9 % Nacl (Sterile) Posiflush 10 Ml) 10 - 40 ml IV UD PRN PRN Reason: Port access or dressing change Zolpidem Tartrate (Zolpidem Tartrate 5 Mg Tablet) 5 mg PO QHS PRN PRN PRN Reason: INSOMNIA Home Medications: Medications to take at Discharge Atorvastatin Calcium [Lipitor] 40 mg PO QHS 03/09/16 Calcium Carbonate/Vitamin D3 [Calcium 600-Vit D3 400 Caplet] 1 ea PO BID 07/28/16 Insulin Glargine [Lantus SoloStar Pen] 15 units SC QHS PRN 10/07/17 Insulin Lispro [Humalog] 0 unit SQ BID 10/07/17 sertraline 50 mg tablet 100 mg PO DAILY tab 10/27/17 sodium bicarbonate 650 mg tablet 650 mg PO TID tab 10/27/17 Acetaminophen [Tylenol Tablet] 650 mg PO Q6H PRN PRN tab 04/16/19 Prednisone 5 mg PO BID #60 tab 02/27/20 Iron Polysaccharide Complex [Ferrex 150] 150 mg PO DAILYCM #90 cap 05/07/20 Folic Acid 1 mg PO DAILY 08/19/20 Isosorbide Mononitrate [Imdur] 30 mg PO DAILY #90 tab 08/22/20 Metoprolol Tartrate [Lopressor (beta sergei)] 50 mg PO BID #90 tab 08/22/20 Abiraterone Acetate [Zytiga] 1,000 mg PO DAILY 09/01/20 Aspirin [Aspirin, Baby] 81 mg PO DAILY@0800 09/01/20 Clopidogrel Bisulfate [Plavix] 75 mg PO DAILY 09/01/20 Pantoprazole Sodium [Protonix] 40 mg PO DAILY #30 tab 09/03/20 levoFLOXacin tablet [Levaquin tablet] 750 mg PO QODAY #3 tab 09/03/20 Following Prescriptions Were Given to Patient: levoFLOXacin tablet [Levaquin tablet] 750 mg PO QODAY #3 tab Prescription Printed Pantoprazole Sodium [Protonix] 40 mg PO DAILY #30 tab Prescription Printed Primary Care Physician: Fidencio Flores MD [Primary Care Provider] - Please follow up with your Primary Care Physician in: 1 WEEK. Please Follow Up With: Chang Horton MD When: Please call his office. Please Follow Up With: Praveen Sol MD When: 1 week. Medical Necessity - Tobacco Use Smoking Status: Never smoker Inpatient E&M: 31750 Disch Hosp
--- NOTE | 2020-09-03 14:44 | CASEMGMT ---
SW spoke with patient and his son per their request. Patient was saying he didn't want to go to a facility. They asked about home health. SW explained what insurance covers for home health and that it is limited. They asked if patient gets home and it is not working can he still goi to a facility. SW told them he can, but it is much more difficult. SW told them that it would be best to go right from [facility] to the facility, do the therapy and get home. Patient said he would give it a try. SW told them DARRELL is still hoping to hear today. SW will let them know as soon as DARRELL hears something. Lani KINCAID PORTFOLIO CONSULTANT
--- NOTE | 2020-09-03 15:47 | PN_ITS ---
Patient Problems: Active and Suspected Problems (Last Reviewed 09/01/20 @ 17:[address] Dallin Lazar MD) GI bleed (Acute) Subjective: Chief complaint: Follow-up after admission for acute on chronic symptomatic anemia, GI bleed. Patient seen and examined. No acute events overnight. Today, he is feeling better, no complaints. No hematuria. Vital signs are stable. - Physical Exam Vitals/I&O's: Vital Signs Temp Pulse Resp BP Pulse Ox 97.8 F 67 16 135/63 H 100 09/03/20 15:15 09/03/20 15:15 09/03/20 15:15 09/03/20 15:15 09/03/20 15:15 Oxygen Delivery Method Room Air Weight: 184 lb 15.485 oz Body Mass Index (BMI) 24.5 Finger Stick Blood Glucose 142 Intake and Output for Last 24 Hours 09/01/20 09/02/20 09/03/20 23:59 23:59 23:59 Intake Total 1937.5 / 1937.5 1709 Output Total 1100 / 1100 2750 / 3350 1925 / 1925 Balance 837.5 / 837.5 -1040 / -1340 85 / 85 General: Alert, Oriented x3, Cooperative, No apparent distress HEENT: Atraumatic, PERRLA, EOMI, Normocephalic Oral: Moist Mucosa, No Gingival or Mucosal Lesions/ Ulcerations Neck: Supple, No JVD, Negative Carotid Bruits, Trachea Midline, Thyroid Normal Size and Texture Lungs: Clear to auscultation, No rhonchi, No wheeze, No rales Cardiovascular: Regular rate, Regular Rhythm, Normal S1, Normal S2, PMI Normal Abdomen: Bowel Sounds Present, Soft, Non Tender, Non-Distended, No Hepato- splenomegaly Extremities: No clubbing, No cyanosis, No edema Skin: No rashes, No breakdown Lymphatic: No Cervical, Supraclavicular, or Inguinal Adenopathy Neurological: Cranial nerves II-XII grossly intact, Motor Exam 5/5 strength throughout Psych/Mental Status: Normal Affect, Appropriate Microbiology Past 72 Hours 09/01/20 09:40 Urine, Nephrostomy Urine Culture - Final Ginette albicans 09/01/20 09:50 Blood Culture (Wb) - Central Line Blood Culture - Preliminary No growth in 48 hours. 09/01/20 10:10 Blood Culture (Wb) - Right Forearm Blood Culture - Preliminary No growth in 48 hours. 09/01/20 11:10 Stool Stool Occult Blood (ONDINA) - Final Occult Blood Positive 09/01/20 09:40 Mucosa - Nose SARS-CoV-2 Antigen (Rapid) - Final Laboratory Results 09/02/20 17:16: POC Glucose 234 H 09/02/20 17:50: Hgb 8.8 L, Hct 27.8 L 09/02/20 21:45: POC Glucose 230 H 09/03/20 05:40: WBC 7.4, RBC 3.85 L, Hgb 9.0 L, Hct 30.2 L, MCV 78.4 L, MCH 23.4 L, MCHC 29.8 L, RDW Std Deviation 55.0 H, RDW Coeff of Sherrie 19.6 H, Plt Count 159, MPV 8.9, Immature Gran % (Auto) 4.700 H, Neut % (Auto) 75.8 H, Lymph % ( Auto) 12.2 L, Rawlins % (Auto) 5.2, Eos % (Auto) 1.7, Baso % (Auto) 0.4, Absolute Neuts (auto) 5.6, Absolute Lymphs (auto) 0.91, Nucleated RBC % 0 09/03/20 06:28: POC Glucose 152 H 09/03/20 11:08: POC Glucose 207 H Current Medications Abiraterone Acetate (Abiraterone Acetate 250 Mg Tablet) 1,000 mg PO DAILY [facility] Last Admin: 09/03/20 09:21 Dose: 1,000 mg Documented by: Acetaminophen (Acetaminophen 325 Mg Tablet) 650 mg PO Q6H PRN PRN PRN Reason: Pain Score 1-10/Temp > 100.7 F Atorvastatin Calcium (Atorvastatin Calcium 40 Mg Tablet) 40 mg PO QHS [facility] Last Admin: 09/02/20 21:41 Dose: 40 mg Documented by: Folic Acid (F[facility] 1 Mg Tablet) [facility] Last Admin: 09/03/20 09:20 Dose: 1 mg Documented by: Heparin Sodium (Beef Lung) (Heparin Pf Lock 10 Units/Ml 50 Units/5 Ml Syringe) 50 units IV UD PRN PRN Reason: Port-a-Cath (VAD)Heparin Flush Ceftriaxone Sodium 2 gm/ (Sodium Chloride) 50 mls @ 100 mls/hr IV Q24 [facility] Last Infusion: 09/03/20 10:59 Dose: Infused Documented by: Pantoprazole Sodium 40 mg/ (Sodium Chloride) 110 mls @ 330 mls/hr IV Q12 [facility] Last Infusion: 09/03/20 09:47 Dose: Infused Documented by: Insulin Glargine (Insulin Glargine 100 Units/Ml Pen) 15 units SC QHS PRN PRN Reason: diabetes Insulin Human Lispro (Insulin Lispro 100 Unit/Ml Insuln.Pen) 0 unit SC ACHS [facility]; Protocol Last Admin: 09/03/20 11:10 Dose: 1 u Documented by: Isosorbide Mononitrate (Isosorbide Mononitrate 30 Mg Tablet) 30 mg PO DAILY [facility] Last Admin: 09/03/20 09:20 Dose: 30 mg Documented by: Metoprolol Tartrate (Metoprolol Tartrate 50 Mg Tablet) 50 mg PO BID [facility] Last Admin: 09/03/20 09:20 Dose: 50 mg Documented by: Ondansetron HCl (Ondansetron 4 Mg/2 Ml Vial) 4 mg IV Q8H PRN PRN PRN Reason: NAUSEA/VOMITING Polysaccharide Iron Complex (Iron Polysaccharide Complex 150 Mg Capsule) 150 mg PO DAILY [facility] Last Admin: 09/03/20 09:20 Dose: 150 mg Documented by: Prednisone (Prednisone 5 Mg Tablet) 5 mg PO BIDCM [facility] Last Admin: 09/03/20 09:20 Dose: 5 mg Documented by: Sertraline HCl (Sertraline 50 Mg Tablet) 100 mg PO DAILY [facility] Last Admin: 09/03/20 09:21 Dose: 100 mg Documented by: Sodium Bicarbonate (Sodium Bicarbonate 650 Mg Tablet) 650 mg PO TID [facility] Last Admin: 09/03/20 14:58 Dose: 650 mg Documented by: Sodium Chloride (0.9% Saline Lock 10 Ml Syringe) 10 - 40 ml IV UD PRN PRN Reason: Port-a-Cath (VAD) Flush Last Admin: 09/03/20 09:29 Dose: 10 ml Documented by: Sodium Chloride (0.9 % Nacl (Sterile) Posiflush 10 Ml) 10 - 40 ml IV UD PRN PRN Reason: Port access or dressing change Zolpidem Tartrate (Zolpidem Tartrate 5 Mg Tablet) 5 mg PO QHS PRN PRN PRN Reason: INSOMNIA Medical Necessity - Tobacco Use Smoking Status: Never smoker Assessment/Plan All Active Problems (Last Reviewed 09/01/20 @ 17:[address] Dallin Lazar MD) GI bleed (Acute) This is a 74 years old male patient presented to the emergency room because of weakness and shortness of breath, found to have acute on chronic symptomatic anemia with stool that was positive for occult blood, also found to have probable acute cystitis and he is being admitted for evaluation and treatment. #1 acute on chronic symptomatic anemia/probable GI bleed: Microcytic anemia, iron deficiency. Patient received 2 months of packed RBCs. Today's hemoglobin is 9 g/dL. His stool was occult blood positive. Patient is on IV Protonix. He underwent upper EGD that showed gastritis, no active bleeding. Plan: Change IV Protonix to p.o., awaiting placement to senior living facility. #2 probable acute cystitis: He is on IV Rocephin empirically. Urine culture revealed Ginette albicans. Blood culture showed no growth in 48 hours. #3 recent non-ST elevation [place]/ischemic cardiomyopathy: Stable, no complaints. During last admission, decision was made to continue medical treatment. He had 2D echocardiogram on 2020 that showed ejection fraction of 35%. No evidence of acute CHF. Continue statins, nitrate and metoprolol, keep holding aspirin and Plavix. Plan to resume aspirin and Plavix upon discharge. #4 physical debility/functional decline/difficulty ambulating: Patient lives at home with his , has been having difficulty ambulating at home and his cannot take care of him. We are awaiting placement to senior living facility. #5 history of prostate cancer: Status post surgery and chemotherapy, continue Zytiga and prednisone. Patient denied any hematuria. #6 status post bilateral nephrostomy tubes: This was done on August for bladder outlet obstruction at [facility]. Urinalysis reviewed, showed cloudy urine, plan as above. #6 stage IV chronic kidney disease: Baseline creatinine has been around 2.5 to 3.5 mg/dL. Admission creatinine is 3.31, most recent creatinine is 3.36, stable at baseline, continue sodium bicarb 3 times daily. #7 type 2 diabetes mellitus: ADA diet, Accu-Cheks, insulin sliding scale, continue Lantus. #8 hyperlipidemia: Continue statins. #10 CODE STATUS: DNR CCA, no intubation, confirmed with the patient. #11 DVT prophylaxis: SCDs. This note was generated with [employer] dictation software. It may contain incorrect words, spelling, and punctuation that were not noted in checking the note before signing. Inpatient E&M: 36800 Subs Hosp L2
[2020-09-03 17:00] LABS: Bedside Glucose 179 mg/dL (70-110)
[2020-09-03] MEDS: Atorvastatin Calcium 40 MG Tablet PO (21:45)
[2020-09-03 23:16] LABS: Bedside Glucose 208 mg/dL (70-110)
[2020-09-04] VITALS (12 sets, daily range): BP systolic 123–154; BP diastolic 67–85; PULSE 66–76; RESP 15–17; TEMP 36.5–36.9; O2SAT 94–98
[2020-09-04] MEDS: Acetaminophen 325 MG Tablet 650 MG PO (01:13)
[2020-09-04] MEDS: 0.9% Saline Lock 10 ML Syringe IV ×3 (02:42→22:50)
[2020-09-04] MEDS: Sodium Bicarbonate 650 MG Tablet PO ×3 (06:28→22:56)
[2020-09-04 06:46] LABS: Bedside Glucose 128 mg/dL (70-110)
[2020-09-04] MEDS: predniSONE 5 MG Tablet PO ×2 (09:28→17:56)
[2020-09-04] MEDS: Folic Acid 1 MG Tablet PO (09:28)
[2020-09-04] MEDS: ABIRATERONE ACETATE 250 MG TABLET 1000 MG PO (09:29)
[2020-09-04] MEDS: Isosorbide Mononitrate 30 MG Tablet PO (09:29)
[2020-09-04] MEDS: Metoprolol Tartrate 50 MG Tablet PO ×2 (09:29→22:56)
[2020-09-04] MEDS: Iron Polysaccharide Complex 150 MG CAPSULE PO (09:29)
[2020-09-04] MEDS: Sertraline 50 MG Tablet 100 MG PO (09:29)
[2020-09-04 11:30] LABS: Bedside Glucose 142 mg/dL (70-110)
--- NOTE | 2020-09-04 14:33 | CASEMGMT ---
DARRELL spoke with Loulou with [facility] and she said she has called insurance twice requesting return call regarding approval for SNF. Lani KINCAID MSW
--- NOTE | 2020-09-04 14:48 | PCM.PROGNOTE ---
Patient Problems: Active and Suspected Problems (Last Reviewed 09/01/20 @ 17:[address] Dallin Lazar MD) GI bleed (Acute) Subjective: Chief complaint: Follow-up after admission for acute on chronic symptomatic anemia, GI bleed. Patient seen and examined. No acute events overnight. He complained of mild dry cough, no other complaints. Denied fever or chills. His vital signs are stable. - Physical Exam Vitals/I&O's: Vital Signs Temp Pulse Resp BP Pulse Ox 97.7 F L 72 15 123/68 H 94 09/04/20 09:20 09/04/20 09:29 09/04/20 09:20 09/04/20 09:20 09/04/20 11:44 Oxygen Delivery Method Room Air Weight: 184 lb 15.485 oz Body Mass Index (BMI) 24.5 Finger Stick Blood Glucose 142 Intake and Output for Last 24 Hours 09/02/20 09/03/20 09/04/20 23:59 23:59 23:59 Intake Total 1709 / 2009 2480 / 2980 1464 / 1464 Output Total 2750 / 3350 2825 / 3275 1900 / 1900 Balance -1040 / -1340 -345 / -295 -436 / -436 General: Alert, Oriented x3, Cooperative, No apparent distress HEENT: Atraumatic, PERRLA, EOMI, Normocephalic Oral: Moist Mucosa, No Gingival or Mucosal Lesions/ Ulcerations Neck: Supple, No JVD, Negative Carotid Bruits, Trachea Midline, Thyroid Normal Size and Texture Lungs: Clear to auscultation, Normal air movement, No rhonchi, No wheeze, No rales Cardiovascular: Regular rate, Regular Rhythm, Normal S1, Normal S2, PMI Normal Abdomen: Bowel Sounds Present, Soft, Non Tender, Non-Distended, No Hepato-splenomegaly Extremities: No clubbing, No cyanosis, No edema Skin: No rashes, No breakdown Lymphatic: No Cervical, Supraclavicular, or Inguinal Adenopathy Neurological: Cranial nerves II-XII grossly intact, Neuro grossly intact Psych/Mental Status: Normal Affect, Appropriate Microbiology Past 72 Hours 09/01/20 09:40 Urine, Nephrostomy Urine Culture - Final Ginette albicans 09/01/20 09:50 Blood Culture (Wb) - Central Line Blood Culture - Preliminary No growth in 48 hours. 09/01/20 10:10 Blood Culture (Wb) - Right Forearm Blood Culture - Preliminary No growth in 48 hours. 09/01/20 11:10 Stool Stool Occult Blood ([facility]) - Final Occult Blood Positive 09/01/20 09:40 Mucosa - Nose SARS-CoV-2 Antigen (Rapid) - Final Laboratory Results 09/03/20 16:53: POC Glucose 179 H 09/03/20 21:43: POC Glucose 208 H 09/04/20 06:34: POC Glucose 128 H 09/04/20 11:16: POC Glucose 142 H Current Medications Abiraterone Acetate (Abiraterone Acetate 250 Mg Tablet) 1,000 mg PO DAILY [facility] Last Admin: 09/04/20 09:29 Dose: 1,000 mg Documented by: Acetaminophen (Acetaminophen 325 Mg Tablet) 650 mg PO Q6H PRN PRN PRN Reason: Pain Score 1-10/Temp > 100.7 F Last Admin: 09/04/20 01:13 Dose: 650 mg Documented by: Atorvastatin Calcium (Atorvastatin Calcium 40 Mg Tablet) 40 mg PO QHS [facility] Last Admin: 09/03/20 21:45 Dose: 40 mg Documented by: Folic Acid ([facility] 1 Mg Tablet) [facility] Last Admin: 09/04/20 09:28 Dose: 1 mg Documented by: Guaifenesin (Guaifenesin 10 Ml Udc (200mg/10ml)) 10 ml PO Q6H PRN PRN PRN Reason: COUGH/CONGESTION Heparin Sodium (Beef Lung) (Heparin Pf Lock 10 Units/Ml 50 Units/5 Ml Syringe) 50 units IV UD PRN PRN Reason: Port-a-Cath (VAD)Heparin Flush Ceftriaxone Sodium 2 gm/ (Sodium Chloride) 50 mls @ 100 mls/hr IV Q24 [facility] Last Infusion: 09/04/20 11:02 Dose: Infused Documented by: Pantoprazole Sodium 40 mg/ (Sodium Chloride) 110 mls @ 330 mls/hr IV Q12 [facility] Last Infusion: 09/04/20 09:57 Dose: Infused Documented by: Insulin Glargine (Insulin Glargine 100 Units/Ml Pen) 15 units SC QHS PRN PRN Reason: diabetes Insulin Human Lispro (Insulin Lispro 100 Unit/Ml Insuln.Pen) 0 unit SC ACHS [facility]; Protocol Last Admin: 09/04/20 11:18 Dose: Not Given Documented by: Isosorbide Mononitrate (Isosorbide Mononitrate 30 Mg Tablet) 30 mg PO DAILY [facility] Last Admin: 09/04/20 09:29 Dose: 30 mg Documented by: Metoprolol Tartrate (Metoprolol Tartrate 50 Mg Tablet) 50 mg PO BID [facility] Last Admin: 09/04/20 09:29 Dose: 50 mg Documented by: Ondansetron HCl (Ondansetron 4 Mg/2 Ml Vial) 4 mg IV Q8H PRN PRN PRN Reason: NAUSEA/VOMITING Polysaccharide Iron Complex (Iron Polysaccharide Complex 150 Mg Capsule) 150 mg PO DAILY [facility] Last Admin: 09/04/20 09:29 Dose: 150 mg Documented by: Prednisone (Prednisone 5 Mg Tablet) [facility] Last Admin: 09/04/20 09:28 Dose: 5 mg Documented by: Sertraline HCl (Sertraline 50 Mg Tablet) 100 mg PO DAILY [facility] Last Admin: 09/04/20 09:29 Dose: 100 mg Documented by: Sodium Bicarbonate (Sodium Bicarbonate 650 Mg Tablet) 650 mg PO TID [facility] Last Admin: 09/04/20 06:28 Dose: 650 mg Documented by: Sodium Chloride (0.9% Saline Lock 10 Ml Syringe) 10 - 40 ml IV UD PRN PRN Reason: Port-a-Cath (VAD) Flush Last Admin: 09/04/20 09:40 Dose: 10 ml Documented by: Sodium Chloride (0.9 % Nacl (Sterile) Posiflush 10 Ml) 10 - 40 ml IV UD PRN PRN Reason: Port access or dressing change Zolpidem Tartrate (Zolpidem Tartrate 5 Mg Tablet) 5 mg PO QHS PRN PRN PRN Reason: INSOMNIA Medical Necessity - Tobacco Use Smoking Status: Never smoker Assessment/Plan All Active Problems (Last Reviewed 09/01/20 @ 17:[address] Dallin Lazar MD) GI bleed (Acute) This is a 74 years old male patient presented to the emergency room because of weakness and shortness of breath, found to have acute on chronic symptomatic anemia with stool that was positive for occult blood, also found to have probable acute cystitis and he is being admitted for evaluation and treatment. #1 acute on chronic symptomatic anemia/probable GI bleed: Microcytic anemia, iron deficiency. Patient received 2 months of packed RBCs. Most recent hemoglobin is 9 g/dL. His stool was occult blood positive. Patient is on IV Protonix. He underwent upper EGD that showed gastritis, no active bleeding. He is on p.o. Protonix. We are still awaiting insurance approval for placement to longterm facility. #2 probable acute cystitis: He is on IV Rocephin, will discontinue IV Rocephin tomorrow but patient remained in the hospital. Urine culture revealed Ginette albicans. Blood culture showed no growth in 48 hours. #3 recent non-ST elevation [place]/ischemic cardiomyopathy: Stable, no complaints. During last admission, decision was made to continue medical treatment. He had 2D echocardiogram on 2020 that showed ejection fraction of 35%. No evidence of acute CHF. Continue statins, nitrate and metoprolol, keep holding aspirin and Plavix. Plan to resume aspirin and Plavix upon discharge. #4 physical debility/functional decline/difficulty ambulating: Patient lives at home with his , has been having difficulty ambulating at home and his cannot take care of him. We are awaiting placement to longterm facility. #5 history of prostate cancer: Status post surgery and chemotherapy, continue Zytiga and prednisone. Patient denied any hematuria. #6 status post bilateral nephrostomy tubes: This was done on August for bladder outlet obstruction at [facility]. Urinalysis reviewed, showed cloudy urine, plan as above. #6 stage IV chronic kidney disease: Baseline creatinine has been around 2.5 to 3.5 mg/dL. Admission creatinine is 3.31, most recent creatinine is 3.36, stable at baseline, continue sodium bicarb 3 times daily. #7 type 2 diabetes mellitus: ADA diet, Accu-Cheks, insulin sliding scale, continue Lantus. #8 hyperlipidemia: Continue statins. #10 CODE STATUS: DNR CCA, no intubation, confirmed with the patient. #11 DVT prophylaxis: SCDs. This note was generated with Lavab[employer] software. It may contain incorrect words, spelling, and punctuation that were not noted in checking the note before signing. Inpatient E&M: 07789 Subs Hosp L2
--- NOTE | 2020-09-04 15:48 | NURSING ---
Addendum entered by Abby See 09/04/20 18:01: 1800-Left nephrostomy bag noted to have urine in it. Emptied bag of 325ml pink tinged cloudy urine. Pt denies pain. Both tubes free of kinks. 1803-Spoke with Dr Horton via telephone and notified of nephrostomy tube becoming dislodged. Verbal orders received for a nephrostogram and new tube placement for in the morning by radiology. Pt aware. Offered to call family, pt declined. Original Note: 1425-This RN into room. Therapy present. While emptying nephrostomy tubes with pt sitting on side of bed, it was noted that the left nephrostomy bag was empty. Observed that pt's gown was wet and the left nephrostomy tube was pulled out of site roughly 2 inches from where stitch was placed to hold tube in place. Pt stated that he had rolled over in bed and thought it had pulled. Advised pt that if he feels that they are kinked or had pulled he needs to let nurse know right away to assess them. Pt informed this RN that he normally gets nephrostomy tubes changed at [facility]. Secured nephrostomy tube to skin with tape in current position and applied sterile ABD overtop to protect and collect any drainage. Coretext sent to Dr Esquivel. 1514-Dr. Esquivel called this RN made aware of observed nephrostomy tube and that pt gets them changed at [facility].
[2020-09-04 16:50] LABS: Bedside Glucose 135 mg/dL (70-110)
[2020-09-04] MEDS: Insulin Lispro 100 UNIT/ML INSULN.PEN SC (22:54)
[2020-09-04] MEDS: Atorvastatin Calcium 40 MG Tablet PO (22:55)
[2020-09-04 23:11] LABS: Bedside Glucose 157 mg/dL (70-110)
[2020-09-05 03:38] VITALS: PULSE 63
[2020-09-05 04:37] VITALS: BP 131/77; PULSE 62; RESP 16; TEMP 37; O2SAT 100
[2020-09-05 06:51] LABS: Bedside Glucose 141 mg/dL (70-110)
--- NOTE | 2020-09-05 07:09 | CASEMGMT ---
SW received a voice mail from [facility] with [place] and patient's insurance denied him to go to [place]. Patient appears to be doing well with therapy so SW will talk with patient and his son about patient returning home with home health. Lani PHILLIPS
[2020-09-05 07:18] VITALS: O2SAT 99
[2020-09-05] MEDS: Sodium Bicarbonate 650 MG Tablet PO (07:33)
[2020-09-05 08:00] VITALS: PULSE 71
[2020-09-05] MEDS: Folic Acid 1 MG Tablet PO (08:02)
[2020-09-05] MEDS: predniSONE 5 MG Tablet PO (08:03)
--- NOTE | 2020-09-05 08:30 | DCINST_ITS ---
- Discharge Diagnoses Current Active Problems: Current Active and Chronic Problems (Last Reviewed 09/01/20 @ 17:[address] Dallin Lazar MD) GI bleed (Acute) Anemia in chronic kidney disease (CKD) (Chronic) Iron deficiency (Chronic) Non-STEMI (non-ST elevated myocardial infarction) (Chronic) Cardiomyopathy, ischemic (Chronic) Prostate cancer (Chronic) Chronic renal disease, stage 4, severely decreased glomerular filtration rate (GFR) between 15-29 mL/min/1.73 square meter (Chronic) Atherosclerotic heart disease of [place] coronary artery without angina pectoris (Chronic) Type 2 diabetes mellitus (Chronic) Hyperlipidemia (Chronic) You will use the following diet at home:: Calorie/Carbohydrate Controlled (specify 1200, 1400, etc) - 1800 juanjose., Cardiac Your food should be the consistency of: Regular Discharge Activity: Return to Normal Activity Weight Bearing Status: Weight bearing as tolerated Call your doctor if you observe: Fever of 101 or Higher, Shortness of breath, Dizziness, Fainting spells, Chest pain, Increased palpitations (irregular heartbeat), Uncontrolled pain Additional Instructions: Please follow-up with your urologist at [facility] as soon as you can. Allergies/Adverse Reactions: Allergies ramipril [From Altace] Allergy (Intermediate, Verified 09/01/20 09:11) Unknown cough nalbuphine [From Nubain] Adverse Reaction (Severe, Verified 09/01/20 09:11) Nausea/Vom/Diarrhea Medications to take at Discharge Atorvastatin Calcium [Lipitor] 40 mg PO QHS 03/09/16 Calcium Carbonate/Vitamin D3 [Calcium 600-Vit D3 400 Caplet] 1 ea PO BID 07/28/16 Insulin Glargine [Lantus SoloStar Pen] 15 units SC QHS PRN 10/07/17 Insulin Lispro [Humalog] 0 unit SQ BID 10/07/17 sertraline 50 mg tablet 100 mg PO DAILY tab 10/27/17 sodium bicarbonate 650 mg tablet 650 mg PO TID tab 10/27/17 Acetaminophen [Tylenol Tablet] 650 mg PO Q6H PRN PRN tab 04/16/19 Prednisone 5 mg PO BID #60 tab 02/27/20 Iron Polysaccharide Complex [Ferrex 150] 150 mg PO DAILYCM #90 cap 05/07/20 Folic Acid 1 mg PO DAILY 08/19/20 Isosorbide Mononitrate [Imdur] 30 mg PO DAILY #90 tab 08/22/20 Metoprolol Tartrate [Lopressor (beta sergei)] 50 mg PO BID #90 tab 08/22/20 Abiraterone Acetate [Zytiga] 1,000 mg PO DAILY 09/01/20 Aspirin [Aspirin, Baby] 81 mg PO DAILY@0800 09/01/20 Clopidogrel Bisulfate [Plavix] 75 mg PO DAILY 09/01/20 Pantoprazole Sodium [Protonix] 40 mg PO DAILY #30 tab 09/05/20 The following prescriptions were given: Pantoprazole Sodium [Protonix] 40 mg PO DAILY #30 tab Transmission Status: Pending to [facility] Primary Care Physician: Fidencio Flores MD [Primary Care Provider] - Please follow up with your Primary Care Physician in: 1 WEEK. Test Results: Test results from this visit will be discussed in further detail at your follow- up appointment, if applicable. Please Follow Up With: Chang Horton MD When: Please call his office. Please Follow Up With: Praveen Sol MD When: 1 week.
--- NOTE | 2020-09-05 09:27 | CASEMGMT ---
DARRELL spoke with patient. DARRELL let patient know that SW received a voice mail and his insurance denied him to go to [place]. He said that is ok he wants to go home. He is going to [place] to have his Nephrostomy tubes re-placed. DARRELL called patient's son as he has been active in patient's care. Patient was okay with this. SW let him know about the voice mail with denial. SW told him patient is doing much better. He is contact guard and walking around 180'. He asked if home health could be set up. SW asked if they had a preferred agency. He said patient has had [facility] in the past. He would like them. SW offered a list of local home health agencies and he declined unless [facility] cannot take patient. DARRELL called [facility] and left a voice mail with Dona regarding referral. Lani PHILLIPS
--- NOTE | 2020-09-05 10:14 | DS.PCM_ITS ---
Discharge Date and Diagnosis - Problem List Patient Problems: Active and Suspected Problems (Last Reviewed 09/01/20 @ 17:[address] Dallin Lazar MD) GI bleed (Acute) Date of Admission: 09/01/20 Date of Discharge: 09/05/20 - Primary Discharge Diagnosis Acute Problems: Active Problems (Last Reviewed 09/01/20 @ 17:[address] Dallin Lazar MD) #1 acute on chronic symptomatic anemia. #2 GI bleed, ruled out by endoscopy. #3 probable acute cystitis, completed treatment with IV Rocephin. #4 malfunctioning left nephrostomy tube. #5 recent non-ST elevation [place]/ischemic cardiomyopathy. - Secondary Discharge Diagnosis Chronic Problems: Chronic Problems (Last Reviewed 09/01/20 @ 17:[address] Dallin Lazar MD) Hemochromatosis (Chronic) Secondary malignant neoplasm of bone (Chronic) Thrombocytopenia (Chronic) Anemia in chronic kidney disease (CKD) (Chronic) Iron deficiency (Chronic) Non-STEMI (non-ST elevated myocardial infarction) (Chronic) Cardiomyopathy, ischemic (Chronic) Prostate cancer (Chronic) Problem with dialysis access (Chronic) Hx of arteriovenostomy for renal dialysis (Chronic) 04/16/19 Prostate cancer (Chronic) Chronic renal disease, stage 4, severely decreased glomerular filtration rate (GFR) between 15-29 mL/min/1.73 square meter (Chronic) Essential hypertension (Chronic) Cataract, right eye (Chronic) Dr Maki [facility] 03/2018 SVT (supraventricular tachycardia) (Chronic) Atherosclerotic heart disease of [place] coronary artery without angina pectoris (Chronic) Nonrheumatic mitral (valve) prolapse (Chronic) Nonrheumatic aortic (valve) insufficiency (Chronic) RBBB (Chronic) Type 2 diabetes mellitus (Chronic) Sleep apnea (Chronic) Hyperlipidemia (Chronic) Hospital Course and Treatment Imaging Results: Clinical Impression(s) from Imaging Studies Chest X-Ray 09/01/20 09:45 IMPRESSION: No acute abnormality is seen. Electronically Signed: Hesham Lawson MD at 9:59 EST , Service support , Dr. Lazar, general surgery. Operations: None Procedures: Blood transfusion, EGD, EKG Summary of Care Provided: Patient seen and examined on the day of discharge. We were still waiting for insurance approval for placement to detention facility. Yesterday, nursing staff noted that the left nephrostomy tube is not draining. There was a concern that the left nephrostomy tube may be displaced or dislodged. Urology consulted and recommended evaluation of the left nephrostomy tube under fluoroscopy which should be done by radiology. On the day of discharge, patient stated that he absolutely refused to do the procedure with our radiology department. Patient was informed that we have no other options at this hospital. He requested that he be discharged and he can go to [facility] in [place] where he had his nephrostomy tube placed. I informed the patient that he may lose the placement to detention facility that we have been working on. Patient thinks that he can go home and he feels strong enough and he wants to go to [facility] as outpatient. The patient is a 74 year old M presented to the emergency room because of weakness and shortness of breath on exertion and he was found to have acute on chronic symptomatic anemia. He was found to have stool that was positive for occult blood. He was admitted to PCU, received blood transfusion of 2 units of packed RBCs. Hemoglobin went up to 9 g/dL upon discharge. He underwent upper EGD that showed gastritis without evidence of active GI bleed. He was treated with Protonix first IV and then was switched to p.o. He was found to have pr obable acute cystitis, was started on Rocephin and he completed 5 days of IV Rocephin. Urine culture revealed Ginette albicans. Blood culture showed no growth in 48 hours. Patient had recent non-STEMI with ischemic cardiomyopathy and this was stable. Aspirin and Plavix held during his hospital stay and he was continued on statins, nitrate and metoprolol. Patient lives at home with his and according to the patient's son, patient has been having difficulty ambulating and his want to be able to take care of him at home at this time. Patient was evaluated by PT OT and recommended placement to detention facility. We were awaiting the insurance approval for the placement to SNF and nursing staff noted that the left nephrostomy tube is not draining and may be displaced. Nephrology consulted and recommended to evaluate the left nephrostomy tube under fluoroscopy. Patient refused to go under this procedure with our radiology department and he requested that he discharged home and he will go to [facility] in [place] by himself as outpatient. Patient is aware and understand that if he gets discharged, he will not have the ability to go to detention facility. He mentioned that he thinks that he is strong enough to go back home. He was given the option to be transferred to [facility] as inpatient but he refused and he wanted to be discharged and he will go to the hospital directly. Patient discharged home in stable medical condition, he completed course of IV Rocephin for UTI, discharged on Protonix, resumed back on aspirin and Plavix, continued on his other previous home medications without any changes, recommended follow-up with urology, follow-up with cardiology in 1 week and follow-up with PCP in 1 week. Patient Problems: Active and Suspected Problems (Last Reviewed 09/01/20 @ 17:[address] Dallin Lazar MD) GI bleed (Acute) - Physical Exam Vitals/I&O's: Vital Signs Temp Pulse Resp BP Pulse Ox 98.6 F 62 16 131/77 H 99 09/05/20 04:37 09/05/20 04:37 09/05/20 04:37 09/05/20 04:37 09/05/20 07:18 Oxygen Delivery Method Room Air Weight: 184 lb 15.485 oz Body Mass Index (BMI) 24.5 Finger Stick Blood Glucose 142 Intake and Output for Last 24 Hours 09/03/20 09/04/20 09/05/20 23:59 23:59 23:59 Intake Total 2480 / 2980 2234 / 2234 Output Total 2825 / 3275 3225 / 3225 525 / 525 Balance -345 / -295 -991 / -991 -525 / -525 General: Alert, Oriented x3, Cooperative, No apparent distress HEENT: Atraumatic, PERRLA, EOMI, Normocephalic Oral: Moist Mucosa, No Gingival or Mucosal Lesions/ Ulcerations Neck: Supple, No JVD, Negative Carotid Bruits, Trachea Midline, Thyroid Normal Size and Texture Lungs: Clear to auscultation, No rhonchi, No rales Cardiovascular: Regular rate, Regular Rhythm, Normal S1, Normal S2, PMI Normal Abdomen: Bowel Sounds Present, Soft, Non Tender, Non-Distended, No Hepato- splenomegaly Extremities: No clubbing, No cyanosis, No edema Skin: No rashes, No breakdown Lymphatic: No Cervical, Supraclavicular, or Inguinal Adenopathy Neurological: Cranial nerves II-XII grossly intact, Neuro grossly intact Psych/Mental Status: Normal Affect, Appropriate Microbiology Past 72 Hours 09/01/20 09:40 Urine, Nephrostomy Urine Culture - Final Ginette albicans 09/01/20 09:50 Blood Culture (Wb) - Central Line Blood Culture - Preliminary No growth in 48 hours. 09/01/20 10:10 Blood Culture (Wb) - Right Forearm Blood Culture - Preliminary No growth in 48 hours. Laboratory Results 09/04/20 11:16: POC Glucose 142 H 09/04/20 16:45: POC Glucose 135 H 09/04/20 22:49: POC Glucose 157 H 09/05/20 06:42: POC Glucose 141 H Current Medications Abiraterone Acetate (Abiraterone Acetate 250 Mg Tablet) 1,000 mg PO DAILY [facility] Last Admin: 09/04/20 09:29 Dose: 1,000 mg Documented by: Acetaminophen (Acetaminophen 325 Mg Tablet) 650 mg PO Q6H PRN PRN PRN Reason: Pain Score 1-10/Temp > 100.7 F Last Admin: 09/04/20 01:13 Dose: 650 mg Documented by: Atorvastatin Calcium (Atorvastatin Calcium 40 Mg Tablet) 40 mg PO QHS [facility] Last Admin: 09/04/20 22:55 Dose: 40 mg Documented by: Folic Acid (Folic Acid 1 Mg Tablet) 1 mg PO DAILYCM [facility] Last Admin: 09/05/20 08:02 Dose: 1 mg Documented by: Guaifenesin (Guaifenesin 10 Ml Udc (200mg/10ml)) 10 ml PO Q6H PRN PRN PRN Reason: COUGH/CONGESTION Heparin Sodium (Beef Lung) (Heparin Pf Lock 10 Units/Ml 50 Units/5 Ml Syringe) 50 units IV UD PRN PRN Reason: Port-a-Cath (VAD)Heparin Flush Ceftriaxone Sodium 2 gm/ (Sodium Chloride) 50 mls @ 100 mls/hr IV Q24 [facility] Last Infusion: 09/04/20 11:02 Dose: Infused Documented by: Pantoprazole Sodium 40 mg/ (Sodium Chloride) 110 mls @ 330 mls/hr IV Q12 [facility] Last Infusion: 09/04/20 23:12 Dose: Infused Documented by: Insulin Glargine (Insulin Glargine 100 Units/Ml Pen) 15 units SC QHS PRN PRN Reason: diabetes Insulin Human Lispro (Insulin Lispro 100 Unit/Ml Insuln.Pen) 0 unit SC [facility]; Protocol Last Admin: 09/05/20 06:43 Dose: Not Given Documented by: Isosorbide Mononitrate (Isosorbide Mononitrate 30 Mg Tablet) 30 mg PO DAILY [facility] Last Admin: 09/04/20 09:29 Dose: 30 mg Documented by: Metoprolol Tartrate (Metoprolol Tartrate 50 Mg Tablet) 50 mg PO BID [facility] Last Admin: 09/04/20 22:56 Dose: 50 mg Documented by: Ondansetron HCl (Ondansetron 4 Mg/2 Ml Vial) 4 mg IV Q8H PRN PRN PRN Reason: NAUSEA/VOMITING Polysaccharide Iron Complex (Iron Polysaccharide Complex 150 Mg Capsule) 150 mg PO DAILY [facility] Last Admin: 09/04/20 09:29 Dose: 150 mg Documented by: Prednisone (Prednisone 5 Mg Tablet) 5 mg PO BIDCOX BRANSON Last Admin: 09/05/20 08:03 Dose: 5 mg Documented by: Sertraline HCl (Sertraline 50 Mg Tablet) 100 mg PO DAILY [facility] Last Admin: 09/04/20 09:29 Dose: 100 mg Documented by: Sodium Bicarbonate (Sodium Bicarbonate 650 Mg Tablet) 650 mg PO TID [facility] Last Admin: 09/05/20 07:33 Dose: 650 mg Documented by: Sodium Chloride (0.9% Saline Lock 10 Ml Syringe) 10 - 40 ml IV UD PRN PRN Reason: Port-a-Cath (VAD) Flush Last Admin: 09/04/20 22:50 Dose: 10 ml Documented by: Sodium Chloride (0.9 % Nacl (Sterile) Posiflush 10 Ml) 10 - 40 ml IV UD PRN PRN Reason: Port access or dressing change Zolpidem Tartrate (Zolpidem Tartrate 5 Mg Tablet) 5 mg PO QHS PRN PRN PRN Reason: INSOMNIA Discharge Activity: Return to Normal Activity Weight Bearing Status: Weight bearing as tolerated Call your doctor if you observe: Fever of 101 or Higher, Shortness of breath, Dizziness, Fainting spells, Chest pain, Increased palpitations (irregular heartbeat), Uncontrolled pain Home Medications: Medications to take at Discharge Atorvastatin Calcium [Lipitor] 40 mg PO QHS 03/09/16 Calcium Carbonate/Vitamin D3 [Calcium 600-Vit D3 400 Caplet] 1 ea PO BID 07/28/16 Insulin Glargine [Lantus SoloStar Pen] 15 units SC QHS PRN 10/07/17 Insulin Lispro [Humalog] 0 unit SQ BID 10/07/17 sertraline 50 mg tablet 100 mg PO DAILY tab 10/27/17 sodium bicarbonate 650 mg tablet 650 mg PO TID tab 10/27/17 Acetaminophen [Tylenol Tablet] 650 mg PO Q6H PRN PRN tab 04/16/19 Prednisone 5 mg PO BID #60 tab 02/27/20 Iron Polysaccharide Complex [Ferrex 150] 150 mg PO DAILYCM #90 cap 05/07/20 Folic Acid 1 mg PO DAILY 08/19/20 Isosorbide Mononitrate [Imdur] 30 mg PO DAILY #90 tab 08/22/20 Metoprolol Tartrate [Lopressor (beta sergei)] 50 mg PO BID #90 tab 08/22/20 Abiraterone Acetate [Zytiga] 1,000 mg PO DAILY 09/01/20 Aspirin [Aspirin, Baby] 81 mg PO DAILY@0800 09/01/20 Clopidogrel Bisulfate [Plavix] 75 mg PO DAILY 09/01/20 Pantoprazole Sodium [Protonix] 40 mg PO DAILY #30 tab 09/05/20 Following Prescriptions Were Given to Patient: Pantoprazole Sodium [Protonix] 40 mg PO DAILY #30 tab Transmission Status: Received by [facility] [facility] Primary Care Physician: Fidencio Flores MD [Primary Care Provider] - Please follow up with your Primary Care Physician in: 1 WEEK. Please Follow Up With: Chang Horton MD When: Please call his office. Please Follow Up With: Praveen Sol MD When: 1 week. Disposition: Home Minutes spent on discharge:: 33 Patient Condition:: Stable Medical Necessity - Tobacco Use Smoking Status: Never smoker Meaningful Use Info Meaningful Use Diagnoses (Choose all that apply): None applicable Inpatient E&M: 96005 Disch Hosp
[2020-09-05] MEDS: Isosorbide Mononitrate 30 MG Tablet PO (10:16)
[2020-09-05 10:17] VITALS: PULSE 74
[2020-09-05] MEDS: Iron Polysaccharide Complex 150 MG CAPSULE PO (10:17)
[2020-09-05] MEDS: Sertraline 50 MG Tablet 100 MG PO (10:17)
[2020-09-05] MEDS: ABIRATERONE ACETATE 250 MG TABLET 1000 MG PO (10:17)
[2020-09-05] MEDS: Metoprolol Tartrate 50 MG Tablet PO (10:17)
[2020-09-05 10:40] VITALS: BP 151/74; PULSE 67; RESP 16; TEMP 37.2; O2SAT 100
--- NOTE | 2020-09-05 11:03 | CASEMGMT ---
Addendum entered by Lani Quigley 09/05/20 11:06: SW let both patient and his son know [facility] can accept patient and they will contact him to set up an appt. Plan: d/c home with [facility], PT, OT, aide, and Social Work. Lani PHILLIPS Original Note: DARRELL spoke with Dona with [facility] and they can accept patient. SW will let patient and his son know this information. Lani PHILLIPS
[2020-09-05] MEDS: 0.9% Saline Lock 10 ML Syringe IV (11:17)
--- NOTE | 2020-09-08 15:09 | CASEMGMT ---
REY LÓPEZ Discharge F/U Phone Call LACE: 13 Strata: 3 Discharge date: 09/05/20 Call date: 09/08/20 Call time: [id number] Admission dx: Acute on chronic symptomatic anemia answered and states pt just returned from [facility] where he had his nephrostomy tubes replaced today. asks if REY LÓPEZ can call back tomorrow to complete f/u phone call. REY LÓPEZ to f/u tomorrow. SStaten REY LÓPEZ
--- NOTE | 2020-09-09 14:09 | CASEMGMT ---
REY LÓPEZ Discharge F/U Phone Call LACE: 13 Strata: 3 Discharge date: 09/05/20 Call date: 09/09/20 Call time: [id number] Admission dx: Acute on chronic symptomatic anemia REY LÓPEZ attempted FU tc to pt. No answer. Left message on with call back number.
== END 2020-09-05 11:31 | disposition home health service (06) | DRG 811 ==
LOC: ED 12:38 → PCU 12:43
PROVIDERS: Anesthesiology; Surgery; Admitting Provider Hospitalist; Emergency Provider Student in an Organized Health Care Education/Training Program; PCP Family Medicine; Visit Provider Hospitalist
PROC: 0DJ08ZZ Inspection of Upper Intestinal Tract, Via Natural or Artificial Opening Endoscopic (ICD-10-PCS; CPT 43235; principal; 2020-09-02 11:55)
DX: D50.9 Iron deficiency anemia, unspecified (principal); I21.4 Non-ST elevation (NSTEMI) myocardial infarction; N30.00 Acute cystitis without hematuria; N18.4 Chronic kidney disease, stage 4 (severe); C79.51 Secondary malignant neoplasm of bone; D63.1 Anemia in chronic kidney disease; I25.5 Ischemic cardiomyopathy; N99.522 Malfunction of incontinent external stoma of urinary tract; T83.092A Other mechanical complication of nephrostomy catheter, initial encounter; I25.10 Atherosclerotic heart disease of native coronary artery without angina pectoris; E11.22 Type 2 diabetes mellitus with diabetic chronic kidney disease; I12.9 Hypertensive chronic kidney disease with stage 1 through stage 4 chronic kidney disease, or unspecified chronic kidney disease; I45.10 Unspecified right bundle-branch block; C61 Malignant neoplasm of prostate; E78.5 Hyperlipidemia, unspecified; G47.30 Sleep apnea, unspecified; K29.70 Gastritis, unspecified, without bleeding; N32.0 Bladder-neck obstruction; Z79.899 Other long term (current) drug therapy; Z79.4 Long term (current) use of insulin; Z79.02 Long term (current) use of antithrombotics/antiplatelets; Z79.82 Long term (current) use of aspirin; Z79.52 Long term (current) use of systemic steroids; Z66 Do not resuscitate
CPT/HCPCS: 36415; 36591; 71045; 80048; 80053; 81001; 82274; 82962; 83605; 83735; 84484; 85014; 85018; 85025; 85610; 85730; 86850; 86900; 86901; 86920; 86922; 87040; 87086; 87088; 87426; 88305; 88342; 93005; 97110; 97162; 97166; 97530; 97535; 99251; 99285; J7030; J7040; P9016; A4216; G0463; J0696; J2405

== ENCOUNTER 2020-09-29 15:59 | Emergency (ER) | payer MEDICARE, SELFPAY ==
[2020-09-26 11:35] VITALS: BMI 22.6
[2020-09-29 16:00] VITALS: BP 100/50; PULSE 99; RESP 18; TEMP 36.3; O2SAT 94; BMI 23.6
[2020-09-29] MEDS: Oxymetazoline 0.05% 1 SPRAY SPRAY.BTL 2 SPRAY NASAL (16:37)
--- NOTE | 2020-09-29 17:09 | ED.VISSUMM ---
- ER Visit Summary Date of Service: 09/29/20 Chief Complaint: Right-sided nosebleed History of Present Illness: The patient is a 74 M 3 of insulin-dependent diabetes, hypertension tension, renal insufficiency with nephrostomy tubes chronic anemia with recent transfusion. Is on Plavix and aspirin. Recently had a non-STEMI. Had a nosebleed that began around 11 AM this morning. Right-sided only. Typically does not have significant nosebleeds. Was not having any hematemesis. Are any worse bruising than normal. Physical Examination: Older male. No distress. Initial blood pressure is 100/50 otherwise vital signs are stable afebrile. Accompanied by . H EENT exam pupils round reactive light. No facial trauma. Dried blood in the right nares no active bleeding. Left unremarkable. Minimal blood in the posterior pharynx. Neck nontender. Lungs clear to auscultation. Heart regular rhythm rate about 90. Abdomen soft nontender. Normal bowel sounds no peritoneal signs. Patient is moving all 4 extremities. Neurologically patient is awake alert with no focal motor deficits. Skin is pale. Test Results: His white count of 6. Hemoglobin 8.0 recently was 8.7. Chemistry shows sodium 131 normal potassium. CO2 of 13 BUN of 86 creatinine 4.35 consistent with his chronic worsening renal insufficiency. INR of 1.4. Repeat exam the patient is doing well at 6:15 PM. No active bleeding. Posterior pharynx unremarkable. I remove both cotton balls. There is no blood in the left nares the right is dried blood. I placed a anterior Merocel pack in the right. Nurses will address that. I discussed with the patient and his how to take care of the nasal pack and also there will be an antibiotic. Emergency Department Course and Treatment: Older male with right-sided nosebleed looks pale. IV labs being obtained. Sotero-Synephrine soaked cotton balls been placed in both sides. Treatment Plan: Hold the packing in 3 days which would be . If it rebleeds direct pressure twice if you are unable to get it to stop return to the emergency department. For the 3 days the packing is in you will be on an antibiotic amoxicillin to try to prevent you from developing a sinus infection. Disposition: Discharge Impression: Acute right-sided nosebleed Anterior nasal pack by ER (Merocel pack). History of renal insufficiency History of anemia of chronic disease Anticoagulated on Plavix and aspirin This note was generated with [employer] dictation software. It may contain incorrect words, spelling, and punctuation that were not noted in review of the chart prior to signing ED Disposition - Plan for ED Patient: Referrals: Zan Bryant Chi, MD [Primary Care Provider] -
[2020-09-29 17:48] LABS: Absolute Lymphocyte Count 0.95 X10^3/uL (0.83-4.51); Absolute Neutrophil Count 4.3 X10^3/uL (2.0-7.7); Basophil# 0.06 X10^3/uL; Basophil% 0.9 % (0-1); Eosinophil# 0.53 X10^3/uL; Eosinophils% 7.7 % (0-5); Hematocrit 26.5 % (40-54); Lymphocyte # 0.95 X10^3/ul (4.0); Lymphocyte % 13.9 % (19-41); Mean Corp Hgb Conc 30.2 g/dL (32-36); Mean Corpuscular Hgb 23.5 pg (27.0-32.0); Mean Corpuscular Volume 77.7 fL (80-94); Mean Platelet Vol. 9.1 fl (6.2-12.0); Monocyte# 0.86 X10^3/uL; Monocyte% 12.6 % (0-10); NRBC Flagged by Analyzer 0 % (0-5); Neutrophil # 4.33 X10^3/uL (2.7-7.7); Neutrophil % 63.3 % (47-70); POSITIVE MORPHOLOGY YES; Platelet Count 167 K/mm3 (150-450); RBC Distribution Width SD 60.3 fl (35.1-43.9); Red Blood Count 3.41 M/mm3 (4.6-6.2); White Blood Count 6.8 K/mm3 (4.4-11.0)
[2020-09-29 17:49] LABS: Differential Indicated SCAN CRITERIA MET
[2020-09-29 17:54] LABS: International Normalized Ratio 1.4; Prothrombin Time (Protime)PT. 16.4 SECONDS (11.7-14.9)
[2020-09-29 18:03] LABS: Anion Gap 13 (5-15); BUN 86 mg/dL (7-18); BUN/Creat Ratio 19.8 RATIO (10-20); Calcium,Total 8.5 mg/dL (8.5-10.1); Chloride 105 mmol/L (98-107); Creatinine, Serum 4.35 mg/dL (0.70-1.30); EST Glomerular Filtration Rate 14 mL/min (>60); Est Glom Filt Rate - Afr Amer 17 mL/min (>60); Estimated Creatinine Clearance 16.33 ml/min; Glucose 179 mg/dL (74-106); Potassium 4.5 mmol/L (3.5-5.1); Sodium Level 131 mmol/L (136-145)
--- NOTE | 2020-09-29 18:21 | ED.DEP ---
ED Disposition - Plan for ED Patient: Disposition: Home or Assisted Living Instructions: Nosebleed Prescriptions: Amoxicillin 500 mg PO TID #9 tablet Prescription Printed Referrals: Zan Bryant Chi, MD [Primary Care Provider] - As Needed Additional Instructions: If the right-sided nasal packing out in 3 days. If it rebleeds direct pressure and ice. If you are unable to get it to stop return to the emergency department. Hold your aspirin for the next 2 days. You may use your Plavix. Amoxicillin 1 pill 3 times a day for 3 days to prevent you from getting a sinus infection while the packing is in.
[2020-09-29 18:28] LABS: Differential Comment SCANNED
[2020-09-29 18:38] VITALS: BP 135/82; PULSE 71; RESP 18; O2SAT 97
== END 2020-09-29 18:39 | disposition home or self-care (01) ==
PROVIDERS: Emergency Provider Emergency Medicine; PCP Family Medicine Geriatric Medicine
DX: R04.0 Epistaxis (principal); E10.9 Type 1 diabetes mellitus without complications; Z79.02 Long term (current) use of antithrombotics/antiplatelets; Z79.82 Long term (current) use of aspirin; Z79.4 Long term (current) use of insulin
CPT/HCPCS: 30901; 80048; 85025; 85610; 99282; A4216